=== PATIENT | female | born 1980 | race Caucasian/White ===

== ENCOUNTER 2020-08-09 14:27 | Outpatient (REF) | payer MEDICAID, SELFPAY ==
--- NOTE | 2020-08-09 14:37 | XR_ITS ---
EXAMINATION: XR CHEST CLINICAL INFORMATION: GET+ COMPARISON: Chest x-ray 05/13/2019 TECHNIQUE: 2 views of the chest were obtained. FINDINGS: Cardiac silhouette is normal in size. Lungs are well aerated. There is no lobar consolidation. No pleural effusion or pneumothorax. No acute osseous abnormality. XR/XR chest 2V IMPRESSION: Stable examination demonstrating no acute pulmonary pathology.
== END 2020-08-09 14:28 | disposition home or self-care (01) ==
LOC: HO.LAB 14:27
PROVIDERS: PCP Internal Medicine; Visit Provider Emergency Medicine
DX: R07.9 Chest pain, unspecified (principal); Z86.19 Personal history of other infectious and parasitic diseases
CPT/HCPCS: 71046

== ENCOUNTER → 2020-09-02 14:30 | Outpatient (BNVA) | payer MEDICAID, SELFPAY | PROVIDERS: PCP Internal Medicine; Visit Provider Internal Medicine | DX: R07.2 Precordial pain (principal); R06.02 Shortness of breath; Z86.19 Personal history of other infectious and parasitic diseases | CPT/HCPCS: 93005; 99202 ==

== ENCOUNTER → 2020-09-29 07:46 | Outpatient (REF) | payer MEDICAID, SELFPAY ==
--- NOTE | 2020-09-29 07:44 | CA_ITS ---
Acquisition Time: 2020-09-29 09:38:22 Total Exercise Time: 00:05:23 Test Indications: Chest Discomfort Medications: CITALOPRAM VIT D Protocol: ROLAND Max HR: 164 BPM 90% of Pred: 181 BPM Max BP: 142/080 mmHG Max Work Load: 7.0 METS Exercise stress test with exercise 5 min 23 sec of roland protocol, with mild left chest pressure at baseline which felt like strong fast heart beat with exercise then back to a mild pressure in recovery, without arrythmia during exercise, with sinus arrythmia noted in recovery, with normotensive response to exercise, without EKG changes meeting criteria for ischemia. In recovery she had intermittent coughing present. Lung sounds clear with no wheezes noted. Test reviewed with Dr Menendez. Referred By: Geoff Mccann Overread By: NAVI CHAKRABORTY
--- NOTE | 2020-09-29 07:44 | CA_ITS ---
Transthoracic Echocardiogram Patient (Last, First, Middle): Mykel Ferrer, Gender: Female Date of : 1980 Age: 39 Procedure Date: 09/29/2020 Procedure Type: Transthoracic Echocardiogram Location: OP Height: 160.02 cm Weight: 86.18 kg BSA: 1.89 m2 Heart Rate: bpm BP: 122 / 68 mmHg Industrial Engineering Director: Referring MD: Geoff Mccann MD Salvage Diver: Janes Menendez MD Symptoms: R07.2 - Precordial pain Study Quality: Good ECG Rhythm: Sinus Conclusions: - Essentially normal study Findings Left Ventricle Normal left ventricular size, thickness, and systolic function. The visually estimated ejection fraction is between 60-65%. Diastolic function is normal for age. Right Ventricle Normal right ventricular cavity size and systolic function. Atria Both atria are normal in size. There is no evidence of interatrial shunt. Aortic Valve The aortic valve structure and function is likely normal. There is no aortic valve stenosis. There is no aortic valve regurgitation. Mitral Valve Normal mitral valve structure and function. There is trace mitral valve regurgitation. There is no mitral valve stenosis. Pulmonic Valve The pulmonic valve is likely normal. Tricuspid Valve Likely normal tricuspid valve structure and function. There is trace tricuspid valve regurgitation. The right ventricular systolic pressure is normal. The right ventricular systolic pressure is 23 mmHg. Normal right atrial pressure. There is no evidence of pulmonary hypertension. Great Vessels All visible segments of the aorta are normal in size. The pulmonary artery was not well visualized. Venous The inferior vena cava is normal in size and collapses greater than 50% with inspiration. Pericardium/Pleural There is no evidence of pericardial effusion. Prior Study Comparison No prior study available for comparison. Measurements 2D Linear Measurements IVSd: 1.08 0.6-0.9/0.6-1.0 cm LVIDd: 4.03 3.9-5.3/4.2-5.9 cm LVIDd Index: 2.13 2.4-3.2/2.2-3.1 cm/m2 LVIDs: 2.77 2.0-3.6 cm LVPWd: 1.10 0.7-1.1 cm Ao Root: 3.00 2.1-3.5 cm LA Diam: 3.50 2.7-3.8/3.0-4.0 cm LAIDs Index: 1.85 1.5-2.3 cm/m2 LV Mass: 180.99 67-162/88-224 g LV Mass Index: 95.76 43-95/49-115 g/m2 LVOT Diam: 2.10 3.0+(-)1.3 cm 2D Systolic Function EF 4C: 63.90 >55% EF 2C: 64.30 >55% EF BiP: 63.40 >55% Mitral Valve MV Pk E: 0.88 MV PK A: 0.66 MV Decel Time: 194.00 E/A: 1.30 E'Lateral: 16.40 E'Medial: 11.60 E/E' Med: 7.60 E/E' Lat: 5.40 PHT: 57.00 MVA PHT: 3.86 Decel [place]: 4.53 Aortic Valve AoV Pk Isiah: 1.54 AoV Mn Isiah: 1.06 AoV VTI: 0.36 AoV Pk Grad: 9.00 Aov Mn Grad: 5.00 CALLUM Cont.VTI: 2.52 LVOT LVOT Pk Isiah: 1.09 LVOT Mn Isiah: 0.73 LVOT VTI: 0.27 LVOT Pk Grad: 5.00 LVOT Mn Grad: 2.00 LVOT Diam: 2.10 LVOT Area: 3.46 Diastolic Function MV Pk E: 0.88 MV Pk A: 0.66 E/A: 1.30 E'Medial: 11.60 E/E' Med: 7.60 E' Laterial: 16.40 E/E' Lat: 5.40 Tricuspid Valve TR Pk Isiah: 2.24 TR Pk Grad: 20.00 RA Press: 3.00 RVSP: 23.00 Great Vessels Aorta Ao Root-2D: 3.00 2.0-3.7 cm Ao Asc: 2.80 2.1-3.4 cm Pulmonary Valve PV Pk Isiah: 0.98 Peak PV Grad: 4.00 Updated in Other Vendor System with Status of Final Janes Menendez MD electronically signed on 09/29/2020 3:44:40 PM with status of Final
== END ==
LOC: HO.CARD 07:46
PROVIDERS: PCP Internal Medicine; Visit Provider Internal Medicine
DX: R07.2 Precordial pain (principal)
CPT/HCPCS: 93017; 93306

== ENCOUNTER → 2020-10-06 13:42 | Outpatient (BNVA) | payer MEDICAID, SELFPAY | PROVIDERS: PCP Internal Medicine; Visit Provider Nurse Practitioner Family | DX: R07.2 Precordial pain (principal); R06.02 Shortness of breath; R00.2 Palpitations; Z86.16 Personal history of COVID-19 | CPT/HCPCS: 99212 ==

== ENCOUNTER → 2020-10-28 08:22 | Outpatient (REF) | payer MEDICAID, SELFPAY ==
--- NOTE | 2020-10-28 15:44 | ECG_ITS ---
Hook-up date: 2020-10-28 09:52:00 Duration: 26:09:00 Test Indications: PALPITATIONS, SOB Medications: [id number] QRS complexes * Ventricular ectopics which represent % of total QRS comp. 1 Supraventricular ectopics which represent <1 % of total QRS comp. * Paced QRS complexs which represent % of total QRS comp. VENTRICULAR ECTOPY * Isolated * Bigeminal Cycles * Couplets * Runs * Beats in Runs * Beats LONGEST at * BPM at :: -- * Beats FASTEST at * BPM at :: -- SUPRAVENTRICULAR ECTOPY 1 Isolated 0 Couplets 0 Runs 0 Beats in Runs * Beats LONGEST at * BPM at :: -- * Beats FASTEST at * BPM at :: -- HEART RATES 55 MIN at 05:11:58 2020-10-29 90 AVG 162 MAX at 15:06:58 2020-10-28 LONGEST RR 1.1360 secs at 05:11:55 2020-10-29 S-T LEVELS Channel 1 - 128 mm at 09:52:00 2020-10-28 - 128 mm at 09:52:00 2020-10-28 Channel 2 - 128 mm at 09:52:00 2020-10-28 - 128 mm at 09:52:00 2020-10-28 Channel 3 - 128 mm at 02:91:11 -- - 128 mm at 02:91:11 Basic rhythm Normal sinus rhythm No long pause or profound bradycardia Frequent Sinus tachycardia No dangerous dysrhythm periods No diary submitted Referred By: Kathy Yates Overread By: DEVIKA CIFUENTES MD
== END ==
LOC: HO.CARD 08:22
PROVIDERS: PCP Internal Medicine; Visit Provider Nurse Practitioner Family
DX: R00.2 Palpitations (principal); R06.02 Shortness of breath
CPT/HCPCS: 93226

== ENCOUNTER → 2020-11-17 10:20 | Outpatient (BNVA) | payer MEDICAID, SELFPAY | PROVIDERS: PCP Internal Medicine; Visit Provider Nurse Practitioner Family ==

== ENCOUNTER 2020-11-22 07:40 | Emergency (ER) | payer MEDICAID, SELFPAY ==
--- NOTE | 2020-11-22 | ECG_ITS ---
Test Reason : BACK PAIN Blood Pressure : / mmHG Vent. Rate : 078 BPM Atrial Rate : 078 BPM P-R Int : 158 ms QRS Dur : 082 ms QT Int : 396 ms P-R-T Axes : 060 -05 064 degrees QTc Int : 451 ms Normal sinus rhythm Normal ECG When compared with ECG of 13-AUG-2019 07:57, No significant change was found Referred By: Generic ED Physician Electronically Signed By:CARMENCITA THAKKAR
[2020-11-22 08:07] VITALS: BP 133/89; PULSE 76; RESP 14; TEMP 36.7; O2SAT 99; BMI 37.2
--- NOTE | 2020-11-22 08:16 | ED.BACK ---
HPI - Back Pain/Injury General Chief Complaint: Back Pain/Injury Stated Complaint: shoulder and neck pain into shoulders Time Seen by Provider: 11/22/20 08:12 Source: patient Mode of arrival: ambulatory Limitations: no limitations History of Present Illness HPI Narrative: [age] year female walked into the emergency department with upper back/neck pain started while she was combing her hair and elevating her bilateral arms, patient describes the pain started in the upper back radiate and wraparound the chest, patient describes the pain as intermittent comes with moving upper extremities/panic or elevate her bilateral upper extremities. Pain is not exertional, no other associated symptoms in particular no shortness of breath, pain is better if she is not moving. Was recommended to the patient to have mammogram because of left-sided breast pain patient was encouraged to call back and try to schedule for mammogram. Related Data Home Medications Medication Instructions Recorded Confirmed cholecalciferol (vitamin D3) 50 50 mcg PO DAILY 09/02/20 11/17/20 mcg (2,000 unit) capsule citalopram 20 mg tablet 20 mg PO DAILY 09/02/20 11/17/20 Previous Rx's Medication Instructions Recorded cyclobenzaprine 10 mg PO BEDTIME PRN #10 tab 11/22/20 Allergies Allergy/AdvReac Type Severity Reaction Status Date / Time levofloxacin [From LEVAQUIN] Allergy Intermediate RASH Verified 09/02/20 14:39 codeine [Codeine] Allergy Unknown NAUSEA AND Verified 09/02/20 14:39 VOMITING, sensitivity ibuprofen Allergy Unknown sensitivity Verified 09/02/20 14:39 morphine [Morphine] Allergy Unknown HEADACHE, Verified 09/02/20 14:39 vomiting, sensitivity naproxen [From NAPROSYN] Allergy Unknown HIVES, Verified 09/02/20 14:39 DIFFICULTY BREATHING. Sulfa (Sulfonamide Allergy Unknown unknown Verified 09/02/20 14:39 Antibiotics) Review of Systems Review of Systems: All other systems are reviewed and are negative Constitutional: Reports as per HPI and Reports no additional constitutional complaints Eyes: Reports as per HPI and Reports no additional eye complaints Reports system reviewed and no additional complaints, except as documented Cardiovascular: Reports as per HPI and Reports no additional cardiovascular complaints Respiratory: Reports as per HPI and Reports no additional respiratory complaints Gastrointestinal: Reports as per HPI and Reports no additional gastrointestinal complaints Genitourinary: Reports no additional female genitourinary complaints Musculoskeletal: Reports no additional musculoskeletal complaints Skin/Breast: Reports system reviewed and no additional complaints, except as docu Psychiatric: Reports no additional psychiatric complaints Endocrine: Reports no additional endocrine complaints Hematologic/Lymphatic: Reports no additional hematologic/lymphatic complaints Allergic/Immunologic: Reports no additional allergic/immunologic complaints Reports system reviewed and no additional complaints, except as documented and Reports Abnormal speech present [facility] Past Medical History Medical History History of 2019 novel coronavirus disease (COVID-19) Palpitation Surgical History History of sinus surgery (~2020) Family History Family History Father History of heart artery stent History of heart attack Mother CVA (cerebral vascular accident) Social History Social History Alcohol intake: former Smoking Status: Light tobacco smoker Use of substances other than those prescribed or required for medical reasons: No Advance Directives: No Advance Directives Information Provided: No Physical Exam Vital Signs: Vital Signs: Last Vital Signs Temp 98.1 F 11/22/20 08:07 Pulse 76 11/22/20 08:07 Resp 14 11/22/20 08:07 BP 133/89 11/22/20 08:07 Pulse Ox 99 11/22/20 08:07 Body Mass Index 37.2 Vital signs have been reviewed as appeared to be correct. Blood pressure normal. Heart rate normal. Respiration rate normal. Temperature normal. Oxygen saturation normal. Appearance: Alert. Oriented X3. No acute distress. Head: Normal external exam. Normocephalic. Atraumatic. No Farris signs noted. No raccoon eyes noted Eyes: PERRLA. EOMI. Conjunctiva and sclera normal. Eyelids normal. ENT: TM's Normal. Pharynx normal. Uvula midline. Moist mucous membranes. No trismus noted. No drooling noted. No muffled voice noted. Neck: Normal inspection. Neck supple. FROM. No adenopathy. Thyroid Normal. No meningeal signs. No neck mass noted. CVS: Normal heart rate and rhythm. Heart sound normal. No murmurs noted. Pulses normal throughout. Respiratory: No respiratory distress. Painless inspiration. Breath sounds normal. No wheezes/rales/rhonchi noted. Chest nontender. No accessory muscle usage noted or decreased air movement noted. Abdomen: Soft and nontender. Bowel sounds normal in all 4 quadrants. No distention noted. No organomegaly noted. No visible injury noted. Back: No CVA tenderness. Full range of motion noted. Skin: Skin warm and dry. Normal skin color. Normal skin turgor. No rashes/lesions/lacerations noted. Extremities: No lower extremity edema. Extremities exhibit normal range of motion. Extremities nontender. Neuro: Oriented X 3. No motor deficit. No sensory deficit. Reflexes normal. Course Course Course Narrative: Assessment and plan. 40-year-old female came in with neck/upper back pain that radiates to the chest, started 3 days ago, patient has unremarkable EKG, unremarkable troponin, unremarkable D-dimer, patient has no clinical suspicion for cardiopulmonary etiology for her chest pain. Impression muscular pain of the back radiating to the chest. As discussed with the patient to call back to try to schedule for routine mammogram. Will discharge the patient with muscle relaxant and Tylenol p.r.n.. MDM - Back Pain/Injury Lab Data Attestation: I reviewed the patient's lab results. Labs: Lab Results 11/22/20 11/22/20 Range/Units 08:49 08:49 D-Dimer < 200 NG/ML Troponin I High Sens < 3.5 (<3.5-17.0) ng/L ECG Data Interpretation: Normal sinus rhythm at 78 beats per minutes, left axis deviation, normal intervals, no ST-T changes. Discharge Plan Discharge Clinical Impression: Sprain of thoracic region Patient Disposition: Home, Self-Care Instructions: Sprain (ED) Prescriptions: New cyclobenzaprine 10 mg tablet 10 mg PO BEDTIME PRN (Reason: muscle spasm) Qty: 10 RF: 0 No Action cholecalciferol (vitamin D3) 50 mcg (2,000 unit) capsule 50 mcg PO DAILY RF: 0 citalopram [Celexa] 20 mg tablet 20 mg PO DAILY RF: 0 Referrals: Tadeo Alvarado MD [Primary Care Provider] - 2 days
[2020-11-22] MEDS: diazePAM 2 MG TABLET PO (08:47)
[2020-11-22] MEDS: Acetaminophen 325 MG TABLET 650 MG PO (08:47)
[2020-11-22 09:12] LABS: D Dimer < 200 NG/ML
[2020-11-22 09:28] LABS: Troponin-I High Sensitivity < 3.5 ng/L (<3.5-17.0)
== END 2020-11-22 10:02 | disposition home or self-care (01) ==
PROVIDERS: Emergency Provider Emergency Medicine; PCP Internal Medicine
DX: S23.3XXA Sprain of ligaments of thoracic spine, initial encounter (principal); X50.1XXA Overexertion from prolonged static or awkward postures, initial encounter; F17.210 Nicotine dependence, cigarettes, uncomplicated; Y93.E8 Activity, other personal hygiene; Y92.012 Bathroom of single-family (private) house as the place of occurrence of the external cause; Y99.9 Unspecified external cause status; Z86.16 Personal history of COVID-19
CPT/HCPCS: 36415; 84484; 85379; 93005; 99283; 99284

== ENCOUNTER 2020-12-14 13:33 | Outpatient (REF) | payer MEDICAID, SELFPAY ==
--- NOTE | ~2020-12-14 | MM_ITS ---
Bilateral EXAMINATION: MM DIAGNOSTIC DIGITAL BREAST TOMOSYNTHESIS, BILATERAL US DIAGNOSTIC ULTRASOUND BREAST, BILATERAL CLINICAL INFORMATION: 40-year-old with left breast pain and tenderness 2-3 months. No known family history breast cancer. The lifetime risk of breast cancer based on the Tyrer-Cuzick Model is 8%. COMPARISON: Mammography: 05/14/2014 TECHNIQUE: Digital breast tomosynthesis is performed in both the craniocaudal and mediolateral oblique views along with computer-aided detection (CAD). Synthesized 2D images are generated from the tomosynthesis. Additional left MLO view is provided. Ultrasound left breast is targeted to the area of clinical concern upper outer quadrant. Ultrasound right breast is also performed for retroareolar duct ectasia noted on today's mammography. Bilateral ultrasound performed using grayscale imaging and color Doppler without and with harmonics. FINDINGS: There are scattered areas of fibroglandular density (ACR BI-RADS breast composition Category b). There is no significant mass or architectural abnormality. No abnormal calcifications. The breasts show no skin thickening or coarsening of the Ousmane's ligaments. There is right retroareolar duct ectasia, not appreciated on prior exam 2013. Ultrasound left breast shows no cystic or solid mass, architectural abnormality, or focal duct ectasia. There is no skin thickening or edema tracking in the soft tissue planes. Ultrasound right breast demonstrates some benign retroareolar duct ectasia measuring up to 5 mm in diameter. No intraductal echogenicity, mass, or color flow. Additional unrelated finding on right ultrasound is an oval complicated cyst 8:00 position 6 to 7 cm from nipple measuring 1.2 x 0.5 cm. There are branching internal septations which show color flow on Doppler. Ultrasound guided core sampling is recommended to exclude intracystic papilloma. Results are discussed with the patient at time of visit. Results and recommendation called to medical technologist clinical ([place]) for Dr. Fernando on 12/15/2020. MM/MM tomosynthesis diagnostic BI IMPRESSION: 1. No mammographic evidence of malignancy or inflammatory changes. 2. Right breast complicated cyst with vascularized internal septations. ASSESSMENT: BI-RADS 4: Suspicious (subcategory 4A: Low suspicion for malignancy) RECOMMENDATION: 1. Ultrasound-guided core biopsy complicated cyst right breast. 2. Patient's mastodynia should be managed based on the clinical impression. This patient's information was entered into a reminder system with a target due date for their next mammogram.
== END 2020-12-14 13:34 | disposition home or self-care (01) ==
LOC: HO.MAMMO 13:33
PROVIDERS: PCP Internal Medicine; Visit Provider Family Medicine
DX: N64.4 Mastodynia (principal)
CPT/HCPCS: 76642; 77062; 77066

== ENCOUNTER 2020-12-29 09:13 | Outpatient (REF) | payer MEDICAID, SELFPAY ==
--- NOTE | ~2020-12-29 | US_ITS ---
PROCEDURE: US GUIDED BREAST BIOPSY, RIGHT CLINICAL INFORMATION: Indeterminate complex cyst with internal vascularity COMPARISON: December 14, 2020 and studies dating back to May 14, 2014 PROCEDURAL DETAILS: The details of the procedure, as well as the risks, benefits, and alternatives to the procedure were explained to the patient in detail and all of her questions were answered, after which written informed consent was obtained. Site and side were confirmed. Prior to the procedure, sonography revealed a complex cyst with septations and vascular calcification within the septations.. A time-out was performed, the lesion intended for biopsy was targeted, and the skin of the breast was then prepped and draped in the usual sterile fashion. Using sonographic guidance, sterile technique, and 1% lidocaine without epinephrine for local anesthesia, multiple automated core biopsies were obtained through the targeted area with a 14G spring loaded Achieve core biopsy device. There was real-time confirmation of appropriate needle passage. Sampling was documented. At the completion of tissue sampling, a single butterfly-shaped metallic clip was deposited at the biopsy site. There was no evidence of immediate complication. SPECIMEN: An appropriate sample was obtained. DIGITAL POST-PROCEDURE MAMMOGRAPHY: Breast density: The tissue contains scattered areas of fibroglandular density. BI-RADS version 5, category B. There are no new mammographic findings demonstrated. The postprocedure 2-view direct digital mammogram reveals satisfactory positioning of the biopsy clip. The patient tolerated the procedure well and, after assuring adequate hemostasis, was discharged in good condition after reviewing postbiopsy breast care instructions. Final pathology results are pending. US/US breast ndl core biopsy RT IMPRESSION: 1. No immediate complication from ultrasound-guided percutaneous biopsy right breast. 2. Ultrasound was used to localize and guide marker clip placement. 3. The 2-view direct digital postprocedure mammogram reveals satisfactory positioning of the biopsy clip. 4. Final pathology results are pending. A separate report with final recommendations will be issued once these results are made available.
--- NOTE | ~2020-12-29 | MM_ITS ---
EXAMINATION: MM DIAGNOSTIC DIGITAL MAMMOGRAPHY, DIGITAL POST-PROCEDURE MAMMOGRAPHY: Breast density: The tissue contains scattered areas of fibroglandular density. BI-RADS version 5, category B. There are no new mammographic findings demonstrated. The postprocedure 2-view direct digital mammogram reveals satisfactory positioning of the biopsy clip. The patient tolerated the procedure well and, after assuring adequate hemostasis, was discharged in good condition after reviewing postbiopsy breast care instructions. Final pathology results are pending. MM/MM diagnostic mammo unilat RT IMPRESSION: 1. No immediate complication from ultrasound-guided percutaneous biopsy right breast. 2. Ultrasound was used to localize and guide marker clip placement. 3. The 2-view direct digital postprocedure mammogram reveals satisfactory positioning of the biopsy clip. 4. Final pathology results are pending. A separate report with final recommendations will be issued once these results are made available.
== END 2020-12-29 09:14 | disposition home or self-care (01) ==
LOC: HO.MAMMO 09:13
PROVIDERS: Visit Provider Surgery
DX: N63.13 Unspecified lump in the right breast, lower outer quadrant (principal); N64.4 Mastodynia; E66.01 Morbid (severe) obesity due to excess calories
CPT/HCPCS: 19083; 77065; 88305; 99202

== ENCOUNTER → 2021-01-05 11:15 | Outpatient (BNVA) | payer MEDICAID, SELFPAY | PROVIDERS: PCP Internal Medicine; Referring Provider Internal Medicine; Visit Provider Surgery | DX: N63.0 Unspecified lump in unspecified breast (principal) | CPT/HCPCS: 99212 ==

== ENCOUNTER 2021-02-07 00:01 | Emergency (ER) | payer MEDICAID, SELFPAY ==
[2021-02-07 00:07] VITALS: BP 112/70; BP 115/76; PULSE 104; PULSE 110; RESP 18; TEMP 36.7; O2SAT 96; BMI 39.3
--- NOTE | 2021-02-07 01:00 | PC.NURSE ---
Patient transferred from ED to POD Bed 6. Pt transferred via stretcher due to refusing to ambulate. Pt was occasionally thrashing and screaming while in stretcher. Security at bedside, assisted with transferring patient from stretcher to bed in [facility]. Pt was changed over prior to transfer to POD, and is in hospital attire that was searched and secured in Pod locker #6. Offered beverages, food, and medications to help patient maintain behavioral control. After transfer to new bed, pt was immediately calm without any additional intervention. Pt stopped screaming, thrashing, and is now calm/cooperative. Pt ambulated with steady gait and provided urine specimen, which was sent to lab for analysis (awaiting results). Pt medicated with Zofran 4mg sublingual for nausea without issue. Pt now resting comfortably on side, falling asleep. Will continue to monitor.
--- NOTE | 2021-02-07 01:02 | ED.PSYCH ---
HPI - Psych General Chief Complaint: Psychiatric Symptoms Stated Complaint: ETOH W/VOMITING Time Seen by Provider: 02/07/21 00:43 Source: patient and EMS Mode of arrival: EMS History of Present Illness HPI Narrative: This is a 40-year-old female who is brought in by EMS and reported to have been intoxicated and on questioning the patient she states that she ?feels like she is going crazy? and endorses that she is hearing voices and states that she is having thoughts of suicide and her plan would be to overdose on her current prescription medications such as Seroquel. She denies ever having been hospitalized for psychiatric conditions before and states that she engaged in superficial cutting approximately 2 weeks ago and was not seen and states that it has since healed. Related Data Home Medications Medication Instructions Recorded Confirmed lamotrigine 100 mg tablet 100 mg PO DAILY 12/29/20 02/07/21 cholecalciferol (vitamin D3) 1 cap PO DAILY 02/07/21 02/07/21 [Vitamin D3] citalopram 1 tab PO DAILY 02/07/21 02/07/21 prazosin 1 cap PO BEDTIME 02/07/21 02/07/21 quetiapine [Seroquel] 1 tab PO BEDTIME 02/07/21 02/07/21 Previous Rx's Medication Instructions Recorded cyclobenzaprine 10 mg PO BEDTIME PRN #10 tab 11/22/20 Allergies Allergy/AdvReac Type Severity Reaction Status Date / Time levofloxacin [From LEVAQUIN] Allergy Intermediate RASH Verified 02/07/21 03:27 codeine [Codeine] Allergy Unknown NAUSEA AND Verified 02/07/21 03:27 VOMITING, sensitivity ibuprofen Allergy Unknown sensitivity Verified 02/07/21 03:27 morphine [Morphine] Allergy Unknown HEADACHE, Verified 02/07/21 03:27 vomiting, sensitivity naproxen [From NAPROSYN] Allergy Unknown HIVES, Verified 02/07/21 03:27 DIFFICULTY BREATHING. Sulfa (Sulfonamide Allergy Unknown unknown Verified 02/07/21 03:27 Antibiotics) Review of Systems Review of Systems: Pertinent positives and negatives as stated in HPI 10 point review of systems is otherwise negative. PMFSH Past Medical History Source: nursing notes reviewed Medical History Bipolar disorder Breast mass History of 2019 novel coronavirus disease (COVID-19) Morbid obesity Palpitation Surgical History History of sinus surgery (~2020) Family History Family History Father History of heart artery stent History of heart attack Mother CVA (cerebral vascular accident) Paternal Grandmother Bone cancer Paternal Uncle Cancer of unknown origin Social History Social History Alcohol intake: current Alcohol intake frequency: a few times a week Patient Tobacco Use Status: Never used Tobacco Use of substances other than those prescribed or required for medical reasons: Yes Substance Use Type: Marijuana Advance Directives: No Advance Directives Information Provided: Yes Patient : No Physical Exam Vital Signs: Vital Signs: Last Vital Signs Temp 98.1 F 02/07/21 00:07 Pulse 110 H 02/07/21 00:07 Resp 18 02/07/21 00:07 BP 115/76 02/07/21 00:07 Pulse Ox 96 02/07/21 00:07 Body Mass Index 39.3 VITAL SIGNS: Reviewed. GENERAL: Well developed, well nourished, in no acute distress. HEAD: Normocephalic/atraumatic EYES: PERRLA, EOMI OROPHARYNX: no oral lesions noted, posterior pharynx clear NECK: Supple, no adenopathy LUNGS: Normal breath sounds. No adventitious sounds or accessory muscle use. SpO2<96> CARDIOVASCULAR: Regular rate and rhythm without noted murmurs ABDOMEN: Obese, Soft, non-tender, non-distended with bowel sounds. NEUROLOGIC: Alert and oriented x 4. Course Course Course Narrative: This is a 40-year-old female with history and clinical presentation consistent with substance use, AVH, depression and SI. Review of all investigations without acute findings other than evidence of cocaine and marijuana use. Patient is otherwise medically stable for further evaluation by the behavioral team. Reevaluation(s) Reevaluation #1: Patient placed in physician observation because the patient needed more time for BHN. At the time observation was started the patient's vital signs were stable, patient is alert and oriented but slightly agitated, neuro: Nonfocal, CV RRR, lungs clear Time: 01:45 MDM - Psych Lab Data Result diagrams: 02/07/21 02:30 02/07/21 02:30 Labs: Lab Results 02/07/21 02/07/21 02/07/21 Range/Units 01:04 01:04 01:04 WBC (4.8-10.8) X10*3/uL RBC (4.20-5.50) X10*6/uL Hgb (12.0-16.0) g/dl Hct (37-47) % MCV (80-98) fL MCH (27.0-33.0) pg MCHC (31.0-35.0) g/dl RDW (11.0-16.0) % Plt Count (160-400) X10*3/uL MPV (9.4-12.3) fL Immature Gran % (Auto) (0.0-0.4) % Neut % (Auto) (45-73) % Lymph % (Auto) (20-40) % [place] % (Auto) (2-11) % Eos % (Auto) (0-4) % Baso % (Auto) (0-2) % Lymph # (Auto) (1.2-4.9) X10*3/uL [place] # (Auto) (0.1-1.2) X10*3/uL Eos # (Auto) (0.0-0.4) X10*3/uL Baso # (Auto) (0.0-0.2) X10*3/uL Abs Immat Gran (auto) (0.00-0.03) X10*3/uL Absolute Neuts (auto) (2.0-8.3) X10*3/uL Absolute Nucleated RBC (0.0-0.012) X10*3/uL Nucleated RBC % (auto) (0.0-0.2) /100WBC Sodium (135-145) mmol/L Potassium (3.3-5.1) mmol/L Chloride (96-108) mmol/L Carbon Dioxide (22-29) mmol/L Anion Gap (12-20) BUN (9-16) mg/dL Creatinine (0.5-1.4) mg/dL Estim Creat Clear Calc Estimated GFR Random Glucose (60-115) mg/dL Calcium (8.4-10.2) mg/dL Total Bilirubin (0.0-1.0) mg/dL AST (5-31) U/L ALT (0-31) U/L Alkaline Phosphatase (39-117) U/L Total Protein (6.5-8.0) g/dL Albumin (3.5-5.0) g/dL Urine Color STRAW Urine Appearance CLEAR Urine pH 5.5 (5.0-8.0) Ur Specific [place] 1.020 (1.005-1.025) Urine Protein NEG (NEG-TRACE) MG/DL Urine Glucose (UA) NEG (NEG) MG/DL Urine Ketones NEG (NEG) MG/DL Urine Blood TRACE (NEG) Urine Nitrite NEG (NEG) Ur Leukocyte Esterase NEG (NEG) Urine RBC 0 (0) /HPF Urine WBC 0-2 (0-4) /HPF Ur Squamous Epith Cells 1+ /LPF Urine Bacteria NONE /LPF Urine Test NEGATIVE (NEGATIVE) Urine Opiates Screen Not Detected (Not Detect) Ur Barbiturates Screen Not Detected (Not Detect) Ur Phencyclidine Scrn Not Detected (Not Detect) Ur Amphetamines Screen Not Detected (Not Detect) U Benzodiazepines Scrn Not Detected (Not Detect) Urine Cocaine Screen POSITIVE H (Not Detect) U Marijuana (THC) Screen POSITIVE H (Not Detect) Ethyl Alcohol mg/dL COVID-19 (MARJAN) (Negative) COVID-19 Clin Com 02/07/21 02/07/21 02/07/21 Range/Units 02:30 02:30 02:30 WBC 8.0 (4.8-10.8) X10*3/uL RBC 4.38 (4.20-5.50) X10*6/uL Hgb 12.5 (12.0-16.0) g/dl Hct 38.3 (37-47) % MCV 87.4 (80-98) fL MCH 28.5 (27.0-33.0) pg MCHC 32.6 (31.0-35.0) g/dl RDW 13.1 (11.0-16.0) % Plt Count 308 (160-400) X10*3/uL MPV 8.8 L (9.4-12.3) fL Immature Gran % (Auto) 0.4 (0.0-0.4) % Neut % (Auto) 61.8 (45-73) % Lymph % (Auto) 31.1 (20-40) % [place] % (Auto) 5.3 (2-11) % Eos % (Auto) 1.0 (0-4) % Baso % (Auto) 0.4 (0-2) % Lymph # (Auto) 2.5 (1.2-4.9) X10*3/uL [place] # (Auto) 0.4 (0.1-1.2) X10*3/uL Eos # (Auto) 0.1 (0.0-0.4) X10*3/uL Baso # (Auto) 0.0 (0.0-0.2) X10*3/uL Abs Immat Gran (auto) 0.03 (0.00-0.03) X10*3/uL Absolute Neuts (auto) 5.0 (2.0-8.3) X10*3/uL Absolute Nucleated RBC 0.000 (0.0-0.012) X10*3/uL Nucleated RBC % (auto) 0.0 (0.0-0.2) /100WBC Sodium 144 (135-145) mmol/L Potassium 4.1 (3.3-5.1) mmol/L Chloride 109 H (96-108) mmol/L Carbon Dioxide 23 (22-29) mmol/L Anion Gap 16 (12-20) BUN 10 (9-16) mg/dL Creatinine 0.73 (0.5-1.4) mg/dL Estim Creat Clear Calc 111.7 Estimated GFR > 60 Random Glucose 102 (60-115) mg/dL Calcium 9.6 (8.4-10.2) mg/dL Total Bilirubin 0.4 (0.0-1.0) mg/dL AST 13 (5-31) U/L ALT 16 (0-31) U/L Alkaline Phosphatase 90 (39-117) U/L Total Protein 6.7 (6.5-8.0) g/dL Albumin 4.5 (3.5-5.0) g/dL Urine Color Urine Appearance Urine pH (5.0-8.0) Ur Specific [place] (1.005-1.025) Urine Protein (NEG-TRACE) MG/DL Urine Glucose (UA) (NEG) MG/DL Urine Ketones (NEG) MG/DL Urine Blood (NEG) Urine Nitrite (NEG) Ur Leukocyte Esterase (NEG) Urine RBC (0) /HPF Urine WBC (0-4) /HPF Ur Squamous Epith Cells /LPF Urine Bacteria /LPF Urine Test (NEGATIVE) Urine Opiates Screen (Not Detect) Ur Barbiturates Screen (Not Detect) Ur Phencyclidine Scrn (Not Detect) Ur Amphetamines Screen (Not Detect) U Benzodiazepines Scrn (Not Detect) Urine Cocaine Screen (Not Detect) U Marijuana (THC) Screen (Not Detect) Ethyl Alcohol 87 mg/dL COVID-19 (MARJAN) (Negative) COVID-19 Clin Com 02/07/21 Range/Units 02:30 WBC (4.8-10.8) X10*3/uL RBC (4.20-5.50) X10*6/uL Hgb (12.0-16.0) g/dl Hct (37-47) % MCV (80-98) fL MCH (27.0-33.0) pg MCHC (31.0-35.0) g/dl RDW (11.0-16.0) % Plt Count (160-400) X10*3/uL MPV (9.4-12.3) fL Immature Gran % (Auto) (0.0-0.4) % Neut % (Auto) (45-73) % Lymph % (Auto) (20-40) % [place] % (Auto) (2-11) % Eos % (Auto) (0-4) % Baso % (Auto) (0-2) % Lymph # (Auto) (1.2-4.9) X10*3/uL [place] # (Auto) (0.1-1.2) X10*3/uL Eos # (Auto) (0.0-0.4) X10*3/uL Baso # (Auto) (0.0-0.2) X10*3/uL Abs Immat Gran (auto) (0.00-0.03) X10*3/uL Absolute Neuts (auto) (2.0-8.3) X10*3/uL Absolute Nucleated RBC (0.0-0.012) X10*3/uL Nucleated RBC % (auto) (0.0-0.2) /100WBC Sodium (135-145) mmol/L Potassium (3.3-5.1) mmol/L Chloride (96-108) mmol/L Carbon Dioxide (22-29) mmol/L Anion Gap (12-20) BUN (9-16) mg/dL Creatinine (0.5-1.4) mg/dL Estim Creat Clear Calc Estimated GFR Random Glucose (60-115) mg/dL Calcium (8.4-10.2) mg/dL Total Bilirubin (0.0-1.0) mg/dL AST (5-31) U/L ALT (0-31) U/L Alkaline Phosphatase (39-117) U/L Total Protein (6.5-8.0) g/dL Albumin (3.5-5.0) g/dL Urine Color Urine Appearance Urine pH (5.0-8.0) Ur Specific [place] (1.005-1.025) Urine Protein (NEG-TRACE) MG/DL Urine Glucose (UA) (NEG) MG/DL Urine Ketones (NEG) MG/DL Urine Blood (NEG) Urine Nitrite (NEG) Ur Leukocyte Esterase (NEG) Urine RBC (0) /HPF Urine WBC (0-4) /HPF Ur Squamous Epith Cells /LPF Urine Bacteria /LPF Urine Test (NEGATIVE) Urine Opiates Screen (Not Detect) Ur Barbiturates Screen (Not Detect) Ur Phencyclidine Scrn (Not Detect) Ur Amphetamines Screen (Not Detect) U Benzodiazepines Scrn (Not Detect) Urine Cocaine Screen (Not Detect) U Marijuana (THC) Screen (Not Detect) Ethyl Alcohol mg/dL COVID-19 (MARJAN) Negative (Negative) COVID-19 Clin Com See Note Discharge Plan Discharge Prescriptions: No Action cyclobenzaprine 10 mg tablet 10 mg PO BEDTIME PRN (Reason: muscle spasm) Qty: 10 RF: 0 citalopram 40 mg tablet 1 tab PO DAILY RF: 0 prazosin 1 mg capsule 1 cap PO BEDTIME RF: 0 quetiapine [Seroquel] 100 mg tablet 1 tab PO BEDTIME RF: 0 cholecalciferol (vitamin D3) [Vitamin D3] 25 mcg (1,000 unit) capsule 1 cap PO DAILY RF: 0 lamotrigine 100 mg tablet 100 mg PO DAILY RF: 0
[2021-02-07 01:15] LABS: Appearance Urine CLEAR; Color Urine STRAW; Glucose Urine UA NEG (NEG); Leukocyte Esterase Urine NEG (NEG); Nitrite Urine NEG (NEG); PH 5.5 (5.0-8.0); Urine Blood TRACE (NEG); Urine Ketones NEG (NEG); Urine Protein NEG (NEG-TRACE)
[2021-02-07 01:21] LABS: RBC Urine 0 /HPF (0); Squamous Epithelial Cell Urine 1+ /LPF; WBC Urine 0-2 /HPF (0-4)
[2021-02-07 01:24] LABS: Amphetamine Screen Urine Not Detected (Not Detect); Barbiturates, Urine Not Detected (Not Detect); Benzodiazepines Screen Urine Not Detected (Not Detect); Cannabinoid Screen Urine POSITIVE (Not Detect); Cocaine Screen Urine POSITIVE (Not Detect); Opiate Screen Urine Not Detected (Not Detect); Phencyclidine Screen Urine Not Detected (Not Detect)
[2021-02-07 02:39] LABS: Basophils Percent Auto 0.4 % (0-2); Eosinophils Absolute Auto 0.1 X10*3/uL (0.0-0.4); Hematocrit 38.3 % (37-47); Hemoglobin 12.5 g/dl (12.0-16.0); Imm Gran Abs Auto 0.03 X10*3/uL (0.00-0.03); Imm Gran Pct Auto 0.4 % (0.0-0.4); Lymphocytes Absolute Auto 2.5 X10*3/uL (1.2-4.9); Lymphocytes Percent Auto 31.1 % (20-40); MANUAL DIFF FLAG NO; Mean Corpuscular HGB Conc 32.6 g/dl (31.0-35.0); Mean Corpuscular Hemoglobin 28.5 pg (27.0-33.0); Mean Corpuscular Volume 87.4 fL (80-98); Mean Platelet Volume 8.8 fL (9.4-12.3); Monocytes Absolute Auto 0.4 X10*3/uL (0.1-1.2); Monocytes Percent Auto 5.3 % (2-11); Neutrophils Percent Auto 61.8 % (45-73); Platelet Count 308 X10*3/uL (160-400); Red Blood Count 4.38 X10*6/uL (4.20-5.50); Red Cell Distribution Width 13.1 % (11.0-16.0)
[2021-02-07 02:53] LABS: COVID-19 Test Negative (Negative); IDNOW Serial# 9DD0AD1C
[2021-02-07 02:56] LABS: Ethanol 87 mg/dL
[2021-02-07 03:05] LABS: Alanine Aminotransferase 16 U/L (0-31); Albumin Level 4.5 g/dL (3.5-5.0); Alkaline Phosphatase 90 U/L (39-117); Anion Gap 16 (12-20); Aspartate Amino Transferase 13 U/L (5-31); Bilirubin Total 0.4 mg/dL (0.0-1.0); Blood Urea Nitrogen 10 mg/dL (9-16); Calcium 9.6 mg/dL (8.4-10.2); Carbon Dioxide 23 mmol/L (22-29); Chloride 109 mmol/L (96-108); Creatinine Clr Calc Pharmacy 111.7; Estimated Glomerular Filt Rate > 60; Glucose Random 102 mg/dL (60-115); Potassium 4.1 mmol/L (3.3-5.1); Sodium 144 mmol/L (135-145); Total Protein 6.7 g/dL (6.5-8.0)
[2021-02-07 03:33] LABS: UPreg QC Valid YES
[2021-02-07 03:36] LABS: Urine Pregnancy NEGATIVE (NEGATIVE)
[2021-02-07] MEDS: Acetaminophen 325 MG TABLET 650 MG PO (04:49)
--- NOTE | 2021-02-07 07:30 | PC.NURSE ---
report taken from aayush garcia pt given breakfast tray, ambulating w smooth steady gait to restroom. auroratm.
[2021-02-07] MEDS: lamoTRIgine 100 MG TABLET PO (08:54)
[2021-02-07] MEDS: Escitalopram Oxalate 20 MG TABLET PO (08:54)
[2021-02-07] MEDS: Cholecalciferol (Vitamin D3) 25 MCG TABLET PO (08:54)
--- NOTE | 2021-02-07 09:21 | PC.NURSE ---
pt appears to be medically cleared, pt report faxed to [facility] for crisis referral.
--- NOTE | 2021-02-07 10:43 | PC.NURSE ---
pt asking about appt she may have had w joe in [place], given permission to ask bhn about appt. given number for office where appt is scheduled by n, number given to pt to call and advocate for herself. educated by this rn about bhn and crisis eval process, pt agreeable and cooperative.
[2021-02-07 10:52] VITALS: BP 109/79; PULSE 88; RESP 16; TEMP 36.6; O2SAT 98
--- NOTE | 2021-02-07 11:31 | MHC.CARE ---
1030: Pt reports increasing depression and anxiety related to her present living conditions. Pt stated that she has multiple family members currently residing in her home, which limits her ability for ?alone? time, which she uses to process her thoughts. Pt stated that she will often take her 2 children and go to her boyfriend?s house to some alone time but at times her boyfriend, and now his sister are there and they are intolerant at times with her and her children. This has been anxiety provoking. Pt reports auditory hallucinations, and reports them being circumstantial, occurring when she is angry or overwhelmed and being magnified by substance use. Pt is not presently experiencing any hallucinations. Pt reports consuming alcohol, liquor and beer, yesterday evening in quantities sufficient enough to produce intoxication. At some point in time, someone called an ambulance for her which resulted in her being here. Pt stated that she had suicidal ideations, and attributes these to her consumption of alcohol and cocaine. By pt report, she has a history of SI with no prior attempts, stating that these thoughts come and go. Pt reports no SI at present and was able to contract for safety. Pt stated that she had Covid in July and has not felt the same physically or mentally since. Pt believes Covid may have magnified her mental health symptoms. Pt has a therapist and prescriber that she sees regularly. Pt reports being compliant with medication as prescribed. Pt reports no thoughts of harm to self or others at present. The plan is for the pt to be discharged after meeting with the Recovery team to explore resources to assist her with her substance use. Pt?s nurse RN José Manuel Castillo and PILAR Bond have been consulted and are in agreement with the plan.
--- NOTE | 2021-02-07 11:42 | MHC.RECOVSUP ---
Recovery Support note: Patient is a 40 year old Qatari speaking female who presented to [facility] due to SI while intoxicated. CARE Team evaluated patient and cleared patient for discharge. This ad copy writer met with patient to discuss her substance use and recovery supports. Patient reports she alcohol and cocaine use. Patient reports she typically only drinks 1-2 beers a couple times a week and that she rarely drinks liquor. Patient reports she was at a [employer] yesterday and drank liquor while she was there. Patient reports this was a rare occasion and that her alcohol use and under control and not problematic. Patient reports using cocaine several days a week and she is interested in stopping entirely. Patient report she has been moderately successful in reducing her consumption. Patient reports she is supported by friends and her father, and an outpatient therapist. Discussed recovery centers and recovery coaching with patient. Patient expressed interest and met with Respiratory Scientist, Rashad. Patient has been referred to recovery coaching and a project manager/team coach will contact her later on this week. Discussed case with CARE Team.
--- NOTE | 2021-02-07 12:00 | PC.NURSE ---
pt evaluated by care team and seen by recovery coaches, plan for discharge home att. wctm.
--- NOTE | 2021-02-07 12:14 | MHC.RECOVSUP ---
? Reason for consult:Continuity of care o Current location: [facility] o Identified substance use concern: Cocaine/ETOH - Support ? Intervention: o MAT started or to be started o Community resources provided o Harm reduction discussion ? Plan: o Referral to CC o Patient to follow up with HF after discharge ? Additional information: Patient referred to the CCC, pt.about to be discharged. Had a conversation about harm reduction, pt.going to f/u with [facility].
== END 2021-02-07 12:29 | disposition home or self-care (01) ==
PROVIDERS: Emergency Provider Student in an Organized Health Care Education/Training Program
DX: F33.1 Major depressive disorder, recurrent, moderate (principal); R45.851 Suicidal ideations; F10.10 Alcohol abuse, uncomplicated; Y90.9 Presence of alcohol in blood, level not specified; F14.10 Cocaine abuse, uncomplicated; F12.10 Cannabis abuse, uncomplicated; Z20.822 Contact with and (suspected) exposure to COVID-19; Z79.899 Other long term (current) drug therapy
CPT/HCPCS: 36415; 80053; 80307; 81001; 81025; 82077; 85025; 87635; 99285

== ENCOUNTER 2021-02-12 11:46 | Emergency (ER) | payer MEDICAID, SELFPAY ==
--- NOTE | ~2021-02-12 | XR_ITS ---
EXAMINATION: XR KNEE, LEFT CLINICAL INFORMATION: Left knee pain COMPARISON: None TECHNIQUE: Four views of the left knee. FINDINGS: Bones and soft tissues are normal. No fracture or joint effusion. Alignment is anatomic. Joint spaces are well maintained. No abnormal soft tissue calcification. XR/XR knee LT 4V IMPRESSION: Normal left knee.
[2021-02-12 12:27] VITALS: BP 118/80; PULSE 93; RESP 16; TEMP 37.1; O2SAT 96; BMI 38.0
--- NOTE | 2021-02-12 13:40 | ED.LOWEXIN ---
HPI - Extremity Injury (Lower) General Chief Complaint: Extremity Injury, Lower Stated Complaint: L KNEE PAIN Time Seen by Provider: 02/12/21 13:40 Source: patient Mode of arrival: ambulatory Limitations: no limitations History of Present Illness HPI Narrative: Patient is a 40-year-old female no significant past medical history who presents with 2 days of left knee pain. She cannot recall specific injury but said when she was walking a few days ago she might have heard a click. She is able to ambulate on it and has it wrapped with an Jose De Jesus bandage currently. She denies any fevers or rash in the area. Related Data Home Medications Medication Instructions Recorded Confirmed lamotrigine 100 mg tablet 100 mg PO DAILY 12/29/20 02/07/21 cholecalciferol (vitamin D3) 1 cap PO DAILY 02/07/21 02/07/21 [Vitamin D3] citalopram 1 tab PO DAILY 02/07/21 02/07/21 prazosin 1 cap PO BEDTIME 02/07/21 02/07/21 quetiapine [Seroquel] 1 tab PO BEDTIME 02/07/21 02/07/21 Previous Rx's Medication Instructions Recorded cyclobenzaprine 10 mg PO BEDTIME PRN #10 tab 11/22/20 Allergies Allergy/AdvReac Type Severity Reaction Status Date / Time levofloxacin [From LEVAQUIN] Allergy Intermediate RASH Verified 02/07/21 03:27 codeine [Codeine] Allergy Unknown NAUSEA AND Verified 02/07/21 03:27 VOMITING, sensitivity ibuprofen Allergy Unknown sensitivity Verified 02/07/21 03:27 morphine [Morphine] Allergy Unknown HEADACHE, Verified 02/07/21 03:27 vomiting, sensitivity naproxen [From NAPROSYN] Allergy Unknown HIVES, Verified 02/07/21 03:27 DIFFICULTY BREATHING. Sulfa (Sulfonamide Allergy Unknown unknown Verified 02/07/21 03:27 Antibiotics) Review of Systems Review of Systems: Yes all other systems are reviewed and are negative PMFSH Past Medical History Medical History Bipolar disorder Breast mass History of 2019 novel coronavirus disease (COVID-19) Morbid obesity Palpitation Surgical History History of sinus surgery (~2019) Family History Family History Father History of heart artery stent History of heart attack Mother CVA (cerebral vascular accident) Paternal Grandmother Bone cancer Paternal Uncle Cancer of unknown origin Social History Social History Alcohol intake: current Alcohol intake frequency: a few times a week Patient Tobacco Use Status: Never used Tobacco Substance Use Type: Marijuana Advance Directives: No Advance Directives Information Provided: No Patient : No Physical Exam Vital Signs: Vital Signs: Last Vital Signs Temp 98.7 F 02/12/21 12:27 Pulse 93 02/12/21 12:27 Resp 16 02/12/21 12:27 BP 118/80 02/12/21 12:27 Pulse Ox 96 02/12/21 12:27 Body Mass Index 38.0 Const: General: cooperative, healthy appearing, comfortable, no acute distress and well developed Orientation/consciousness: patient oriented x3 Limitations: no limitations HENMT: Head: Yes normal to inspection Eyes: General: appearance normal, both eyes and all related structures Neck: Neck: Yes normal visual inspection and Yes full ROM Resp: Effort & Inspection: normal respiratory effort and able to speak in complete sentences Skin: General skin exam: no rashes or lesions noted Neuro: General: patient oriented x3 Extrem: General: Yes normal to inspection Left lower extremity: knee Details: tenderness Location: of the lateral joint line and of the infrapatellar area, swelling (slight), normal ROM and knee ligament exam normal; no abrasions, no lacerations, no ecchymosis, no deformity and no unusual warmth MDM - Extremity Injury (Lower) Imaging Data left knee: Attestation: I personally reviewed and interpreted this imaging study as follows: My impression: No acute pathology Radiologist's impression: [address] [id number] ReportSigned Patient: Mykel FerrerMR#: [id number]: [id number]:[id number]/Sex: 40 / FADM Date: 02/12/21Loc: HO.EDAttending Dr: Ordering Physician: Jacinto Monroy MD Date of Service: 02/12/21 Procedure(s): XR knee LT 4V Accession Number(s): [id number] cc: Jacinto Monroy MD~ EXAMINATION: XR KNEE, LEFT CLINICAL INFORMATION: Left knee pain COMPARISON: None TECHNIQUE: Four views of the left knee. FINDINGS: Bones and soft tissues are normal. No fracture or joint effusion. Alignment is anatomic. Joint spaces are well maintained. No abnormal soft tissue calcification. XR/XR knee LT 4V IMPRESSION: Normal left knee. Dictated By:LILIA RANGEL MDSigned By:<Electronically signed by LILIA RANGEL MD in OV>02/12/21 1336 DD/ 1325TD/TT: Reimbursement Spec: [facility] [place] Discharge Plan Discharge Clinical Impression: Left knee sprain Qualifiers: Encounter type: initial encounter Involved ligament of knee: lateral collateral ligament Qualified Code(s): S83.422A - Sprain of lateral collateral ligament of left knee, initial encounter Patient Disposition: Home, Self-Care Instructions: Knee Sprain (ED) Additional Instructions: As discussed, please rest your knee, use ice several times daily, keep the compression bandage on it and elevate your leg as often as possible. You may also use a lever Motrin for pain. You pain to get a little bit better each day, if he gets worse or does not feel a little better each day, please follow-up with your PCP. Prescriptions: No Action cyclobenzaprine 10 mg tablet 10 mg PO BEDTIME PRN (Reason: muscle spasm) Qty: 10 RF: 0 citalopram 40 mg tablet 1 tab PO DAILY RF: 0 prazosin 1 mg capsule 1 cap PO BEDTIME RF: 0 quetiapine [Seroquel] 100 mg tablet 1 tab PO BEDTIME RF: 0 cholecalciferol (vitamin D3) [Vitamin D3] 25 mcg (1,000 unit) capsule 1 cap PO DAILY RF: 0 lamotrigine 100 mg tablet 100 mg PO DAILY RF: 0
--- NOTE | 2021-02-12 13:49 | PC.NURSE ---
ANGELLA WRAP APPLIED TO LEFT KNEE.
== END 2021-02-12 13:54 | disposition home or self-care (01) ==
PROVIDERS: Emergency Provider Emergency Medicine Emergency Medical Services; PCP Internal Medicine
DX: S83.422A Sprain of lateral collateral ligament of left knee, initial encounter (principal); X58.XXXA Exposure to other specified factors, initial encounter; Y93.9 Activity, unspecified; Y92.9 Unspecified place or not applicable; Y99.9 Unspecified external cause status
CPT/HCPCS: 73564; 99283

== ENCOUNTER 2021-05-28 04:17 | Emergency (ER) | payer MEDICAID, SELFPAY ==
[2021-05-28] MEDS: Naloxone HCl Nasal 4 MG SPRAY NOSTRILALT (04:20)
[2021-05-28 04:21] VITALS: BP 121/70; PULSE 130; RESP 16; O2SAT 97; BMI 40.3
--- NOTE | 2021-05-28 04:28 | ECG_ITS ---
Test Reason : OD Blood Pressure : / mmHG Vent. Rate : 132 BPM Atrial Rate : 132 BPM P-R Int : 134 ms QRS Dur : 086 ms QT Int : 310 ms P-R-T Axes : 061 -16 064 degrees QTc Int : 459 ms Sinus tachycardia Possible Inferior infarct , age undetermined Possible Anterolateral infarct , age undetermined Abnormal ECG When compared with ECG of 22-NOV-2020 07:46, Vent. rate has increased BY 54 BPM Borderline criteria for Anterolateral infarct are now Present Borderline criteria for Inferior infarct are now Present Nonspecific T wave abnormality, worse in Lateral leads Referred By: Jacinto Monroy Electronically Signed By:BRYCE DAVILA
--- NOTE | 2021-05-28 04:30 | ED_ITS ---
HPI - Overdose General Chief Complaint: Overdose Stated Complaint: OD Time Seen by Provider: 05/28/21 04:27 Source: patient and EMS Mode of arrival: EMS Limitations: altered mental status History of Present Illness HPI Narrative: 40-year-old female who presents emergency department for evaluation of an intentional overdose. The paramedics are not certain when the patient took these drugs but they suspected it was 1-2 hours prior to arrival to the emergency department. The patient states that she takes Seroquel 25 mg tablets. She took an unknown quantity of Seroquel. She also takes prazosin 1 mg tablets for nightmares. She states that she took an unknown quantity of this medication. She states that she was trying to kill herself. She denied taking any [id number]-awt-[id number] medications such as aspirin or Tylenol. The paramedics did find Tylenol in the patient's medication bag. The patient denied using heroin/opiates. The patient was seen in February of 2021 for psychiatric complaint of hearing voices and having suicidal thoughts. She did overdose on Seroquel at that time as well. During that ED visit should report using marijuana and cocaine. Was observed in the emergency department and then eventually discharged home. Related Data Home Medications Medication Instructions Recorded Confirmed lamotrigine 100 mg tablet 100 mg PO DAILY 12/29/20 05/28/21 cholecalciferol (vitamin D3) 25 1 cap PO DAILY 02/07/21 05/28/21 mcg (1,000 unit) capsule (Vitamin D3) citalopram 40 mg tablet 1 tab PO DAILY 02/07/21 05/28/21 prazosin 1 mg capsule 1 cap PO BEDTIME 02/07/21 05/28/21 quetiapine 100 mg tablet (Seroquel) 1 tab PO BEDTIME 02/07/21 02/07/21 quetiapine 25 mg tablet (Seroquel) 25 mg PO QPM 05/28/21 05/28/21 Previous Rx's Medication Instructions Recorded cyclobenzaprine 10 mg tablet 10 mg PO BEDTIME PRN #10 tab 11/22/20 Allergies Allergy/AdvReac Type Severity Reaction Status Date / Time levofloxacin [From LEVAQUIN] Allergy Intermediate RASH Verified 02/07/21 03:27 codeine [Codeine] Allergy Unknown NAUSEA AND Verified 02/07/21 03:27 VOMITING, sensitivity ibuprofen Allergy Unknown sensitivity Verified 02/07/21 03:27 morphine [Morphine] Allergy Unknown HEADACHE, Verified 02/07/21 03:27 vomiting, sensitivity naproxen [From NAPROSYN] Allergy Unknown HIVES, Verified 02/07/21 03:27 DIFFICULTY BREATHING. Sulfa (Sulfonamide Allergy Unknown unknown Verified 02/07/21 03:27 Antibiotics) Review of Systems Review of Systems: Yes Unobtainable due to mental status (Patient is somnolent secondary to her overdose) [facility] Past Medical History [facility] Narrative: Social history: Obtained from 02/07/2021 visit, patient drinks alcohol a few times a week, she denied tobacco use, she did admit to using marijuana and cocaine. Medical History Bipolar disorder Breast mass History of 2019 novel coronavirus disease (COVID-19) Morbid obesity Palpitation Surgical History History of sinus surgery (~2019) Family History Family History Father History of heart artery stent History of heart attack Mother CVA (cerebral vascular accident) Paternal Grandmother Bone cancer Paternal Uncle Cancer of unknown origin Social History Social History Alcohol intake: current Alcohol intake frequency: a few times a month Patient Tobacco Use Status: Never used Tobacco Substance Use Type: Marijuana Advance Directives: No Advance Directives Information Provided: No Physical Exam Vital Signs: Vital Signs: Last Vital Signs Pulse 90 05/28/21 10:28 Resp 15 05/28/21 10:28 BP 97/62 05/28/21 10:28 Pulse Ox 93 05/28/21 10:28 Body Mass Index 40.3 Const: Other: Somnolent but arousable female patient, she but was able to tell me that she took Seroquel 25 mg tablets and her nightmare medication. She answers questions appropriately but slowly. Orientation/consciousness: oriented to person HENMT: Head: Yes normal to inspection, Yes normocephalic and Yes atraumatic Ears: external ears normal General nose exam: Normal external nose present Face and sinus: Yes normal facial exam Mouth: Normal oral and palatal mucosa present Throat: Yes posterior oropharynx normal Eyes: General: appearance normal, both eyes and all related structures Pupils: Equal, round and reactive pupils present Neck: Neck: Yes normal visual inspection, Yes no lymphadenopathy, Yes trachea midline and Yes supple Chest: Chest palpation & inspection: normal inspection of the chest and normal palpation of entire chest wall Resp: Effort & Inspection: normal respiratory effort and able to speak in complete sentences Auscultation: clear to auscultation bilaterally Cardio: Rate: regular rate Rhythm: regular rhythm Heart sounds: S1 normal heart sound present, S2 normal heart sound present and no murmurs GI: Inspection: Yes normal to inspection Palpation (GI): Soft to palpation, nontender and no guarding Auscultation: normal bowel sounds : General: Yes no CVA tenderness Back/Spine/Pelvis: Back: no CVA tenderness Skin: General skin exam: no rashes or lesions noted Neuro: General: oriented to person Cranial nerves: Yes CN's II-XII intact bilaterally and Yes Equal, round and reactive pupils present Motor exam (neuro): Other motor observations present (Moves all extremities symmetrically) Extrem: General: Yes normal to inspection Psych: Other: Somnolent, oriented to person, answers questions appropriately. Course Course Course Narrative: 40-year-old female who presents emergency department for evaluation of intentional overdose of Seroquel and prazosin, she was not able tells the quant in the of these medications, she denied taking icay-bkj-ahlhwvq medications such as aspirin and Tylenol, she denied using opiates or other drugs. On presentation, the patient is somnolent but arousable and does answer questions appropriately. She was given 4 mg of intranasal Narcan with no eff ect. Patient was placed on a paste thinner and I did order an overdose workup on the patient. The patient's presentation will be discussed with poison control. Twelve EKG revealed sinus tachycardia with a rate of 132 with normal QTC interval 459 milliseconds. 0741: Laboratory evaluation: Patient's lactic acid was elevated 2.3. Urine tox screen is positive for cocaine. Alcohol level was 87. Salicylate and acetaminophen were below detectable limits. COVID-19 was negative. EKG revealed a normal QTC interval of 459.Poison control recommended that the patient get fluids for her elevated lactic acid of 2.3. They recommended seizure precautions in to treat seizures with benzodiazepines. They recommended following the patient's EKG to make sure that her 90 QT C level is not prolonge d. They recommended treating prolonged QTC with magnesium. They also recommended repeating the EKG every 2-4 hours. Poison Control recommended that the patient remain in observation for 6 hours. 0748: Physician observation started at 0748. Patient placed in physician observation because the patient needed observation for overdose of Seroquel and prazosin. Examination: Patient is somnolent, Neuro: nonfocal, CV RRR, Lungs clear. 05/28/2021: 9:40 p.m.: Physician observation ended at 9:40 p.m. The patient was medically cleared and has been seen by [facility]. She has been accepted at the [facility] respite at [facility] in [place]. The patient will be transported by [facility]. Physical exam NAD, lungs clear, CV RRR, Abd nontender, Neuro intact. Disposition: Respite. MDM - Overdose Lab Data Result diagrams: 05/28/21 04:31 05/28/21 04:31 Labs: Lab Results 05/28/21 05/28/21 05/28/21 Range/Units 04:31 04:31 04:31 WBC 8.3 (4.8-10.8) X10*3/uL RBC 4.72 (4.20-5.50) X10*6/uL Hgb 13.5 (12.0-16.0) g/dl Hct 40.5 (37-47) % MCV 85.8 (80-98) fL MCH 28.6 (27.0-33.0) pg MCHC 33.3 (31.0-35.0) g/dl RDW 13.5 (11.0-16.0) % Plt Count 310 (160-400) X10*3/uL MPV 8.9 L (9.4-12.3) fL Immature Gran % (Auto) 0.2 (0.0-0.4) % Neut % (Auto) 71.8 (45-73) % Lymph % (Auto) 21.5 (20-40) % [place] % (Auto) 5.8 (2-11) % Eos % (Auto) 0.5 (0-4) % Baso % (Auto) 0.2 (0-2) % Lymph # (Auto) 1.8 (1.2-4.9) X10*3/uL [place] # (Auto) 0.5 (0.1-1.2) X10*3/uL Eos # (Auto) 0.0 (0.0-0.4) X10*3/uL Baso # (Auto) 0.0 (0.0-0.2) X10*3/uL Abs Immat Gran (auto) 0.02 (0.00-0.03) X10*3/uL Absolute Neuts (auto) 6.0 (2.0-8.3) X10*3/uL Absolute Nucleated RBC 0.000 (0.0-0.012) X10*3/uL Nucleated RBC % (auto) 0.0 (0.0-0.2) /100WBC Sodium 141 (135-145) mmol/L Potassium 3.9 (3.3-5.1) mmol/L Chloride 106 (96-108) mmol/L Carbon Dioxide 23 (22-29) mmol/L Anion Gap 16 (12-20) BUN 7 L (9-16) mg/dL Creatinine 0.80 (0.5-1.4) mg/dL Estim Creat Clear Calc 119.4 Estimated GFR > 60 POC Glucose (60-115) mg/dL Random Glucose 129 H (60-115) mg/dL Lactic Acid (0.5-2.0) mmol/L Lactic Acid Fup @ 2Hr (0.5-2.0) mmol/L Lactic Acid Fup @ 4Hr (0.5-2.0) mmol/L Calcium 9.7 (8.4-10.2) mg/dL Total Bilirubin 0.4 (0.0-1.0) mg/dL AST 21 D (5-31) U/L ALT 28 (0-31) U/L Alkaline Phosphatase 87 (39-117) U/L Total Creatine Kinase 81 (26-140) U/L Total Protein 7.1 (6.5-8.0) g/dL Albumin 4.6 (3.5-5.0) g/dL Lipase 6 L (8-78) U/L Beta HCG, Quant < 2 mIU/mL Urine Color Urine Appearance Urine pH (5.0-8.0) Ur Specific [place] (1.005-1.025) Urine Protein (NEG-TRACE) MG/DL Urine Glucose (UA) (NEG) MG/DL Urine Ketones (NEG) MG/DL Urine Blood (NEG) Urine Nitrite (NEG) Ur Leukocyte Esterase (NEG) Urine RBC (0) /HPF Urine WBC (0-4) /HPF Ur Squamous Epith Cells /LPF Urine Bacteria /LPF Salicylates < 5.0 L (15-30) mg/dL Urine Opiates Screen (Not Detect) Urine Fentanyl Screen (Not Detect) Acetaminophen < 1 (<30) mcg/mL Ur Barbiturates Screen (Not Detect) Ur Phencyclidine Scrn (Not Detect) Ur Amphetamines Screen (Not Detect) U Benzodiazepines Scrn (Not Detect) Urine Cocaine Screen (Not Detect) U Marijuana (THC) Screen (Not Detect) Ethyl Alcohol mg/dL COVID-19 (MARJAN) Negative (Negative) COVID-19 Clin Com See Note 05/28/21 05/28/21 05/28/21 Range/Units 04:31 04:48 04:54 WBC (4.8-10.8) X10*3/uL RBC (4.20-5.50) X10*6/uL Hgb (12.0-16.0) g/dl Hct (37-47) % MCV (80-98) fL MCH (27.0-33.0) pg MCHC (31.0-35.0) g/dl RDW (11.0-16.0) % Plt Count (160-400) X10*3/uL MPV (9.4-12.3) fL Immature Gran % (Auto) (0.0-0.4) % Neut % (Auto) (45-73) % Lymph % (Auto) (20-40) % [place] % (Auto) (2-11) % Eos % (Auto) (0-4) % Baso % (Auto) (0-2) % Lymph # (Auto) (1.2-4.9) X10*3/uL [place] # (Auto) (0.1-1.2) X10*3/uL Eos # (Auto) (0.0-0.4) X10*3/uL Baso # (Auto) (0.0-0.2) X10*3/uL Abs Immat Gran (auto) (0.00-0.03) X10*3/uL Absolute Neuts (auto) (2.0-8.3) X10*3/uL Absolute Nucleated RBC (0.0-0.012) X10*3/uL Nucleated RBC % (auto) (0.0-0.2) /100WBC Sodium (135-145) mmol/L Potassium (3.3-5.1) mmol/L Chloride (96-108) mmol/L Carbon Dioxide (22-29) mmol/L Anion Gap (12-20) BUN (9-16) mg/dL Creatinine (0.5-1.4) mg/dL Estim Creat Clear Calc Estimated GFR POC Glucose (60-115) mg/dL Random Glucose (60-115) mg/dL Lactic Acid 2.3 H* (0.5-2.0) mmol/L Lactic Acid Fup @ 2Hr (0.5-2.0) mmol/L Lactic Acid Fup @ 4Hr (0.5-2.0) mmol/L Calcium (8.4-10.2) mg/dL Total Bilirubin (0.0-1.0) mg/dL AST (5-31) U/L ALT (0-31) U/L Alkaline Phosphatase (39-117) U/L Total Creatine Kinase (26-140) U/L Total Protein (6.5-8.0) g/dL Albumin (3.5-5.0) g/dL Lipase (8-78) U/L Beta HCG, Quant mIU/mL Urine Color STRAW Urine Appearance CLEAR Urine pH 5.5 (5.0-8.0) Ur Specific [place] <= 1.005 (1.005-1.025) Urine Protein NEG (NEG-TRACE) MG/DL Urine Glucose (UA) NEG (NEG) MG/DL Urine Ketones NEG (NEG) MG/DL Urine Blood TRACE (NEG) Urine Nitrite NEG (NEG) Ur Leukocyte Esterase NEG (NEG) Urine RBC 0-2 (0) /HPF Urine WBC 0 (0-4) /HPF Ur Squamous Epith Cells TRACE /LPF Urine Bacteria NONE /LPF Salicylates (15-30) mg/dL Urine Opiates Screen (Not Detect) Urine Fentanyl Screen (Not Detect) Acetaminophen (<30) mcg/mL Ur Barbiturates Screen (Not Detect) Ur Phencyclidine Scrn (Not Detect) Ur Amphetamines Screen (Not Detect) U Benzodiazepines Scrn (Not Detect) Urine Cocaine Screen (Not Detect) U Marijuana (THC) Screen (Not Detect) Ethyl Alcohol 85 mg/dL COVID-19 (MARJAN) (Negative) COVID-19 Clin Com 05/28/21 05/28/21 05/28/21 Range/Units 04:54 05:37 07:44 WBC (4.8-10.8) X10*3/uL RBC (4.20-5.50) X10*6/uL Hgb (12.0-16.0) g/dl Hct (37-47) % MCV (80-98) fL MCH (27.0-33.0) pg MCHC (31.0-35.0) g/dl RDW (11.0-16.0) % Plt Count (160-400) X10*3/uL MPV (9.4-12.3) fL Immature Gran % (Auto) (0.0-0.4) % Neut % (Auto) (45-73) % Lymph % (Auto) (20-40) % [place] % (Auto) (2-11) % Eos % (Auto) (0-4) % Baso % (Auto) (0-2) % Lymph # (Auto) (1.2-4.9) X10*3/uL [place] # (Auto) (0.1-1.2) X10*3/uL Eos # (Auto) (0.0-0.4) X10*3/uL Baso # (Auto) (0.0-0.2) X10*3/uL Abs Immat Gran (auto) (0.00-0.03) X10*3/uL Absolute Neuts (auto) (2.0-8.3) X10*3/uL Absolute Nucleated RBC (0.0-0.012) X10*3/uL Nucleated RBC % (auto) (0.0-0.2) /100WBC Sodium (135-145) mmol/L Potassium (3.3-5.1) mmol/L Chloride (96-108) mmol/L Carbon Dioxide (22-29) mmol/L Anion Gap (12-20) BUN (9-16) mg/dL Creatinine (0.5-1.4) mg/dL Estim Creat Clear Calc Estimated GFR POC Glucose 115 (60-115) mg/dL Random Glucose (60-115) mg/dL Lactic Acid (0.5-2.0) mmol/L Lactic Acid Fup @ 2Hr 2.1 H* (0.5-2.0) mmol/L Lactic Acid Fup @ 4Hr (0.5-2.0) mmol/L Calcium (8.4-10.2) mg/dL Total Bilirubin (0.0-1.0) mg/dL AST (5-31) U/L ALT (0-31) U/L Alkaline Phosphatase (39-117) U/L Total Creatine Kinase (26-140) U/L Total Protein (6.5-8.0) g/dL Albumin (3.5-5.0) g/dL Lipase (8-78) U/L Beta HCG, Quant mIU/mL Urine Color Urine Appearance Urine pH (5.0-8.0) Ur Specific [place] (1.005-1.025) Urine Protein (NEG-TRACE) MG/DL Urine Glucose (UA) (NEG) MG/DL Urine Ketones (NEG) MG/DL Urine Blood (NEG) Urine Nitrite (NEG) Ur Leukocyte Esterase (NEG) Urine RBC (0) /HPF Urine WBC (0-4) /HPF Ur Squamous Epith Cells /LPF Urine Bacteria /LPF Salicylates (15-30) mg/dL Urine Opiates Screen Not Detected (Not Detect) Urine Fentanyl Screen Not Detected (Not Detect) Acetaminophen (<30) mcg/mL Ur Barbiturates Screen Not Detected (Not Detect) Ur Phencyclidine Scrn Not Detected (Not Detect) Ur Amphetamines Screen Not Detected (Not Detect) U Benzodiazepines Scrn Not Detected (Not Detect) Urine Cocaine Screen POSITIVE H (Not Detect) U Marijuana (THC) Screen Not Detected (Not Detect) Ethyl Alcohol mg/dL COVID-19 (MARJAN) (Negative) COVID-19 Clin Com 05/28/21 Range/Units 11:50 WBC (4.8-10.8) X10*3/uL RBC (4.20-5.50) X10*6/uL Hgb (12.0-16.0) g/dl Hct (37-47) % MCV (80-98) fL MCH (27.0-33.0) pg MCHC (31.0-35.0) g/dl RDW (11.0-16.0) % Plt Count (160-400) X10*3/uL MPV (9.4-12.3) fL Immature Gran % (Auto) (0.0-0.4) % Neut % (Auto) (45-73) % Lymph % (Auto) (20-40) % [place] % (Auto) (2-11) % Eos % (Auto) (0-4) % Baso % (Auto) (0-2) % Lymph # (Auto) (1.2-4.9) X10*3/uL [place] # (Auto) (0.1-1.2) X10*3/uL Eos # (Auto) (0.0-0.4) X10*3/uL Baso # (Auto) (0.0-0.2) X10*3/uL Abs Immat Gran (auto) (0.00-0.03) X10*3/uL Absolute Neuts (auto) (2.0-8.3) X10*3/uL Absolute Nucleated RBC (0.0-0.012) X10*3/uL Nucleated RBC % (auto) (0.0-0.2) /100WBC Sodium (135-145) mmol/L Potassium (3.3-5.1) mmol/L Chloride (96-108) mmol/L Carbon Dioxide (22-29) mmol/L Anion Gap (12-20) BUN (9-16) mg/dL Creatinine (0.5-1.4) mg/dL Estim Creat Clear Calc Estimated GFR POC Glucose (60-115) mg/dL Random Glucose (60-115) mg/dL Lactic Acid (0.5-2.0) mmol/L Lactic Acid Fup @ 2Hr (0.5-2.0) mmol/L Lactic Acid Fup @ 4Hr 1.1 (0.5-2.0) mmol/L Calcium (8.4-10.2) mg/dL Total Bilirubin (0.0-1.0) mg/dL AST (5-31) U/L ALT (0-31) U/L Alkaline Phosphatase (39-117) U/L Total Creatine Kinase (26-140) U/L Total Protein (6.5-8.0) g/dL Albumin (3.5-5.0) g/dL Lipase (8-78) U/L Beta HCG, Quant mIU/mL Urine Color Urine Appearance Urine pH (5.0-8.0) Ur Specific [place] (1.005-1.025) Urine Protein (NEG-TRACE) MG/DL Urine Glucose (UA) (NEG) MG/DL Urine Ketones (NEG) MG/DL Urine Blood (NEG) Urine Nitrite (NEG) Ur Leukocyte Esterase (NEG) Urine RBC (0) /HPF Urine WBC (0-4) /HPF Ur Squamous Epith Cells /LPF Urine Bacteria /LPF Salicylates (15-30) mg/dL Urine Opiates Screen (Not Detect) Urine Fentanyl Screen (Not Detect) Acetaminophen (<30) mcg/mL Ur Barbiturates Screen (Not Detect) Ur Phencyclidine Scrn (Not Detect) Ur Amphetamines Screen (Not Detect) U Benzodiazepines Scrn (Not Detect) Urine Cocaine Screen (Not Detect) U Marijuana (THC) Screen (Not Detect) Ethyl Alcohol mg/dL COVID-19 (MARJAN) (Negative) COVID-19 Clin Com ECG Data Attestation: I personally reviewed and interpreted this ECG as follows: Interpretation: 0425: Sinus tachycardia with rate of 132, normal NM interval, QRS duration and QTC interval of 459 milliseconds, Q-wave noted in lead 3, no ST segment elevation, no ST segment depression, normal T-waves, no PACs, no PVCs Discharge Plan Discharge Clinical Impression: Overdose, Depression, Suicide gesture Patient Disposition: Home, Self-Care Additional Instructions: Your being discharged to the [facility] respite program. Prescriptions: No Action cyclobenzaprine 10 mg tablet 10 mg PO BEDTIME PRN (Reason: muscle spasm) Qty: 10 RF: 0 citalopram 40 mg tablet 1 tab PO DAILY RF: 0 prazosin 1 mg capsule 1 cap PO BEDTIME RF: 0 quetiapine [Seroquel] 100 mg tablet 1 tab PO BEDTIME RF: 0 cholecalciferol (vitamin D3) [Vitamin D3] 25 mcg (1,000 unit) capsule 1 cap PO DAILY RF: 0 quetiapine [Seroquel] 25 mg Tablet 25 mg PO QPM RF: 0 lamotrigine 100 mg tablet 100 mg PO DAILY RF: 0 Interventions: ED Discharge Assessment Last Done: 05/28/21 21:47 Discharge Date/Time: 05/28/21 22:16
--- NOTE | 2021-05-28 04:39 | PC.NURSE ---
pt to room, chg into gown, 2nd iv placed to RAC, labs drawn to lab. Pt was given Narcan nasal w/o any response. pt remains sleepy, speaks with eyes closed, respirations easy, n/l. skin w/d. at bedside with pt. Awaiting further orders.
[2021-05-28 04:40] LABS: Basophils Percent Auto 0.2 % (0-2); Eosinophils Percent Auto 0.5 % (0-4); Hematocrit 40.5 % (37-47); Hemoglobin 13.5 g/dl (12.0-16.0); Imm Gran Abs Auto 0.02 X10*3/uL (0.00-0.03); Imm Gran Pct Auto 0.2 % (0.0-0.4); Lymphocytes Absolute Auto 1.8 X10*3/uL (1.2-4.9); Lymphocytes Percent Auto 21.5 % (20-40); MANUAL DIFF FLAG NO; Mean Corpuscular HGB Conc 33.3 g/dl (31.0-35.0); Mean Corpuscular Hemoglobin 28.6 pg (27.0-33.0); Mean Corpuscular Volume 85.8 fL (80-98); Mean Platelet Volume 8.9 fL (9.4-12.3); Monocytes Absolute Auto 0.5 X10*3/uL (0.1-1.2); Monocytes Percent Auto 5.8 % (2-11); Neutrophils Percent Auto 71.8 % (45-73); Platelet Count 310 X10*3/uL (160-400); Red Blood Count 4.72 X10*6/uL (4.20-5.50); Red Cell Distribution Width 13.5 % (11.0-16.0); White Blood Count 8.3 X10*3/uL (4.8-10.8)
--- NOTE | 2021-05-28 04:42 | PC.NURSE ---
pt on monitor with hr of 124. VS obtained.
[2021-05-28 04:51] LABS: Ethanol 85 mg/dL
[2021-05-28 04:57] LABS: Alanine Aminotransferase 28 U/L (0-31); Albumin Level 4.6 g/dL (3.5-5.0); Alkaline Phosphatase 87 U/L (39-117); Anion Gap 16 (12-20); Aspartate Amino Transferase 21 U/L (5-31); Bilirubin Total 0.4 mg/dL (0.0-1.0); Blood Urea Nitrogen 7 mg/dL (9-16); Calcium 9.7 mg/dL (8.4-10.2); Carbon Dioxide 23 mmol/L (22-29); Chloride 106 mmol/L (96-108); Creatinine Clr Calc Pharmacy 119.4; Estimated Glomerular Filt Rate > 60; Glucose Random 129 mg/dL (60-115); Lipase 6 U/L (8-78); Potassium 3.9 mmol/L (3.3-5.1); Sodium 141 mmol/L (135-145); Total Protein 7.1 g/dL (6.5-8.0)
[2021-05-28 05:02] LABS: HCG Quantitative < 2 mIU/mL
[2021-05-28 05:02] LABS: Appearance Urine CLEAR; Color Urine STRAW; Glucose Urine UA NEG (NEG); Leukocyte Esterase Urine NEG (NEG); Nitrite Urine NEG (NEG); PH 5.5 (5.0-8.0); Specific Gravity - Urine <= 1.005 (1.005-1.025); UACC Culture Trigger NO; Urine Blood TRACE (NEG); Urine Ketones NEG (NEG); Urine Protein NEG (NEG-TRACE)
[2021-05-28 05:04] LABS: Lactic Acid 2.3 mmol/L (0.5-2.0)
[2021-05-28 05:04] LABS: COVID-19 Test Negative (Negative)
[2021-05-28 05:08] LABS: Acetaminophen LAB < 1 mcg/mL (<30); Salicylate < 5.0 mg/dL (15-30)
[2021-05-28 05:16] LABS: Amphetamine Screen Urine Not Detected (Not Detect); Barbiturates, Urine Not Detected (Not Detect); Benzodiazepines Screen Urine Not Detected (Not Detect); Cannabinoid Screen Urine Not Detected (Not Detect); Cocaine Screen Urine POSITIVE (Not Detect); Fentanyl, urine Not Detected (Not Detect); Opiate Screen Urine Not Detected (Not Detect); Phencyclidine Screen Urine Not Detected (Not Detect)
--- NOTE | 2021-05-28 05:34 | PC.NURSE ---
URINE OBTAINED BY STRAIGHT CATH. TO LAB FOR EVAL..
[2021-05-28 05:35] LABS: RBC Urine 0-2 /HPF (0); Squamous Epithelial Cell Urine TRACE /LPF; WBC Urine 0 /HPF (0-4)
--- NOTE | 2021-05-28 05:42 | PC.NURSE ---
MOTHER SPEAKING WITH PT ON PHONE. SUMA FROM POISON CONTROL NOTIFIED OF PT AND THEY RECOMMENDED: POC - 115 FLUIDS SUPPORTIVE CARE REPEAT LACTIC 2-4 HRS AFTER 1ST LACTIC ACID IS DRAWN SEIZURE PRECAUTIONS - USE BENZO'S OR VASOTENSIVES. IF QTC IS GREATER THAN 500 - RECHECK BMP & MAG (OPTIUM MAG IS 2, k+ 4. REPEAT EKG EVERY 2-3 HRS. MD AWARE OF RECOMMENDATIONS.
[2021-05-28 05:45] LABS: Glucose, Whole Blood 115 mg/dL (60-115)
--- NOTE | 2021-05-28 06:06 | PC.NURSE ---
NS UP AND RUNNING W/O, SITE INTACT. PT DENIES ANY COMPLAINTS. PT ALERT AND SPEAKING IN FULL CLEAR SENTENCES. RESPIRATIONS EASY, N/L. SKIN W/D. PT AWAITING FOR FURTHER ORDERS. WILL CONTINUE TO MONITOR PT.
--- NOTE | 2021-05-28 06:07 | PC.NURSE ---
SINCE PT ARRIVED IN ROOM #1 PT HAS BEEN ON 1:1 OBS. WILL CONTINUE TO YNES VAILENTE.
--- NOTE | 2021-05-28 06:33 | PC.NURSE ---
PT RESTING IN STRETCHER IN NAD. PT AWAITING FOR FURTHER ORDERS. NO CHG IN PT'S CONDITION. WILL CONTINUE TO MONITOR PT.
[2021-05-28 06:38] VITALS: BP 106/68; PULSE 92; RESP 18; O2SAT 96
[2021-05-28 06:51] LABS: Reflex Lactate? Lactic Acid Added
--- NOTE | 2021-05-28 07:45 | ECG_ITS ---
Test Reason : REPEAT Blood Pressure : / mmHG Vent. Rate : 096 BPM Atrial Rate : 096 BPM P-R Int : 152 ms QRS Dur : 086 ms QT Int : 390 ms P-R-T Axes : 065 -03 064 degrees QTc Int : 492 ms Normal sinus rhythm Nonspecific T wave abnormality Prolonged QT Abnormal ECG When compared with ECG of 28-MAY-2021 04:25, Borderline criteria for Anterior infarct are no longer Present Borderline criteria for Anterolateral infarct are no longer Present Borderline criteria for Inferior infarct are no longer Present Heart rate has decreased Referred By: Jacinto Monroy Electronically Signed By:BRYCE DAVILA
[2021-05-28 08:11] LABS: ~Lactic Acid-LAB USE ONLY 2.1 mmol/L (0.5-2.0)
[2021-05-28 08:39] VITALS: BP 96/58; PULSE 94; RESP 17; O2SAT 92
--- NOTE | 2021-05-28 08:51 | PC.NURSE ---
PT ALERT, VSS, ANSWERS QUESTIONS APPROPRIATELY, FALLS ASLEEP EASILY. PT DENIES SI/HI. SHE STATES SHE FELT DEPRESSED AT THE TIME OF INCIDENT. NO COMPLAINTS. WILL LET PT SLEEP.
[2021-05-28 09:49] LABS: Reflex Lactate? 2 Y
[2021-05-28] MEDS: 0.9 % Sodium Chloride 1,000 ML 999 ML IV (10:24)
[2021-05-28 10:28] VITALS: BP 97/62; PULSE 90; RESP 15; O2SAT 93
--- NOTE | 2021-05-28 10:46 | PC.NURSE ---
Pt sleeping, vss, previous Lactic 2.3, current redraw is 2.1, fluids hung per documented. This aligner typewriter spoke with South from poison control to follow-up on recommendations for observation. South recommends 6 hours of observation. Will follow-up with Dr. Telles.
--- NOTE | 2021-05-28 11:51 | PC.NURSE ---
pt awake and alert. fluid infusion complete, Lactic redrawn, result pending. no c/o pain/sob/dizziness/nausea/vomiting. Pt denies SI/HI.
[2021-05-28 12:19] LABS: ~Lactic Acid-LAB USE ONLY 1.1 mmol/L (0.5-2.0)
--- NOTE | 2021-05-28 12:32 | PC.NURSE ---
pt's repeat lactic 1.1, pt was medically cleared by Dr. Telles to be transferred over to the POD. Report given to JEFFY Lynch. Security at pt's bedside to slip box changer and transfer her over to the POD.
== END 2021-05-28 22:16 | disposition home or self-care (01) ==
PROVIDERS: Emergency Provider Emergency Medicine Emergency Medical Services
DX: F33.1 Major depressive disorder, recurrent, moderate (principal); T43.592A Poisoning by other antipsychotics and neuroleptics, intentional self-harm, initial encounter; R45.851 Suicidal ideations; F12.90 Cannabis use, unspecified, uncomplicated; Y92.9 Unspecified place or not applicable; Z79.899 Other long term (current) drug therapy; Z20.822 Contact with and (suspected) exposure to COVID-19
CPT/HCPCS: 36415; 80053; 80143; 80179; 80307; 81001; 81003; 82077; 82550; 82947; 83605; 83690; 84702; 85025; 87635; 93005; 96360; 96361; 99285

== ENCOUNTER 2021-08-05 08:45 | Outpatient (REF) | payer MEDICAID, SELFPAY ==
--- NOTE | ~2021-08-05 | XR_ITS ---
EXAMINATION: XR KNEE, LEFT CLINICAL INFORMATION: Pain in the left knee COMPARISON: 02/12/2021 TECHNIQUE: Four views of the left knee. This includes AP upright view. FINDINGS: No fracture or subluxation. Compartmental joint spaces are maintained. No joint effusion. The soft tissues are unremarkable. XR/XR knee LT 4V IMPRESSION: Normal left knee.
== END 2021-08-05 08:46 | disposition home or self-care (01) ==
LOC: HO.XRAY 08:45
PROVIDERS: Absent Provider Internal Medicine; PCP Internal Medicine; Visit Provider Student in an Organized Health Care Education/Training Program
DX: M25.562 Pain in left knee (principal)
CPT/HCPCS: 73564

== ENCOUNTER 2021-08-17 09:58 | Outpatient (REF) | payer MEDICAID, SELFPAY ==
--- NOTE | ~2021-08-17 | US_ITS ---
EXAMINATION: US ABDOMEN COMPLETE CLINICAL INFORMATION: Left upper quadrant pain. COMPARISON: X-ray abdomen 02/23/2020 and 11/25/2012. CT abdomen and pelvis 12/14/2019. Ultrasound abdomen complete 11/06/2018 and 08/27/2018. TECHNIQUE: Real-time imaging of the abdominal viscera. FINDINGS: PANCREAS: Overall echogenic. The distal body and tail are not seen. ABDOMINAL AORTA: The proximal, mid, and distal segments are normal in caliber. INFERIOR VENA CAVA: Visualized portions are normal. LIVER: Liver is overall increased echogenicity. The liver contour is normal. Parenchymal echogenicity is normal. No focal hepatic lesion. There is no intrahepatic biliary duct dilatation seen. GALLBLADDER: Normal. The gallbladder is physiologically distended without evidence of stones, sludge, polyps, wall thickening or pericholecystic fluid. COMMON BILE DUCT: Normal in caliber measuring 0.3 cm in diameter. RIGHT KIDNEY: Normal. No hydronephrosis. No renal calculi or focal parenchymal lesions. The kidney measures 11.4 cm in maximum dimension. LEFT KIDNEY: Normal. No hydronephrosis. No renal calculi or focal parenchymal lesions. The kidney measures 11.6 cm in maximum dimension. SPLEEN: Normal. The spleen measures 9.4 cm in maximum dimension. FREE FLUID: None. US/US abdomen complete IMPRESSION: Spleen is within normal limits in the left upper quadrant and there is no hydronephrosis in the left kidney. No stone is seen. No evidence for cholelithiasis or cholecystitis. Probable fatty change in the liver. Echogenic pancreas could represent edematous change. Pancreatitis cannot be excluded. Pancreas is incompletely visualized. No free fluid is seen. Consider CT for further evaluation.
== END 2021-08-17 09:59 | disposition home or self-care (01) ==
LOC: HO.US 09:58
PROVIDERS: PCP Internal Medicine; Visit Provider Nurse Practitioner Family
DX: R10.12 Left upper quadrant pain (principal)
CPT/HCPCS: 76700

== ENCOUNTER → 2021-09-07 09:55 | Outpatient (BNVA) | payer MEDICAID, SELFPAY | PROVIDERS: PCP Internal Medicine; Visit Provider Physician Assistant | DX: G56.02 Carpal tunnel syndrome, left upper limb (principal); M77.12 Lateral epicondylitis, left elbow | CPT/HCPCS: 99202 ==

== ENCOUNTER 2021-09-09 02:53 | Emergency (ER) | payer MEDICAID, SELFPAY ==
[2021-09-09 03:00] VITALS: BP 124/82; PULSE 89; RESP 13; TEMP 36.5; O2SAT 96; BMI 40.7
--- NOTE | 2021-09-09 03:05 | ECG_ITS ---
Test Reason : OD Blood Pressure : / mmHG Vent. Rate : 072 BPM Atrial Rate : 072 BPM P-R Int : 148 ms QRS Dur : 094 ms QT Int : 410 ms P-R-T Axes : 052 -13 044 degrees QTc Int : 448 ms Normal sinus rhythm Normal ECG When compared with ECG of 28-MAY-2021 07:55, Nonspecific T wave abnormality no longer evident in Lateral leads Referred By: Elinor Timmons Electronically Signed By:DEVIKA CIFUENTES MD
--- NOTE | 2021-09-09 03:16 | PC.NURSE ---
Addendum entered by Luanne Swift 09/09/21 03:18: RECOMMENDED DOSE OF NYQUIL NOT TYLENOL, HOWEVER THERE IS TYLENOL IN THE NYQUIL. Original Note: PATIENT TELLING PROVIDER THAT SHE TOOK A MEDICINE CUP OF NYQUIL BECAUSE SHE HAS BEEN FEELING UNWELL FOR SEVERAL DAY. PATIENT IS ALERT AND OREINTED, FOR PROVIDER STATING SHE TOOK THE RECOMMENDED DOSE OF TYLENOL.
--- NOTE | 2021-09-09 03:24 | ED.GENADULT ---
HPI - General Adult General Chief complaint: ETOH/Substance Use Stated complaint: OD ON NYQUIL AND OTHER MEDS,UNK AMT PER EMS Time Seen by Provider: 09/09/21 03:04 Source: patient Mode of arrival: EMS History of Present Illness HPI narrative: 40-year-old female with history of bipolar disorder and depression who is brought in by EMS from home after they report the patient took an unknown amount of NyQuil. As per the patient she states that she has been drinking this evening and also reports that she has not been feeling well with cough, sore throat, body aches and headache and so she took a medicine cup of NyQuil for the cough. Otherwise, she denies any GI or symptoms. Patient denies any suicide attempt and states that she is just not feeling well and wanted to feel better. 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 Related Data Home Medications Medication Instructions Recorded Confirmed lamotrigine 100 mg tablet 100 mg PO DAILY 12/29/20 05/28/21 cholecalciferol (vitamin D3) 25 1 cap PO DAILY 02/07/21 05/28/21 mcg (1,000 unit) capsule (Vitamin D3) citalopram 40 mg tablet 1 tab PO DAILY 02/07/21 05/28/21 prazosin 1 mg capsule 1 cap PO BEDTIME 02/07/21 05/28/21 quetiapine 100 mg tablet (Seroquel) 1 tab PO BEDTIME 02/07/21 02/07/21 quetiapine 25 mg tablet (Seroquel) 25 mg PO QPM 05/28/21 05/28/21 Previous Rx's Medication Instructions Recorded cyclobenzaprine 10 mg tablet 10 mg PO BEDTIME PRN #10 tab 11/22/20 benzonatate 100 mg capsule 100 mg PO TID PRN #14 cap 09/09/21 Allergies Allergy/AdvReac Type Severity Reaction Status Date / Time levofloxacin [From LEVAQUIN] Allergy Intermediate RASH Verified 09/07/21 10:02 codeine [Codeine] Allergy Unknown NAUSEA AND Verified 09/07/21 10:02 VOMITING, sensitivity ibuprofen Allergy Unknown sensitivity Verified 09/07/21 10:02 morphine [Morphine] Allergy Unknown HEADACHE, Verified 09/07/21 10:02 vomiting, sensitivity naproxen [From NAPROSYN] Allergy Unknown HIVES, Verified 09/07/21 10:02 DIFFICULTY BREATHING. Sulfa (Sulfonamide Allergy Unknown unknown Verified 09/07/21 10:02 Antibiotics) Review of Systems Review of Systems: Pertinent positives and negatives as stated in HPI 10 point review of systems is otherwise negative. [facility] Past Medical History Source: nursing notes reviewed Medical History Bipolar disorder Breast mass History of 2019 novel coronavirus disease (COVID-19) Morbid obesity Palpitation Surgical History History of sinus surgery (~2019) Family History Family History Father History of heart artery stent History of heart attack Mother CVA (cerebral vascular accident) Paternal Grandmother Bone cancer Paternal Uncle Cancer of unknown origin Social History Social History Alcohol intake: current Alcohol intake frequency: a few times a month Patient Tobacco Use Status: Never used Tobacco Substance Use Type: Marijuana Advance Directives: No Current occupational status: disabled Current occupation: rt handed Physical Exam Vital Signs: Vital Signs: Last Vital Signs Temp 97.7 F 09/09/21 03:00 Pulse 100 09/09/21 04:40 Resp 16 09/09/21 04:40 BP 124/81 09/09/21 04:40 Pulse Ox 97 09/09/21 04:40 BMI result Body Mass Index 40.7 VITAL SIGNS: Reviewed. GENERAL: Smell of alcohol, Well developed, well nourished, in no acute distress. HEAD: Normocephalic/atraumatic EYES: PERRLA, EOMI OROPHARYNX: no oral lesions noted, posterior pharynx clear and non-erythematous without noted tonsillar enlargement/erythema/exudates NECK: Supple, no adenopathy LUNGS: Normal breath sounds. No adventitious sounds or accessory muscle use. SpO2<96> CARDIOVASCULAR: Regular rate and rhythm without noted murmurs ABDOMEN: Soft, non-tender, non-distended with bowel sounds. SKIN: Inspection of the skin reveals no rashes NEUROLOGIC: Drowsy but easily aroused and oriented x 4. Strength and sensation to light touch were grossly intact x 4. Course Course Course Narrative: 40-year-old female with history and clinical presentation consistent with viral symptoms and suspect current alcohol intoxication, but low clinical suspicion for suicide attempt. Review of all investigations negative for acute findings and although there is a noted value of 10 for the acetaminophen level on discussion with poison Control this is within reason if patient took that medication within 2 hours of presenting to the emergency room. I reviewed all documentation for this patient that is available and I do not find any records of this patient being admitted for her psychiatric conditions, I do not see record of a documented suicide attempt. At this time as long as patient is able to tolerate oral intake and have a safe ride home she may be discharged in stable condition. Patient is tolerating oral intake and has a safe ride home. Medical Decision Making Lab Data Result diagrams: 09/09/21 03:20 09/09/21 03:20 Labs: Lab Results 09/09/21 09/09/21 09/09/21 Range/Units 03:20 03:20 03:20 WBC 10.5 (4.8-10.8) X10*3/uL RBC 5.34 (4.20-5.50) X10*6/uL Hgb 15.3 (12.0-16.0) g/dl Hct 46.6 (37.0-47.0) % MCV 87.3 (80.0-98.0) fL MCH 28.7 (27.0-33.0) pg MCHC 32.8 (31.0-35.0) g/dl RDW 13.2 (11.0-16.0) % Plt Count 365 (160-400) X10*3/uL MPV 8.6 L (9.4-12.3) fL Immature Gran % (Auto) 0.4 (0.0-0.4) % Neut % (Auto) 67.0 (45-73) % Lymph % (Auto) 26.7 (20-40) % York % (Auto) 4.6 (2-11) % Eos % (Auto) 0.9 (0-4) % Baso % (Auto) 0.4 (0-2) % Lymph # (Auto) 2.8 (1.2-4.9) X10*3/uL York # (Auto) 0.5 (0.1-1.2) X10*3/uL Eos # (Auto) 0.1 (0.0-0.4) X10*3/uL Baso # (Auto) 0.0 (0.0-0.2) X10*3/uL Abs Immat Gran (auto) 0.04 H (0.00-0.03) X10*3/uL Absolute Neuts (auto) 7.1 (2.0-8.3) x10*3/uL Absolute Nucleated RBC 0.000 (0.0-0.012) X10*3/uL Nucleated RBC % (auto) 0.0 (0.0-0.2) /100WBC PT 11.1 (9.9-13.0) SEC INR 1.0 (0.9-1.1) Sodium 143 (135-145) mmol/L Potassium 4.5 (3.3-5.1) mmol/L Chloride 108 (96-108) mmol/L Carbon Dioxide 26 (22-29) mmol/L Anion Gap 14 (12-20) BUN 5 L (9-16) mg/dL Creatinine 0.84 (0.5-1.4) mg/dL Estim Creat Clear Calc 102.8 Estimated GFR > 60 Random Glucose 127 H (60-115) mg/dL Calcium 10.1 (8.4-10.2) mg/dL Total Bilirubin 0.2 (0.0-1.0) mg/dL AST 34 H D (5-31) U/L ALT 38 H (0-31) U/L Alkaline Phosphatase 104 (39-117) U/L Total Protein 8.2 H (6.5-8.0) g/dL Albumin 5.1 H (3.5-5.0) g/dL Salicylates < 5.0 L (15-30) mg/dL Acetaminophen 10 (<30) mcg/mL Ethyl Alcohol mg/dL COVID-19 (MARJAN) (Negative) COVID-19 Clin Com 09/09/21 09/09/21 Range/Units 03:20 03:20 WBC (4.8-10.8) X10*3/uL RBC (4.20-5.50) X10*6/uL Hgb (12.0-16.0) g/dl Hct (37.0-47.0) % MCV (80.0-98.0) fL MCH (27.0-33.0) pg MCHC (31.0-35.0) g/dl RDW (11.0-16.0) % Plt Count (160-400) X10*3/uL MPV (9.4-12.3) fL Immature Gran % (Auto) (0.0-0.4) % Neut % (Auto) (45-73) % Lymph % (Auto) (20-40) % York % (Auto) (2-11) % Eos % (Auto) (0-4) % Baso % (Auto) (0-2) % Lymph # (Auto) (1.2-4.9) X10*3/uL York # (Auto) (0.1-1.2) X10*3/uL Eos # (Auto) (0.0-0.4) X10*3/uL Baso # (Auto) (0.0-0.2) X10*3/uL Abs Immat Gran (auto) (0.00-0.03) X10*3/uL Absolute Neuts (auto) (2.0-8.3) x10*3/uL Absolute Nucleated RBC (0.0-0.012) X10*3/uL Nucleated RBC % (auto) (0.0-0.2) /100WBC PT (9.9-13.0) SEC INR (0.9-1.1) Sodium (135-145) mmol/L Potassium (3.3-5.1) mmol/L Chloride (96-108) mmol/L Carbon Dioxide (22-29) mmol/L Anion Gap (12-20) BUN (9-16) mg/dL Creatinine (0.5-1.4) mg/dL Estim Creat Clear Calc Estimated GFR Random Glucose (60-115) mg/dL Calcium (8.4-10.2) mg/dL Total Bilirubin (0.0-1.0) mg/dL AST (5-31) U/L ALT (0-31) U/L Alkaline Phosphatase (39-117) U/L Total Protein (6.5-8.0) g/dL Albumin (3.5-5.0) g/dL Salicylates (15-30) mg/dL Acetaminophen (<30) mcg/mL Ethyl Alcohol 179 mg/dL COVID-19 (MARJAN) Negative (Negative) COVID-19 Clin Com See Note ECG Data Attestation: I personally reviewed and interpreted this ECG as follows: Prior ECG tracings: available for review (05/28/2021) Interpretation: Normal sinus rhythm, HR-72, no STEMI, AR/QRS/QTC are within normal limits. Discharge Plan Discharge Clinical Impression: Alcohol intoxication, Bipolar disorder Patient Disposition: Home, Self-Care Instructions: Bipolar Disorder (ED), Alcohol Intoxication (ED) Additional Instructions: 1. Resume all home medications as prescribed. 2. Recommend [id number] Tylenol/ibuprofen as needed for body aches, headache. In addition, a prescription for cough suppressant has been sent to your pharmacy. 3. Follow-up with your primary care provider in the next 1-2 days for re-evaluation and further outpatient management. Return to the ER for worsening symptoms. Prescriptions: New benzonatate 100 mg capsule 100 mg PO TID PRN (Reason: cough) Qty: 14 RF: 0 No Action cyclobenzaprine 10 mg tablet 10 mg PO BEDTIME PRN (Reason: muscle spasm) Qty: 10 RF: 0 citalopram 40 mg tablet 1 tab PO DAILY RF: 0 prazosin 1 mg capsule 1 cap PO BEDTIME RF: 0 quetiapine [Seroquel] 100 mg tablet 1 tab PO BEDTIME RF: 0 cholecalciferol (vitamin D3) [Vitamin D3] 25 mcg (1,000 unit) capsule 1 cap PO DAILY RF: 0 quetiapine [Seroquel] 25 mg Tablet 25 mg PO QPM RF: 0 lamotrigine 100 mg tablet 100 mg PO DAILY RF: 0 Referrals: Tadeo Alvarado MD [Primary Care Provider] - 2 days
[2021-09-09 03:27] LABS: MANUAL DIFF FLAG NO
[2021-09-09 03:33] LABS: Basophils Percent Auto 0.4 % (0-2); Eosinophils Absolute Auto 0.1 X10*3/uL (0.0-0.4); Eosinophils Percent Auto 0.9 % (0-4); Hematocrit 46.6 % (37.0-47.0); Hemoglobin 15.3 g/dl (12.0-16.0); Imm Gran Abs Auto 0.04 X10*3/uL (0.00-0.03); Imm Gran Pct Auto 0.4 % (0.0-0.4); Lymphocytes Absolute Auto 2.8 X10*3/uL (1.2-4.9); Lymphocytes Percent Auto 26.7 % (20-40); Mean Corpuscular HGB Conc 32.8 g/dl (31.0-35.0); Mean Corpuscular Hemoglobin 28.7 pg (27.0-33.0); Mean Corpuscular Volume 87.3 fL (80.0-98.0); Mean Platelet Volume 8.6 fL (9.4-12.3); Monocytes Absolute Auto 0.5 X10*3/uL (0.1-1.2); Monocytes Percent Auto 4.6 % (2-11); Neutrophils Absolute Auto 7.1 x10*3/uL (2.0-8.3); Platelet Count 365 X10*3/uL (160-400); Red Blood Count 5.34 X10*6/uL (4.20-5.50); Red Cell Distribution Width 13.2 % (11.0-16.0); White Blood Count 10.5 X10*3/uL (4.8-10.8)
[2021-09-09 03:38] LABS: Prothrombin Time 11.1 SEC (9.9-13.0)
[2021-09-09 03:46] LABS: Ethanol 179 mg/dL
[2021-09-09 03:50] LABS: Alanine Aminotransferase 38 U/L (0-31); Albumin Level 5.1 g/dL (3.5-5.0); Alkaline Phosphatase 104 U/L (39-117); Anion Gap 14 (12-20); Aspartate Amino Transferase 34 U/L (5-31); Bilirubin Total 0.2 mg/dL (0.0-1.0); Blood Urea Nitrogen 5 mg/dL (9-16); Calcium 10.1 mg/dL (8.4-10.2); Carbon Dioxide 26 mmol/L (22-29); Chloride 108 mmol/L (96-108); Creatinine Clr Calc Pharmacy 102.8; Estimated Glomerular Filt Rate > 60; Glucose Random 127 mg/dL (60-115); Potassium 4.5 mmol/L (3.3-5.1); Salicylate < 5.0 mg/dL (15-30); Sodium 143 mmol/L (135-145); Total Protein 8.2 g/dL (6.5-8.0)
[2021-09-09 03:58] LABS: Acetaminophen LAB 10 mcg/mL (<30)
[2021-09-09 04:04] LABS: COVID-19 Test Negative (Negative)
[2021-09-09 04:40] VITALS: BP 124/81; PULSE 100; RESP 16; O2SAT 97
[2021-09-09] MEDS: Benzonatate 100 MG CAPSULE PO (04:56)
[2021-09-09] MEDS: Magnesium Hydrox/Alum Hydrox 30 ML ORAL.SUSP PO (04:56)
[2021-09-09] MEDS: Lidocaine HCl Viscous 2 % 15 ML SOLUTION 10 ML MUCOUS MEM (04:56)
== END 2021-09-09 06:31 | disposition home or self-care (01) ==
PROVIDERS: Emergency Provider Student in an Organized Health Care Education/Training Program; PCP Internal Medicine
DX: F10.120 Alcohol abuse with intoxication, uncomplicated (principal); Y90.6 Blood alcohol level of 120-199 mg/100 ml; F31.9 Bipolar disorder, unspecified; Z20.822 Contact with and (suspected) exposure to COVID-19
CPT/HCPCS: 36415; 80053; 80143; 80179; 82077; 85025; 85610; 87635; 93005; 99284

== ENCOUNTER 2021-10-20 08:46 | Outpatient (REF) | payer MEDICAID, SELFPAY ==
--- NOTE | 2021-10-20 08:49 | EMG_ITS ---
Left median and ulnar motor and sensory studies were performed. Left radial sensory study was performed and paraspinal muscles were tested. IMPRESSION: This study did not reveal any significant abnormality to make a diagnosis of median or ulnar neuropathy or radiculopathy. Median study was borderline normal. If carpal tunnel syndrome is strongly suspected, repeat study in 6 months may help to make a definitive diagnosis. MD AZIZA Deleon/ELMO / [phone]
== END 2021-10-20 08:47 | disposition home or self-care (01) ==
LOC: HO.NEURO 08:46
PROVIDERS: Visit Provider Orthopaedic Surgery
DX: R20.0 Anesthesia of skin (principal); R20.2 Paresthesia of skin
CPT/HCPCS: 95886; 95909

== ENCOUNTER → 2021-11-01 11:56 | Outpatient (BNVA) | payer MEDICAID, SELFPAY | PROVIDERS: PCP Internal Medicine; Visit Provider Orthopaedic Surgery | DX: M77.12 Lateral epicondylitis, left elbow (principal); M25.512 Pain in left shoulder | CPT/HCPCS: 99202 ==

== ENCOUNTER 2021-11-21 10:07 | Outpatient (REF) | payer MEDICAID, SELFPAY ==
[2021-11-21 11:45] LABS: Alanine Aminotransferase 33 U/L (0-31); Albumin Level 4.1 g/dL (3.5-5.0); Alkaline Phosphatase 106 U/L (39-117); Anion Gap 12 (12-20); Aspartate Amino Transferase 20 U/L (5-31); Bilirubin Total 0.4 mg/dL (0.0-1.0); Blood Urea Nitrogen 7 mg/dL (9-16); Calcium 9.4 mg/dL (8.4-10.2); Carbon Dioxide 26 mmol/L (22-29); Chloride 103 mmol/L (96-108); Estimated Glomerular Filt Rate > 60; Glucose Random 85 mg/dL (60-115); Potassium 4.3 mmol/L (3.3-5.1); Sodium 137 mmol/L (135-145); Total Protein 6.5 g/dL (6.5-8.0)
[2021-11-21 11:50] LABS: Thyroid Stimulating Hormone 1.25 uIU/mL (0.32-4.0); Vitamin D 25-OH Total 13.5 ng/mL (>30)
[2021-11-21 12:06] LABS: Folate 6.8 ng/mL (> or = 4.0); Vitamin B12 180 pg/mL (200-900)
== END 2021-11-21 10:08 | disposition home or self-care (01) ==
LOC: HO.LAB 10:07
PROVIDERS: Absent Provider Internal Medicine; PCP Internal Medicine; Visit Provider Family Medicine
DX: M79.602 Pain in left arm (principal)
CPT/HCPCS: 36415; 80053; 82306; 82607; 82746; 84443

== ENCOUNTER 2021-11-26 06:55 | Emergency (ER) | payer MEDICAID, SELFPAY ==
--- NOTE | ~2021-11-26 | XR_ITS ---
EXAMINATION: XR CHEST CLINICAL INFORMATION: Chest pain COMPARISON: Previous chest x-ray August 2020 TECHNIQUE: Frontal view of the chest was obtained. FINDINGS: No significant abnormality is noted involving the heart, lungs, mediastinum, bony thorax or soft tissues. XR/XR chest 1V IMPRESSION: Unremarkable examination.
[2021-11-26 07:31] VITALS: BP 125/79; PULSE 91; RESP 16; TEMP 36.9; O2SAT 96; BMI 36.5
--- NOTE | 2021-11-26 07:39 | ED.GENADULT ---
HPI - General Adult General Chief complaint: General Medical Stated complaint: CRISIS Time Seen by Provider: 11/26/21 07:39 Source: patient Mode of arrival: ambulatory History of Present Illness HPI narrative: This is a 41 years old the female with history of alcohol abuse presented to the emergency room requesting detox a she is also complaining of left-sided chest pain. She has some numbness in the left arm which has been ongoing about 2 weeks denies any weakness in the left arm Onset (ago): day(s) (1) Location: chest Radiation: non-radiation Severity: moderate Quality: burning Pain Consistency: constant Relieving factors: none Related Data Home Medications Medication Instructions Recorded Confirmed lamotrigine 100 mg tablet 100 mg PO DAILY 12/29/20 05/28/21 cholecalciferol (vitamin D3) 25 1 cap PO DAILY 02/07/21 05/28/21 mcg (1,000 unit) capsule (Vitamin D3) citalopram 40 mg tablet 1 tab PO DAILY 02/07/21 05/28/21 prazosin 1 mg capsule 1 cap PO BEDTIME 02/07/21 05/28/21 quetiapine 100 mg tablet (Seroquel) 1 tab PO BEDTIME 02/07/21 02/07/21 quetiapine 25 mg tablet (Seroquel) 25 mg PO QPM 05/28/21 05/28/21 Previous Rx's Medication Instructions Recorded cyclobenzaprine 10 mg tablet 10 mg PO BEDTIME PRN #10 tab 11/22/20 benzonatate 100 mg capsule 100 mg PO TID PRN #14 cap 09/09/21 Allergies Allergy/AdvReac Type Severity Reaction Status Date / Time levofloxacin [From LEVAQUIN] Allergy Intermediate RASH Verified 11/01/21 12:14 codeine [Codeine] Allergy Unknown NAUSEA AND Verified 11/01/21 12:14 VOMITING, sensitivity ibuprofen Allergy Unknown sensitivity Verified 11/01/21 12:14 morphine [Morphine] Allergy Unknown HEADACHE, Verified 11/01/21 12:14 vomiting, sensitivity naproxen [From NAPROSYN] Allergy Unknown HIVES, Verified 11/01/21 12:14 DIFFICULTY BREATHING. Sulfa (Sulfonamide Allergy Unknown unknown Verified 11/01/21 12:14 Antibiotics) Review of Systems Constitutional: Constitutional: Reports no additional constitutional complaints Eyes: Eyes: Reports no additional eye complaints Cardiovascular: Cardiovascular: Reports no additional cardiovascular complaints Respiratory: Respiratory: Reports no additional respiratory complaints [facility] Past Medical History Medical History Bipolar disorder Breast mass History of 2019 novel coronavirus disease (COVID-19) Morbid obesity Palpitation Surgical History History of sinus surgery (~2020) Family History Family History Father History of heart artery stent History of heart attack Mother CVA (cerebral vascular accident) Paternal Grandmother Bone cancer Paternal Uncle Cancer of unknown origin Social History Social History Alcohol intake: current Alcohol intake frequency: a few times a month Patient Tobacco Use Status: Never used Tobacco Substance Use Type: Marijuana Advance Directives: No Advance Directives Information Provided: No Current occupational status: disabled Current occupation: rt handed Physical Exam ED Vital Signs: Vital Signs - 24 hr 11/26/21 07:31 Temperature 98.4 F Pulse Rate 91 Respiratory Rate 16 Blood Pressure 125/79 Pulse Oximetry 96 BMI result Body Mass Index 36.5 Const General: cooperative and healthy appearing Nutritional Appearance: average body habitus Orientation/consciousness: patient oriented x3 Limitations: no limitations HENMT Head: Yes normal to inspection and Yes No palpable skull fracture present Face and sinus: Yes normal facial exam Mouth: Normal oral and palatal mucosa present Throat: Yes posterior oropharynx normal Neck Neck: Yes normal visual inspection and Yes full ROM Chest Chest palpation & inspection: normal inspection of the chest and normal palpation of entire chest wall Resp Effort & Inspection: normal respiratory effort and able to speak in complete sentences Auscultation: clear to auscultation bilaterally Cardio Jugular venous distension: no JVD Palpation: normal PMI Rate: regular rate Rhythm: regular rhythm GI Inspection: Yes normal to inspection Palpation (GI): Soft to palpation, not firm, nontender and no guarding Percussion: Yes normal to percussion Skin General skin exam: no rashes or lesions noted and elasticity normal Neuro General: patient oriented x3 Course Reevaluation(s) Reevaluation #1: pt was seeen by care team Mykel Hogue is searching for detox bed for the pt Time: 12:54 Reevaluation #2: Detox Bed found , pt will be d/c to Detox Medical Decision Making Lab Data Result diagrams: 11/26/21 08:48 11/26/21 08:48 Labs: Lab Results 11/26/21 11/26/21 11/26/21 Range/Units 08:48 08:48 08:48 WBC 7.4 (4.8-10.8) X10*3/uL RBC 4.78 (4.20-5.50) X10*6/uL Hgb 13.8 (12.0-16.0) g/dl Hct 41.9 (37.0-47.0) % MCV 87.7 (80.0-98.0) fL MCH 28.9 (27.0-33.0) pg MCHC 32.9 (31.0-35.0) g/dl RDW 13.5 (11.0-16.0) % Plt Count 336 (160-400) X10*3/uL MPV 8.8 L (9.4-12.3) fL Immature Gran % (Auto) 0.5 H (0.0-0.4) % Neut % (Auto) 57.6 (45-73) % Lymph % (Auto) 34.2 (20-40) % Butler % (Auto) 6.5 (2-11) % Eos % (Auto) 0.8 (0-4) % Baso % (Auto) 0.4 (0-2) % Lymph # (Auto) 2.5 (1.2-4.9) X10*3/uL Butler # (Auto) 0.5 (0.1-1.2) X10*3/uL Eos # (Auto) 0.1 (0.0-0.4) X10*3/uL Baso # (Auto) 0.0 (0.0-0.2) X10*3/uL Abs Immat Gran (auto) 0.04 H (0.00-0.03) X10*3/uL Absolute Neuts (auto) 4.3 (2.0-8.3) x10*3/uL Absolute Nucleated RBC 0.000 (0.0-0.012) X10*3/uL Nucleated RBC % (auto) 0.0 (0.0-0.2) /100WBC Sodium 142 (135-145) mmol/L Potassium 4.5 (3.3-5.1) mmol/L Chloride 106 (96-108) mmol/L Carbon Dioxide 22 (22-29) mmol/L Anion Gap 19 (12-20) BUN 5 L (9-16) mg/dL Creatinine 0.77 (0.5-1.4) mg/dL Estim Creat Clear Calc 100.6 Estimated GFR > 60 Random Glucose 106 (60-115) mg/dL Calcium 9.5 (8.4-10.2) mg/dL Total Bilirubin 0.4 (0.0-1.0) mg/dL AST 26 (5-31) U/L ALT 32 H (0-31) U/L Alkaline Phosphatase 99 (39-117) U/L Troponin I High Sens < 3.5 (<3.5-17.0) ng/L Total Protein 7.6 (6.5-8.0) g/dL Albumin 4.6 (3.5-5.0) g/dL Urine Color Urine Appearance Urine pH (5.0-8.0) Ur Specific Tingley (1.005-1.025) Urine Protein (NEG-TRACE) MG/DL Urine Glucose (UA) (NEG) MG/DL Urine Ketones (NEG) MG/DL Urine Blood (NEG) Urine Nitrite (NEG) Ur Leukocyte Esterase (NEG) Urine RBC (0) /HPF Urine WBC (0-4) /HPF Ur Squamous Epith Cells /LPF Urine Bacteria /LPF Urine Opiates Screen (Not Detect) Urine Fentanyl Screen (Not Detect) Ur Barbiturates Screen (Not Detect) Ur Phencyclidine Scrn (Not Detect) Ur Amphetamines Screen (Not Detect) U Benzodiazepines Scrn (Not Detect) Urine Cocaine Screen (Not Detect) U Marijuana (THC) Screen (Not Detect) Ethyl Alcohol mg/dL 11/26/21 11/26/21 11/26/21 Range/Units 09:15 09:24 09:24 WBC (4.8-10.8) X10*3/uL RBC (4.20-5.50) X10*6/uL Hgb (12.0-16.0) g/dl Hct (37.0-47.0) % MCV (80.0-98.0) fL MCH (27.0-33.0) pg MCHC (31.0-35.0) g/dl RDW (11.0-16.0) % Plt Count (160-400) X10*3/uL MPV (9.4-12.3) fL Immature Gran % (Auto) (0.0-0.4) % Neut % (Auto) (45-73) % Lymph % (Auto) (20-40) % Butler % (Auto) (2-11) % Eos % (Auto) (0-4) % Baso % (Auto) (0-2) % Lymph # (Auto) (1.2-4.9) X10*3/uL Butler # (Auto) (0.1-1.2) X10*3/uL Eos # (Auto) (0.0-0.4) X10*3/uL Baso # (Auto) (0.0-0.2) X10*3/uL Abs Immat Gran (auto) (0.00-0.03) X10*3/uL Absolute Neuts (auto) (2.0-8.3) x10*3/uL Absolute Nucleated RBC (0.0-0.012) X10*3/uL Nucleated RBC % (auto) (0.0-0.2) /100WBC Sodium (135-145) mmol/L Potassium (3.3-5.1) mmol/L Chloride (96-108) mmol/L Carbon Dioxide (22-29) mmol/L Anion Gap (12-20) BUN (9-16) mg/dL Creatinine (0.5-1.4) mg/dL Estim Creat Clear Calc Estimated GFR Random Glucose (60-115) mg/dL Calcium (8.4-10.2) mg/dL Total Bilirubin (0.0-1.0) mg/dL AST (5-31) U/L ALT (0-31) U/L Alkaline Phosphatase (39-117) U/L Troponin I High Sens (<3.5-17.0) ng/L Total Protein (6.5-8.0) g/dL Albumin (3.5-5.0) g/dL Urine Color STRAW Urine Appearance CLEAR Urine pH 6.0 (5.0-8.0) Ur Specific Tingley <= 1.005 (1.005-1.025) Urine Protein NEG (NEG-TRACE) MG/DL Urine Glucose (UA) NEG (NEG) MG/DL Urine Ketones NEG (NEG) MG/DL Urine Blood TRACE (NEG) Urine Nitrite NEG (NEG) Ur Leukocyte Esterase NEG (NEG) Urine RBC 0-2 (0) /HPF Urine WBC 0 (0-4) /HPF Ur Squamous Epith Cells 1+ /LPF Urine Bacteria NONE /LPF Urine Opiates Screen Not Detected (Not Detect) Urine Fentanyl Screen POSITIVE H (Not Detect) Ur Barbiturates Screen Not Detected (Not Detect) Ur Phencyclidine Scrn Not Detected (Not Detect) Ur Amphetamines Screen Not Detected (Not Detect) U Benzodiazepines Scrn Not Detected (Not Detect) Urine Cocaine Screen POSITIVE H (Not Detect) U Marijuana (THC) Screen Not Detected (Not Detect) Ethyl Alcohol 148 mg/dL ECG Data Pacemaker model: NSR 80 no ischemic changes Discharge Plan Discharge Clinical Impression: Drug abuse and dependence Patient Disposition: Home, Self-Care Instructions: Polysubstance Abuse (ED) Additional Instructions: You have a bed at the [facility] Prescriptions: No Action cyclobenzaprine 10 mg tablet 10 mg PO BEDTIME PRN (Reason: muscle spasm) Qty: 10 0RF citalopram 40 mg tablet 1 tab PO DAILY 0RF prazosin 1 mg capsule 1 cap PO BEDTIME 0RF quetiapine [Seroquel] 100 mg tablet 1 tab PO BEDTIME 0RF cholecalciferol (vitamin D3) [Vitamin D3] 25 mcg (1,000 unit) capsule 1 cap PO DAILY 0RF quetiapine [Seroquel] 25 mg Tablet 25 mg PO QPM 0RF benzonatate 100 mg capsule 100 mg PO TID PRN (Reason: cough) Qty: 14 0RF lamotrigine 100 mg tablet 100 mg PO DAILY 0RF Referrals: Tadeo Alvarado MD [Primary Care Provider] - 5 days Interventions: ED Discharge Assessment Last Done: 11/26/21 14:56 Discharge Date/Time: 11/26/21 14:57
--- NOTE | 2021-11-26 08:07 | ECG_ITS ---
Test Reason : SHOULDER PAIN Blood Pressure : / mmHG Vent. Rate : 080 BPM Atrial Rate : 080 BPM P-R Int : 156 ms QRS Dur : 098 ms QT Int : 428 ms P-R-T Axes : 062 -13 051 degrees QTc Int : 493 ms Normal sinus rhythm with sinus arrhythmia Possible Left atrial enlargement Incomplete right bundle branch block Prolonged QT Abnormal ECG When compared with ECG of 09-SEP-2021 03:04, No significant change was found Referred By: Tomer Spencer Electronically Signed By:Bipin Ann
[2021-11-26] MEDS: ondansetron HCL 4 MG/2 ML VIAL IVPUSH (08:51)
[2021-11-26 08:55] LABS: MANUAL DIFF FLAG NO
--- NOTE | 2021-11-26 08:56 | MHC.RECOVSUP ---
Addendum entered by Mykel Mccauley [facility] 11/26/21 14:58: Patient accepted to [facility]. Transported home and to facility via [employer]. Original Note: Recovery Support note: Patient is a 41 year old Ukrainian speaking female who presented to [facility] ED due to alcohol use, chest and back pain. This health technical writer met with patient to discuss alcohol use and treatment options. Patient reports drinking this morning and states she drinks every other day or so. Patient reports having 5 drinks on average. Patient reports she starts to feel sick when she goes a day without drinking. Patient also reports using cocaine every couple of days. Patient is interested in going to detox as she identifies her substance use as problematic and detrimental to her health. Patient denies SI and HI at this time. Patient reports she is on medications for her mental health and that she can bring the medications with her to treatment. This health technical writer will assist patient in referring to ATS facilities.
[2021-11-26 08:57] LABS: Basophils Percent Auto 0.4 % (0-2); Eosinophils Absolute Auto 0.1 X10*3/uL (0.0-0.4); Eosinophils Percent Auto 0.8 % (0-4); Hematocrit 41.9 % (37.0-47.0); Hemoglobin 13.8 g/dl (12.0-16.0); Imm Gran Abs Auto 0.04 X10*3/uL (0.00-0.03); Imm Gran Pct Auto 0.5 % (0.0-0.4); Lymphocytes Absolute Auto 2.5 X10*3/uL (1.2-4.9); Lymphocytes Percent Auto 34.2 % (20-40); Mean Corpuscular HGB Conc 32.9 g/dl (31.0-35.0); Mean Corpuscular Hemoglobin 28.9 pg (27.0-33.0); Mean Corpuscular Volume 87.7 fL (80.0-98.0); Mean Platelet Volume 8.8 fL (9.4-12.3); Monocytes Absolute Auto 0.5 X10*3/uL (0.1-1.2); Monocytes Percent Auto 6.5 % (2-11); Neutrophils Absolute Auto 4.3 x10*3/uL (2.0-8.3); Neutrophils Percent Auto 57.6 % (45-73); Platelet Count 336 X10*3/uL (160-400); Red Blood Count 4.78 X10*6/uL (4.20-5.50); Red Cell Distribution Width 13.5 % (11.0-16.0); White Blood Count 7.4 X10*3/uL (4.8-10.8)
[2021-11-26 09:18] LABS: Troponin-I High Sensitivity < 3.5 ng/L (<3.5-17.0)
[2021-11-26 09:26] LABS: Alanine Aminotransferase 32 U/L (0-31); Albumin Level 4.6 g/dL (3.5-5.0); Alkaline Phosphatase 99 U/L (39-117); Anion Gap 19 (12-20); Aspartate Amino Transferase 26 U/L (5-31); Bilirubin Total 0.4 mg/dL (0.0-1.0); Blood Urea Nitrogen 5 mg/dL (9-16); Calcium 9.5 mg/dL (8.4-10.2); Carbon Dioxide 22 mmol/L (22-29); Chloride 106 mmol/L (96-108); Creatinine Clr Calc Pharmacy 100.6; Estimated Glomerular Filt Rate > 60; Glucose Random 106 mg/dL (60-115); Potassium 4.5 mmol/L (3.3-5.1); Sodium 142 mmol/L (135-145); Total Protein 7.6 g/dL (6.5-8.0)
[2021-11-26 09:43] LABS: Appearance Urine CLEAR; Color Urine STRAW; Glucose Urine UA NEG (NEG); Leukocyte Esterase Urine NEG (NEG); Nitrite Urine NEG (NEG); Specific Gravity - Urine <= 1.005 (1.005-1.025); UACC Culture Trigger NO; Urine Blood TRACE (NEG); Urine Ketones NEG (NEG); Urine Protein NEG (NEG-TRACE)
[2021-11-26 09:50] LABS: WBC Urine 0 /HPF (0-4)
[2021-11-26 09:51] LABS: RBC Urine 0-2 /HPF (0); Squamous Epithelial Cell Urine 1+ /LPF
[2021-11-26 09:53] LABS: Ethanol 148 mg/dL
[2021-11-26 09:58] LABS: Amphetamine Screen Urine Not Detected (Not Detect); Barbiturates, Urine Not Detected (Not Detect); Benzodiazepines Screen Urine Not Detected (Not Detect); Cannabinoid Screen Urine Not Detected (Not Detect); Cocaine Screen Urine POSITIVE (Not Detect); Fentanyl, urine POSITIVE (Not Detect); Opiate Screen Urine Not Detected (Not Detect); Phencyclidine Screen Urine Not Detected (Not Detect)
== END 2021-11-26 14:57 | disposition home or self-care (01) ==
PROVIDERS: Emergency Provider Emergency Medicine; PCP Internal Medicine
DX: F19.10 Other psychoactive substance abuse, uncomplicated (principal); F10.10 Alcohol abuse, uncomplicated; Y90.6 Blood alcohol level of 120-199 mg/100 ml; R07.9 Chest pain, unspecified; Z79.899 Other long term (current) drug therapy
CPT/HCPCS: 36415; 71045; 80053; 80307; 81001; 82077; 84484; 85025; 93005; 96374; 99283; 99284; J2405

== ENCOUNTER 2021-12-27 11:50 | Outpatient (REF) | payer MEDICAID, SELFPAY ==
--- NOTE | ~2021-12-27 | MM_ITS ---
EXAMINATION: MM SCREENING DIGITAL BREAST TOMOSYNTHESIS, BILATERAL CLINICAL INFORMATION: Screening. Asymptomatic. Right ultrasound-guided biopsy 12/29/2020 (apocrine cyst. No atypia). The lifetime risk of breast cancer based on the Tyrer-Cuzick Model is 8%. COMPARISON: Mammography: 12/29/2020, 12/14/2020, 05/14/2014 TECHNIQUE: Digital breast tomosynthesis is performed in both the craniocaudal and mediolateral oblique views along with computer-aided detection (CAD). Synthesized 2D images are generated from the tomosynthesis. Additional left CC and bilateral MLO views are provided. FINDINGS: There are scattered areas of fibroglandular density (ACR BI-RADS breast composition Category b). Fibroglandular parenchymal pattern is similar to prior studies. There is no interval significant mass or architectural abnormality or abnormal calcifications. Some mild retroareolar duct ectasia is again noted. The right breast has biopsy clip marker anterior 9:00 position. The bilateral axilla and skin contours are unremarkable. No significant changes. MM/MM tomosynthesis screening BI IMPRESSION: No significant changes from prior studies. ASSESSMENT: BI-RADS 2: Benign RECOMMENDATION: Routine annual mammography screening. This patient's information was entered into a reminder system with a target due date for their next mammogram.
== END 2021-12-27 11:51 | disposition home or self-care (01) ==
LOC: HO.MAMMO 11:50
PROVIDERS: Visit Provider Internal Medicine
DX: Z12.31 Encounter for screening mammogram for malignant neoplasm of breast (principal)
CPT/HCPCS: 77063; 77067

== ENCOUNTER 2022-01-02 07:35 | Outpatient (REF) | payer MEDICAID, SELFPAY ==
--- NOTE | ~2022-01-02 | XR_ITS ---
EXAMINATION: XR SHOULDER, LEFT CLINICAL INFORMATION: Pain COMPARISON: None TECHNIQUE: AP external rotation, Grashey, scapular Y, and axillary views of the left shoulder. FINDINGS: The bones and soft tissues are normal. No fracture. Glenohumeral and acromioclavicular alignment is anatomic with normal joint space. No abnormal soft tissue calcifications. XR/XR shoulder LT min 2V IMPRESSION: Normal left shoulder.
--- NOTE | ~2022-01-02 | XR_ITS ---
EXAMINATION: XR CHEST CLINICAL INFORMATION: Chest pain COMPARISON: Previous chest x-ray November 2021 TECHNIQUE: 2 views of the chest were obtained. FINDINGS: No significant abnormality is noted involving the heart, lungs, mediastinum, bony thorax or soft tissues. XR/XR chest 2V IMPRESSION: Unremarkable examination.
== END 2022-01-02 07:36 | disposition home or self-care (01) ==
LOC: HO.XRAY 07:35
PROVIDERS: Absent Provider Internal Medicine; PCP Internal Medicine; Visit Provider Family Medicine
DX: R07.9 Chest pain, unspecified (principal)
CPT/HCPCS: 71046; 73030

== ENCOUNTER 2022-01-21 23:37 | Emergency (ER) | payer MEDICAID, SELFPAY ==
--- NOTE | 2022-01-22 00:24 | PC.NURSE ---
Addendum entered by Latrice Bartlett 01/22/22 00:57: pt called, no answer pt left without being seeing. charged RN Made aware Original Note: pt called multiple time, no answer. will call again in 20 mins
== END 2022-01-22 01:00 | disposition left against medical advice (07) ==
PROVIDERS: Emergency Provider Emergency Medicine
DX: R11.0 Nausea (principal)

== ENCOUNTER 2022-02-20 09:20 | Emergency (ER) | payer MEDICAID, SELFPAY ==
--- NOTE | ~2022-02-20 | CT_ITS ---
EXAMINATION: CT HEAD WITHOUT CONTRAST CLINICAL INFORMATION: 2 weeks of intractable headaches, rule out intracranial abnormality. COMPARISON: 05/13/[address] scan. TECHNIQUE: Contiguous axial imaging was performed from the skull base to vertex without intravenous administration of contrast. Coronal and sagittal reformatted images were obtained. This CT examination was performed using dose optimization techniques as appropriate, variously including the following: *Automated exposure control *Adjustment of mA and/or kV according to patient size (this includes techniques or standardized protocols for targeted exams where dose is matched to indication/reason for exam; i.e. extremities or head) *Use of iterative reconstruction technique DLP: 602 mGy-cm FINDINGS: There is no evidence of acute intracranial hemorrhage or territorial infarction. No abnormal mass effect or midline shift is seen. Gomez to white matter differentiation is well preserved. No extra-axial fluid collections are identified. The ventricles are normal in size. There is no abnormal attenuation within the brain parenchyma. The osseous structures and soft tissues are normal. The mastoid air cells and visualized portions of the paranasal sinuses are well aerated. Incidental coarsely calcified subcutaneous nodule in the paramedian right high parietal region without surrounding abnormality was not seen previously. CT/CT head/brain wo con IMPRESSION: No acute intracranial pathology.
[2022-02-20 09:20] VITALS: BP 120/76; PULSE 97; RESP 18; TEMP 36.9; O2SAT 100; BMI 39.3
[2022-02-20 09:36] VITALS: BP 141/83; PULSE 100; RESP 18; O2SAT 97
--- NOTE | 2022-02-20 09:39 | ED.HA ---
HPI - Headache General Chief Complaint: Headache Stated Complaint: r side facial pain Time Seen by Provider: 02/20/22 09:35 Source: patient Mode of arrival: ambulatory Limitations: no limitations History of Present Illness MD elicited complaint: migraine Pertinent past history: migraines Onset (ago): week(s) (2) Onset description: gradually and while at rest Location: right and temporal Severity: severe Quality & Timing: throbbing, constant and progressively worsening Exacerbating factors: light and noise Relieving factors: nothing Context: occurred at rest Associated symptoms: nausea, photophobia and other (insomnia x 2 days) Treatments prior to arrival: other (taking her topamax and tried sumatriptan without relief) Related Data Home Medications Medication Instructions Recorded Confirmed lamotrigine 100 mg tablet 100 mg PO DAILY 12/29/20 05/28/21 cholecalciferol (vitamin D3) 25 1 cap PO DAILY 02/07/21 05/28/21 mcg (1,000 unit) capsule (Vitamin D3) citalopram 40 mg tablet 1 tab PO DAILY 02/07/21 05/28/21 prazosin 1 mg capsule 1 cap PO BEDTIME 02/07/21 05/28/21 quetiapine 100 mg tablet (Seroquel) 1 tab PO BEDTIME 02/07/21 02/07/21 quetiapine 25 mg tablet (Seroquel) 25 mg PO QPM 05/28/21 05/28/21 Previous Rx's Medication Instructions Recorded cyclobenzaprine 10 mg tablet 10 mg PO BEDTIME PRN muscle spasm 11/22/20 #10 tabs benzonatate 100 mg capsule 100 mg PO TID PRN cough #14 caps 09/09/21 Allergies Allergy/AdvReac Type Severity Reaction Status Date / Time levofloxacin [From LEVAQUIN] Allergy Intermediate RASH Verified 11/01/21 12:14 codeine [Codeine] Allergy Unknown NAUSEA AND Verified 11/01/21 12:14 VOMITING, sensitivity ibuprofen Allergy Unknown sensitivity Verified 11/01/21 12:14 morphine [Morphine] Allergy Unknown HEADACHE, Verified 11/01/21 12:14 vomiting, sensitivity naproxen [From NAPROSYN] Allergy Unknown HIVES, Verified 11/01/21 12:14 DIFFICULTY BREATHING. Sulfa (Sulfonamide Allergy Unknown unknown Verified 11/01/21 12:14 Antibiotics) Review of Systems Review of Systems: Constitutional : No Fever, No Chills, No Fatigue ENT/Mouth : No sore throat, No Rhinorrhea Eyes: No Eye Pain, No Swelling, No Redness, pos photophobia Cardiovascular : No Chest Pain, No SOB, No Dyspnea on Exertion Respiratory : No Cough, No Sputum Gastrointestinal : pos Nausea, No Vomiting, No Diarrhea, No abdominal Pain Genitourinary : No Dysuria, No Urinary Frequency, No Hematuria, Musculoskeletal : No joint pain, No Myalgias, No Joint Swelling Skin : No Skin Lesions, No rash Neuro : No Weakness, No Numbness, No Dizziness, positive Headache Psych : No Anxiety/Panic, No Depression Heme/Lymph: No Bruising, No Bleeding,No Lymphadenopathy Endocrine : No Polyuria, No Polydipsia All other systems reviewed and are negative [facility] Past Medical History Attestation statement: The following information was validated with the patient. Medical History Bipolar disorder Depression Overdose Surgical History History of sinus surgery (~2019) Family History Family History Father History of heart artery stent History of heart attack Mother CVA (cerebral vascular accident) Paternal Grandmother Bone cancer Paternal Uncle Cancer of unknown origin Social History Social History Alcohol intake: never Patient Tobacco Use Status: Never used Tobacco Use of substances other than those prescribed or required for medical reasons: No Substance Use Type: Marijuana Advance Directives: Yes Advance Directives Information Provided: Yes Advance Directives on File: No Patient : No Current occupational status: disabled Current occupation: rt handed Physical Exam Vital Signs: Vital Signs: Last Vital Signs Temp 97.9 F 02/20/22 10:53 Pulse 79 02/20/22 10:53 Resp 16 02/20/22 10:53 BP 130/77 02/20/22 10:53 Pulse Ox 98 02/20/22 10:53 O2 Del Method 02/20/22 10:53 BMI result Body Mass Index 39.3 Appearance: Alert. Oriented X3. No acute distress. Eyes: Pupils equal, round and reactive to light. ENT: Pharynx normal. normal TMs right side, R nares normal no boggy turbinates Neck: Normal inspection. Neck supple. no meningeal signs CVS: Normal heart rate and rhythm. Pulses normal. Respiratory: No respiratory distress. Breath sounds normal. Abdomen: Soft and nontender. Skin: Skin warm and dry. Normal skin color. Normal skin turgor. Extremities: No lower extremity edema. No calf ttp Neuro: Oriented X 3. No motor deficit. No sensory deficit. steady gait Course Course Course Narrative: patient asleep feels better stable for DC MDM - Headache MDM Narrative Medical decision making narrative: 41 yo female with hx of migraines, recovering from cocaine and ETOH abuse, seizure on lamictal per her reports has had migraines in the past but this migraine is lasting 2 weeks which is unusual for her - she denies fevers, trauma, DOACs. At this time she has tried her topiramate/sumatriptan without relief. Suspect intractable migraine but given duration will obtain CT head for mass - will obtain labs as well. Doubt SAH given onset is gradual and chronicity, no meningeal signs or fevers to suggest CONDENSER TESTER infection. Will treat with IV medications including magnesium and dexamethasone for status migrainosus. Patient denies issues with steroids in past related to bipolar disorder. Lab Data Result diagrams: 02/20/22 09:58 02/20/22 09:58 Labs: Lab Results 02/20/22 02/20/22 Range/Units 09:58 09:58 WBC 6.9 (4.8-10.8) X10*3/uL RBC 4.39 (4.20-5.50) X10*6/uL Hgb 12.6 (12.0-16.0) g/dl Hct 37.8 (37.0-47.0) % MCV 86.1 (80.0-98.0) fL MCH 28.7 (27.0-33.0) pg MCHC 33.3 (31.0-35.0) g/dl RDW 13.1 (11.0-16.0) % Plt Count 293 (160-400) X10*3/uL MPV 8.6 L (9.4-12.3) fL Immature Gran % (Auto) 0.4 (0.0-0.4) % Neut % (Auto) 60.1 (45-73) % Lymph % (Auto) 30.4 (20-40) % [place] % (Auto) 6.3 (2-11) % Eos % (Auto) 2.5 (0-4) % Baso % (Auto) 0.3 (0-2) % Lymph # (Auto) 2.1 (1.2-4.9) X10*3/uL [place] # (Auto) 0.4 (0.1-1.2) X10*3/uL Eos # (Auto) 0.2 (0.0-0.4) X10*3/uL Baso # (Auto) 0.0 (0.0-0.2) X10*3/uL Abs Immat Gran (auto) 0.03 (0.00-0.03) X10*3/uL Absolute Neuts (auto) 4.1 (2.0-8.3) x10*3/uL Absolute Nucleated RBC 0.000 (0.0-0.012) X10*3/uL Nucleated RBC % (auto) 0.0 (0.0-0.2) /100WBC Sodium 138 (135-145) mmol/L Potassium 4.0 (3.3-5.1) mmol/L Chloride 109 H (96-108) mmol/L Carbon Dioxide 23 (22-29) mmol/L Anion Gap 10 L (12-20) BUN 10 D (9-16) mg/dL Creatinine 0.86 (0.5-1.4) mg/dL Estim Creat Clear Calc 93.8 Estimated GFR > 60 Random Glucose 116 H (60-115) mg/dL Calcium 9.1 (8.4-10.2) mg/dL Discharge Plan Discharge Clinical Impression: Migraine Qualifiers: Migraine type: without aura Status migrainosus presence: with status migrainosus Intractability: not intractable Qualified Code(s): G43.001 - Migraine without aura, not intractable, with status migrainosus Patient Disposition: Home, Self-Care Instructions: Migraine Headache (ED) Additional Instructions: return to ED for any worsening symptoms or concerns continue all medications labs and CT scan normal Prescriptions: No Action cyclobenzaprine 10 mg tablet 10 mg PO BEDTIME PRN (Reason: muscle spasm) Qty: 10 0RF citalopram 40 mg tablet 1 tab PO DAILY prazosin 1 mg capsule 1 cap PO BEDTIME quetiapine [Seroquel] 100 mg tablet 1 tab PO BEDTIME cholecalciferol (vitamin D3) [Vitamin D3] 25 mcg (1,000 unit) capsule 1 cap PO DAILY quetiapine [Seroquel] 25 mg Tablet 25 mg PO QPM benzonatate 100 mg capsule 100 mg PO TID PRN (Reason: cough) Qty: 14 0RF lamotrigine 100 mg tablet 100 mg PO DAILY Stand Alone Forms: Work/School Release
[2022-02-20 10:01] LABS: MANUAL DIFF FLAG NO
[2022-02-20 10:03] LABS: Basophils Percent Auto 0.3 % (0-2); Eosinophils Absolute Auto 0.2 X10*3/uL (0.0-0.4); Eosinophils Percent Auto 2.5 % (0-4); Hematocrit 37.8 % (37.0-47.0); Hemoglobin 12.6 g/dl (12.0-16.0); Imm Gran Abs Auto 0.03 X10*3/uL (0.00-0.03); Imm Gran Pct Auto 0.4 % (0.0-0.4); Lymphocytes Absolute Auto 2.1 X10*3/uL (1.2-4.9); Lymphocytes Percent Auto 30.4 % (20-40); Mean Corpuscular HGB Conc 33.3 g/dl (31.0-35.0); Mean Corpuscular Hemoglobin 28.7 pg (27.0-33.0); Mean Corpuscular Volume 86.1 fL (80.0-98.0); Mean Platelet Volume 8.6 fL (9.4-12.3); Monocytes Absolute Auto 0.4 X10*3/uL (0.1-1.2); Monocytes Percent Auto 6.3 % (2-11); Neutrophils Absolute Auto 4.1 x10*3/uL (2.0-8.3); Neutrophils Percent Auto 60.1 % (45-73); Platelet Count 293 X10*3/uL (160-400); Red Blood Count 4.39 X10*6/uL (4.20-5.50); Red Cell Distribution Width 13.1 % (11.0-16.0); White Blood Count 6.9 X10*3/uL (4.8-10.8)
[2022-02-20] MEDS: 0.9 % Sodium Chloride 1,000 ML 999 ML IV (10:17)
[2022-02-20 10:18] LABS: Anion Gap 10 (12-20); Blood Urea Nitrogen 10 mg/dL (9-16); Calcium 9.1 mg/dL (8.4-10.2); Carbon Dioxide 23 mmol/L (22-29); Chloride 109 mmol/L (96-108); Creatinine Clr Calc Pharmacy 93.8; Estimated Glomerular Filt Rate > 60; Glucose Random 116 mg/dL (60-115); Sodium 138 mmol/L (135-145)
[2022-02-20] MEDS: LORazepam 2 MG/ML VIAL 1 MG IVPUSH (10:18)
[2022-02-20] MEDS: dexAMETHasone sod phosphate 4 MG/ML VIAL 6 MG IVPUSH (10:20)
[2022-02-20] MEDS: Metoclopramide HCl 10 MG/2 ML VIAL IVPUSH (10:21)
[2022-02-20] MEDS: Magnesium Sulfate/H2O 2 GM/50 ML PIGGYBACK IV (10:46)
[2022-02-20 10:53] VITALS: BP 130/77; PULSE 79; RESP 16; TEMP 36.6; O2SAT 98
[2022-02-20 12:35] VITALS: BP 124/65; PULSE 77; RESP 23; O2SAT 97
== END 2022-02-20 12:51 | disposition home or self-care (01) ==
PROVIDERS: Emergency Provider Emergency Medicine; PCP Internal Medicine
DX: G43.001 Migraine without aura, not intractable, with status migrainosus (principal); H53.141 Visual discomfort, right eye; G47.00 Insomnia, unspecified; Z79.899 Other long term (current) drug therapy
CPT/HCPCS: 36415; 70450; 80048; 85025; 96365; 96366; 96375; 99284; J1100; J2060; J2765; J3475

== ENCOUNTER 2022-02-21 22:21 | Emergency (ER) | payer MEDICAID, SELFPAY | END 2022-02-22 01:09 | disposition left against medical advice (07) | PROVIDERS: Emergency Provider Emergency Medicine; PCP Internal Medicine | DX: G43.909 Migraine, unspecified, not intractable, without status migrainosus (principal); R68.84 Jaw pain ==

== ENCOUNTER 2022-04-18 16:46 | Emergency (ER) | payer MEDICAID, SELFPAY ==
--- NOTE | ~2022-04-18 | XR_ITS ---
EXAMINATION: XR CHEST CLINICAL INFORMATION: Chest pain COMPARISON: 01/02/2022 TECHNIQUE: Frontal view of the chest was obtained. FINDINGS: No significant abnormality is noted involving the heart, lungs, mediastinum, bony thorax or soft tissues. No rib fracture, bone lesion or pneumothorax is detected. XR/XR chest 1V IMPRESSION: No acute disease.
[2022-04-18 18:34] VITALS: BP 132/83; BP 134/98; PULSE 107; PULSE 98; RESP 20; TEMP 37.7; O2SAT 97; O2SAT 99; BMI 39.3
--- NOTE | 2022-04-18 18:41 | ECG_ITS ---
Test Reason : CHEST PAIN Blood Pressure : / mmHG Vent. Rate : 091 BPM Atrial Rate : 091 BPM P-R Int : 148 ms QRS Dur : 086 ms QT Int : 360 ms P-R-T Axes : 060 -03 065 degrees QTc Int : 442 ms Normal sinus rhythm Normal ECG When compared with ECG of 26-NOV-2021 08:05, Incomplete right bundle branch block is no longer Present QT has shortened Referred By: Generic ED Physician Electronically Signed By:BRYCE DAVILA
[2022-04-18 18:52] LABS: MANUAL DIFF FLAG NO
[2022-04-18 19:01] LABS: Basophils Percent Auto 0.3 % (0-2); Eosinophils Absolute Auto 0.7 X10*3/uL (0.0-0.4); Eosinophils Percent Auto 7.7 % (0-4); Hematocrit 40.3 % (37.0-47.0); Hemoglobin 13.1 g/dl (12.0-16.0); Imm Gran Abs Auto 0.07 X10*3/uL (0.00-0.03); Imm Gran Pct Auto 0.8 % (0.0-0.4); Lymphocytes Absolute Auto 1.6 X10*3/uL (1.2-4.9); Lymphocytes Percent Auto 18.2 % (20-40); Mean Corpuscular HGB Conc 32.5 g/dl (31.0-35.0); Mean Corpuscular Hemoglobin 28.6 pg (27.0-33.0); Mean Platelet Volume 9.1 fL (9.4-12.3); Monocytes Absolute Auto 0.8 X10*3/uL (0.1-1.2); Monocytes Percent Auto 9.2 % (2-11); Neutrophils Absolute Auto 5.7 x10*3/uL (2.0-8.3); Neutrophils Percent Auto 63.8 % (45-73); Platelet Count 280 X10*3/uL (160-400); Red Blood Count 4.58 X10*6/uL (4.20-5.50); Red Cell Distribution Width 13.7 % (11.0-16.0); White Blood Count 8.9 X10*3/uL (4.8-10.8)
[2022-04-18 19:06] LABS: Anion Gap 14 (12-20); Blood Urea Nitrogen 6 mg/dL (9-16); Calcium 8.7 mg/dL (8.4-10.2); Carbon Dioxide 24 mmol/L (22-29); Chloride 107 mmol/L (96-108); Creatinine Clr Calc Pharmacy 112.1; Estimated Glomerular Filt Rate > 60; Glucose Random 98 mg/dL (60-115); Potassium 4.2 mmol/L (3.3-5.1); Sodium 141 mmol/L (135-145)
[2022-04-18 19:08] LABS: COVID-19 Test Negative (Negative)
[2022-04-18 19:12] LABS: Troponin-I High Sensitivity < 3.5 ng/L (<3.5-17.0)
[2022-04-18 21:44] VITALS: BP 176/87; PULSE 86; RESP 20; TEMP 36.9; O2SAT 98
[2022-04-18 21:47] VITALS: O2SAT 98
--- NOTE | 2022-04-18 22:03 | ED_ITS ---
HPI - General Adult General Chief complaint: Upper Respiratory Symptoms Stated complaint: General Malaise Time Seen by Provider: 04/18/22 21:44 Source: patient Mode of arrival: ambulatory Limitations: no limitations History of Present Illness HPI narrative: 41 yo female with history of morbid obesity, polysubstance abuse who presents to the ER with 4 days of feeling unwell. She reports she started having a mild scratchy and sore throat on Sunday, this developed in to nasal congestion which settled into her chest. She reports generalized weakness, nausea, chest discomfort and rib pain whenever she coughs. She feels short of breath and has a nonproductive cough that keeps her up at nighttime. She has decreased p.o. intake and generally feels unwell. She denies any fevers but has intermittent chills. She has had no known sick contacts. She denies any abdominal pain or vomiting. MD complaint: URI symptoms Onset (ago): day(s) (4) Location: head, neck, chest and back Radiation: non-radiation Severity: moderate Quality: aching Pain Consistency: constant Relieving factors: rest Exacerbating factors: movement Associated symptoms: cough, fever/chills, headaches, loss of appetite, malaise, nausea/vomiting, shortness of breath and weakness Treatments prior to arrival: none Related Data Home Medications Medication Instructions Recorded Confirmed lamotrigine 100 mg tablet 100 mg PO DAILY 12/29/20 05/28/21 cholecalciferol (vitamin D3) 25 1 cap PO DAILY 02/07/21 05/28/21 mcg (1,000 unit) capsule (Vitamin D3) citalopram 40 mg tablet 1 tab PO DAILY 02/07/21 05/28/21 prazosin 1 mg capsule 1 cap PO BEDTIME 02/07/21 05/28/21 quetiapine 100 mg tablet (Seroquel) 1 tab PO BEDTIME 02/07/21 02/07/21 quetiapine 25 mg tablet (Seroquel) 25 mg PO QPM 05/28/21 05/28/21 Previous Rx's Medication Instructions Recorded cyclobenzaprine 10 mg tablet 10 mg PO BEDTIME PRN muscle spasm 11/22/20 #10 tabs benzonatate 100 mg capsule 100 mg PO TID PRN cough #14 caps 09/09/21 Allergies Allergy/AdvReac Type Severity Reaction Status Date / Time levofloxacin [From LEVAQUIN] Allergy Intermediate RASH Verified 04/18/22 18:34 codeine [Codeine] Allergy Unknown NAUSEA AND Verified 04/18/22 18:34 VOMITING, sensitivity ibuprofen Allergy Unknown sensitivity Verified 04/18/22 18:34 morphine [Morphine] Allergy Unknown HEADACHE, Verified 04/18/22 18:34 vomiting, sensitivity naproxen [From NAPROSYN] Allergy Unknown HIVES, Verified 04/18/22 18:34 DIFFICULTY BREATHING. Sulfa (Sulfonamide Allergy Unknown unknown Verified 04/18/22 18:34 Antibiotics) Review of Systems Review of Systems: Constitutional: No Fever, No Chills ENT/Mouth: No sore throat, No Rhinorrhea, No Swallowing Difficulty Cardiovascular: No Chest Pain, + SOB, No Orthopnea, No Edema Respiratory: + Cough, No Sputum, No Wheezing, No dyspnea Gastrointestinal: + Nausea, No Vomiting, No Diarrhea, No abdominal Pain Genitourinary: No Dysuria, No Urinary Frequency, No Hematuria Musculoskeletal: + joint pain, + Myalgias Skin: No Skin Lesions, No rash Neuro: + Weakness, No Numbness, No Dizziness, + Headache Psych: No Anxiety/Panic, No Depression Heme/Lymph: No Bruising, No Lymphadenopathy Endocrine: No Polyuria, No Polydipsia PMFSH Past Medical History Medical History Bipolar disorder Depression Overdose Surgical History History of sinus surgery (~2019) Family History Family History Father History of heart artery stent History of heart attack Mother CVA (cerebral vascular accident) Paternal Grandmother Bone cancer Paternal Uncle Cancer of unknown origin Social History Social History Alcohol intake: never Patient Tobacco Use Status: Never used Tobacco Substance Use Type: Marijuana Advance Directives: No Advance Directives Information Provided: No Current occupational status: disabled Current occupation: rt handed Physical Exam ED Vital Signs: Vital Signs - 24 hr 04/18/22 18:34 04/18/22 21:44 04/18/22 21:47 Temperature 99.8 F 98.4 F Pulse Rate 98 86 Respiratory Rate 20 20 Blood Pressure 134/98 H 176/87 H Pulse Oximetry 99 98 98 Oxygen Delivery Method Room Air Room Air Room Air BMI result Body Mass Index 39.3 Appearance: Alert. Oriented X3. No acute distress. Eyes: Pupils equal, round and reactive to light. ENT: Pharynx with mild generalized posterior erythema, no tonsillar exudate or swelling. Uvula midline. Handling secretions normally. Normal TMs bi laterally. Neck: Normal inspection. Neck supple. No lymphadenopathy. CVS: Normal heart rate and rhythm. Pulses normal. Respiratory: No respiratory distress. Breath sounds normal. Anterior chest wall is tender throughout. Abdomen: Morbidly obese, Soft and nontender. +BS x4 Skin: Skin warm and dry. Normal skin color. Normal skin turgor. No rashes. Extremities: No lower extremity edema. Neuro: Oriented X 3. Grossly normal, nonfocal Course Course Course Narrative: 41-year-old female with history of obesity, polysubstance abuse in the past who presents to the ER for evaluation of generally feeling unwell with sore throat, chest congestion, nausea, shortness of breath and chills. On arrival to the ER she is hemodynamically stable and afebrile. Her physical exam is unremarkable. Lab workup initiated in triage. Reevaluation(s) Reevaluation #1: Labs show no leukocytosis. CBC is normal. Patient's chemistry is normal and troponin is undetectable. Her COVID swab is negative. Urinalysis is not consistent with infection. Her chest x-ray is clear. EKG without any ischemic changes. At this time patient symptoms are most likely due to viral etiology. She is tolerating p.o. and hemodynamically stable. She is stable for discharge home with supportive care and outpatient follow-up. Will prescribe antitussive per request. Medical Decision Making Lab Data Result diagrams: 04/18/22 18:47 04/18/22 18:47 Labs: Lab Results 04/18/22 04/18/22 04/18/22 Range/Units 18:47 18:47 18:47 WBC 8.9 (4.8-10.8) X10*3/uL RBC 4.58 (4.20-5.50) X10*6/uL Hgb 13.1 (12.0-16.0) g/dl Hct 40.3 (37.0-47.0) % MCV 88.0 (80.0-98.0) fL MCH 28.6 (27.0-33.0) pg MCHC 32.5 (31.0-35.0) g/dl RDW 13.7 (11.0-16.0) % Plt Count 280 (160-400) X10*3/uL MPV 9.1 L (9.4-12.3) fL Immature Gran % (Auto) 0.8 H (0.0-0.4) % Neut % (Auto) 63.8 (45-73) % Lymph % (Auto) 18.2 L (20-40) % [place] % (Auto) 9.2 (2-11) % Eos % (Auto) 7.7 H (0-4) % Baso % (Auto) 0.3 (0-2) % Lymph # (Auto) 1.6 (1.2-4.9) X10*3/uL [place] # (Auto) 0.8 (0.1-1.2) X10*3/uL Eos # (Auto) 0.7 H (0.0-0.4) X10*3/uL Baso # (Auto) 0.0 (0.0-0.2) X10*3/uL Abs Immat Gran (auto) 0.07 H (0.00-0.03) X10*3/uL Absolute Neuts (auto) 5.7 (2.0-8.3) x10*3/uL Absolute Nucleated RBC 0.000 (0.0-0.012) X10*3/uL Nucleated RBC % (auto) 0.0 (0.0-0.2) /100WBC Sodium 141 (135-145) mmol/L Potassium 4.2 (3.3-5.1) mmol/L Chloride 107 (96-108) mmol/L Carbon Dioxide 24 (22-29) mmol/L Anion Gap 14 (12-20) BUN 6 L (9-16) mg/dL Creatinine 0.72 (0.5-1.4) mg/dL Estim Creat Clear Calc 112.1 Estimated GFR > 60 Random Glucose 98 (60-115) mg/dL Calcium 8.7 (8.4-10.2) mg/dL Troponin I High Sens < 3.5 (<3.5-17.0) ng/L Urine Color Urine Appearance Urine pH (5.0-8.0) Ur Specific [place] (1.005-1.025) Urine Protein (Neg-Trace) mg/dL Urine Glucose (UA) (Negative) mg/dL Urine Ketones (Negative) mg/dL Urine Blood (Negative) Urine Nitrite (Negative) Ur Leukocyte Esterase (Negative) Urine RBC (0-2) /HPF Urine WBC (0-5) /HPF Ur Squamous Epith Cells (0-2) /HPF Urine Bacteria (None Seen) Hyaline Casts (0-2) /LPF COVID-19 (MARJAN) (Negative) COVID-19 Clin Com 04/18/22 04/18/22 Range/Units 18:47 22:00 WBC (4.8-10.8) X10*3/uL RBC (4.20-5.50) X10*6/uL Hgb (12.0-16.0) g/dl Hct (37.0-47.0) % MCV (80.0-98.0) fL MCH (27.0-33.0) pg MCHC (31.0-35.0) g/dl RDW (11.0-16.0) % Plt Count (160-400) X10*3/uL MPV (9.4-12.3) fL Immature Gran % (Auto) (0.0-0.4) % Neut % (Auto) (45-73) % Lymph % (Auto) (20-40) % [place] % (Auto) (2-11) % Eos % (Auto) (0-4) % Baso % (Auto) (0-2) % Lymph # (Auto) (1.2-4.9) X10*3/uL [place] # (Auto) (0.1-1.2) X10*3/uL Eos # (Auto) (0.0-0.4) X10*3/uL Baso # (Auto) (0.0-0.2) X10*3/uL Abs Immat Gran (auto) (0.00-0.03) X10*3/uL Absolute Neuts (auto) (2.0-8.3) x10*3/uL Absolute Nucleated RBC (0.0-0.012) X10*3/uL Nucleated RBC % (auto) (0.0-0.2) /100WBC Sodium (135-145) mmol/L Potassium (3.3-5.1) mmol/L Chloride (96-108) mmol/L Carbon Dioxide (22-29) mmol/L Anion Gap (12-20) BUN (9-16) mg/dL Creatinine (0.5-1.4) mg/dL Estim Creat Clear Calc Estimated GFR Random Glucose (60-115) mg/dL Calcium (8.4-10.2) mg/dL Troponin I High Sens (<3.5-17.0) ng/L Urine Color STRAW Urine Appearance Clear Urine pH 6.5 (5.0-8.0) Ur Specific [place] 1.010 (1.005-1.025) Urine Protein Negative (Neg-Trace) mg/dL Urine Glucose (UA) Negative (Negative) mg/dL Urine Ketones Negative (Negative) mg/dL Urine Blood Trace (Negative) Urine Nitrite Negative (Negative) Ur Leukocyte Esterase Trace H (Negative) Urine RBC 0-2 (0-2) /HPF Urine WBC 0-5 (0-5) /HPF Ur Squamous Epith Cells 6-10 (0-2) /HPF Urine Bacteria Trace (None Seen) Hyaline Casts 0-2 (0-2) /LPF COVID-19 (MARJAN) Negative (Negative) COVID-19 Clin Com See Note ECG Data Attestation: I personally reviewed and interpreted this ECG as follows: Prior ECG tracings: available for review Interpretation: Normal sinus rhythm, heart rate 91 beats per minute, normal [place] interval, normal QTC, no ST segment elevations or depressions. Discharge Plan Discharge Clinical Impression: Viral illness Patient Disposition: Home, Self-Care Instructions: Viral Syndrome (ED) Additional Instructions: Your lab workup today was unremarkable. Your chest x-ray was normal. Your EKG was normal. You were negative for COVID-19. Your urinalysis is negative for infection. Your symptoms are most likely due to a viral illness. Recommend rest, stay hydrated drink plenty of water. Take [id number] cold and flu medications as needed for your symptoms. Take Motrin and Tylenol as needed for headaches and body aches. Follow-up with primary care doctor. If you develop new or worsening symptoms call 911 or come back to the ER for further evaluation. Prescriptions: No Action cyclobenzaprine 10 mg tablet 10 mg PO BEDTIME PRN (Reason: muscle spasm) Qty: 10 0RF citalopram 40 mg tablet 1 tab PO DAILY prazosin 1 mg capsule 1 cap PO BEDTIME quetiapine [Seroquel] 100 mg tablet 1 tab PO BEDTIME cholecalciferol (vitamin D3) [Vitamin D3] 25 mcg (1,000 unit) capsule 1 cap PO DAILY quetiapine [Seroquel] 25 mg Tablet 25 mg PO QPM benzonatate 100 mg capsule 100 mg PO TID PRN (Reason: cough) Qty: 14 0RF lamotrigine 100 mg tablet 100 mg PO DAILY Referrals: Tadeo Alvarado MD [Primary Care Provider] -
[2022-04-18 22:09] LABS: Appearance Urine Clear; Color Urine STRAW; Glucose Urine UA Negative (Negative); Leukocyte Esterase Urine Trace (Negative); Nitrite Urine Negative (Negative); PH 6.5 (5.0-8.0); Urine Blood Trace (Negative); Urine Ketones Negative (Negative); Urine Protein Negative (Neg-Trace)
[2022-04-18 22:17] LABS: Hyaline Casts Urine 0-2 /LPF (0-2)
[2022-04-18 22:19] LABS: Bacteria Urine Trace (None Seen); RBC Urine 0-2 /HPF (0-2); WBC Urine 0-5 /HPF (0-5)
[2022-04-18 22:30] VITALS: BP 122/85; PULSE 78; RESP 18; TEMP 36.9; O2SAT 98
== END 2022-04-18 22:33 | disposition home or self-care (01) ==
PROVIDERS: Physician Assistant; Emergency Provider Internal Medicine; PCP Internal Medicine
DX: R07.89 Other chest pain (principal); R05.9 Cough, unspecified; R50.9 Fever, unspecified; Z79.899 Other long term (current) drug therapy; Z20.822 Contact with and (suspected) exposure to COVID-19
CPT/HCPCS: 36415; 71045; 80048; 81001; 84484; 85025; 87635; 93005; 99283; 99284

== ENCOUNTER 2022-05-19 18:20 | Outpatient (REF) | payer MEDICAID, SELFPAY ==
--- NOTE | ~2022-05-19 | MR_ITS ---
EXAMINATION: MR KNEE WITHOUT CONTRAST, LEFT CLINICAL INFORMATION: Pain COMPARISON: None TECHNIQUE: MRI of the knee without contrast was performed using routine sequences on a high-field scanner. FINDINGS: MENISCI: Medial Meniscus: Intact Lateral Meniscus: Intact LIGAMENTS: Cruciate: Intact Collateral: Intact EXTENSOR MECHANISM: Intact ARTICULAR CARTILAGE/BONE: Patellofemoral Compartment: Mild nonuniform chondral thinning is evident at the medial patellar facet with partial-thickness chondral fissures. There is a small transverse chondral fissure at the inferior aspect of the medial trochlear facet. Normal trochlear morphology. Medial Compartment: Normal Lateral Compartment: Normal JOINT FLUID AND BURSAE: No joint effusion or Mackenzie's cyst. No appreciable loose bodies. MR/MR knee LT wo con IMPRESSION: 1. Mild patellofemoral osteoarthritis. 2. Otherwise unremarkable MRI of the left knee.
== END 2022-05-19 18:21 | disposition home or self-care (01) ==
LOC: HO.MRI 18:20
PROVIDERS: Visit Provider Internal Medicine
DX: M25.562 Pain in left knee (principal)
CPT/HCPCS: 73721

== ENCOUNTER 2022-06-01 04:14 | Emergency (ER) | payer MEDICAID, SELFPAY ==
[2022-06-01 04:28] VITALS: BP 120/66; PULSE 110; O2SAT 97
--- NOTE | 2022-06-01 04:38 | ECG_ITS ---
Test Reason : CHEST PAIN Blood Pressure : / mmHG Vent. Rate : 109 BPM Atrial Rate : 109 BPM P-R Int : 154 ms QRS Dur : 094 ms QT Int : 364 ms P-R-T Axes : 061 -14 066 degrees QTc Int : 490 ms Sinus tachycardia Otherwise normal ECG When compared with ECG of 18-APR-2022 18:32, Heart rate has increased Referred By: Generic ED Physician Electronically Signed By:BRYCE DAVILA
[2022-06-01 04:52] VITALS: BP 123/86; PULSE 123; RESP 18; TEMP 37; O2SAT 99; BMI 35.9
[2022-06-01 05:41] LABS: Troponin-I High Sensitivity < 3.5 ng/L (<3.5-17.0)
[2022-06-01 06:04] LABS: MANUAL DIFF FLAG NO
[2022-06-01 06:08] LABS: Basophils Percent Auto 0.2 % (0-2); Eosinophils Absolute Auto 0.1 X10*3/uL (0.0-0.4); Hematocrit 41.7 % (37.0-47.0); Hemoglobin 13.7 g/dl (12.0-16.0); Imm Gran Abs Auto 0.02 X10*3/uL (0.00-0.03); Imm Gran Pct Auto 0.2 % (0.0-0.4); Lymphocytes Absolute Auto 2.6 X10*3/uL (1.2-4.9); Lymphocytes Percent Auto 28.6 % (20-40); Mean Corpuscular HGB Conc 32.9 g/dl (31.0-35.0); Mean Corpuscular Hemoglobin 28.1 pg (27.0-33.0); Mean Corpuscular Volume 85.5 fL (80.0-98.0); Mean Platelet Volume 8.9 fL (9.4-12.3); Monocytes Absolute Auto 0.5 X10*3/uL (0.1-1.2); Monocytes Percent Auto 5.6 % (2-11); Neutrophils Absolute Auto 5.8 x10*3/uL (2.0-8.3); Neutrophils Percent Auto 64.4 % (45-73); Platelet Count 325 X10*3/uL (160-400); Red Blood Count 4.88 X10*6/uL (4.20-5.50); Red Cell Distribution Width 12.9 % (11.0-16.0); White Blood Count 9.1 X10*3/uL (4.8-10.8)
[2022-06-01 06:09] LABS: Anion Gap 20 (12-20); Blood Urea Nitrogen 6 mg/dL (9-16); Calcium 9.3 mg/dL (8.4-10.2); Carbon Dioxide 20 mmol/L (22-29); Chloride 104 mmol/L (96-108); Estimated Glomerular Filt Rate > 60; Ethanol 116 mg/dL; Glucose Random 108 mg/dL (60-115); Sodium 140 mmol/L (135-145)
[2022-06-01 06:10] LABS: Amphetamine Screen Urine Not Detected (Not Detect); Barbiturates, Urine Not Detected (Not Detect); Benzodiazepines Screen Urine Not Detected (Not Detect); Cannabinoid Screen Urine Not Detected (Not Detect); Fentanyl, urine Not Detected (Not Detect); Opiate Screen Urine Not Detected (Not Detect); Phencyclidine Screen Urine Not Detected (Not Detect)
[2022-06-01 06:18] LABS: Appearance Urine Clear; Color Urine Yellow; Glucose Urine UA Negative (Negative); Leukocyte Esterase Urine Negative (Negative); Nitrite Urine Negative (Negative); PH 6.5 (5.0-9.0); Specific Gravity - Urine <= 1.005 (1.005-1.025); Urine Blood Negative (Negative); Urine Ketones Negative (Negative); Urine Protein Negative (Neg-Trace)
[2022-06-01 06:20] LABS: Cocaine Screen Urine POSITIVE (Not Detect)
[2022-06-01 06:25] VITALS: BP 117/76; PULSE 90
--- NOTE | 2022-06-01 07:26 | ED_ITS ---
HPI - Chest Pain General Chief Complaint: Chest Pain Stated Complaint: drug use Time Seen by Provider: 06/01/22 07:15 Source: patient Mode of arrival: EMS Limitations: no limitations History of Present Illness HPI narrative: 41 yo female with hx of ETOH and intermittent cocaine abuse - used last night found in her car. No SI. Initially reported some chest discomfort on arrival but to me after waking up states she feels fine and wants to go home. MD complaint: chest pain Onset (ago): hour(s) (several ) Timing of current episode: now resolved Prior episodes: Yes Onset: associated with drug use Pain location: substernal Pain radiation: none Severity: mild Quality: tightness Relieving factors: nothing Exacerbating factors: other (drug use) Context: other (drug use) Treatment prior to arrival: none Related Data Home Medications Medication Instructions Recorded Confirmed lamotrigine 100 mg tablet 100 mg PO DAILY 12/29/20 05/28/21 cholecalciferol (vitamin D3) 25 1 cap PO DAILY 02/07/21 05/28/21 mcg (1,000 unit) capsule (Vitamin D3) citalopram 40 mg tablet 1 tab PO DAILY 02/07/21 05/28/21 prazosin 1 mg capsule 1 cap PO BEDTIME 02/07/21 05/28/21 quetiapine 100 mg tablet (Seroquel) 1 tab PO BEDTIME 02/07/21 02/07/21 quetiapine 25 mg tablet (Seroquel) 25 mg PO QPM 05/28/21 05/28/21 Previous Rx's Medication Instructions Recorded cyclobenzaprine 10 mg tablet 10 mg PO BEDTIME PRN muscle spasm 11/22/20 #10 tabs benzonatate 100 mg capsule 100 mg PO TID PRN cough #14 caps 09/09/21 Allergies Allergy/AdvReac Type Severity Reaction Status Date / Time levofloxacin [From LEVAQUIN] Allergy Intermediate RASH Verified 06/01/22 04:55 codeine [Codeine] Allergy Unknown NAUSEA AND Verified 06/01/22 04:55 VOMITING, sensitivity ibuprofen Allergy Unknown sensitivity Verified 06/01/22 04:55 morphine [Morphine] Allergy Unknown HEADACHE, Verified 06/01/22 04:55 vomiting, sensitivity naproxen [From NAPROSYN] Allergy Unknown HIVES, Verified 06/01/22 04:55 DIFFICULTY BREATHING. Sulfa (Sulfonamide Allergy Unknown unknown Verified 06/01/22 04:55 Antibiotics) Review of Systems Review of Systems: THIS IS MY ROS when i interviewed her hours after she presented and slept Constitutional : No Weight loss, No Fever, No Chills ENT/Mouth : No sore throat, No Rhinorrhea Eyes: No Eye Pain, No Swelling Cardiovascular : no Chest Pain, no SOB, no Dyspnea on Exertion, No Orthopnea, No Edema, No Palpitations Respiratory : No Cough, No Sputum Gastrointestinal : no Nausea, No Vomiting, No Diarrhea, No abdominal Pain, No Hematochezia, No Melena Genitourinary : No Dysuria, No Urinary Frequency Musculoskeletal : No joint pain, No Myalgias, No Joint Swelling Skin : No Skin Lesions, No rash Neuro : No Weakness, No Numbness, No Dizziness, No Headache Psych : No Anxiety/Panic, No Depression, no SI Heme/Lymph: No Bruising, No Lymphadenopathy Endocrine : No Polyuria, No Polydipsia All other systems reviewed and are negative PMFSH Past Medical History Attestation statement: The following information was validated with the patient. Medical History Bipolar disorder Breast mass Depression History of 2019 novel coronavirus disease (COVID-19) Morbid obesity Overdose Palpitation Surgical History History of sinus surgery (~2019) Family History Family History Father History of heart artery stent History of heart attack Mother CVA (cerebral vascular accident) Paternal Grandmother Bone cancer Paternal Uncle Cancer of unknown origin Social History Social History Alcohol intake: never Patient Tobacco Use Status: Never used Tobacco Substance Use Type: Marijuana Advance Directives: No Advance Directives Information Provided: No Current occupational status: disabled Current occupation: rt handed Physical Exam Vital Signs: Vital Signs: Last Vital Signs Temp 98.6 F 06/01/22 04:52 Pulse 90 06/01/22 06:25 Resp 18 06/01/22 04:52 BP 117/76 06/01/22 06:25 Pulse Ox 99 06/01/22 04:52 O2 Del Method 06/01/22 04:52 BMI result Body Mass Index 35.9 Appearance: Alert. Oriented X3. No acute distress. Calm and cooperative, clinically sober, had to be woken up, smiling Eyes: Pupils equal, round and reactive to light. ENT: Pharynx normal. Neck: Normal inspection. Neck supple. CVS: Normal heart rate and rhythm. Pulses normal. Respiratory: No respiratory distress. Breath sounds normal. Abdomen: Soft and nontender. Skin: Skin warm and dry. Normal skin color. Normal skin turgor. Extremities: No lower extremity edema. No calf ttp Neuro: Oriented X 3. No motor deficit. No sensory deficit. MDM - Chest Pain MDM Narrative Medical decision making narrative: 41 yo female used ETOH and cocaine last night - I woke her up after she was sleeping for a few hours. She had sinus tach and normal troponin. She now tells me she wants to go home and wants no other services, she has no hypoxia. She is clinically sober, clear lungs, no SI. I offered rehab and SUDE evaluation but she wants to leave. At this time stable for DC Lab Data Result diagrams: 06/01/22 05:06 06/01/22 05:06 Labs: Lab Results 06/01/22 06/01/22 06/01/22 Range/Units 05:06 05:06 05:06 WBC 9.1 (4.8-10.8) X10*3/uL RBC 4.88 (4.20-5.50) X10*6/uL Hgb 13.7 (12.0-16.0) g/dl Hct 41.7 (37.0-47.0) % MCV 85.5 (80.0-98.0) fL MCH 28.1 (27.0-33.0) pg MCHC 32.9 (31.0-35.0) g/dl RDW 12.9 (11.0-16.0) % Plt Count 325 (160-400) X10*3/uL MPV 8.9 L (9.4-12.3) fL Immature Gran % (Auto) 0.2 (0.0-0.4) % Neut % (Auto) 64.4 (45-73) % Lymph % (Auto) 28.6 (20-40) % [place] % (Auto) 5.6 (2-11) % Eos % (Auto) 1.0 (0-4) % Baso % (Auto) 0.2 (0-2) % Lymph # (Auto) 2.6 (1.2-4.9) X10*3/uL [place] # (Auto) 0.5 (0.1-1.2) X10*3/uL Eos # (Auto) 0.1 (0.0-0.4) X10*3/uL Baso # (Auto) 0.0 (0.0-0.2) X10*3/uL Abs Immat Gran (auto) 0.02 (0.00-0.03) X10*3/uL Absolute Neuts (auto) 5.8 (2.0-8.3) x10*3/uL Absolute Nucleated RBC 0.000 (0.0-0.012) X10*3/uL Nucleated RBC % (auto) 0.0 (0.0-0.2) /100WBC Sodium 140 (135-145) mmol/L Potassium 4.0 (3.3-5.1) mmol/L Chloride 104 (96-108) mmol/L Carbon Dioxide 20 L (22-29) mmol/L Anion Gap 20 (12-20) BUN 6 L (9-16) mg/dL Creatinine 0.71 (0.5-1.4) mg/dL Estim Creat Clear Calc 104.0 Estimated GFR > 60 Random Glucose 108 (60-115) mg/dL Calcium 9.3 D (8.4-10.2) mg/dL Troponin I High Sens < 3.5 (<3.5-17.0) ng/L Urine Color Urine Appearance Urine pH (5.0-9.0) Ur Specific [place] (1.005-1.025) Urine Protein (Neg-Trace) mg/dL Urine Glucose (UA) (Negative) mg/dL Urine Ketones (Negative) mg/dL Urine Blood (Negative) Urine Nitrite (Negative) Ur Leukocyte Esterase (Negative) Urine Opiates Screen (Not Detect) Urine Fentanyl Screen (Not Detect) Ur Barbiturates Screen (Not Detect) Ur Phencyclidine Scrn (Not Detect) Ur Amphetamines Screen (Not Detect) U Benzodiazepines Scrn (Not Detect) Urine Cocaine Screen (Not Detect) U Marijuana (THC) Screen (Not Detect) Ethyl Alcohol 116 mg/dL 09/29/22 09/29/22 Range/Units 05:06 05:06 WBC (4.8-10.8) X10*3/uL RBC (4.20-5.50) X10*6/uL Hgb (12.0-16.0) g/dl Hct (37.0-47.0) % MCV (80.0-98.0) fL MCH (27.0-33.0) pg MCHC (31.0-35.0) g/dl RDW (11.0-16.0) % Plt Count (160-400) X10*3/uL MPV (9.4-12.3) fL Immature Gran % (Auto) (0.0-0.4) % Neut % (Auto) (45-73) % Lymph % (Auto) (20-40) % [place] % (Auto) (2-11) % Eos % (Auto) (0-4) % Baso % (Auto) (0-2) % Lymph # (Auto) (1.2-4.9) X10*3/uL [place] # (Auto) (0.1-1.2) X10*3/uL Eos # (Auto) (0.0-0.4) X10*3/uL Baso # (Auto) (0.0-0.2) X10*3/uL Abs Immat Gran (auto) (0.00-0.03) X10*3/uL Absolute Neuts (auto) (2.0-8.3) x10*3/uL Absolute Nucleated RBC (0.0-0.012) X10*3/uL Nucleated RBC % (auto) (0.0-0.2) /100WBC Sodium (135-145) mmol/L Potassium (3.3-5.1) mmol/L Chloride (96-108) mmol/L Carbon Dioxide (22-29) mmol/L Anion Gap (12-20) BUN (9-16) mg/dL Creatinine (0.5-1.4) mg/dL Estim Creat Clear Calc Estimated GFR Random Glucose (60-115) mg/dL Calcium (8.4-10.2) mg/dL Troponin I High Sens (<3.5-17.0) ng/L Urine Color Yellow Urine Appearance Clear Urine pH 6.5 (5.0-9.0) Ur Specific [place] <= 1.005 (1.005-1.025) Urine Protein Negative (Neg-Trace) mg/dL Urine Glucose (UA) Negative (Negative) mg/dL Urine Ketones Negative (Negative) mg/dL Urine Blood Negative (Negative) Urine Nitrite Negative (Negative) Ur Leukocyte Esterase Negative (Negative) Urine Opiates Screen Not Detected (Not Detect) Urine Fentanyl Screen Not Detected (Not Detect) Ur Barbiturates Screen Not Detected (Not Detect) Ur Phencyclidine Scrn Not Detected (Not Detect) Ur Amphetamines Screen Not Detected (Not Detect) U Benzodiazepines Scrn Not Detected (Not Detect) Urine Cocaine Screen POSITIVE H (Not Detect) U Marijuana (THC) Screen Not Detected (Not Detect) Ethyl Alcohol mg/dL ECG Data ECG #1: Attestation: I personally reviewed and interpreted this ECG as follows: ECG interpretation date: 06/01/22 ECG interpretation time: 07:34 Interpretation: Rate: 109 Rhythm: sinus tach [place]: left Normal P waves. Normal SPIKE. Normal QRS complex. ST T wave : normal no YIN qTC: slightly prolonged prior studies: no acute ischemia The study has been interpreted contemporaneously by me. . Discharge Plan Discharge Clinical Impression: Atypical chest pain, Alcohol abuse, Cocaine abuse Patient Disposition: Home, Self-Care Instructions: Abuse of Alcohol (ED), Chest Pain (ED), Cocaine Abuse (ED) Additional Instructions: return to ED for any worsening symptoms or concerns please consider detox Prescriptions: No Action cyclobenzaprine 10 mg tablet 10 mg PO BEDTIME PRN (Reason: muscle spasm) Qty: 10 0RF citalopram 40 mg tablet 1 tab PO DAILY prazosin 1 mg capsule 1 cap PO BEDTIME quetiapine [Seroquel] 100 mg tablet 1 tab PO BEDTIME cholecalciferol (vitamin D3) [Vitamin D3] 25 mcg (1,000 unit) capsule 1 cap PO DAILY quetiapine [Seroquel] 25 mg Tablet 25 mg PO QPM benzonatate 100 mg capsule 100 mg PO TID PRN (Reason: cough) Qty: 14 0RF lamotrigine 100 mg tablet 100 mg PO DAILY
[2022-06-01 07:47] VITALS: BP 128/82; PULSE 88; RESP 15; O2SAT 98
== END 2022-06-01 07:49 | disposition home or self-care (01) ==
PROVIDERS: Emergency Provider Emergency Medicine; PCP Internal Medicine
DX: R07.89 Other chest pain (principal); F14.10 Cocaine abuse, uncomplicated; F10.10 Alcohol abuse, uncomplicated; Y90.5 Blood alcohol level of 100-119 mg/100 ml; E66.01 Morbid (severe) obesity due to excess calories; Z68.35 Body mass index [BMI] 35.0-35.9, adult; Z79.899 Other long term (current) drug therapy
CPT/HCPCS: 36415; 80048; 80307; 81003; 82077; 84484; 85025; 93005; 99283; 99284

== ENCOUNTER 2022-06-05 12:38 | Outpatient (REF) | payer MEDICAID, SELFPAY | END 2022-06-05 12:39 | disposition home or self-care (01) | LOC: HO.HOSX 12:38 | PROVIDERS: Visit Provider Physician Assistant | DX: Z13.89 Encounter for screening for other disorder (principal) ==

== ENCOUNTER 2022-06-08 02:00 | Emergency (ER) | payer MEDICAID, SELFPAY ==
[2022-06-08 02:06] VITALS: BP 148/97; PULSE 130; RESP 18; TEMP 37.1; O2SAT 96; BMI 38.4
[2022-06-08 02:28] LABS: Appearance Urine Clear; Color Urine Yellow; Glucose Urine UA Negative (Negative); Leukocyte Esterase Urine Negative (Negative); Nitrite Urine Negative (Negative); Specific Gravity - Urine <= 1.005 (1.005-1.025); Urine Blood Negative (Negative); Urine Ketones Negative (Negative); Urine Protein Negative (Neg-Trace)
--- NOTE | 2022-06-08 02:28 | ED.PSYCH ---
HPI - Psych General Chief Complaint: Psychiatric Symptoms Stated Complaint: crisis Time Seen by Provider: 06/08/22 02:18 Source: patient and EMS Mode of arrival: EMS Limitations: no limitations History of Present Illness HPI Narrative: Patient alcoholic drinking heavy today set to her son that she wanted to overdose with alcohol also she using cocaine not to take her medication does have history of depression no hallucinations or delusions Related Data Home Medications Medication Instructions Recorded Confirmed acetaminophen 650 mg 1 tab PO Q8H PRN Pain (Scale Score 06/08/22 06/08/22 tablet,extended release (Mapap 1-3) Arthritis Pain) citalopram 40 mg tablet 1 tab PO DAILY 06/08/22 06/08/22 hydroxyzine HCl 25 mg tablet 1 tab PO BID PRN Anxiety 06/08/22 06/08/22 prazosin 1 mg capsule 1 cap PO BEDTIME 06/08/22 06/08/22 quetiapine 100 mg tablet 1 tab PO BEDTIME 06/08/22 06/08/22 quetiapine 50 mg tablet 1 tab PO BID PRN anxiety 06/08/22 06/08/22 topiramate 50 mg tablet 1 tab PO BID 06/08/22 06/08/22 Allergies Allergy/AdvReac Type Severity Reaction Status Date / Time levofloxacin [From LEVAQUIN] Allergy Intermediate RASH Verified 06/01/22 04:55 codeine [Codeine] Allergy Unknown NAUSEA AND Verified 06/01/22 04:55 VOMITING, sensitivity ibuprofen Allergy Unknown sensitivity Verified 06/01/22 04:55 morphine [Morphine] Allergy Unknown HEADACHE, Verified 06/01/22 04:55 vomiting, sensitivity naproxen [From NAPROSYN] Allergy Unknown HIVES, Verified 06/01/22 04:55 DIFFICULTY BREATHING. Sulfa (Sulfonamide Allergy Unknown unknown Verified 06/01/22 04:55 Antibiotics) Review of Systems Review of Systems: Yes all other systems are reviewed and are negative PMFSH Past Medical History Medical History Bipolar disorder Breast mass Depression History of 2019 novel coronavirus disease (COVID-19) Morbid obesity Overdose Palpitation Surgical History History of sinus surgery (~2019) Family History Family History Father History of heart artery stent History of heart attack Mother CVA (cerebral vascular accident) Paternal Grandmother Bone cancer Paternal Uncle Cancer of unknown origin Social History Social History Alcohol intake: never Patient Tobacco Use Status: Never used Tobacco Substance Use Type: Marijuana Advance Directives: No Current occupational status: disabled Current occupation: rt handed Physical Exam Vital Signs: Vital Signs: Last Vital Signs Temp 98.7 F 06/08/22 02:06 Pulse 104 H 06/08/22 03:58 Resp 17 06/08/22 03:58 BP 148/97 H 06/08/22 02:06 Pulse Ox 95 06/08/22 03:58 O2 Del Method 06/08/22 03:58 BMI result Body Mass Index 38.4 Appearance: Alert. Oriented X3. No acute distress. etoh++ Eyes: PERRLA, No Nystagmus ENT: Pharynx normal. Oral Mucosa moist Neck: Normal inspection. Neck supple. CVS: Normal heart rate and rhythm. Pulses normal. Respiratory: No respiratory distress. Equal air entry bilateral, no wheezing/rales/rhonchi Abdomen: Soft and nontender. Bowel sounds are present, no mass palpable, no CVA tenderness Skin: Skin warm and dry. Normal skin color. Normal skin turgor. Extremities: No lower extremity edema. No calf tenderness Neuro: Oriented X 3. No motor deficit. No sensory deficit.No cerebellar signs , cranial nerves II-XII intact MDM - Psych MDM Narrative Medical decision making narrative: 6 am Patient alcoholic intoxicated with suicidal ideation awaiting for crisis to evaluate the patient Lab Data Attestation: I reviewed the patient's lab results. Result diagrams: 06/08/22 02:11 06/08/22 02:11 Labs: Lab Results 06/08/22 06/08/22 06/08/22 Range/Units 02:11 02:11 02:11 WBC 8.9 (4.8-10.8) X10*3/uL RBC 4.81 (4.20-5.50) X10*6/uL Hgb 13.8 (12.0-16.0) g/dl Hct 40.4 (37.0-47.0) % MCV 84.0 (80.0-98.0) fL MCH 28.7 (27.0-33.0) pg MCHC 34.2 (31.0-35.0) g/dl RDW 13.0 (11.0-16.0) % Plt Count 297 (160-400) X10*3/uL MPV 9.0 L (9.4-12.3) fL Immature Gran % (Auto) 0.5 H (0.0-0.4) % Neut % (Auto) 64.7 (45-73) % Lymph % (Auto) 27.5 (20-40) % [place] % (Auto) 5.9 (2-11) % Eos % (Auto) 1.1 (0-4) % Baso % (Auto) 0.3 (0-2) % Lymph # (Auto) 2.4 (1.2-4.9) X10*3/uL [place] # (Auto) 0.5 (0.1-1.2) X10*3/uL Eos # (Auto) 0.1 (0.0-0.4) X10*3/uL Baso # (Auto) 0.0 (0.0-0.2) X10*3/uL Abs Immat Gran (auto) 0.04 H (0.00-0.03) X10*3/uL Absolute Neuts (auto) 5.8 (2.0-8.3) x10*3/uL Absolute Nucleated RBC 0.000 (0.0-0.012) X10*3/uL Nucleated RBC % (auto) 0.0 (0.0-0.2) /100WBC Sodium 143 (135-145) mmol/L Potassium 3.9 (3.3-5.1) mmol/L Chloride 107 (96-108) mmol/L Carbon Dioxide 22 (22-29) mmol/L Anion Gap 18 (12-20) BUN 7 L (9-16) mg/dL Creatinine 0.77 (0.5-1.4) mg/dL Estim Creat Clear Calc 103.4 Estimated GFR > 60 Random Glucose 108 (60-115) mg/dL Calcium 9.9 D (8.4-10.2) mg/dL Magnesium 2.0 (1.6-2.6) mg/dL Total Bilirubin 0.2 (0.0-1.0) mg/dL AST 26 (5-31) U/L ALT 36 H (0-31) U/L Alkaline Phosphatase 89 (39-117) U/L Total Protein 7.4 (6.5-8.0) g/dL Albumin 4.8 (3.5-5.0) g/dL Urine Color Urine Appearance Urine pH (5.0-9.0) Ur Specific [place] (1.005-1.025) Urine Protein (Neg-Trace) mg/dL Urine Glucose (UA) (Negative) mg/dL Urine Ketones (Negative) mg/dL Urine Blood (Negative) Urine Nitrite (Negative) Ur Leukocyte Esterase (Negative) Urine Test (NEGATIVE) Urine Opiates Screen (Not Detect) Urine Fentanyl Screen (Not Detect) Ur Barbiturates Screen (Not Detect) Ur Phencyclidine Scrn (Not Detect) Ur Amphetamines Screen (Not Detect) U Benzodiazepines Scrn (Not Detect) Urine Cocaine Screen (Not Detect) U Marijuana (THC) Screen (Not Detect) Ethyl Alcohol 166 mg/dL COVID-19 (MARJAN) (Negative) COVID-19 Clin Com 06/08/22 06/08/22 06/08/22 Range/Units 02:16 02:16 02:16 WBC (4.8-10.8) X10*3/uL RBC (4.20-5.50) X10*6/uL Hgb (12.0-16.0) g/dl Hct (37.0-47.0) % MCV (80.0-98.0) fL MCH (27.0-33.0) pg MCHC (31.0-35.0) g/dl RDW (11.0-16.0) % Plt Count (160-400) X10*3/uL MPV (9.4-12.3) fL Immature Gran % (Auto) (0.0-0.4) % Neut % (Auto) (45-73) % Lymph % (Auto) (20-40) % [place] % (Auto) (2-11) % Eos % (Auto) (0-4) % Baso % (Auto) (0-2) % Lymph # (Auto) (1.2-4.9) X10*3/uL [place] # (Auto) (0.1-1.2) X10*3/uL Eos # (Auto) (0.0-0.4) X10*3/uL Baso # (Auto) (0.0-0.2) X10*3/uL Abs Immat Gran (auto) (0.00-0.03) X10*3/uL Absolute Neuts (auto) (2.0-8.3) x10*3/uL Absolute Nucleated RBC (0.0-0.012) X10*3/uL Nucleated RBC % (auto) (0.0-0.2) /100WBC Sodium (135-145) mmol/L Potassium (3.3-5.1) mmol/L Chloride (96-108) mmol/L Carbon Dioxide (22-29) mmol/L Anion Gap (12-20) BUN (9-16) mg/dL Creatinine (0.5-1.4) mg/dL Estim Creat Clear Calc Estimated GFR Random Glucose (60-115) mg/dL Calcium (8.4-10.2) mg/dL Magnesium (1.6-2.6) mg/dL Total Bilirubin (0.0-1.0) mg/dL AST (5-31) U/L ALT (0-31) U/L Alkaline Phosphatase (39-117) U/L Total Protein (6.5-8.0) g/dL Albumin (3.5-5.0) g/dL Urine Color Yellow Urine Appearance Clear Urine pH 6.0 (5.0-9.0) Ur Specific [place] <= 1.005 (1.005-1.025) Urine Protein Negative (Neg-Trace) mg/dL Urine Glucose (UA) Negative (Negative) mg/dL Urine Ketones Negative (Negative) mg/dL Urine Blood Negative (Negative) Urine Nitrite Negative (Negative) Ur Leukocyte Esterase Negative (Negative) Urine Test (NEGATIVE) Urine Opiates Screen Not Detected (Not Detect) Urine Fentanyl Screen Not Detected (Not Detect) Ur Barbiturates Screen Not Detected (Not Detect) Ur Phencyclidine Scrn Not Detected (Not Detect) Ur Amphetamines Screen Not Detected (Not Detect) U Benzodiazepines Scrn Not Detected (Not Detect) Urine Cocaine Screen POSITIVE H (Not Detect) U Marijuana (THC) Screen Not Detected (Not Detect) Ethyl Alcohol mg/dL COVID-19 (MARJAN) Negative (Negative) COVID-19 Clin Com See Note 06/08/22 Range/Units 02:16 WBC (4.8-10.8) X10*3/uL RBC (4.20-5.50) X10*6/uL Hgb (12.0-16.0) g/dl Hct (37.0-47.0) % MCV (80.0-98.0) fL MCH (27.0-33.0) pg MCHC (31.0-35.0) g/dl RDW (11.0-16.0) % Plt Count (160-400) X10*3/uL MPV (9.4-12.3) fL Immature Gran % (Auto) (0.0-0.4) % Neut % (Auto) (45-73) % Lymph % (Auto) (20-40) % [place] % (Auto) (2-11) % Eos % (Auto) (0-4) % Baso % (Auto) (0-2) % Lymph # (Auto) (1.2-4.9) X10*3/uL [place] # (Auto) (0.1-1.2) X10*3/uL Eos # (Auto) (0.0-0.4) X10*3/uL Baso # (Auto) (0.0-0.2) X10*3/uL Abs Immat Gran (auto) (0.00-0.03) X10*3/uL Absolute Neuts (auto) (2.0-8.3) x10*3/uL Absolute Nucleated RBC (0.0-0.012) X10*3/uL Nucleated RBC % (auto) (0.0-0.2) /100WBC Sodium (135-145) mmol/L Potassium (3.3-5.1) mmol/L Chloride (96-108) mmol/L Carbon Dioxide (22-29) mmol/L Anion Gap (12-20) BUN (9-16) mg/dL Creatinine (0.5-1.4) mg/dL Estim Creat Clear Calc Estimated GFR Random Glucose (60-115) mg/dL Calcium (8.4-10.2) mg/dL Magnesium (1.6-2.6) mg/dL Total Bilirubin (0.0-1.0) mg/dL AST (5-31) U/L ALT (0-31) U/L Alkaline Phosphatase (39-117) U/L Total Protein (6.5-8.0) g/dL Albumin (3.5-5.0) g/dL Urine Color Urine Appearance Urine pH (5.0-9.0) Ur Specific [place] (1.005-1.025) Urine Protein (Neg-Trace) mg/dL Urine Glucose (UA) (Negative) mg/dL Urine Ketones (Negative) mg/dL Urine Blood (Negative) Urine Nitrite (Negative) Ur Leukocyte Esterase (Negative) Urine Test NEGATIVE (NEGATIVE) Urine Opiates Screen (Not Detect) Urine Fentanyl Screen (Not Detect) Ur Barbiturates Screen (Not Detect) Ur Phencyclidine Scrn (Not Detect) Ur Amphetamines Screen (Not Detect) U Benzodiazepines Scrn (Not Detect) Urine Cocaine Screen (Not Detect) U Marijuana (THC) Screen (Not Detect) Ethyl Alcohol mg/dL COVID-19 (MARJAN) (Negative) COVID-19 Clin Com Discharge Plan Discharge Clinical Impression: Suicidal ideation, Alcohol intoxication Patient Disposition: Still a Patient Prescriptions: No Action citalopram 40 mg tablet 1 tab PO DAILY prazosin 1 mg capsule 1 cap PO BEDTIME quetiapine 100 mg tablet 1 tab PO BEDTIME acetaminophen [Mapap Arthritis Pain] 650 mg tablet extended release 1 tab PO Q8H PRN (Reason: Pain (Scale Score 1-3)) hydroxyzine HCl 25 mg tablet 1 tab PO BID PRN (Reason: Anxiety) quetiapine 50 mg tablet 1 tab PO BID PRN (Reason: anxiety) topiramate 50 mg tablet 1 tab PO BID
[2022-06-08 02:29] LABS: UPreg QC Valid YES; Urine Pregnancy NEGATIVE (NEGATIVE)
[2022-06-08 02:43] LABS: Amphetamine Screen Urine Not Detected (Not Detect); Barbiturates, Urine Not Detected (Not Detect); Benzodiazepines Screen Urine Not Detected (Not Detect); Cannabinoid Screen Urine Not Detected (Not Detect); Cocaine Screen Urine POSITIVE (Not Detect); Fentanyl, urine Not Detected (Not Detect); Opiate Screen Urine Not Detected (Not Detect); Phencyclidine Screen Urine Not Detected (Not Detect)
[2022-06-08 02:47] LABS: Basophils Percent Auto 0.3 % (0-2); Eosinophils Absolute Auto 0.1 X10*3/uL (0.0-0.4); Eosinophils Percent Auto 1.1 % (0-4); Hematocrit 40.4 % (37.0-47.0); Hemoglobin 13.8 g/dl (12.0-16.0); Imm Gran Abs Auto 0.04 X10*3/uL (0.00-0.03); Imm Gran Pct Auto 0.5 % (0.0-0.4); Lymphocytes Absolute Auto 2.4 X10*3/uL (1.2-4.9); Lymphocytes Percent Auto 27.5 % (20-40); MANUAL DIFF FLAG NO; Mean Corpuscular HGB Conc 34.2 g/dl (31.0-35.0); Mean Corpuscular Hemoglobin 28.7 pg (27.0-33.0); Monocytes Absolute Auto 0.5 X10*3/uL (0.1-1.2); Monocytes Percent Auto 5.9 % (2-11); Neutrophils Absolute Auto 5.8 x10*3/uL (2.0-8.3); Neutrophils Percent Auto 64.7 % (45-73); Platelet Count 297 X10*3/uL (160-400); Red Blood Count 4.81 X10*6/uL (4.20-5.50); White Blood Count 8.9 X10*3/uL (4.8-10.8)
[2022-06-08 02:48] LABS: COVID-19 Test Negative (Negative)
--- OUTSIDE RECORDS SUMMARY | 2022-06-08 02:50 | XMS_ITS | Continuity of Care Document ---
:1980 Author Organization [facility] Address [address] [place] [address] [address] [place] [address]- Care Team Providers Name Role Phone Lincoln Zaidi MD, Tadeo Primary Care Physician Encounter [facility] Date(s): 05/25/21 - 06/24/[address] [place], [place] [address] Attending Physician: Julio Segura Admitting Physician: AdmtrJulio Referring Physician: Admtr, Ar8 Allergies, Adverse Reactions, Alerts Substance Reaction Severity Status codeine itch and stomach pain Active morphine throat itchy and rash Active Levaquin amnaphylaxis Active ibuprofen nausea Active Bactrim 'anaphylaxis Active throat itch and rash Immunizations Given and Recorded Vaccine Date Status Refusal Reason tetanus/diphtheria/pertussis, acel(Tdap) 08/09/13 Given Influenza Vaccine (oldterm)1 07/09/12 Given tetanus-diphtheria toxoids (Td)2 07/09/12 Given Fluzone (oldterm)3 10/17/11 Given 1Admin Note: vis given [id number]/04/[id number] Note: MANFTD MASS BIO VIS GIVEN Admin Note: vis given Medications Celexa By Mouth, Daily, 0 Refills, Maintenance, 05/25/21 13:44:00 EDT, Partial fill upon patient request ifthe prescription is for a schedule II opioid drug. Start Date: 05/25/21 Status: OrderedFlonase 50 mcg/inh nasal spray 1 sprays, Nares, Both, Daily in AM, Maintenance, 03/19/20 12:25:00 EDT, Ernest Start Date: 03/19/20 Status: OrderedGas-X = 80 mg, 3 times a day after meals and bedtime, 0 Refills, Maintenance, 05/25/21 13:46:00 EDT, Partial fill upon patient request if the prescription is for a schedule II opioid drug. Start Date: 05/25/21 Status: OrderedLaMICtal 2 mg oral tablet, chewable dispersible 0 Refills, Maintenance, 05/25/21 13:44:00 EDT, Partial fill upon patient request if the prescriptionis for a schedule II opioid drug. Start Date: 05/25/21 Status: Ordered Problem List Condition Effective Dates Status Health Status Informant Central obesity(Confirmed) Active Depression(Confirmed) Active Goal-to lose weight(Confirmed) Active Kidney stone(Confirmed) 07/09/12 Active Threatened (Confirmed) Active Social History Social History Type Response Tobacco Use: 4 or less cigarettes(le ss than 1/4 pack)/day in last 30 days. Other: vape pen. Sex
--- OUTSIDE RECORDS SUMMARY | 2022-06-08 02:50 | XMS_ITS | Continuity of Care Document ---
:1980 Author Organization [facility] Address [address] [place] [address] [address] [place] [address]- Care Team Providers Name Role Phone Lincoln Zaidi MD, Tadeo Primary Care Physician Encounter [facility] Date(s): 05/25/21 - 06/01/[address] [place], [place] [address] Attending Physician: Brandon GONZALEZ MD, John Case Referring Physician: Tadeo Alvarado MD Allergies, Adverse Reactions, Alerts Substance Reaction Severity Status codeine itch and stomach pain Active ibuprofen nausea Active morphine throat itchy and rash Active Levaquin amnaphylaxis Active Bactrim 'anaphylaxis Active throat itch and rash Immunizations Given and Recorded Vaccine Date Status Refusal Reason tetanus/diphtheria/pertussis, acel(Tdap) 08/09/13 Given Influenza Vaccine (oldterm)1 07/09/12 Given tetanus-diphtheria toxoids (Td)2 07/09/12 Given Fluzone (oldterm)3 10/17/11 Given 1Admin Note: vis given 03/04/[id number] Note: MANFTD MASS BIO VIS GIVEN Admin Note: vis given Medications Celexa By Mouth, Daily, 0 Refills, Maintenance, 05/25/21 13:44:00 EDT, Partial fill upon patient request ifthe prescription is for a schedule II opioid drug. Start Date: 05/25/21 Status: OrderedFlonase 50 mcg/inh nasal spray 1 sprays, Nares, Both, Daily in AM, Maintenance, 03/19/20 12:25:00 EDT, [place] Start Date: 03/19/20 Status: OrderedGas-X = 80 [...] Kidney stone(Confirmed) 07/09/12 Active Threatened (Confirmed) Active Vital Signs Most recent to oldest [Reference Range]: 1 Height 160 cm (05/25/21 1:39 PM) Weight 100.22 kg (05/25/21 1:39 PM) Body Mass Index [18.5-24.99] 39.15 *>HHI* (05/25/21 1:39 PM) Temperature [96.8-100.4 DegF] 97.9 DegF (05/25/21 1:39 PM) Temperature Route Temporal (05/25/21 1:39 PM) Weight Obtained Via Standing scale (05/25/21 1:39 PM) Social History Social History Type Response Tobacco Use: 4 or less cigarettes(le ss than 1/4 pack)/day in last 30 days. Other: vape pen. Sex
--- OUTSIDE RECORDS SUMMARY | 2022-06-08 02:50 | XMS_ITS | Continuity of Care Document ---
:1980 Author Organization [facility] Address [address] [place] [address]- Care Team Providers Name Role Phone Vidya Meza MD Primary Care Physician Encounter [facility] Date(s): 08/18/19 - 08/18/[address] [address]- [facility] Attending Physician: Shannon Scott NP Allergies, Adverse Reactions, Alerts Substance Reaction Severity Status codeine Active ibuprofen nausea Active morphine Active Levaquin Active Bactrim Active Immunizations Given and Recorded Vaccine Date Status Refusal Reason tetanus/diphtheria/pertussis, acel(Tdap) 08/09/13 Given Influenza Vaccine (oldterm)1 07/09/12 Given tetanus-diphtheria toxoids (Td)2 07/09/12 Given Fluzone (oldterm)3 10/17/11 Given 1Admin Note: vis given 03/04/[id number] Note: MANFTD MASS BIO VIS GIVEN Admin Note: vis given Medications Ativan 0.5 mg oral tablet 1 tablet = 0.5 mg, By Mouth, 3 times a day, PRN for anxiety, # 12 tablet, 0 Refills, Maintenance, 01/16/14 19:59:12, Tablet Start Date: 01/16/14 Status: OrderedFlagyl 500 mg oral tablet 1 tablet = 500 mg, By Mouth, Every 12 hours, # 14 tablet, 0 Refills, Maintenance, 01/16/14 19:50:14,Tablet Start Date: 01/16/14 Stop Date: 01/23/14 Status: OrderedZoloft 25 mg oral tablet 1 tablet = 25 mg, By Mouth, Daily, # 30 tablet, 0 Refills, Maintenance, Tablet Start Date: 08/09/13 Status: Ordered Problem List Condition Effective Dates Status Health Status Informant Central obesity(Confirmed) Active Depression(Confirmed) Active Goal-to lose weight(Confirmed) Active Kidney stone(Confirmed) 07/09/12 Active Threatened (Confirmed) Active
--- OUTSIDE RECORDS SUMMARY | 2022-06-08 02:50 | XMS_ITS | Continuity of Care Document ---
:1980 Author Organization [facility] Address [address] [place] [address]- Care Team Providers Name Role Phone Tadeo Alvarado MD Primary Care Physician [phone] Encounter [facility] [place] Date(s): 12/04/21 - 12/05/[address] [address]- Encounter Diagnosis Chest pain (Final) - 12/04/21 Left arm numbness (Final) - 12/04/21 Discharge Disposition: A-D/C Home Attending Physician: Anurag James MD Admitting Physician: Anurag James MD Referring Physician: Not on Staff, Referring MD Allergies, Adverse Reactions, Alerts Substance Reaction Severity Status codeine itch and stomach pain Active ibuprofen nausea Active morphine throat itchy and rash Active Levaquin amnaphylaxis Active Bactrim 'anaphylaxis Active throat itch and rash Immunizations Given and Recorded Vaccine Date Status Refusal Reason influenza virus vaccine, inactivated 10/07/21 Recorded SARS-CoV-2 (COVID-19) mRNA-1273 vaccine 10/07/21 Recorded SARS-CoV-2 (COVID-19) mRNA-1273 vaccine 02/01/21 Recorded SARS-CoV-2 (COVID-19) mRNA-1273 vaccine 12/31/20 Recorded tetanus/diphtheria/pertussis, acel(Tdap) 08/09/13 Given Influenza Vaccine (oldterm)1 07/09/12 Given tetanus-diphtheria toxoids (Td)2 07/09/12 Given Fluzone (oldterm)3 10/17/11 Given 1Admin Note: vis given 03/04/[id number] Note: MANFTD MASS BIO VIS GIVEN Admin Note: vis given Medications atorvastatin 40 mg oral tablet 1 tablet = 40 mg, By Mouth, Daily, # 30 tablet, 0 Refills, Maintenance, 12/02/21 15:14:00 EDT, Tablet, [id number], Partial fill upon patient request if the prescription is for a schedule II opioid drug., 158, cm, 12/02/21 8:26:00 EDT,... Start Date: 12/02/21 Status: Orderedcitalopram 40 mg oral tablet 1 tablet = 40 mg, By Mouth, Daily, # 30 tablet, 0 Refills, Maintenance, 11/30/21 18:16:00 EDT, Tablet, Partial fill upon patient request if the prescription is for a schedule II opioid drug. Start Date: 11/30/21 Status: Orderedergocalciferol 15009 iu oral capsule 50,000 International_Units, 1, capsule, By Mouth, Every week, # 30 capsule, Refills 0, Maintenance, 11/30/21 18:16:00 EDT, Partial fill upon patient request if the prescription is for a schedule II opioid drug. Start Date: 11/30/21 Status: OrderedFlonase 50 mcg/inh nasal spray 1 sprays, Nares, Both, Daily in AM, PRN Other, Maintenance, 03/19/20 12:25:00 EDT, [place] Start Date: 03/19/20 Status: OrderedFolic Acid = 1 mg, By Mouth, Daily, 0 Refills, Maintenance, 11/30/21 19:57:00 EDT, Partial fill upon patient request if the prescription is for a schedule II opioid drug. Start Date: 11/30/21 Status: OrderedGabapentin = 600 mg, By Mouth, 2 times a day, 0 Refills, Maintenance, 11/30/21 19:57:00 EDT, Partial fill upon patient request if the prescription is for a schedule II opioid drug. Start Date: 11/30/21 Status: OrderedhydrOXYzine pamoate 25 mg oral capsule 2 capsule = 50 mg, By Mouth, 2 times a day, PRN for anxiety, 1 to 2 capsules as needed, # 40 capsule, 0 Refills, Maintenance, 11/30/21 18:16:00 EDT, Capsule, Partial fill upon patient request if the prescription is for a schedule II opioid drug. Start Date: 11/30/21 Status: Orderedprazosin 1 mg oral capsule 1 mg, 1, capsule, By Mouth, Daily at bedtime, TAKE 1 CAPSULE BY MOUTH EVERY NIGHT Start Date: 11/30/21 Status: OrderedQUEtiapine 25 mg oral tablet 25 mg, 1, tablet, By Mouth, 2 times a day, PRN, TAKE 1 TABLET BY MOUTH TWICE A DAY NEEDED AND 1-2TABLETS AT BEDTIME, Anxiety Start Date: 11/30/21 Status: OrderedQUEtiapine 25 mg oral tablet 50 mg, 2, tablet, By Mouth, Daily at bedtime, PRN, TAKE 1 TABLET BY MOUTH TWICE A DAY NEEDED AND 1-2 TABLETS AT BEDTIME, Refills 0, Maintenance, Sleep, 11/30/21 19:41:00 EDT, Partial fill upon patient request if the prescription is for a schedule I... Start Date: 11/30/21 Status: OrderedVitamin B1 = 100 mg, By Mouth, Daily, 0 Refills, Maintenance, 11/30/21 19:57:00 EDT, Partial fill upon patient request if the prescription is for a schedule II opioid drug. Start Date: 11/30/21 Status: OrderedVitamin B12 = 500 mcg, By Mouth, Daily, 0 Refills, Maintenance, 11/30/21 19:44:00 EDT, Partial fill upon patientrequest if the prescription is for a schedule II opioid drug. Start Date: 11/30/21 Status: Ordered Problem List Condition Effective Dates Status Health Status Informant Central obesity(Confirmed) Active Depression(Confirmed) Active Goal-to lose weight(Confirmed) Active Kidney stone(Confirmed) 07/09/12 Active Obese class II(Confirmed) Active Threatened (Confirmed) Active Results Radiology Reports Exam Date Time Procedure Performing Provider Status 12/04/21 9:41 PM Chest 2 Views Frontal and Lat Short , Lindsey; Au th (Verified) Notes:(Chest 2 Views Frontal and Lat) Reason For Exam: AnginaRESULT: Chest 2 Views Frontal and Lat Chest 2 Views Frontal and Lat Hx of Present Illness: chest pain; Reason: Angina; Clinical Question(s): CHF COMPARISON: 11/30/2021 FINDINGS: LINES AND TUBES: None. LUNGS AND PLEURA: Clear lungs. Normal pulmonary vascularity. No pleural effusion. No pneumothorax. HEART, MEDIASTINUM AND YING: Heart is normal in size. Normal upper mediastinal and hilar contour. BONES AND SOFT TISSUES: No acute abnormality. IMPRESSION: No acute abnormality. No change from recent study. WSN: [id number] Ordering Physician: Kevin Forte Dictated By: Bruce Harrell MD Dictated Date/Time: 12/04/21 9:52 pm Reviewed By: Bruce Harrell MD Signed By: Bruce Harrell MD Signed Date/Time: 12/04/21 9:52 pm Transcribed By: BLAIR Transcribed Date/Time: 12/04/21 9:52 pm Vital Signs Most recent to oldest [Reference Range]: 1 2 Height 158 cm 158 cm (12/05/21 2:09 AM) (12/04/21 8:45 PM) Weight 96.8 kg 96.8 kg (12/05/21 2:09 AM) (12/04/21 8:45 PM) Oxygen Saturation [94-100 %] 97 % 98 % (12/05/21 2:09 AM) (12/04/21 8:45 PM) Pulse Rate [55-90 bpm] 75 bpm 90 bpm (12/05/21 2:09 AM) (12/04/21 8:45 PM) Body Mass Index [18.5-24.99] 38.78 *>HHI* (12/05/21 2:09 AM) Blood Pressure [90-138/55-84 mm Hg] 141/78 mm Hg 130/ 94 mm Hg *H* (12/04/21 8:45 PM) (12/05/21 2:09 AM) Respiratory Rate [16-30 br/min] 16 br/min 18 br/mi n (12/05/21 2:09 AM) (12/04/21 8:45 PM) Temperature [96.8-100.4 DegF] 98.3 DegF 98.8 DegF (12/05/21 2:09 AM) (12/04/21 8:45 PM) Mode of Delivery (Oxygen) Room air Room air (12/05/21 2:09 AM) (12/04/21 8:45 PM) Blood pressure sites Arm, left (12/05/21 2:09 AM) Temperature Route Oral Oral (12/05/21 2:09 AM) (12/04/21 8:45 PM) Dry Weight 96.8 kg 96.8 kg (12/05/21 2:09 AM) (12/04/21 8:45 PM) Weight Obtained Via Patient/family stated (12/04/21 8:45 PM)
--- OUTSIDE RECORDS SUMMARY | 2022-06-08 02:50 | XMS_ITS | Continuity of Care Document ---
:1980 Author Organization [facility] Address [address] [place] [address]- Care Team Providers Name Role Phone Lincoln Zaidi MD, Tadeo Primary Care Physician [place] [facility] [place] Date(s[place] 03/23/20 - 03/23/[address] [address]- [facility] Discharge Disposition: A-D/C Home Attending Physician: Kishore Alonso MD Admitting Physician: Kishore Alonso MD Referring Physician: Kishore Alonso MD Allergies, Adverse Reactions, Alerts Substance Reaction [...] (oldterm)3 10/17/11 Given 1Admin Note: vis given 03/04/[id number] Note: MANFTD MASS BIO VIS GIVEN Admin Note: vis given Medications Flonase 50 mcg/inh nasal spray 1 sprays, Nares, Both, Daily in AM, Maintenance, 03/19/20 12:25:00 EDT, [place] Start Date: 03/19/20 Status: Ordered Problem List Condition Effective Dates Status Health Status Informant Central obesity(Confirmed) Active Depression(Confirmed) Active Goal-to lose weight(Confirmed) Active Kidney stone(Confirmed) 07/09/12 Active Threatened (Confirmed) Active Results Orders for Microbiology Reports Name Date Wound Deep Culture w/ Gram Smear (DEEP WOUND CULTURE) 03/23/20 Microbiology Reports TEST:Deep Wound Culture STATUS:Unauthenticated BODY SITE: SOURCE:SINUS COLLECTED DATE/TIME:03/23/20 12:30 PMDeep Wound Culture SPECIMEN DESCRIPTION : SINUS LEFT MAXILLARY SPECIAL REQUESTS : NONE GRAM STAIN : 1+ WHITE BLOOD CELLS NO ORGANISMS SEEN REPORT STATUS : PRELIMINARY REPORT Vital Signs Most recent to oldest 1 2 3 [Reference Range]: Height 160.02 cm (03/19/20 12:20 PM) Weight 94.09 kg (03/19/20 12:20 PM) Oxygen Saturation [94-100 96 % 94 % 100 % %] (03/23/20 2:55 PM) (03/23/20 2:45 PM) (03/23/20 2:3 0 PM) Body Mass Index 36.74 [18.5-24.99] *>HHI* (03/19/20 12:20 PM) Blood Pressure 116/82 mm Hg 123/86 mm Hg 123/86 mm Hg [90-138/55-84 mm Hg] (03/23/20 2:30 PM) (03/23/20 2:15 PM) ( 0 2:00 PM) Respiratory Rate [16-30 14 br/min 15 br/min 18 br/mi n br/min] *L* *L* (03/23/20 2:15 PM ) (03/23/20 2:45 PM) (03/23/20 2:30 PM) Temperature [96.8-100.4 97.0 DegF 98.0 DegF DegF] (03/23/20 3:15 PM) (03/23/20 1:15 PM) Liters per Minute 6 L/min 6 L/min (03/23/20 2:30 PM) (03/23/20 1:15 PM) Mode of Delivery (Oxygen) Room air Room air Simple face mask (03/23/20 2:55 PM) (03/23/20 2:45 PM) (03/23/20 2:3 0 PM) Blood pressure sites Arm, right Arm, right Arm, right (03/23/20 2:30 PM) (03/23/20 2:15 PM) (03/23/20 2:0 0 PM) Temperature Route Temporal Temporal (7/21/20 3:15 PM) (03/23/20 1:15 PM) Dry Weight 94.09 kg (03/19/20 12:20 PM) Weight Obtained Via Patient/family stated (03/19/20 12:20 PM) Dry Weight Obtained Via Patient/family stated (03/19/20 12:20 PM)
--- OUTSIDE RECORDS SUMMARY | 2022-06-08 02:50 | XMS_ITS | Continuity of Care Document ---
:1980 Author Organization [facility] Address [address] [place] [address]- Care Team Providers Name Role Phone Lincoln Zaidi MD, Tadeo Primary Care Physician Encounter [facility] [place] Date(s): 07/12/20 - 07/12/[address] [address] Discharge Disposition: A-D/C Home Attending Physician: Kely Browne MD Admitting Physician: Kely Browne MD Referring Physician: Not on Staff, Referring [...] (oldterm)3 10/17/11 Given 1Admin Note: vis given 03/04/[id number] Note: MANFTD MASS BIO VIS GIVEN Admin Note: vis given Medications Flonase 50 mcg/inh nasal spray 1 sprays, Nares, Both, Daily in AM, Maintenance, 03/19/20 12:25:00 EDT, [place] Start Date: 03/19/20 Status: Ordered Problem List Condition Effective Dates Status Health Status Informant Central obesity(Confirmed) Active Depression(Confirmed) Active Goal-to lose weight(Confirmed) Active Kidney stone(Confirmed) 07/09/12 Active Threatened (Confirmed) Active Results Radiology Reports Exam Date Time Procedure Performing Provider Status 07/12/20 6:51 PM Chest Portable Toya Grubbs; Chetna (Kristopher ified) Notes:(Chest Portable) Reason For Exam: Shortness of BreathRESULT: Chest Portable Chest Portable upright at 6:22 PM Hx of Present Illness: Pt from [facility] in [place]. Seen forl sided cp, body aches and sore throat started on Sat. Known exposure to COVID at work. Tested positive for COVID. EKG changes reported.;Reason: Shortness of Breath; Clinical Question(s): CHF COMPARISON: 03/21/2020 FINDINGS: LINES AND TUBES: None. LUNGS AND PLEURA: Clear lungs. Normal pulmonary vascularity. No pleural effusion. No pneumothorax. HEART, MEDIASTINUM AND YING: Heart is normal in size. Normal mediastinal and hilar contour. BONES AND SOFT TISSUES: No acute abnormality. IMPRESSION: Normal chest. WSN: [id number] Ordering Physician: Tomasz Warner Dictated By: Souleymane Llanos MD Dictated Date/Time: 07/12/20 6:54 pm Reviewed By: Souleymane Llanos MD Signed By: Souleymane Llanos MD Signed Date/Time: 07/12/20 6:54 pm Transcribed By: BLAIR Transcribed Date/Time: 07/12/20 6:54 pm Vital Signs Most recent to oldest [Reference Range]: 1 2 Oxygen Saturation [94-100 %] 96 % 97 % (07/12/20 8:14 PM) (07/12/20 5:49 PM) Pulse Rate [55-90 bpm] 91 bpm 102 bpm *H* *H* (07/12/20 8:02 PM) (07/12/20 5:49 PM) Blood Pressure [90-138/55-84 mm Hg] 133/105 mm Hg 121/ 95 mm Hg (07/12/20 8:14 PM) (07/12/20 5:49 PM) Respiratory Rate [16-30 br/min] 16 br/min 18 br/mi n (07/12/20 8:14 PM) (07/12/20 5:49 PM) Temperature [96.8-100.4 DegF] 98.4 DegF 99.4 DegF (07/12/20 8:14 PM) (07/12/20 5:49 PM) Mode of Delivery (Oxygen) Room air Room air (07/12/20 8:14 PM) (07/12/20 5:49 PM) Blood pressure sites Arm, left Arm, right (07/12/20 8:14 PM) (07/12/20 5:49 PM) Temperature Route Oral Oral (07/12/20 8:14 PM) (07/12/20 5:49 PM)
--- OUTSIDE RECORDS SUMMARY | 2022-06-08 02:50 | XMS_ITS | Continuity of Care Document ---
:1980 Author Organization [facility] Address [address] [place] [address]- Care Team Providers Name Role Phone Tadeo Alvarado MD Primary Care Physician [phone] Encounter [facility] [place] Date(s): 03/21/20 - 03/21/[address] [address]- [facility] Encounter Diagnosis Alcohol intoxication (Final) - 03/21/20 Cocaine abuse (Final) - 03/21/20 Discharge Disposition: A-D/C Home Attending Physician: Niko Ortiz MD Admitting Physician: Niko Ortiz MD Referring Physician: Not on Staff, Referring [...] (oldterm)3 10/17/11 Given 1Admin Note: vis given 03/04/[id number] Note: MANFTD MASS BIO VIS GIVEN Admin Note: vis given Medications Flonase 50 mcg/inh nasal spray 1 sprays, Nares, Both, Daily in AM, Maintenance, 03/19/20 12:25:00 EDT, [place] Start Date: 03/19/20 Status: Ordered Problem List Condition Effective Dates Status Health Status Informant Central obesity(Confirmed) Active Depression(Confirmed) Active Goal-to lose weight(Confirmed) Active Kidney stone(Confirmed) 07/09/12 Active Threatened (Confirmed) Active Results Radiology Reports Exam Date Time Procedure Performing Provider Status 03/21/20 2:52 AM Chest Portable Cris Tolliver; Auth (Verified ) Notes:(Chest Portable) Reason For Exam: Shortness of BreathRESULT: Chest Portable Chest Portable AP upright Reason: Shortness of Breath; Clinical Question(s): CHF COMPARISON: None. FINDINGS: LINES AND TUBES: None. LUNGS AND PLEURA: Clear lungs. Normal pulmonary vascularity. No pleural effusion. No pneumothorax. HEART, MEDIASTINUM AND YING: Heart is normal in size. Normal mediastinal and hilar contour. BONES AND SOFT TISSUES: No acute abnormality. IMPRESSION: No acute abnormality. WSN: [id number] Ordering Physician: Nkio Ortiz Dictated By: Eileen Bee MD Dictated Date/Time: 03/21/20 7:45 am Reviewed By: Eileen Bee MD Signed By: Eileen Bee MD Signed Date/Time: 03/21/20 7:45 am Transcribed By: BLAIR Transcribed Date/Time: 03/21/20 7:45 am Vital Signs Most recent to oldest 1 2 3 [Reference Range]: Height 160 cm 160 cm (03/21/20 6:59 AM) (03/21/20 3:10 AM) Weight 90 kg (03/21/20 3:10 AM) Oxygen Saturation [94-100 %] 95 % 95 % 97 % (03/21/20 7:48 AM) (03/21/20 6:23 AM) (03/21/20 4:0 4 AM) Pulse Rate [55-90 bpm] 93 bpm 90 bpm 114 bpm *H* (03/21/20 6:59 AM) *H* (03/21/20 7:48 AM) (03/21/20 6:23 AM) Blood Pressure [90-138/55-84 mm 110/72 mm Hg 126/84 mm Hg 121/75 mm Hg Hg] (03/21/20 7:48 AM) (03/21/20 6:23 AM) (03/21/20 4:0 4 AM) Respiratory Rate [16-30 br/min] 16 br/min 19 br/min 18 br/min (03/21/20 7:48 AM) (03/21/20 6:23 AM) (03/21/20 4:0 4 AM) Temperature [96.8-100.4 DegF] 98.3 DegF 98.6 DegF (03/21/20 6:23 AM) (03/21/20 3:10 AM) Liters per Minute 2 L/min 2 L/min 2 L/min (03/21/20 7:48 AM) (03/21/20 6:23 AM) (03/21/20 4:0 4 AM) Mode of Delivery (Oxygen) Nasal cannula Nasal cannula Nasal cannula (03/21/20 7:48 AM) (03/21/20 6:23 AM) (03/21/20 4:0 4 AM) Blood pressure sites Arm, left Arm, left Arm, left (03/21/20 7:48 AM) (03/21/20 6:23 AM) (03/21/20 4:0 4 AM) Temperature Route Oral Oral (03/21/20 6:23 AM) (03/21/20 3:10 AM) Dry Weight 90 kg (03/21/20 3:10 AM)
--- OUTSIDE RECORDS SUMMARY | 2022-06-08 02:50 | XMS_ITS | Continuity of Care Document ---
:1980 Author Organization [facility] Address [address] [place] [address]- Care Team Providers Name Role Phone Vidya Meza MD Primary Care Physician Encounter [facility] Date(s): 09/10/19 - 09/17/[address] [address]- [facility] Attending Physician: Reggie Escudero MD Allergies, Adverse Reactions, Alerts Substance Reaction Severity Status codeine Active ibuprofen nausea Active morphine Active Levaquin Active Bactrim Active Immunizations Given and Recorded Vaccine Date Status Refusal Reason tetanus/diphtheria/pertussis, acel(Tdap) 08/09/13 Given Influenza Vaccine (oldterm)1 07/09/12 Given tetanus-diphtheria toxoids (Td)2 07/09/12 Given Fluzone (oldterm)3 10/17/11 Given 1Admin Note: vis given 03/04/201255097Illtr Note: MANFTD MASS BIO VIS GIVEN Admin [...]
--- OUTSIDE RECORDS SUMMARY | 2022-06-08 02:50 | XMS_ITS | Continuity of Care Document ---
:1980 Author Organization [facility] nter Address [address] [place] [address]- Care Team Providers Name Role Phone Lincoln Zaidi MD, Tadeo Primary Care Physician [phone] Encounter [facility] Date(s): 11/30/21 - 12/02/[address] [address]- Encounter Diagnosis Left arm weakness (Final) - 11/30/21 Left leg weakness (Final) - 11/30/21 Chest pain (Final) - 11/30/21 Discharge Disposition: A-D/C Home Attending Physician: Daniel Salcedo MD Admitting Physician: Jean Kirby MD Referring Physician: Not on Staff, Referring [...] (oldterm)3 10/17/11 Given 1Admin Note: vis given 03/04/[id number] Note: MANFTD MASS BIO VIS GIVEN Admin Note: vis given Medications atorvastatin 40 mg oral tablet 1 tablet = 40 mg, By Mouth, Daily, # 30 tablet, 0 Refills, Maintenance, 12/02/21 15:14:00 EDT, Tablet, [id number], Partial fill upon patient request if the [...] opioid drug. Start Date: 11/30/21 Status: Orderedergocalciferol 85511 iu oral capsule 50,000 International_Units, 1, capsule, By Mouth, Every week, # 30 capsule, Refills 0, Maintenance, 11/30/21 18:16:00 EDT, Partial fill upon patient request if the prescription is for a schedule II opioid drug. Start Date: 11/30/21 Status: OrderedFlonase 50 mcg/inh nasal spray 1 sprays, Nares, Both, Daily in AM, PRN Other, Maintenance, 03/19/20 12:25:00 EDT, [place] Start Date: 03/19/20 Status: OrderedFolic Acid = [...] II opioid drug. Start Date: 11/30/21 Status: Orderedgabapentin 300 mg oral capsule 600 mg, Capsule, By Mouth, 12/02/21 9:00:00 EDT Start Date: 12/02/21 Stop Date: 12/02/21 Status: CompletedhydrOXYzine pamoate 25 mg oral capsule 2 capsule [...] lose weight(Confirmed) Active Kidney stone(Confirmed) 07/09/12 Active Severe obesity(Confirmed) Active Threatened (Confirmed) Active Results Radiology Reports Exam Date Time Procedure Performing Provider Status 11/30/21 3:45 PM Chest Portable Ata Ken (Verified) Notes:(Chest Portable) Reason For Exam: Shortness of BreathRESULT: Chest Portable Examination: Portable chest performed on 11/30/2021. History: Syncope at detox. Findings: A frontal view of the chest is compared to a prior study dated 08/07/2020. The cardiac and mediastinal silhouettes are within normal limits. The lungs are clear. THe osseous and soft tissue structures are unremarkable. IMPRESSION: There is no acute cardiopulmonary disease. WSN: [id number] Ordering Physician: Kevin Forte Dictated By: Marielos Moreau MD Dictated Date/Time: 11/30/21 3:55 pm Reviewed By: Marielos Moreau MD Signed By: Marielos Moreau MD Signed Date/Time: 11/30/21 3:55 pm Transcribed By: BLAIR Transcribed Date/Time: 11/30/21 3:54 pm Vital Signs Most recent to oldest 1 2 3 [Reference Range]: Height 158 cm 158 cm 158 cm (12/02/21 8:26 AM) (12/02/21 6:43 AM) (12/02/21 4:23 A M) Weight 102 kg 102 kg 96 kg (11/30/21 7:50 PM) (11/30/21 7:44 PM) (11/30/21 1:2 7 PM) Oxygen Saturation [94-100 %] 97 % 95 % 93 % (12/02/21 12:00 PM) (12/02/21 8:26 AM) *L* (12/02/21 6:43 AM) Pulse Rate [55-90 bpm] 85 bpm 73 bpm 81 bpm (12/02/21 12:00 PM) (12/02/21 8:26 AM) (12/02/21 6:43 AM) Body Mass Index [18.5-24.99] 40.86 *>HHI* (11/30/21 7:44 PM) Blood Pressure [90-138/55-84 mm 106/73 mm Hg 110/57 mm Hg 125/82 mm Hg Hg] (12/02/21 12:00 PM) (12/02/21 8:26 AM) (12/02/21 6:43 AM) Respiratory Rate [16-30 br/min] 18 br/min 18 br/min 16 br/min (12/02/21 12:00 PM) (12/02/21 8:26 AM) (12/02/21 8:04 AM) Temperature [96.8-100.4 DegF] 98.6 DegF 97.4 DegF 98 .3 DegF (12/02/21 12:00 PM) (12/02/21 8:26 AM) (12/02/21 4:23 AM) Liters per Minute 2 L/min (11/30/21 1:36 PM) Mode of Delivery (Oxygen) Room air Room air Room a ir (12/02/21 12:00 PM) (12/02/21 8:26 AM) (12/02/21 6:43 AM) Blood pressure sites Arm, left Arm, left Arm, left (12/02/21 12:00 PM) (12/02/21 8:26 AM) (12/02/21 6:43 AM) Temperature Route Oral Oral Oral (12/02/21 12:00 PM) (12/02/21 8:26 AM) (12/02/21 4:23 AM) Dry Weight 96 kg 96 kg 96 kg (11/30/21 7:09 PM) (11/30/21 1:27 PM) (11/30/21 1:2 3 PM)
[2022-06-08 03:06] LABS: Alanine Aminotransferase 36 U/L (0-31); Albumin Level 4.8 g/dL (3.5-5.0); Alkaline Phosphatase 89 U/L (39-117); Anion Gap 18 (12-20); Aspartate Amino Transferase 26 U/L (5-31); Bilirubin Total 0.2 mg/dL (0.0-1.0); Blood Urea Nitrogen 7 mg/dL (9-16); Calcium 9.9 mg/dL (8.4-10.2); Carbon Dioxide 22 mmol/L (22-29); Chloride 107 mmol/L (96-108); Creatinine Clr Calc Pharmacy 103.4; Estimated Glomerular Filt Rate > 60; Glucose Random 108 mg/dL (60-115); Potassium 3.9 mmol/L (3.3-5.1); Sodium 143 mmol/L (135-145); Total Protein 7.4 g/dL (6.5-8.0)
[2022-06-08 03:11] LABS: Ethanol 166 mg/dL
[2022-06-08 03:58] VITALS: PULSE 104; RESP 17; O2SAT 95
[2022-06-08 08:01] VITALS: BP 138/88; PULSE 100; RESP 17; TEMP 36.3; O2SAT 95
--- NOTE | 2022-06-08 11:22 | PC.NURSE ---
CALM AND COOPERATIVE WAITING TO BE SEEN BY David
--- NOTE | 2022-06-08 16:59 | PC.NURSE ---
seen by joe
--- NOTE | 2022-06-08 17:14 | MHC.CARE ---
Pt is a 41 year old female who arrived to [facility] wanting to overdose with alcohol also using cocaine. Pt reported her son Eri Lee (17) and dtr Alidajanay Jacques (20) reside with pt. Pt's son called the ambulance due to pt emotional and intoxicated behavior. Pt reported her boyfriend Lenard Parks occasionally sleep over. Pt stated she meets with her therapist Antionette from [facility] 2x a month and a prescriber Kasey who also is from [facility] sometime in November or December. Pt stated she was going to contact [facility] to schedule her intake appointment. Pt stated she made SI statement because she was drinking and requested to go home. Pt denied SI/HI/AVH. Care team contacted pt's dtr Alidajanay Jacques and she reported pt's son Eri (:04/17/2005) called EMS due to pt's drinking and emotional. She reported pt's boyfriend Lenard was present last night. She stated pt was attending [employer] [facility], however, stopped going due to using cocaine. She reports not having concerns with pt. Care Team will file 51A. Disposition was discussed with Tomeka CARY and Jacinto Monroy MD who were in agreement with discharging pt to her home.
== END 2022-06-08 17:26 | disposition home or self-care (01) ==
PROVIDERS: Internal Medicine; Emergency Provider Emergency Medicine Emergency Medical Services; PCP Internal Medicine
DX: F10.220 Alcohol dependence with intoxication, uncomplicated (principal); Y90.6 Blood alcohol level of 120-199 mg/100 ml; R45.851 Suicidal ideations; F14.90 Cocaine use, unspecified, uncomplicated; F31.9 Bipolar disorder, unspecified; F12.90 Cannabis use, unspecified, uncomplicated; E66.9 Obesity, unspecified; Z68.38 Body mass index [BMI] 38.0-38.9, adult; Z20.822 Contact with and (suspected) exposure to COVID-19; Z79.899 Other long term (current) drug therapy
CPT/HCPCS: 36415; 80053; 80307; 81003; 81025; 82077; 83735; 85025; 87635; 99284

== ENCOUNTER 2022-06-27 11:05 | Emergency (ER) | payer MEDICAID, SELFPAY ==
[2022-06-27 11:53] VITALS: BP 122/84; PULSE 101; RESP 20; TEMP 37.2; O2SAT 96; BMI 37.2
[2022-06-27 13:09] LABS: Influenza A PCR NEGATIVE (Negative); Influenza B PCR NEGATIVE (Negative); Resp Syncy Virus RNA Qual PCR NEGATIVE (Negative); SARS COV2 PCR INHOUSE POSITIVE (Negative)
== END 2022-06-27 20:33 | disposition left against medical advice (07) ==
LOC: HO.ED 20:33
PROVIDERS: Emergency Provider Emergency Medicine; PCP Internal Medicine
DX: U07.1 COVID-19 (principal)
CPT/HCPCS: 0241U; 99281; 99283

== ENCOUNTER 2022-06-29 13:52 | Emergency (ER) | payer MEDICAID, SELFPAY ==
[2022-06-29 14:15] VITALS: BP 134/86; PULSE 94; O2SAT 95
[2022-06-29 14:16] VITALS: BP 143/78; PULSE 100; RESP 18; TEMP 36.9; O2SAT 98; BMI 37.6
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
== END 2022-06-29 18:13 | disposition left against medical advice (07) ==
PROVIDERS: Emergency Provider Emergency Medicine
DX: S06.0X0A Concussion without loss of consciousness, initial encounter (principal); R51.9 Headache, unspecified; X58.XXXA Exposure to other specified factors, initial encounter; Y93.9 Activity, unspecified; Y92.9 Unspecified place or not applicable; Y99.9 Unspecified external cause status
CPT/HCPCS: 99282

== ENCOUNTER 2022-07-05 | Outpatient (REF) | payer MEDICAID, SELFPAY ==
--- NOTE | ~2022-07-05 | XR_ITS ---
EXAMINATION: KNEE X-RAY CLINICAL INFORMATION: Pain COMPARISON: Previous x-ray August 2021 TECHNIQUE: Standing AP view of both knees and lateral and sunrise view of the left knee FINDINGS: Left: Bone alignment is normal. No fracture or dislocation. Normal joint spaces. No joint effusion. Standing AP view right knee is unremarkable. XR/XR knee LT 2V IMPRESSION: Unremarkable exam.
--- NOTE | ~2022-07-05 | XR_ITS ---
EXAMINATION: KNEE X-RAY CLINICAL INFORMATION: Pain COMPARISON: Previous x-ray August 2021 TECHNIQUE: Standing AP view of both knees and lateral and sunrise view of the left knee FINDINGS: Left: Bone alignment is normal. No fracture or dislocation. Normal joint spaces. No joint effusion. Standing AP view right knee is unremarkable. XR/XR knee standing BI IMPRESSION: Unremarkable exam.
== END 2022-07-05 00:01 | disposition home or self-care (01) ==
LOC: HO.HOSX
PROVIDERS: Visit Provider Physician Assistant
DX: M17.12 Unilateral primary osteoarthritis, left knee (principal)
CPT/HCPCS: 20610; 73560; 73565; 99202; J1040

== ENCOUNTER 2022-07-20 12:54 | Emergency (ER) | payer MEDICAID, SELFPAY | END 2022-07-20 15:03 | disposition left against medical advice (07) | PROVIDERS: Emergency Provider Emergency Medicine; PCP Internal Medicine | DX: F33.1 Major depressive disorder, recurrent, moderate (principal) ==

== ENCOUNTER 2022-09-06 20:26 | Emergency (ER) | payer MEDICAID, SELFPAY ==
[2022-09-06 20:54] VITALS: BP 151/93; PULSE 90; RESP 20; TEMP 36.1; O2SAT 98; BMI 40.7
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
== END 2022-09-07 00:44 | disposition left against medical advice (07) ==
LOC: HO.ED 21:37
PROVIDERS: Emergency Provider Emergency Medicine; PCP Internal Medicine
DX: F19.10 Other psychoactive substance abuse, uncomplicated (principal); F31.9 Bipolar disorder, unspecified
CPT/HCPCS: 99283

== ENCOUNTER 2022-09-24 01:25 | Emergency (ER) | payer MEDICAID, SELFPAY ==
[2022-09-24 01:27] VITALS: BP 126/78; BP 145/84; PULSE 111; PULSE 120; RESP 12; TEMP 36.6; O2SAT 95; O2SAT 96; BMI 39.4
--- NOTE | 2022-09-24 01:34 | ECG_ITS ---
Test Reason : ALT MENTAL Blood Pressure : / mmHG Vent. Rate : 109 BPM Atrial Rate : 109 BPM P-R Int : 154 ms QRS Dur : 096 ms QT Int : 380 ms P-R-T Axes : 064 -27 063 degrees QTc Int : 511 ms Sinus tachycardia Inferior infarct , age undetermined Cannot rule out Anterior infarct , age undetermined Abnormal ECG When compared with ECG of 01-JUN-2022 04:24, No significant change was found Referred By: Generic ED Physician Electronically Signed By:DEVIKA CIFUENTES MD
[2022-09-24 01:48] LABS: MANUAL DIFF FLAG NO
[2022-09-24 01:49] LABS: Basophils Percent Auto 0.3 % (0-2); Eosinophils Absolute Auto 0.1 X10*3/uL (0.0-0.4); Hematocrit 42.9 % (37.0-47.0); Hemoglobin 14.6 g/dl (12.0-16.0); Imm Gran Abs Auto 0.05 X10*3/uL (0.00-0.03); Imm Gran Pct Auto 0.5 % (0.0-0.4); Lymphocytes Absolute Auto 3.1 X10*3/uL (1.2-4.9); Lymphocytes Percent Auto 30.8 % (20-40); Mean Corpuscular Hemoglobin 29.1 pg (27.0-33.0); Mean Corpuscular Volume 85.5 fL (80.0-98.0); Mean Platelet Volume 8.6 fL (9.4-12.3); Monocytes Absolute Auto 0.6 X10*3/uL (0.1-1.2); Monocytes Percent Auto 6.2 % (2-11); Neutrophils Absolute Auto 6.1 x10*3/uL (2.0-8.3); Neutrophils Percent Auto 61.2 % (45-73); Platelet Count 320 X10*3/uL (160-400); Red Blood Count 5.02 X10*6/uL (4.20-5.50); Red Cell Distribution Width 13.2 % (11.0-16.0)
[2022-09-24 02:08] VITALS: BP 118/68; PULSE 107; RESP 13; O2SAT 96
[2022-09-24 02:12] LABS: Alanine Aminotransferase 60 U/L (0-31); Albumin Level 4.8 g/dL (3.5-5.0); Alkaline Phosphatase 83 U/L (39-117); Anion Gap 20 (12-20); Aspartate Amino Transferase 40 U/L (5-31); Bilirubin Total 0.4 mg/dL (0.0-1.0); Blood Urea Nitrogen 8 mg/dL (9-16); Calcium 9.6 mg/dL (8.4-10.2); Carbon Dioxide 23 mmol/L (22-29); Chloride 105 mmol/L (96-108); Creatinine Clr Calc Pharmacy 99.7; Estimated Glomerular Filt Rate > 60; Glucose Random 116 mg/dL (60-115); Potassium 3.7 mmol/L (3.3-5.1); Sodium 144 mmol/L (135-145); Total Protein 7.1 g/dL (6.5-8.0)
--- NOTE | 2022-09-24 02:12 | PC.NURSE ---
Pt aox3. Breaths are even and unlabored with equal chest rises. RR 13 o2 sat 96% RA. Sinus tach on monitor with HR 107. Abd soft and non tender. Skin warm pink and dry. Vomit cleaned off from pt. No apparent distress noted. IV line established with 20G on R AC. Labs drawn. Will continue to monitor.
[2022-09-24 02:34] LABS: Ethanol 221 mg/dL
[2022-09-24 03:13] LABS: Appearance Urine Clear; Color Urine Yellow; Glucose Urine UA Negative (Negative); Leukocyte Esterase Urine Negative (Negative); Nitrite Urine Negative (Negative); PH 5.5 (5.0-9.0); UMIC TRIGGER UACC YES; Urine Blood Negative (Negative); Urine Ketones Negative (Negative); Urine Protein 30 (1+) mg/dL (Neg-Trace)
[2022-09-24 03:15] LABS: Amphetamine Screen Urine Not Detected (Not Detect); Barbiturates, Urine Not Detected (Not Detect); Benzodiazepines Screen Urine Not Detected (Not Detect); Cannabinoid Screen Urine POSITIVE (Not Detect); Cocaine Screen Urine POSITIVE (Not Detect); Fentanyl, urine Not Detected (Not Detect); Opiate Screen Urine Not Detected (Not Detect); Phencyclidine Screen Urine Not Detected (Not Detect)
[2022-09-24 03:21] LABS: Bacteria Urine 1+ (None Seen); RBC Urine 0-2 /HPF (0-2); WBC Urine 0-5 /HPF (0-5)
--- NOTE | 2022-09-24 03:34 | PC.NURSE ---
Pt found wondering in the hallway stating I want to leave. Pt self removed IV line and is requesting to leave against medical advise. Pt able to be redirected to the bedside. R AC area cleaned and dressed. aware and will speak with pt. Pt aox4. Walking with a steady gait. Speech is clear and appropriate. Will continue to monitor.
--- NOTE | 2022-09-24 03:35 | ED.ALCOHOL ---
HPI - Alcohol General Chief Complaint: Seizure Stated Complaint: ? seizure Time Seen by Provider: 09/24/22 02:17 Source: patient and EMS Mode of arrival: EMS Limitations: no limitations History of Present Illness HPI narrative: 41-year-old female who was sent to the emergency department for evaluation of altered mental status, possible seizure, alcohol use. The patient states that she does not know what happened this evening and while she was sent to the emergency department. She states that she was drinking vodka, Germaine and fireball whiskey. She states that she does have a seizure disorder and is supposed to be taking Topamax 50 mg twice a day but she has been noncompliant with this medication cannot tell me when she took her last dose. Paramedics state that there was a question of her having a seizure and being incontinent at home. Paramedics felt that she may have been postictal when they arrived and she was more awake when she got to the emergency department The patient was able to tell me that she did drink alcohol today. She also told me that she used cocaine 1 week prior. She has no complaints. As stated above she does not know why she is here in the emergency department. Related Data Home Medications Medication Instructions Recorded Confirmed acetaminophen 650 mg 1 tab PO Q8H PRN Pain (Scale Score 06/08/22 06/08/22 tablet,extended release (Mapap 1-3) Arthritis Pain) citalopram 40 mg tablet 1 tab PO DAILY 06/08/22 06/08/22 hydroxyzine HCl 25 mg tablet 1 tab PO BID PRN Anxiety 06/08/22 06/08/22 prazosin 1 mg capsule 1 cap PO BEDTIME 06/08/22 06/08/22 quetiapine 100 mg tablet 1 tab PO BEDTIME 06/08/22 06/08/22 quetiapine 50 mg tablet 1 tab PO BID PRN anxiety 06/08/22 06/08/22 topiramate 50 mg tablet 1 tab PO BID 06/08/22 06/08/22 Previous Rx's Medication Instructions Recorded topiramate 50 mg tablet (Topamax) 50 mg PO BID #60 tabs 09/24/22 Allergies Allergy/AdvReac Type Severity Reaction Status Date / Time levofloxacin [From LEVAQUIN] Allergy Intermediate RASH Verified 09/06/22 21:01 codeine [Codeine] Allergy Unknown NAUSEA AND Verified 09/06/22 21:01 VOMITING, sensitivity ibuprofen Allergy Unknown sensitivity Verified 09/06/22 21:01 morphine [Morphine] Allergy Unknown HEADACHE, Verified 09/06/22 21:01 vomiting, sensitivity naproxen [From NAPROSYN] Allergy Unknown HIVES, Verified 09/06/22 21:01 DIFFICULTY BREATHING. Sulfa (Sulfonamide Allergy Unknown unknown Verified 09/06/22 21:01 Antibiotics) Review of Systems Review of Systems: Yes all other systems are reviewed and are negative [facility] Past Medical History [facility] Narrative: Social history: She states she vapes nicotine products. She does drink alcohol frequently, she does use cocaine Medical History Bipolar disorder Breast mass Depression History of 2019 novel coronavirus disease (COVID-19) Morbid obesity Overdose Palpitation Surgical History History of sinus surgery (~2019) Family History Family History Father History of heart artery stent History of heart attack Mother CVA (cerebral vascular accident) Paternal Grandmother Bone cancer Paternal Uncle Cancer of unknown origin Social History Social History Alcohol intake: current Alcohol intake frequency: a few times a month Patient Tobacco Use Status: Never used Tobacco Smoked in Last 30 Days: No Use of substances other than those prescribed or required for medical reasons: No Substance Use Type: Marijuana Advance Directives: No Patient : No Current occupational status: disabled Current occupation: rt handed Physical Exam ED Vital Signs: Vital Signs - 24 hr 09/24/22 01:27 09/24/22 02:08 Temperature 97.8 F Pulse Rate 111 H 107 H Respiratory Rate 12 13 Blood Pressure 145/84 H 118/68 Pulse Oximetry 96 96 Oxygen Delivery Method Room Air Room Air BMI result Body Mass Index 39.4 Const General: cooperative and no acute distress Orientation/consciousness: oriented to person and oriented to place Limitations: no limitations HENMT Head: Yes normal to inspection, Yes normocephalic and Yes atraumatic Ears: external ears normal General nose exam: Normal external nose present Face and sinus: Yes normal facial exam Mouth: Normal oral and palatal mucosa present Throat: Yes posterior oropharynx normal Eyes General: appearance normal, both eyes and all related structures Pupils: Equal, round and reactive pupils present Neck Neck: Yes normal visual inspection, Yes no lymphadenopathy, Yes trachea midline and Yes supple Chest Chest palpation & inspection: normal inspection of the chest and normal palpation of entire chest wall Resp Effort & Inspection: normal respiratory effort and able to speak in complete sentences Auscultation: clear to auscultation bilaterally Cardio Rate: regular rate Rhythm: regular rhythm Heart sounds: S1 normal heart sound present, S2 normal heart sound present and no murmurs GI Inspection: Yes normal to inspection Palpation (GI): Soft to palpation, nontender and no guarding Auscultation: normal bowel sounds General: Yes no CVA tenderness Back/Spine/Pelvis Back: no CVA tenderness Skin General skin exam: no rashes or lesions noted Neuro General: oriented to person and oriented to place Cranial nerves: Yes CN's II-XII intact bilaterally and Yes Equal, round and reactive pupils present Cognition (Neuro): normal cognition Motor exam (neuro): 5/5 motor strength present throughout Extrem General: Yes normal to inspection Psych Appearance: grossly normal Speech and movement: Normal speech and movement present Affect: normal affect Attitude: cooperative Thought process: Normal thought process present Thought content: Normal thought content present Medical Decision Making Medical Decision Making MDM Narrative: 41-year-old female who was sent to emergency department by ambulance for evaluation of altered mental status and incontinence of urine. The patient does have a seizure disorder but has been noncompliant with her Topamax. She also admits to drinking a significant amount of alcohol this evening. At the time my evaluation she was awake and alert and her exam was unremarkable with a normal neurologic exam. I did order laboratory evaluation includes CBC, CMP, alcohol level, urine tox screen. 0343: In my independent interpretation of the patient's laboratory evaluation is as follows: CBC was normal. Glucose was elevated 116. AST and ALT are elevated 40 and 60. Patient's alcohol level was elevated 221. The patient's urine tox screen was positive for marijuana and cocaine At this time I suspect the patient may have had a seizure at home triggered by drinking alcohol and being noncompliant with her anti seizure medications. Patient is now awake alert even though she is intoxicated, she does want to go home. She states that her boyfriend is here and can drive her home. The patient states that she has run out of Topamax and I did prescribe Topamax 50 mg b.i.d. x1 month. She was advised to follow-up with her PCP or her neurologist to get refills of this medication. She was advised to get help with your alcohol and cocaine use. Lab Data 09/24/22 01:44 09/24/22 01:44 Labs: Lab Results 09/24/22 09/24/22 09/24/22 Range/Units 01:44 01:44 01:44 WBC 10.0 (4.8-10.8) X10*3/uL RBC 5.02 (4.20-5.50) X10*6/uL Hgb 14.6 (12.0-16.0) g/dl Hct 42.9 (37.0-47.0) % MCV 85.5 (80.0-98.0) fL MCH 29.1 (27.0-33.0) pg MCHC 34.0 (31.0-35.0) g/dl RDW 13.2 (11.0-16.0) % Plt Count 320 (160-400) X10*3/uL MPV 8.6 L (9.4-12.3) fL Immature Gran % (Auto) 0.5 H (0.0-0.4) % Neut % (Auto) 61.2 (45-73) % Lymph % (Auto) 30.8 (20-40) % [place] % (Auto) 6.2 (2-11) % Eos % (Auto) 1.0 (0-4) % Baso % (Auto) 0.3 (0-2) % Lymph # (Auto) 3.1 (1.2-4.9) X10*3/uL [place] # (Auto) 0.6 (0.1-1.2) X10*3/uL Eos # (Auto) 0.1 (0.0-0.4) X10*3/uL Baso # (Auto) 0.0 (0.0-0.2) X10*3/uL Abs Immat Gran (auto) 0.05 H (0.00-0.03) X10*3/uL Absolute Neuts (auto) 6.1 (2.0-8.3) x10*3/uL Absolute Nucleated RBC 0.000 (0.0-0.012) X10*3/uL Nucleated RBC % (auto) 0.0 (0.0-0.2) /100WBC Sodium 144 (135-145) mmol/L Potassium 3.7 (3.3-5.1) mmol/L Chloride 105 (96-108) mmol/L Carbon Dioxide 23 (22-29) mmol/L Anion Gap 20 (12-20) BUN 8 L (9-16) mg/dL Creatinine 0.81 (0.5-1.4) mg/dL Estim Creat Clear Calc 99.7 Estimated GFR > 60 Random Glucose 116 H (60-115) mg/dL Calcium 9.6 (8.4-10.2) mg/dL Total Bilirubin 0.4 (0.0-1.0) mg/dL AST 40 H (5-31) U/L ALT 60 H (0-31) U/L Alkaline Phosphatase 83 (39-117) U/L Total Protein 7.1 (6.5-8.0) g/dL Albumin 4.8 (3.5-5.0) g/dL Urine Color Urine Appearance Urine pH (5.0-9.0) Ur Specific [place] (1.005-1.025) Urine Protein (Neg-Trace) mg/dL Urine Glucose (UA) (Negative) mg/dL Urine Ketones (Negative) mg/dL Urine Blood (Negative) Urine Nitrite (Negative) Ur Leukocyte Esterase (Negative) Urine RBC (0-2) /HPF Urine WBC (0-5) /HPF Ur Squamous Epith Cells (0-2) /HPF Urine Bacteria (None Seen) Hyaline Casts (0-2) /LPF Urine Opiates Screen (Not Detect) Urine Fentanyl Screen (Not Detect) Ur Barbiturates Screen (Not Detect) Ur Phencyclidine Scrn (Not Detect) Ur Amphetamines Screen (Not Detect) U Benzodiazepines Scrn (Not Detect) Urine Cocaine Screen (Not Detect) U Marijuana (THC) Screen (Not Detect) Ethyl Alcohol 221 mg/dL 09/24/22 09/24/22 Range/Units 02:59 02:59 WBC (4.8-10.8) X10*3/uL RBC (4.20-5.50) X10*6/uL Hgb (12.0-16.0) g/dl Hct (37.0-47.0) % MCV (80.0-98.0) fL MCH (27.0-33.0) pg MCHC (31.0-35.0) g/dl RDW (11.0-16.0) % Plt Count (160-400) X10*3/uL MPV (9.4-12.3) fL Immature Gran % (Auto) (0.0-0.4) % Neut % (Auto) (45-73) % Lymph % (Auto) (20-40) % [place] % (Auto) (2-11) % Eos % (Auto) (0-4) % Baso % (Auto) (0-2) % Lymph # (Auto) (1.2-4.9) X10*3/uL [place] # (Auto) (0.1-1.2) X10*3/uL Eos # (Auto) (0.0-0.4) X10*3/uL Baso # (Auto) (0.0-0.2) X10*3/uL Abs Immat Gran (auto) (0.00-0.03) X10*3/uL Absolute Neuts (auto) (2.0-8.3) x10*3/uL Absolute Nucleated RBC (0.0-0.012) X10*3/uL Nucleated RBC % (auto) (0.0-0.2) /100WBC Sodium (135-145) mmol/L Potassium (3.3-5.1) mmol/L Chloride (96-108) mmol/L Carbon Dioxide (22-29) mmol/L Anion Gap (12-20) BUN (9-16) mg/dL Creatinine (0.5-1.4) mg/dL Estim Creat Clear Calc Estimated GFR Random Glucose (60-115) mg/dL Calcium (8.4-10.2) mg/dL Total Bilirubin (0.0-1.0) mg/dL AST (5-31) U/L ALT (0-31) U/L Alkaline Phosphatase (39-117) U/L Total Protein (6.5-8.0) g/dL Albumin (3.5-5.0) g/dL Urine Color Yellow Urine Appearance Clear Urine pH 5.5 (5.0-9.0) Ur Specific [place] 1.010 (1.005-1.025) Urine Protein 30 (1+) H (Neg-Trace) mg/dL Urine Glucose (UA) Negative (Negative) mg/dL Urine Ketones Negative (Negative) mg/dL Urine Blood Negative (Negative) Urine Nitrite Negative (Negative) Ur Leukocyte Esterase Negative (Negative) Urine RBC 0-2 (0-2) /HPF Urine WBC 0-5 (0-5) /HPF Ur Squamous Epith Cells 6-10 (0-2) /HPF Urine Bacteria 1+ (None Seen) Hyaline Casts 3-5 (0-2) /LPF Urine Opiates Screen Not Detected (Not Detect) Urine Fentanyl Screen Not Detected (Not Detect) Ur Barbiturates Screen Not Detected (Not Detect) Ur Phencyclidine Scrn Not Detected (Not Detect) Ur Amphetamines Screen Not Detected (Not Detect) U Benzodiazepines Scrn Not Detected (Not Detect) Urine Cocaine Screen POSITIVE H (Not Detect) U Marijuana (THC) Screen POSITIVE H (Not Detect) Ethyl Alcohol mg/dL Discharge Plan Discharge Clinical Impression: Seizure, Cocaine use Alcohol intoxication Qualifiers: Complication of substance-induced condition: uncomplicated Qualified Code(s): F10.920 - Alcohol use, unspecified with intoxication, uncomplicated Patient Disposition: Home, Self-Care Instructions: Cocaine Abuse (ED), Alcohol Use Disorder (ED) Additional Instructions: Your blood work was unremarkable except for an elevated alcohol level of 221 (the legal limit for intoxication is 80). At this time, I suspect that you may have had a seizure, this was probably triggered by drinking alcohol and not taking your anti seizure medications. I am prescribing Topamax 50 mg every 12 hours. I can only prescribe 1 month's worth of this medication. You will need to get a refill from your PCP or your neurologist. You should get help with your alcohol use disorder and with your cocaine use disorder. Using street drugs like cocaine is very dangerous since often it is contaminated with fentanyl and this can cause you to stop breathing and . Follow-up with your doctor in 2 days. Please return to the emergency department if your symptoms get worse or if you develop any symptoms that are concerning to you. Prescriptions: New topiramate [Topamax] 50 mg tablet 50 mg PO BID Qty: 60 0RF No Action citalopram 40 mg tablet 1 tab PO DAILY prazosin 1 mg capsule 1 cap PO BEDTIME quetiapine 100 mg tablet 1 tab PO BEDTIME acetaminophen [Mapap Arthritis Pain] 650 mg tablet extended release 1 tab PO Q8H PRN (Reason: Pain (Scale Score 1-3)) hydroxyzine HCl 25 mg tablet 1 tab PO BID PRN (Reason: Anxiety) quetiapine 50 mg tablet 1 tab PO BID PRN (Reason: anxiety) topiramate 50 mg tablet 1 tab PO BID
--- NOTE | 2022-09-24 03:57 | PC.NURSE ---
Reviewed discharge instruction with patient, patient verbalized understanding. pt a&o,no sob or chest pain, pt able to ambulate with a steady gait.
== END 2022-09-24 03:59 | disposition home or self-care (01) ==
PROVIDERS: Emergency Provider Emergency Medicine Emergency Medical Services; PCP Internal Medicine
DX: R56.9 Unspecified convulsions (principal); R41.82 Altered mental status, unspecified; F14.90 Cocaine use, unspecified, uncomplicated; F10.920 Alcohol use, unspecified with intoxication, uncomplicated; Y90.7 Blood alcohol level of 200-239 mg/100 ml; Z79.899 Other long term (current) drug therapy
CPT/HCPCS: 36415; 80053; 80307; 81001; 82077; 85025; 93005; 99285

== ENCOUNTER → 2022-10-09 13:21 | Outpatient (BNVA) | payer MEDICAID, SELFPAY | PROVIDERS: PCP Internal Medicine; Visit Provider Physician Assistant | DX: M17.12 Unilateral primary osteoarthritis, left knee (principal) | CPT/HCPCS: 99212 ==

== ENCOUNTER 2022-12-11 12:52 | Outpatient (REF) | payer MEDICAID, SELFPAY ==
--- NOTE | ~2022-12-11 | XR_ITS ---
EXAMINATION: XR HIP, RIGHT XR KNEE, RIGHT CLINICAL INFORMATION: Acute right knee and hip pain. COMPARISON: Standing bilateral knees 07/05/2022, 08/05/2021. CT abdomen and pelvis 12/14/2019. TECHNIQUE: 2 views right hip, 3 views right knee FINDINGS: RIGHT HIP: No significant bone, joint or soft tissue abnormality is seen. Incidental note made of an IUD in the uterus. RIGHT KNEE: No bone, joint or soft tissue abnormality is seen. XR/XR knee RT 3V IMPRESSION: Normal right hip and right knee.
--- NOTE | ~2022-12-11 | XR_ITS ---
EXAMINATION: XR HIP, RIGHT XR KNEE, RIGHT CLINICAL INFORMATION: Acute right knee and hip pain. COMPARISON: Standing bilateral knees 07/05/2022, 08/05/2021. CT abdomen and pelvis 12/14/2019. TECHNIQUE: 2 views right hip, 3 views right knee FINDINGS: RIGHT HIP: No significant bone, joint or soft tissue abnormality is seen. Incidental note made of an IUD in the uterus. RIGHT KNEE: No bone, joint or soft tissue abnormality is seen. XR/XR hip RT min 2V IMPRESSION: Normal right hip and right knee.
== END 2022-12-11 12:53 | disposition home or self-care (01) ==
LOC: HO.XRAY 12:52
PROVIDERS: Absent Provider Internal Medicine; PCP Internal Medicine; Visit Provider Emergency Medicine
DX: M25.561 Pain in right knee (principal); M25.551 Pain in right hip
CPT/HCPCS: 73502; 73562

== ENCOUNTER 2023-02-14 20:02 | Emergency (ER) | payer MEDICAID, SELFPAY ==
--- NOTE | ~2023-02-14 | CT_ITS ---
EXAMINATION: CT ABDOMEN AND PELVIS WITHOUT CONTRAST CLINICAL INFORMATION: Right flank pain COMPARISON: 12/14/2019 TECHNIQUE: Multidetector volumetric imaging was performed from the superior aspect of the liver through the pubic symphysis. Sagittal and coronal reformatted images were obtained on the technologist's workstation. This CT examination was performed using dose optimization techniques as appropriate, variously including the following: *Automated exposure control *Adjustment of mA and/or kV according to patient size (this includes techniques or standardized protocols for targeted exams where dose is matched to indication/reason for exam; i.e. extremities or head) *Use of iterative reconstruction technique DLP: 801 mGy-cm FINDINGS: LUNG BASES: The visualized lung bases are unremarkable. LIVER, GALLBLADDER, AND BILIARY TREE: Liver normal in size and contour. Diffuse hepatic steatosis. No focal liver lesions. No biliary dilatation. Gallbladder unremarkable. PANCREAS: Fatty atrophy redemonstrated. No mass or inflammation. SPLEEN: Unremarkable. ADRENAL GLANDS: Unremarkable. KIDNEYS AND URETERS: There is a 3 mm stone in the distal right ureter at the ureterovesical junction associated with mild-moderate upstream hydroureteronephrosis. There is a 2 mm nonobstructing calculus in the upper pole of left kidney and a couple punctate nonobstructive calculi in the lower pole of the left kidney. No perinephric abnormalities. BLADDER: Unremarkable. GASTROINTESTINAL TRACT: Small sliding-type hiatal hernia. The small and large bowel are unremarkable. The appendix is unremarkable. ABDOMINAL WALL: No significant hernia is appreciated. LYMPH NODES: Normal. VASCULAR: Unremarkable. PELVIC VISCERA: IUD within the uterus. Uterus and adnexa otherwise unremarkable. OSSEOUS STRUCTURES: No acute or suspicious osseous abnormalities. CT/CT abdomen pelvis wo IV con IMPRESSION: * There is a 3 mm stone in the distal RIGHT ureter at the ureterovesical junction associated with mild-moderate upstream hydroureteronephrosis. * Nonobstructive intrarenal calculi on the left. * Hepatic steatosis.
--- NOTE | ~2023-02-14 | XR_ITS ---
EXAMINATION: XR CHEST CLINICAL INFORMATION: Chest pain COMPARISON: 04/18/2022 TECHNIQUE: 2 views of the chest were obtained. FINDINGS: Lung volumes are symmetric. No focal consolidation is seen. No evidence of pneumothorax, pleural effusion, or pulmonary edema. The cardiomediastinal contour is unremarkable. No acute osseous findings are seen. XR/XR chest 2V IMPRESSION: No acute cardiopulmonary findings.
--- NOTE | 2023-02-14 20:04 | ECG_ITS ---
Test Reason : CHEST PAIN Blood Pressure : / mmHG Vent. Rate : 088 BPM Atrial Rate : 088 BPM P-R Int : 146 ms QRS Dur : 080 ms QT Int : 374 ms P-R-T Axes : 045 001 053 degrees QTc Int : 452 ms Normal sinus rhythm Normal ECG No previous ECGs available Referred By: Shi Rosenbaum Electronically Signed By:DEVIKA CIFUENTES MD
[2023-02-14 20:22] VITALS: BP 169/102; PULSE 88; RESP 20; TEMP 37; O2SAT 96; BMI 40.2
--- NOTE | 2023-02-14 20:24 | ED_ITS ---
HPI - General Adult General Chief complaint: Chest Pain Stated complaint: chest pain, vomit Related Data Home Medications Medication Instructions Recorded Confirmed acetaminophen 650 mg 1 tab PO Q8H PRN Pain (Scale Score 06/08/22 06/08/22 tablet,extended release (Mapap 1-3) Arthritis Pain) citalopram 40 mg tablet 1 tab PO DAILY 06/08/22 06/08/22 hydroxyzine HCl 25 mg tablet 1 tab PO BID PRN Anxiety 06/08/22 06/08/22 prazosin 1 mg capsule 1 cap PO BEDTIME 06/08/22 06/08/22 quetiapine 100 mg tablet 1 tab PO BEDTIME 06/08/22 06/08/22 quetiapine 50 mg tablet 1 tab PO BID PRN anxiety 06/08/22 06/08/22 topiramate 50 mg tablet 1 tab PO BID 06/08/22 06/08/22 Previous Rx's Medication Instructions Recorded topiramate 50 mg tablet (Topamax) 50 mg PO BID #60 tabs 09/24/22 naproxen 500 mg tablet 500 mg PO BID 30 days #60 tabs 10/09/22 Allergies Allergy/AdvReac Type Severity Reaction Status Date / Time levofloxacin [From LEVAQUIN] Allergy Intermediate RASH Verified 10/09/22 13:33 codeine [Codeine] Allergy Unknown NAUSEA AND Verified 10/09/22 13:33 VOMITING, sensitivity ibuprofen Allergy Unknown sensitivity Verified 10/09/22 13:33 morphine [Morphine] Allergy Unknown HEADACHE, Verified 10/09/22 13:33 vomiting, sensitivity naproxen [From NAPROSYN] Allergy Unknown HIVES, Verified 10/09/22 13:33 DIFFICULTY BREATHING. Sulfa (Sulfonamide Allergy Unknown unknown Verified 10/09/22 13:33 Antibiotics) COUNT INCLUDES [facility] Past Medical History Medical History Bipolar disorder Breast mass Depression History of 2019 novel coronavirus disease (COVID-19) Morbid obesity Overdose Palpitation Surgical History History of sinus surgery (~2019) Family History Family History Father History of heart artery stent History of heart attack Mother CVA (cerebral vascular accident) Paternal Grandmother Bone cancer Paternal Uncle Cancer of unknown origin Social History Social History Alcohol intake: current Alcohol intake frequency: a few times a month Patient Tobacco Use Status: Never used Tobacco Substance Use Type: Marijuana Current occupational status: disabled Current occupation: rt handed Physical Exam ED Vital Signs: Vital Signs - 24 hr 02/14/23 20:22 Temperature 98.6 F Pulse Rate 88 Respiratory Rate 20 Blood Pressure 169/102 H Pulse Oximetry 96 Oxygen Delivery Method Room Air BMI result Body Mass Index 40.2 Course Course Course Narrative: RME - 42 yo female with history of obesity, palpitations, arthritis, hx kidney stones who presents to the ER for evaluation of left sided chest pain that started 1 hour ago, radiated to upper back. Now has severe pain in the right flank along with nausea and vomiting. Plan: labs, UA, r/o Discharge Plan Discharge Prescriptions: No Action topiramate [Topamax] 50 mg tablet 50 mg PO BID Qty: 60 0RF citalopram 40 mg tablet 1 tab PO DAILY prazosin 1 mg capsule 1 cap PO BEDTIME quetiapine 100 mg tablet 1 tab PO BEDTIME acetaminophen [Mapap Arthritis Pain] 650 mg tablet extended release 1 tab PO Q8H PRN (Reason: Pain (Scale Score 1-3)) hydroxyzine HCl 25 mg tablet 1 tab PO BID PRN (Reason: Anxiety) quetiapine 50 mg tablet 1 tab PO BID PRN (Reason: anxiety) topiramate 50 mg tablet 1 tab PO BID naproxen 500 mg tablet 500 mg PO BID 30 Days Qty: 60 3RF
[2023-02-14 22:02] LABS: MANUAL DIFF FLAG NO
[2023-02-14 22:03] LABS: Basophils Absolute Auto 0.1 X10*3/uL (0.0-0.2); Basophils Percent Auto 0.4 % (0-2); Eosinophils Absolute Auto 0.2 X10*3/uL (0.0-0.4); Eosinophils Percent Auto 1.5 % (0-4); Hematocrit 40.8 % (37.0-47.0); Hemoglobin 13.7 g/dl (12.0-16.0); Imm Gran Abs Auto 0.07 X10*3/uL (0.00-0.03); Imm Gran Pct Auto 0.5 % (0.0-0.4); Lymphocytes Absolute Auto 2.8 X10*3/uL (1.2-4.9); Lymphocytes Percent Auto 20.3 % (20-40); Mean Corpuscular HGB Conc 33.6 g/dl (31.0-35.0); Mean Corpuscular Hemoglobin 29.1 pg (27.0-33.0); Mean Corpuscular Volume 86.6 fL (80.0-98.0); Mean Platelet Volume 9.3 fL (9.4-12.3); Monocytes Absolute Auto 0.8 X10*3/uL (0.1-1.2); Monocytes Percent Auto 5.6 % (2-11); Neutrophils Percent Auto 71.7 % (45-73); Platelet Count 336 X10*3/uL (160-400); Red Blood Count 4.71 X10*6/uL (4.20-5.50); Red Cell Distribution Width 12.7 % (11.0-16.0); White Blood Count 13.9 X10*3/uL (4.8-10.8)
[2023-02-14 22:18] LABS: Alanine Aminotransferase 45 U/L (0-31); Albumin Level 4.4 g/dL (3.5-5.0); Alkaline Phosphatase 84 U/L (39-117); Anion Gap 14 (12-20); Aspartate Amino Transferase 25 U/L (5-31); Bilirubin Direct 0.1 mg/dL (0.0-0.5); Bilirubin Total 0.3 mg/dL (0.0-1.0); Blood Urea Nitrogen 12 mg/dL (9-16); Calcium 9.8 mg/dL (8.4-10.2); Carbon Dioxide 24 mmol/L (22-29); Chloride 104 mmol/L (96-108); Creatinine Clr Calc Pharmacy 102.4; Estimated Glomerular Filt Rate > 60; Glucose Random 138 mg/dL (60-115); Magnesium 1.9 mg/dL (1.6-2.6); Potassium 4.1 mmol/L (3.3-5.1); Sodium 138 mmol/L (135-145); Total Protein 7.1 g/dL (6.5-8.0)
[2023-02-14 22:25] LABS: HCG Quantitative < 2 mIU/mL; Troponin-I High Sensitivity < 2.7 ng/L (<3.5-17.0)
--- NOTE | 2023-02-14 23:32 | ED.CHESTPAIN ---
HPI - Chest Pain General Chief Complaint: Chest Pain Stated Complaint: chest pain, vomit Time Seen by Provider: 02/14/23 23:18 Source: patient Mode of arrival: ambulatory Limitations: no limitations History of Present Illness HPI narrative: 42-year-old female came in for evaluation of chest pain. Started 3 hours before presenting to the as mid chest pain that is localized to the mid chest with no radiation, pain is constant for about 30 minutes, described as a dull aching pain, no clear aggravating factor no relieving factor. One patient in the waiting room in the emergency department started to developed right flank pain, patient had a history of kidney stones, right flank pain patient also been having difficulty urinating and moving her bowels. Related Data Home Medications Medication Instructions Recorded Confirmed acetaminophen 650 mg 1 tab PO Q8H PRN Pain (Scale Score 06/08/22 06/08/22 tablet,extended release (Mapap 1-3) Arthritis Pain) citalopram 40 mg tablet 1 tab PO DAILY 06/08/22 06/08/22 hydroxyzine HCl 25 mg tablet 1 tab PO BID PRN Anxiety 06/08/22 06/08/22 prazosin 1 mg capsule 1 cap PO BEDTIME 06/08/22 06/08/22 quetiapine 100 mg tablet 1 tab PO BEDTIME 06/08/22 06/08/22 quetiapine 50 mg tablet 1 tab PO BID PRN anxiety 06/08/22 06/08/22 topiramate 50 mg tablet 1 tab PO BID 06/08/22 06/08/22 Previous Rx's Medication Instructions Recorded topiramate 50 mg tablet (Topamax) 50 mg PO BID #60 tabs 09/24/22 naproxen 500 mg tablet 500 mg PO BID 30 days #60 tabs 10/09/22 ondansetron 4 mg disintegrating 4 mg PO Q8-12H PRN nausea and 02/15/23 tablet vomiting #7 tabs oxycodone 5 mg tablet 5 mg PO Q8H PRN pain #10 tabs 02/15/23 Allergies Allergy/AdvReac Type Severity Reaction Status Date / Time levofloxacin [From LEVAQUIN] Allergy Intermediate RASH Verified 10/09/22 13:33 codeine [Codeine] Allergy Unknown NAUSEA AND Verified 10/09/22 13:33 VOMITING, sensitivity ibuprofen Allergy Unknown sensitivity Verified 10/09/22 13:33 morphine [Morphine] Allergy Unknown HEADACHE, Verified 10/09/22 13:33 vomiting, sensitivity naproxen [From NAPROSYN] Allergy Unknown HIVES, Verified 10/09/22 13:33 DIFFICULTY BREATHING. Sulfa (Sulfonamide Allergy Unknown unknown Verified 10/09/22 13:33 Antibiotics) Review of Systems Review of Systems: All other systems are reviewed and are negative Constitutional: Reports as per HPI and Reports no additional constitutional complaints Eyes: Reports as per HPI and Reports no additional eye complaints Reports system reviewed and no additional complaints, except as documented Cardiovascular: Reports as per HPI and Reports no additional cardiovascular complaints Respiratory: Reports as per HPI and Reports no additional respiratory complaints Gastrointestinal: Reports as per HPI and Reports no additional gastrointestinal complaints Genitourinary: Reports no additional female genitourinary complaints Musculoskeletal: Reports no additional musculoskeletal complaints Skin/Breast: Reports system reviewed and no additional complaints, except as docu Psychiatric: Reports no additional psychiatric complaints Endocrine: Reports no additional endocrine complaints Hematologic/Lymphatic: Reports no additional hematologic/lymphatic complaints Allergic/Immunologic: Reports no additional allergic/immunologic complaints Reports system reviewed and no additional complaints, except as documented and Reports Abnormal speech present [facility] Past Medical History Medical History Bipolar disorder Breast mass Depression History of 2019 novel coronavirus disease (COVID-19) Morbid obesity Overdose Palpitation Surgical History History of sinus surgery (~2020) Family History Family History Father History of heart artery stent History of heart attack Mother CVA (cerebral vascular accident) Paternal Grandmother Bone cancer Paternal Uncle Cancer of unknown origin Social History Social History Alcohol intake: never Patient Tobacco Use Status: Never used Tobacco Smoked in Last 30 Days: No Use of substances other than those prescribed or required for medical reasons: No Substance Use Type: Marijuana Advance Directives: No Advance Directives Information Provided: Yes Patient : No Current occupational status: disabled Current occupation: rt handed Physical Exam Vital Signs: Vital Signs: Last Vital Signs Temp 98.6 F 02/14/23 20:22 Pulse 66 02/14/23 23:46 Resp 11 L 02/14/23 23:46 BP 137/90 H 02/14/23 23:46 Pulse Ox 95 02/14/23 23:46 O2 Del Method Room Air 02/14/23 23:46 BMI result Body Mass Index 40.2 Vital signs have been reviewed as appeared to be correct. Blood pressure normal. Heart rate normal. Respiration rate normal. Temperature normal. Oxygen saturation normal. Appearance: Alert. Oriented X3. in acute distress due to pain. Head: Normal external exam. Normocephalic. Atraumatic. No Farris signs noted. No raccoon eyes noted Eyes: PERRLA. EOMI. Conjunctiva and sclera normal. Eyelids normal. ENT: TM's Normal. Pharynx normal. Uvula midline. Moist mucous membranes. No trismus noted. No drooling noted. No muffled voice noted. Neck: Normal inspection. Neck supple. FROM. No adenopathy. Thyroid Normal. No meningeal signs. No neck mass noted. CVS: Normal heart rate and rhythm. Heart sound normal. No murmurs noted. Pulses normal throughout. Respiratory: No respiratory distress. Painless inspiration. Breath sounds normal. No wheezes/rales/rhonchi noted. Chest nontender. No accessory muscle usage noted or decreased air movement noted. Abdomen: Soft and nontender. Bowel sounds normal in all 4 quadrants. No distention noted. No organomegaly noted. No visible injury noted. Back: No CVA tenderness. Full range of motion noted. Skin: Skin warm and dry. Normal skin color. Normal skin turgor. No rashes/lesions/lacerations noted. Extremities: No lower extremity edema. Extremities exhibit normal range of motion. Extremities nontender. Neuro: Oriented X 3. Cranial nerve exam: II-XII are grossly intact No motor deficit. No sensory deficit. Reflexes normal. Course Course Course Narrative: 42-year-old female came in with left armpit pain/chest pain while patient waiting started to have right flank pain with nausea and vomiting exam and CT of the abdomen and pelvis revealing 3 mm right ureteric stone with hydronephrosis, pain is under better control with Dilaudid and Zofran. Medications Administered Discontinued Medications Generic Name Dose Route Start Last Admin Trade Name Freq PRN Reason Stop Dose Admin Hydromorphone HCl 1 mg 02/15/23 00:22 02/15/23 00:33 Hydromorphone Hcl 1 Mg/Ml Syringe IVPUSH 02/15/23 00:23 1 mg ONCE ONE Administration Protocol Sodium Chloride 1,000 mls @ 999 mls/hr 02/14/23 23:29 02/15/23 00:53 Ns IV 02/15/23 00:29 Infused .Q1H1M ONE Infusion Morphine Sulfate 2 mg 02/14/23 23:29 02/14/23 23:40 Morphine Sulfate 2 Mg/Ml Cartridge IVPUSH 02/14/23 23:30 2 mg ONCE ONE Administration Protocol Ondansetron HCl 4 mg 02/14/23 23:29 02/14/23 23:40 Ondansetron Hcl 4 Mg/2 Ml Vial IVPUSH 02/14/23 23:30 4 mg ONCE ONE Administration Medical Decision Making Differential Diagnosis Differential Diagnoses: The differential diagnosis associated with the presentation includes (ACS, pneumonia, pneumothorax, kidney stone, colitis, diverticulitis.) Admission/Observation Consideration of admission/observation: Escalation of care including admission/observation considered Lab Data MDM Lab Attestation statement: I reviewed the patient's lab results. 02/14/23 21:52 02/14/23 21:52 Labs: Lab Results 02/14/23 02/14/23 02/14/23 Range/Units 21:52 21:52 21:52 WBC 13.9 H (4.8-10.8) X10*3/uL RBC 4.71 (4.20-5.50) X10*6/uL Hgb 13.7 (12.0-16.0) g/dl Hct 40.8 (37.0-47.0) % MCV 86.6 (80.0-98.0) fL MCH 29.1 (27.0-33.0) pg MCHC 33.6 (31.0-35.0) g/dl RDW 12.7 (11.0-16.0) % Plt Count 336 (160-400) X10*3/uL MPV 9.3 L (9.4-12.3) fL Immature Gran % (Auto) 0.5 H (0.0-0.4) % Neut % (Auto) 71.7 (45-73) % Lymph % (Auto) 20.3 (20-40) % [place] % (Auto) 5.6 (2-11) % Eos % (Auto) 1.5 (0-4) % Baso % (Auto) 0.4 (0-2) % Lymph # (Auto) 2.8 (1.2-4.9) X10*3/uL [place] # (Auto) 0.8 (0.1-1.2) X10*3/uL Eos # (Auto) 0.2 (0.0-0.4) X10*3/uL Baso # (Auto) 0.1 (0.0-0.2) X10*3/uL Abs Immat Gran (auto) 0.07 H (0.00-0.03) X10*3/uL Absolute Neuts (auto) 10.0 H (2.0-8.3) x10*3/uL Absolute Nucleated RBC 0.000 (0.0-0.012) X10*3/uL Nucleated RBC % (auto) 0.0 (0.0-0.2) /100WBC Sodium 138 (135-145) mmol/L Potassium 4.1 (3.3-5.1) mmol/L Chloride 104 (96-108) mmol/L Carbon Dioxide 24 (22-29) mmol/L Anion Gap 14 (12-20) BUN 12 (9-16) mg/dL Creatinine 0.79 (0.5-1.4) mg/dL Estim Creat Clear Calc 102.4 Estimated GFR > 60 Random Glucose 138 H (60-115) mg/dL Calcium 9.8 (8.4-10.2) mg/dL Magnesium 1.9 (1.6-2.6) mg/dL Total Bilirubin 0.3 (0.0-1.0) mg/dL Direct Bilirubin 0.1 (0.0-0.5) mg/dL AST 25 (5-31) U/L ALT 45 H (0-31) U/L Alkaline Phosphatase 84 (39-117) U/L Troponin I High Sens < 2.7 (<3.5-17.0) ng/L Total Protein 7.1 (6.5-8.0) g/dL Albumin 4.4 (3.5-5.0) g/dL Beta HCG, Quant mIU/mL 02/14/23 Range/Units 21:52 WBC (4.8-10.8) X10*3/uL RBC (4.20-5.50) X10*6/uL Hgb (12.0-16.0) g/dl Hct (37.0-47.0) % MCV (80.0-98.0) fL MCH (27.0-33.0) pg MCHC (31.0-35.0) g/dl RDW (11.0-16.0) % Plt Count (160-400) X10*3/uL MPV (9.4-12.3) fL Immature Gran % (Auto) (0.0-0.4) % Neut % (Auto) (45-73) % Lymph % (Auto) (20-40) % [place] % (Auto) (2-11) % Eos % (Auto) (0-4) % Baso % (Auto) (0-2) % Lymph # (Auto) (1.2-4.9) X10*3/uL [place] # (Auto) (0.1-1.2) X10*3/uL Eos # (Auto) (0.0-0.4) X10*3/uL Baso # (Auto) (0.0-0.2) X10*3/uL Abs Immat Gran (auto) (0.00-0.03) X10*3/uL Absolute Neuts (auto) (2.0-8.3) x10*3/uL Absolute Nucleated RBC (0.0-0.012) X10*3/uL Nucleated RBC % (auto) (0.0-0.2) /100WBC Sodium (135-145) mmol/L Potassium (3.3-5.1) mmol/L Chloride (96-108) mmol/L Carbon Dioxide (22-29) mmol/L Anion Gap (12-20) BUN (9-16) mg/dL Creatinine (0.5-1.4) mg/dL Estim Creat Clear Calc Estimated GFR Random Glucose (60-115) mg/dL Calcium (8.4-10.2) mg/dL Magnesium (1.6-2.6) mg/dL Total Bilirubin (0.0-1.0) mg/dL Direct Bilirubin (0.0-0.5) mg/dL AST (5-31) U/L ALT (0-31) U/L Alkaline Phosphatase (39-117) U/L Troponin I High Sens (<3.5-17.0) ng/L Total Protein (6.5-8.0) g/dL Albumin (3.5-5.0) g/dL Beta HCG, Quant < 2 mIU/mL Independent Interpretation I performed an independent interpretation of an: Plain X-Ray (Chest: No acute intrathoracic pathology.) and CT Scan (Abdomen and pelvis: 3 mm distal right ureter stone.) Radiology Impression Discussion of test interpretation with radiology: I have reviewed the radiologist's reading. Discharge Plan Discharge Clinical Impression: Calculus of right ureter, Chest pain Patient Disposition: Home, Self-Care Instructions: Ureteral Stones (ED) Prescriptions: New oxycodone 5 mg tablet 5 mg PO Q8H PRN (Reason: pain) Qty: 10 0RF Rx Instructions: Partial Fill upon patient request. ondansetron 4 mg tablet,disintegrating 4 mg PO Q8-12H PRN (Reason: nausea and vomiting) Qty: 7 0RF No Action topiramate [Topamax] 50 mg tablet 50 mg PO BID Qty: 60 0RF citalopram 40 mg tablet 1 tab PO DAILY prazosin 1 mg capsule 1 cap PO BEDTIME quetiapine 100 mg tablet 1 tab PO BEDTIME acetaminophen [Mapap Arthritis Pain] 650 mg tablet extended release 1 tab PO Q8H PRN (Reason: Pain (Scale Score 1-3)) hydroxyzine HCl 25 mg tablet 1 tab PO BID PRN (Reason: Anxiety) quetiapine 50 mg tablet 1 tab PO BID PRN (Reason: anxiety) topiramate 50 mg tablet 1 tab PO BID naproxen 500 mg tablet 500 mg PO BID 30 Days Qty: 60 3RF Referrals: Daniel Villavicencio MD [Physician] - Tadeo Alvarado MD [Primary Care Provider] - Stand Alone Forms: Work/School Release
[2023-02-14] MEDS: ondansetron HCL 4 MG/2 ML VIAL IVPUSH (23:40)
[2023-02-14] MEDS: Morphine Sulfate 2 MG/ML CARTRIDGE IVPUSH (23:40)
[2023-02-14] MEDS: 0.9 % Sodium Chloride 1,000 ML 999 ML IV (23:41)
[2023-02-14 23:46] VITALS: BP 137/90; PULSE 66; RESP 11; O2SAT 95
[2023-02-15 00:01] VITALS: PULSE 89
[2023-02-15] MEDS: HYDROmorphone HCl 1 MG/ML SYRINGE IVPUSH (00:33)
--- NOTE | 2023-02-15 01:28 | PC.NURSE ---
pt reassessed at d/c , reported nausea subsided and flank pain tolerated 5/10
== END 2023-02-15 01:29 | disposition home or self-care (01) ==
PROVIDERS: Physician Assistant; Emergency Provider Emergency Medicine; PCP Internal Medicine
DX: N20.1 Calculus of ureter (principal); Z87.442 Personal history of urinary calculi; R07.9 Chest pain, unspecified; R10.9 Unspecified abdominal pain; R39.198 Other difficulties with micturition; R19.4 Change in bowel habit
CPT/HCPCS: 36415; 71046; 74176; 80048; 80076; 83735; 84484; 84702; 85025; 93005; 96361; 96374; 96375; 99284; 99285; J1170; J2270; J2405

== ENCOUNTER 2023-03-28 12:08 | Outpatient (REF) | payer MEDICAID, SELFPAY ==
--- NOTE | ~2023-03-28 | XR_ITS ---
EXAMINATION: XR SHOULDER, LEFT CLINICAL INFORMATION: Left shoulder pain. COMPARISON: Left shoulder radiographs dated 01/02/2022. TECHNIQUE: AP external rotation, Grashey, scapular Y, and axillary views of the left shoulder. FINDINGS: The bones and soft tissues are normal. No fracture. Glenohumeral and acromioclavicular alignment is anatomic with normal joint space. No abnormal soft tissue calcifications. XR/XR shoulder LT min 2V IMPRESSION: Unremarkable left shoulder.
== END 2023-03-28 12:09 | disposition home or self-care (01) ==
LOC: HO.HHCX 12:08
PROVIDERS: Visit Provider Registered Nurse
DX: M25.512 Pain in left shoulder (principal)
CPT/HCPCS: 73030

== ENCOUNTER 2023-08-17 06:56 | Outpatient (REF) | payer MEDICAID, SELFPAY ==
[2023-08-17 07:17] LABS: MANUAL DIFF FLAG NO
[2023-08-17 07:54] LABS: Basophils Percent Auto 0.5 % (0-2); Eosinophils Absolute Auto 0.1 X10*3/uL (0.0-0.4); Hemoglobin 13.3 g/dl (12.0-16.0); Imm Gran Abs Auto 0.05 X10*3/uL (0.00-0.03); Imm Gran Pct Auto 0.8 % (0.0-0.4); Lymphocytes Absolute Auto 1.8 X10*3/uL (1.2-4.9); Lymphocytes Percent Auto 28.2 % (20-40); Mean Corpuscular HGB Conc 32.4 g/dl (31.0-35.0); Mean Corpuscular Hemoglobin 28.9 pg (27.0-33.0); Mean Corpuscular Volume 88.9 fL (80.0-98.0); Mean Platelet Volume 9.2 fL (9.4-12.3); Monocytes Absolute Auto 0.5 X10*3/uL (0.1-1.2); Monocytes Percent Auto 7.2 % (2-11); Neutrophils Absolute Auto 3.9 x10*3/uL (2.0-8.3); Neutrophils Percent Auto 61.3 % (45-73); Platelet Count 303 X10*3/uL (160-400); Red Blood Count 4.61 X10*6/uL (4.20-5.50); Red Cell Distribution Width 12.8 % (11.0-16.0); White Blood Count 6.4 X10*3/uL (4.8-10.8)
[2023-08-17 08:24] LABS: Anion Gap 15 (12-20); Blood Urea Nitrogen 11 mg/dL (9-16); Calcium 9.3 mg/dL (8.4-10.2); Carbon Dioxide 25 mmol/L (22-29); Chloride 105 mmol/L (96-108); Cholesterol 252 mg/dL (<200); Estimated Glomerular Filt Rate > 60; Glucose Random 117 mg/dL (60-115); HDL Cholesterol 43 mg/dL (>40); LDL Cholesterol Calculated 168 mg/dL (<100); Potassium 4.1 mmol/L (3.3-5.1); Sodium 141 mmol/L (135-145); Triglycerides 207 mg/dL (<150)
[2023-08-17 08:36] LABS: ~HepC Num1 0.07 S/CO (0.00-0.79); ~Hepatitis C Antibody Nonreactive (Nonreactive)
[2023-08-17 08:40] LABS: TSH reflex Free T4 1.49 uIU/mL (0.32-4.0); Vitamin D 25-OH Total 17.3 ng/mL (>30)
[2023-08-17 08:41] LABS: Vitamin B12 346 pg/mL (200-900)
[2023-08-21 17:58] LABS: HIV RNA PCR Qn Copies Not Detected Copies/mL; HIV RNA PCR Qn Log Copies Not Detected Log cps/mL
== END 2023-08-17 06:57 | disposition home or self-care (01) ==
LOC: HO.LAB 06:56
PROVIDERS: PCP Internal Medicine; Visit Provider Pediatrics
DX: E55.9 Vitamin D deficiency, unspecified (principal); E78.2 Mixed hyperlipidemia; R10.13 Epigastric pain
CPT/HCPCS: 0353U; 80048; 80061; 82306; 82607; 84443; 85025; 86803; 87536; 87900

== ENCOUNTER 2023-08-29 07:49 | Emergency (ER) | payer MEDICAID, SELFPAY ==
--- NOTE | ~2023-08-29 | CT_ITS ---
STUDY: Unenhanced CT of the brain and cervical spine INDICATION: Pain after head strike COMPARISON: 02/20/2022 brain TECHNIQUE: Continuous helical imaging obtained through the brain and cervical spine. Reconstructed images performed in the coronal and sagittal planes. This CT examination was performed using dose optimization techniques as appropriate, variously including the following: *Automated exposure control *Adjustment of mA and/or kV according to patient size (this includes techniques or standardized protocols for targeted exams where dose is matched to indication/reason for exam; i.e. extremities or head) *Use of iterative reconstruction technique TOTAL EXAM DLP: 1049 mGy-cm FINDINGS: Brain: Gomez white matter differentiation is removed. No intracranial hemorrhage or extra-axial fluid collections. Bony structures are intact. No soft tissue hematomas. Enlarging posterior high parietal soft tissue lesion right of midline, now 1 cm. No evolving infarct, mass lesion, mass effect or midline shift. Intraorbital structures are unremarkable. Nasal septal deviation and spur, nasal cavity mucosal thickening, right greater than left. Mild bilateral maxillary mucosal sinus thickening. Cervical spine: Cervical lordotic straightening. Vertebral bodies and intervertebral discs are maintained in height. Minimal spurring. Odontoid is intact, posterior elements are aligned and no prevertebral soft tissue swelling seen. Nonspecific cervical lymph nodes. Soft tissues are unremarkable. CT/CT head/brain wo IV con IMPRESSION: No acute intracranial or cervical spine pathology status post fall. Cervical lordotic straightening. Enlarging high parietal skin lesion, question sebaceous cyst, correlate clinically.
--- NOTE | ~2023-08-29 | XR_ITS ---
EXAMINATION: XR CHEST CLINICAL INFORMATION: Cough COMPARISON: 02/14/2023 TECHNIQUE: Frontal view of the chest was obtained. FINDINGS: Heart, mediastinum, pulmonary vessels and lung conley within normal limits. Bony structures are intact. XR/XR chest 1V IMPRESSION: No acute cardiopulmonary disease.
--- NOTE | ~2023-08-29 | CT_ITS ---
STUDY: Unenhanced CT of the brain and cervical spine INDICATION: Pain after head strike COMPARISON: 02/20/2022 brain TECHNIQUE: Continuous helical imaging obtained through the brain and cervical spine. Reconstructed images performed in the coronal and sagittal planes. This CT examination was performed using dose optimization techniques as appropriate, variously including the following: *Automated exposure control *Adjustment of mA and/or kV according to patient size (this includes techniques or standardized protocols for targeted exams where dose is matched to indication/reason for exam; i.e. extremities or head) *Use of iterative reconstruction technique TOTAL EXAM DLP: 1049 mGy-cm FINDINGS: Brain: Gomez white matter differentiation is removed. No intracranial hemorrhage or extra-axial fluid collections. Bony structures are intact. No soft tissue hematomas. Enlarging posterior high parietal soft tissue lesion right of midline, now 1 cm. No evolving infarct, mass lesion, mass effect or midline shift. Intraorbital structures are unremarkable. Nasal septal deviation and spur, nasal cavity mucosal thickening, right greater than left. Mild bilateral maxillary mucosal sinus thickening. Cervical spine: Cervical lordotic straightening. Vertebral bodies and intervertebral discs are maintained in height. Minimal spurring. Odontoid is intact, posterior elements are aligned and no prevertebral soft tissue swelling seen. Nonspecific cervical lymph nodes. Soft tissues are unremarkable. CT/CT cervical spine wo IV con IMPRESSION: No acute intracranial or cervical spine pathology status post fall. Cervical lordotic straightening. Enlarging high parietal skin lesion, question sebaceous cyst, correlate clinically.
--- NOTE | 2023-08-29 07:54 | ED_ITS ---
HPI - General Adult General Chief complaint: Seizure Stated complaint: SZ,NAUSEA,VOMITING PER EMS Time Seen by Provider: 08/29/23 07:53 Source: patient and EMS Mode of arrival: EMS Limitations: no limitations History of Present Illness HPI narrative: Patient is a 42 year old assigned female at with a history of depression and alcohol abuse presenting to the emergency department today with after relapsing on alcohol. Patient states that she drank alcohol for the first time in a long time and blacked out . Patient states that she now has a headache and is concerned that she fell. Patient denies any dizziness, lightheadedness, abdominal pain, nausea, vomiting, fever, chills, blurry vision, double vision, loss of vision, chest pain, difficulty breathing, shortness of breath, back pain, night sweats, pain with urination, increased urinary frequency, increased urinary urgency, blood in her urine or stool, syncope or a near syncopal episode, bowel incontinence, bladder incontinence, bowel retention, bladder retention, or any other complaints at this time. Severity: mild Relieving factors: none Exacerbating factors: none Associated symptoms: denies other symptoms Treatments prior to arrival: none Related Data Home Medications Medication Instructions Recorded Confirmed acetaminophen 650 mg 1 tab PO Q8H PRN Pain (Scale Score 06/08/22 06/08/22 tablet,extended release (Mapap 1-3) Arthritis Pain) citalopram 40 mg tablet 1 tab PO DAILY 06/08/22 06/08/22 hydroxyzine HCl 25 mg tablet 1 tab PO BID PRN Anxiety 06/08/22 06/08/22 prazosin 1 mg capsule 1 cap PO BEDTIME 06/08/22 06/08/22 quetiapine 100 mg tablet 1 tab PO BEDTIME 06/08/22 06/08/22 quetiapine 50 mg tablet 1 tab PO BID PRN anxiety 06/08/22 06/08/22 topiramate 50 mg tablet 1 tab PO BID 06/08/22 06/08/22 Previous Rx's Medication Instructions Recorded topiramate 50 mg tablet (Topamax) 50 mg PO BID #60 tabs 09/24/22 naproxen 500 mg tablet 500 mg PO BID 30 days #60 tabs 10/09/22 ondansetron 4 mg disintegrating 4 mg PO Q8-12H PRN nausea and 02/15/23 tablet vomiting #7 tabs oxycodone 5 mg tablet 5 mg PO Q8H PRN pain #10 tabs 02/15/23 Allergies Allergy/AdvReac Type Severity Reaction Status Date / Time levofloxacin [From LEVAQUIN] Allergy Intermediate RASH Verified 10/09/22 13:33 codeine [Codeine] Allergy Unknown NAUSEA AND Verified 10/09/22 13:33 VOMITING, sensitivity ibuprofen Allergy Unknown sensitivity Verified 10/09/22 13:33 morphine [Morphine] Allergy Unknown HEADACHE, Verified 10/09/22 13:33 vomiting, sensitivity naproxen [From NAPROSYN] Allergy Unknown HIVES, Verified 10/09/22 13:33 DIFFICULTY BREATHING. Sulfa (Sulfonamide Allergy Unknown unknown Verified 10/09/22 13:33 Antibiotics) Review of Systems 2 Constitutional: Constitutional: Reports no additional constitutional complaints, Denies chills, Denies fever(s), Reports headache(s) and Denies night sweats Eyes: Eyes: Reports no additional eye complaints, Denies blurry vision, Denies change in vision, Denies diplopia, Denies eye discharge, Denies loss of vision and Denies eye pain ENT: Denies dizziness and Reports headache(s) Cardiovascular: Cardiovascular: Reports no additional cardiovascular complaints, Denies chest pain, Denies lightheadedness, Denies Loss of Consciousness and Denies dyspnea Respiratory: Respiratory: Reports no additional respiratory complaints and Denies dyspnea Gastrointestinal: Gastrointestinal: Reports no additional gastrointestinal complaints, Denies abdominal pain, Denies melena, Denies hematochezia, Denies change in bowel habits and Denies change in stool character Genitourinary: Genitourinary: Denies hematuria, Denies urinary frequency, Denies dysuria, Denies urinary incontinence, Denies urinary hesitancy and Denies urinary urgency Musculoskeletal: Musculoskeletal: Reports no additional musculoskeletal complaints, Denies numbness and Denies tingling Neurologic: Denies dizziness, Reports headache(s), Denies loss of vision, Denies numbness and Denies tingling Psychiatric: Psychiatric: Reports no additional psychiatric complaints Endocrine: Endocrine: Reports no additional endocrine complaints Hematologic/Lymphatic: Hematologic/Lymphatic: Reports no additional hematologic/lymphatic complaints Allergic/Immunologic: Allergic/Immunologic: Reports no additional allergic/immunologic complaints PMFSH Past Medical History Attestation statement: The following information was validated with the patient. Source: old records reviewed and nursing notes reviewed Medical History Depression Kidney stone (07/09/12) Left shoulder pain Suicide gesture Morbid obesity Breast mass Palpitation History of 2019 novel coronavirus disease (COVID-19) SOB (shortness of breath) Precordial chest pain Depression Overdose Bipolar disorder Surgical History History of sinus surgery (~2020) Family History Family History Father History of heart artery stent History of heart attack Mother CVA (cerebral vascular accident) Paternal Grandmother Bone cancer Paternal Uncle Cancer of unknown origin Social History Social History Alcohol intake: current Alcohol intake frequency: 3 or more drinks per day Patient Tobacco Use Status: Never used Tobacco Smoked in Last 30 Days: No Use of substances other than those prescribed or required for medical reasons: Yes Substance Use Type: Marijuana Substance Use Type Other:: previous cocaine use Advance Directives: No Advance Directives Information Provided: Yes Patient : No Current occupational status: disabled Current occupation: rt handed Physical Exam ED Vital Signs: Vital Signs - 24 hr 08/29/23 08:20 08/29/23 09:42 Temperature 98.1 F Pulse Rate 101 H 90 Respiratory Rate 18 14 Blood Pressure 111/82 134/89 Pulse Oximetry 96 98 Oxygen Delivery Method Room Air Room Air BMI result Body Mass Index 47.5 Const General: cooperative, no acute distress, alert and awake Nutritional Appearance: well nourished Orientation/consciousness: patient oriented x3 Limitations: no limitations HENMT Head: Yes normal to inspection and Yes atraumatic Ears: hearing grossly normal bilaterally and external ears normal General nose exam: Normal external nose present, no nasal discharge noted and no epistaxis Face and sinus: Yes normal facial exam, No abrasion and No laceration Mouth: Normal oral and palatal mucosa present, no drooling and no muffled voice Eyes General: appearance normal, both eyes and all related structures Periorbital: periorbital findings normal Eyelids: Yes eyelids normal Conjunctivae: conjunctivae normal Pupils: Equal, round and reactive pupils present EOM: EOMs intact bilaterally Neck Neck: Yes normal visual inspection, Yes full ROM and Yes no lymphadenopathy Chest Chest palpation & inspection: normal inspection of the chest Resp Effort & Inspection: normal respiratory effort and able to speak in complete sentences GI Inspection: Yes normal to inspection Neuro General: patient oriented x3 and moves all extremities Cranial nerves: Yes Equal, round and reactive pupils present Cognition (Neuro): normal cognition Motor exam (neuro): 5/5 motor strength present throughout Sensory Exam: Normal double simultaneous stimulation for sensation Coordination: [id number] test normal Extrem General: Yes normal to inspection, Yes full ROM and Yes capillary refill normal Psych Appearance: grossly normal Mental Status: mental status grossly normal Affect: normal affect Attitude: cooperative Thought process: Normal thought process present Thought content: Normal thought content present Insight: Good insight present (Psych) Medications Administered Discontinued Medications Generic Name Dose Route Start Last Admin Trade Name Dio PRN Reason Stop Dose Admin Sodium Chloride 1,000 mls @ 999 mls/hr 08/29/23 08:00 08/29/23 09:41 Ns IV 08/29/23 09:00 Infused .Q1H1M RAVI Infusion Magnesium Sulfate/Dextrose 1 gm in 100 mls @ 100 mls/hr 08/29/23 08:40 08/29/23 10:56 Magnesium Sulfate/D5w IV 08/29/23 09:39 Infused ONCE ONE Infusion Ondansetron HCl 4 mg 08/29/23 07:57 08/29/23 08:29 Ondansetron Hcl 4 Mg/2 Ml Vial IVPUSH 08/29/23 07:58 4 mg ONCE ONE Administration Medical Decision Making Medical Decision Making [facility] Narrative: Patient is a 42 year old assigned female at with a history of alcohol abuse presenting to the emergency department today after relapsing on alcohol and blacking out . Patient's physical exam was unremarkable. Patient's blood work was unremarkable. Patient's urine showed no acute process. Patient's EKG showed a slightly prolonged QTC. Patient given magnesium prophylactically. Patient's head and c-spine CTs showed no acute process. Patient spoke with our addiction team who is putting a referral in to a high school academic coach. I explained my physical exam findings as well as all test results to the patient. I answered all questions asked by the patient. I stressed the importance of the patient taking her medication as prescribed. I stressed the importance of the patient following up with her primary care provider. I stressed the importance of the patient returning to the emergency department immediately if her symptoms were to worsen or if she were to develop any dizziness, shortness of breath, difficulty breathing, chest pain, blurry vision, loss of vision, nausea, vomiting, abdominal pain, fever, chills, back pain, or any other complaints. Patient verbalized agreement and understanding with this treatment plan and discharge. Differential Diagnosis Differential Diagnoses: The differential diagnosis associated with the presentation includes Alcohol abuse Alcohol use Prolonged QTc Admission/Observation Consideration of admission/observation: Escalation of care including admission/observation considered Patient would have been admitted to the hospital had her work up had any findings where hospital admission was appropriate and her clinical presentation warranted hospital admission. Consult Healthcare Provider Management of the patient was discussed with: Wireless Development Manager (spoke with the addiction team as noted in the MDM Rationale portion of this note.) Lab Data [facility] Lab Attestation statement: I reviewed the patient's lab results. My interpretation of these results are in the MDM Rationale portion of this note. 08/29/23 08:30 08/29/23 08:30 Labs: Lab Results 08/29/23 08/29/23 08/29/23 Range/Units 08:24 08:30 10:44 WBC 10.6 (4.8-10.8) X10*3/uL RBC 4.78 (4.20-5.50) X10*6/uL Hgb 13.9 (12.0-16.0) g/dl Hct 41.7 (37.0-47.0) % MCV 87.2 (80.0-98.0) fL MCH 29.1 (27.0-33.0) pg MCHC 33.3 (31.0-35.0) g/dl RDW 12.9 (11.0-16.0) % Plt Count 338 (160-400) X10*3/uL MPV 8.6 L (9.4-12.3) fL Immature Gran % (Auto) 0.6 H (0.0-0.4) % Neut % (Auto) 65.6 (45-73) % Lymph % (Auto) 24.9 (20-40) % Crisp % (Auto) 7.2 (2-11) % Eos % (Auto) 1.3 (0-4) % Baso % (Auto) 0.4 (0-2) % Lymph # (Auto) 2.6 (1.2-4.9) X10*3/uL Crisp # (Auto) 0.8 (0.1-1.2) X10*3/uL Eos # (Auto) 0.1 (0.0-0.4) X10*3/uL Baso # (Auto) 0.0 (0.0-0.2) X10*3/uL Abs Immat Gran (auto) 0.06 H (0.00-0.03) X10*3/uL Absolute Neuts (auto) 7.0 (2.0-8.3) x10*3/uL Absolute Nucleated RBC 0.000 (0.0-0.012) X10*3/uL Nucleated RBC % (auto) 0.0 (0.0-0.2) /100WBC PT 12.0 (11.1-13.3) SEC INR 1.0 (0.9-1.1) APTT 30.5 (26.0-36.4) SEC Sodium 140 (135-145) mmol/L Potassium 3.8 (3.3-5.1) mmol/L Chloride 107 (96-108) mmol/L Carbon Dioxide 25 (22-29) mmol/L Anion Gap 12 (12-20) BUN 6 L (9-16) mg/dL Creatinine 0.70 (0.5-1.4) mg/dL Estim Creat Clear Calc 127.6 Estimated GFR > 60 Random Glucose 119 H (60-115) mg/dL Lactic Acid 2.4 H* (0.5-2.0) mmol/L Lactic Acid F/U @ 2Hr 1.4 (0.5-2.0) mmol/L Calcium 9.5 (8.4-10.2) mg/dL Magnesium 2.1 (1.6-2.6) mg/dL Total Bilirubin 0.3 (0.0-1.0) mg/dL AST 21 (5-31) U/L ALT 40 H (0-31) U/L Alkaline Phosphatase 84 (39-117) U/L Troponin I High Sens < 2.7 (<3.5-17.0) ng/L Total Protein 7.1 (6.5-8.0) g/dL Albumin 4.3 (3.5-5.0) g/dL Beta HCG, Quant < 2 mIU/mL Urine Color Urine Appearance Urine pH (5.0-9.0) Ur Specific [place] (1.005-1.025) Urine Protein (Neg-Trace) mg/dL Urine Glucose (UA) (Negative) mg/dL Urine Ketones (Negative) mg/dL Urine Blood (Negative) Urine Nitrite (Negative) Ur Leukocyte Esterase (Negative) Salicylates < 5.0 L (15-30) mg/dL Urine Opiates Screen (Not Detect) Urine Fentanyl Screen (Not Detect) Acetaminophen < 3 (<30) mcg/mL Ur Barbiturates Screen (Not Detect) Ur Phencyclidine Scrn (Not Detect) Ur Amphetamines Screen (Not Detect) U Benzodiazepines Scrn (Not Detect) Urine Cocaine Screen (Not Detect) U Marijuana (THC) Screen (Not Detect) Ethyl Alcohol 167 mg/dL Influenza Type A (PCR) NEGATIVE (Negative) Influenza Type B (PCR) NEGATIVE (Negative) RSV RNA Qual (PCR) NEGATIVE (Negative) SARS-CoV-2 RNA (RT-PCR) NEGATIVE (Negative) 08/29/23 Range/Units 11:12 WBC (4.8-10.8) X10*3/uL RBC (4.20-5.50) X10*6/uL Hgb (12.0-16.0) g/dl Hct (37.0-47.0) % MCV (80.0-98.0) fL MCH (27.0-33.0) pg MCHC (31.0-35.0) g/dl RDW (11.0-16.0) % Plt Count (160-400) X10*3/uL MPV (9.4-12.3) fL Immature Gran % (Auto) (0.0-0.4) % Neut % (Auto) (45-73) % Lymph % (Auto) (20-40) % Crisp % (Auto) (2-11) % Eos % (Auto) (0-4) % Baso % (Auto) (0-2) % Lymph # (Auto) (1.2-4.9) X10*3/uL Crisp # (Auto) (0.1-1.2) X10*3/uL Eos # (Auto) (0.0-0.4) X10*3/uL Baso # (Auto) (0.0-0.2) X10*3/uL Abs Immat Gran (auto) (0.00-0.03) X10*3/uL Absolute Neuts (auto) (2.0-8.3) x10*3/uL Absolute Nucleated RBC (0.0-0.012) X10*3/uL Nucleated RBC % (auto) (0.0-0.2) /100WBC PT (11.1-13.3) SEC INR (0.9-1.1) APTT (26.0-36.4) SEC Sodium (135-145) mmol/L Potassium (3.3-5.1) mmol/L Chloride (96-108) mmol/L Carbon Dioxide (22-29) mmol/L Anion Gap (12-20) BUN (9-16) mg/dL Creatinine (0.5-1.4) mg/dL Estim Creat Clear Calc Estimated GFR Random Glucose (60-115) mg/dL Lactic Acid (0.5-2.0) mmol/L Lactic Acid F/U @ 2Hr (0.5-2.0) mmol/L Calcium (8.4-10.2) mg/dL Magnesium (1.6-2.6) mg/dL Total Bilirubin (0.0-1.0) mg/dL AST (5-31) U/L ALT (0-31) U/L Alkaline Phosphatase (39-117) U/L Troponin I High Sens (<3.5-17.0) ng/L Total Protein (6.5-8.0) g/dL Albumin (3.5-5.0) g/dL Beta HCG, Quant mIU/mL Urine Color Yellow Urine Appearance Clear Urine pH 6.0 (5.0-9.0) Ur Specific [place] 1.010 (1.005-1.025) Urine Protein Negative (Neg-Trace) mg/dL Urine Glucose (UA) Negative (Negative) mg/dL Urine Ketones Negative (Negative) mg/dL Urine Blood Negative (Negative) Urine Nitrite Negative (Negative) Ur Leukocyte Esterase Negative (Negative) Salicylates (15-30) mg/dL Urine Opiates Screen Not Detected (Not Detect) Urine Fentanyl Screen Not Detected (Not Detect) Acetaminophen (<30) mcg/mL Ur Barbiturates Screen Not Detected (Not Detect) Ur Phencyclidine Scrn Not Detected (Not Detect) Ur Amphetamines Screen Not Detected (Not Detect) U Benzodiazepines Scrn Not Detected (Not Detect) Urine Cocaine Screen POSITIVE H (Not Detect) U Marijuana (THC) Screen Not Detected (Not Detect) Ethyl Alcohol mg/dL Influenza Type A (PCR) (Negative) Influenza Type B (PCR) (Negative) RSV RNA Qual (PCR) (Negative) SARS-CoV-2 RNA (RT-PCR) (Negative) Independent Interpretation I performed an independent interpretation of an: EKG, Plain X-Ray and CT Scan Interpretation: My interpretation is in agreement with the radiologist's impression of these imaging studies. - STUDY: Unenhanced CT of the brain and cervical spine INDICATION: Pain after head strike COMPARISON: 02/20/2022 brain TECHNIQUE: Continuous helical imaging obtained through the brain and cervical spine. Reconstructed images performed in the coronal and sagittal planes. This CT examination was performed using dose optimization techniques as appropriate, variously including the following: *Automated exposure control *Adjustment of mA and/or kV according to patient size (this includes techniques or standardized protocols for targeted exams where dose is matched to indication/reason for exam; i.e. extremities or head) *Use of iterative reconstruction technique TOTAL EXAM DLP: 1049 mGy-cm FINDINGS: Brain: Gomez white matter differentiation is removed. No intracranial hemorrhage or extra-axial fluid collections. Bony structures are intact. No soft tissue hematomas. Enlarging posterior high parietal soft tissue lesion right of midline, now 1 cm. No evolving infarct, mass lesion, mass effect or midline shift. Intraorbital structures are unremarkable. Nasal septal deviation and spur, nasal cavity mucosal thickening, right greater than left. Mild bilateral maxillary mucosal sinus thickening. Cervical spine: Cervical lordotic straightening. Vertebral bodies and intervertebral discs are maintained in height. Minimal spurring. Odontoid is intact, posterior elements are aligned and no prevertebral soft tissue swelling seen. Nonspecific cervical lymph nodes. Soft tissues are unremarkable. CT/CT cervical spine wo IV con IMPRESSION: No acute intracranial or cervical spine pathology status post fall. Cervical lordotic straightening. Enlarging high parietal skin lesion, question sebaceous cyst, correlate clinically. Dictated By: Shona Lilly MD Signed By: Electronically signed by Shona Lilly MD 08/29/23 0923 - EXAMINATION: XR CHEST CLINICAL INFORMATION: Cough COMPARISON: 02/14/2023 TECHNIQUE: Frontal view of the chest was obtained. FINDINGS: Heart, mediastinum, pulmonary vessels and lung conley within normal limits. Bony structures are intact. XR/XR chest 1V IMPRESSION: No acute cardiopulmonary disease. Dictated By: Shona Lilly MD Signed By: Electronically signed by Shona Lilly MD 08/29/23 0855 - Vent. Rate: 092 BPM Atrial Rate: 092 BPM P-R Int: 158 ms QRS Dur: 092 ms QT Int: 392 ms P-R-T Axes: 054 -06 051 degrees QTc Int: 484 ms Normal sinus rhythm Prolonged QT Abnormal ECG When compared with ECG of 14-FEB-2023 20:12, No significant change was found DD/ [id number] Radiology Impression Discussion of test interpretation with radiology: I have reviewed the radiologist's reading. Independent Historian Clinical information obtained from an independent historian. History obtained from or confirmed by: EMS (EMS provided additional history and confirmed the history provided by the patient.) Critical Care Time Critical Care Time Critical Care Time: Yes Total Critical Care Time: 35 Attestation: I spent 35 minutes of Critical Care Time with this patient. This does not include time spent on separately reported billable procedures. Discharge Plan Discharge Clinical Impression: Alcohol abuse, Scalp cyst Patient Disposition: Home, Self-Care Instructions: Abuse of Alcohol (ED), Cyst (ED) Additional Instructions: Please take your anti-seizure medications as prescribed. You did not seize while in the department. Follow up with your primary care provider and a general surgeon (for your scalp cyst). Return to the emergency department immediately if your symptoms worsen or if you develop any dizziness, shortness of breath, difficulty breathing, chest pain, blurry vision, loss of vision, nausea, vomiting, abdominal pain, fever, chills, back pain, or any other complaints. Prescriptions: No Action topiramate [Topamax] 50 mg tablet 50 mg PO BID Qty: 60 0RF citalopram 40 mg tablet 1 tab PO DAILY prazosin 1 mg capsule 1 cap PO BEDTIME quetiapine 100 mg tablet 1 tab PO BEDTIME acetaminophen [Mapap Arthritis Pain] 650 mg tablet extended release 1 tab PO Q8H PRN (Reason: Pain (Scale Score 1-3)) hydroxyzine HCl 25 mg tablet 1 tab PO BID PRN (Reason: Anxiety) quetiapine 50 mg tablet 1 tab PO BID PRN (Reason: anxiety) topiramate 50 mg tablet 1 tab PO BID oxycodone 5 mg tablet 5 mg PO Q8H PRN (Reason: pain) Qty: 10 0RF Rx Instructions: Partial Fill upon patient request. ondansetron 4 mg tablet,disintegrating 4 mg PO Q8-12H PRN (Reason: nausea and vomiting) Qty: 7 0RF naproxen 500 mg tablet 500 mg PO BID 30 Days Qty: 60 3RF Referrals: [facility] [Provider Group] (Call to establish and follow up with a general surgeon to discuss your scalp cyst.) Tadeo Alvarado MD [Primary Care Provider] - Interventions: ED Discharge Assessment Last Done: 08/29/23 11:32 Discharge Date/Time: 08/29/23 11:33 Print Language: [place] Leonean
--- NOTE | 2023-08-29 07:57 | ECG_ITS ---
Test Reason : SEIZURE/CP Blood Pressure : / mmHG Vent. Rate : 092 BPM Atrial Rate : 092 BPM P-R Int : 158 ms QRS Dur : 092 ms QT Int : 392 ms P-R-T Axes : 054 -06 051 degrees QTc Int : 484 ms Normal sinus rhythm Prolonged QT Abnormal ECG When compared with ECG of 14-FEB-2023 20:12, QT prolonged. Referred By: Yazmin Valencia Electronically Signed By:CARMENCITA THAKKAR
[2023-08-29 07:58] VITALS: BP 134/92; PULSE 116; O2SAT 99
[2023-08-29 08:20] VITALS: BP 111/82; PULSE 101; RESP 18; TEMP 36.7; O2SAT 96; BMI 47.5
[2023-08-29] MEDS: 0.9 % Sodium Chloride 1,000 ML 999 ML IV (08:29)
[2023-08-29] MEDS: ondansetron HCL 4 MG/2 ML VIAL IVPUSH (08:29)
[2023-08-29 08:35] LABS: MANUAL DIFF FLAG NO
[2023-08-29 08:36] LABS: Basophils Percent Auto 0.4 % (0-2); Eosinophils Absolute Auto 0.1 X10*3/uL (0.0-0.4); Eosinophils Percent Auto 1.3 % (0-4); Hematocrit 41.7 % (37.0-47.0); Hemoglobin 13.9 g/dl (12.0-16.0); Imm Gran Abs Auto 0.06 X10*3/uL (0.00-0.03); Imm Gran Pct Auto 0.6 % (0.0-0.4); Lymphocytes Absolute Auto 2.6 X10*3/uL (1.2-4.9); Lymphocytes Percent Auto 24.9 % (20-40); Mean Corpuscular HGB Conc 33.3 g/dl (31.0-35.0); Mean Corpuscular Hemoglobin 29.1 pg (27.0-33.0); Mean Corpuscular Volume 87.2 fL (80.0-98.0); Mean Platelet Volume 8.6 fL (9.4-12.3); Monocytes Absolute Auto 0.8 X10*3/uL (0.1-1.2); Monocytes Percent Auto 7.2 % (2-11); Neutrophils Percent Auto 65.6 % (45-73); Platelet Count 338 X10*3/uL (160-400); Red Blood Count 4.78 X10*6/uL (4.20-5.50); Red Cell Distribution Width 12.9 % (11.0-16.0); White Blood Count 10.6 X10*3/uL (4.8-10.8)
[2023-08-29 08:49] LABS: Partial Thromboplastin Time 30.5 SEC (26.0-36.4)
[2023-08-29 08:50] LABS: Lactic Acid 2.4 mmol/L (0.5-2.0)
[2023-08-29 08:53] LABS: Alanine Aminotransferase 40 U/L (0-31); Albumin Level 4.3 g/dL (3.5-5.0); Alkaline Phosphatase 84 U/L (39-117); Anion Gap 12 (12-20); Aspartate Amino Transferase 21 U/L (5-31); Bilirubin Total 0.3 mg/dL (0.0-1.0); Blood Urea Nitrogen 6 mg/dL (9-16); Calcium 9.5 mg/dL (8.4-10.2); Carbon Dioxide 25 mmol/L (22-29); Chloride 107 mmol/L (96-108); Creatinine Clr Calc Pharmacy 127.6; Estimated Glomerular Filt Rate > 60; Glucose Random 119 mg/dL (60-115); Magnesium 2.1 mg/dL (1.6-2.6); Potassium 3.8 mmol/L (3.3-5.1); Sodium 140 mmol/L (135-145); Total Protein 7.1 g/dL (6.5-8.0)
[2023-08-29 08:55] LABS: Acetaminophen LAB < 3 mcg/mL (<30); Salicylate < 5.0 mg/dL (15-30)
[2023-08-29 08:56] LABS: Ethanol 167 mg/dL
[2023-08-29 09:01] LABS: HCG Quantitative < 2 mIU/mL; Troponin-I High Sensitivity < 2.7 ng/L (<3.5-17.0)
[2023-08-29 09:17] LABS: Influenza A PCR NEGATIVE (Negative); Influenza B PCR NEGATIVE (Negative); Resp Syncy Virus RNA Qual PCR NEGATIVE (Negative); SARS COV2 PCR INHOUSE NEGATIVE (Negative)
[2023-08-29] MEDS: Magnesium Sulfate/D5W 1 GM/100 ML PIGGYBACK IV (09:41)
[2023-08-29 09:42] VITALS: BP 134/89; PULSE 90; RESP 14; O2SAT 98
--- NOTE | 2023-08-29 09:45 | PC.NURSE ---
Pt resting on stretcher, A&Ox3 skin pwd respirations even unlabored, VSS. Reports continued headache. No further seizure activity. Seizure precautions maintained. Awaiting results and MD reeval.
--- NOTE | 2023-08-29 10:26 | MHC.RECOVSUP ---
Met with pt in ED18 who is here for seizure and ETOH. Pt informs she has been drinking more than she should but its not always every day and drinks less than 1 pint a day but not sure how much on average. Pt has been to [facility] in [place] a few years ago but is not interested in [facility] at this time but would like a personal development coach. 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 Provider aware.
[2023-08-29 10:34] LABS: Reflex Lactate? Lactic Acid Added
[2023-08-29 11:00] LABS: ~Lactic Acid-LAB USE ONLY 1.4 mmol/L (0.5-2.0)
--- NOTE | 2023-08-29 11:15 | PC.NURSE ---
Pt A&Ox3 skin pwd respirations even unlabored, no seizure activity. Ambulatory to bathroom with steady gait, urine sample obtained. Awaiting results and dc home.
[2023-08-29 11:20] LABS: Appearance Urine Clear; Color Urine Yellow; Glucose Urine UA Negative (Negative); Leukocyte Esterase Urine Negative (Negative); Nitrite Urine Negative (Negative); Urine Blood Negative (Negative); Urine Ketones Negative (Negative); Urine Protein Negative (Neg-Trace)
[2023-08-29 11:26] LABS: Amphetamine Screen Urine Not Detected (Not Detect); Barbiturates, Urine Not Detected (Not Detect); Benzodiazepines Screen Urine Not Detected (Not Detect); Cannabinoid Screen Urine Not Detected (Not Detect); Cocaine Screen Urine POSITIVE (Not Detect); Fentanyl, urine Not Detected (Not Detect); Opiate Screen Urine Not Detected (Not Detect); Phencyclidine Screen Urine Not Detected (Not Detect)
== END 2023-08-29 11:33 | disposition home or self-care (01) ==
PROVIDERS: Physician Assistant Medical; Emergency Provider Emergency Medicine Emergency Medical Services; PCP Internal Medicine
DX: F10.10 Alcohol abuse, uncomplicated (principal); L72.9 Follicular cyst of the skin and subcutaneous tissue, unspecified; R51.9 Headache, unspecified; R05.9 Cough, unspecified; R94.31 Abnormal electrocardiogram [ECG] [EKG]; Z20.822 Contact with and (suspected) exposure to COVID-19; Z20.828 Contact with and (suspected) exposure to other viral communicable diseases
CPT/HCPCS: 0241U; 36415; 70450; 71045; 72125; 80053; 80143; 80179; 80307; 81003; 83605; 83735; 84484; 84702; 85025; 85610; 85730; 93005; 96361; 96365; 96375; 99285; J2405; J3475

== ENCOUNTER → 2023-08-29 07:57 | Outpatient (BNV) | payer MEDICAID, SELFPAY | PROVIDERS: Emergency Provider Emergency Medicine Emergency Medical Services; PCP Internal Medicine; Visit Provider Internal Medicine | DX: R07.9 Chest pain, unspecified (principal) | CPT/HCPCS: 93010 ==

== ENCOUNTER 2023-09-13 11:23 | Outpatient (AMB) | payer MEDICAID, SELFPAY ==
--- NOTE | 2023-09-13 11:34 | MHC.OFFVIS ---
Intake Vital Signs 09/13/23 11:39 Height 5 ft 2 in Weight 218 lb BMI 39.9 BP 124/70 Blood Pressure Location Rt brachial Pulse 75 Intake Visit Reasons: scalp cyst Intake Note: [place] [facility] [place]. Patient c/o; reports no complaints at this time. Retail Security Professional Required: No Accompanied by: Self / Same As Patient Allergies levofloxacin [From LEVAQUIN] Allergy (Intermediate, Verified 09/13/23 11:40) RASH codeine [Codeine] Allergy (Unknown, Verified 09/13/23 11:40) NAUSEA AND VOMITING, sensitivity ibuprofen Allergy (Unknown, Verified 09/13/23 11:40) sensitivity morphine [Morphine] Allergy (Unknown, Verified 09/13/23 11:40) HEADACHE, vomiting, sensitivity naproxen [From NAPROSYN] Allergy (Unknown, Verified 09/13/23 11:40) HIVES, DIFFICULTY BREATHING. Sulfa (Sulfonamide Antibiotics) Allergy (Unknown, Verified 09/13/23 11:40) unknown Medication List - Last Reconciled 09/13/23 by Adarsh Chavez MD acetaminophen ER (Mapap Arthritis Pain) 1 tab PO Q8H PRN citalopram 1 tab PO DAILY hydroxyzine HCl 1 tab PO BID PRN naproxen 500 mg PO BID 30 days ondansetron 4 mg PO Q8-12H PRN oxycodone 5 mg PO Q8H PRN prazosin 1 cap PO BEDTIME quetiapine 1 tab PO BID PRN quetiapine 1 tab PO BEDTIME topiramate 1 tab PO BID topiramate (Topamax) 50 mg PO BID HPI scalp cyst HPI Details 42-year-old female referred for a scalp cyst. She says she has noticed this for about 4 years. However, this has been increasing in size. She says that been causing some discomfort. She has had noticed any drainage or any inflammation. She however wants this removed because of discomfort. [facility] Medical History (Updated 09/13/23 @ 11:42 by Adarsh Chavez MD) Scalp cyst Depression Kidney stone (07/09/12) Left shoulder pain Suicide gesture Morbid obesity Breast mass Palpitation History of 2019 novel coronavirus disease (COVID-19) SOB (shortness of breath) Precordial chest pain Depression Overdose Bipolar disorder Surgical History History of sinus surgery (~2019) Family History Father History of heart artery stent History of heart attack Mother CVA (cerebral vascular accident) Paternal Grandmother Bone cancer Paternal Uncle Cancer of unknown origin Social History Alcohol intake: current Alcohol intake frequency: 3 or more drinks per day Patient Tobacco Use Status: Never used Tobacco Substance Use Type: Marijuana Current occupational status: disabled Current occupation: rt handed Female Reproductive History Menstrual Age of Menarche: 11 Review of Systems Const Denies chills and Denies fever(s) Card Denies chest pain, Denies dyspnea and Denies dyspnea on exertion Resp Denies cough, Denies dyspnea and Denies dyspnea on exertion GI Denies hematochezia and Denies change in bowel habits Denies hematuria Musc Denies back pain and Denies limited range of motion Neuro Denies focal weakness and Denies convulsions Psych Denies depression and Denies mood swings Physical Exam Vital Signs: Last Vital Signs Pulse 75 09/13/23 11:39 BP 124/70 09/13/23 11:39 BMI result Body Mass Index 39.9 Const General: comfortable and no acute distress Orientation/consciousness: patient oriented x3 HEENT Other: Scalp cyst, the parietal area about 1 cm in diameter, well-defined mobile, not inflamed Neck Neck: Yes no lymphadenopathy Resp Auscultation: clear to auscultation bilaterally Cardio Rhythm: regular rhythm GI Palpation (GI): Soft to palpation, nontender and no guarding Neuro General: patient oriented x3 Assessment & Plan Assessment & Plan (1) Scalp cyst: Code(s): L72.9 - Follicular cyst of the skin and subcutaneous tissue, unspecified Plan: She has this 1 cm scalp cyst on the parietal area as described above. I explained to her the technique of excision under local anesthesia. I reviewed the risks including but not limited to bleeding and infections, as well as the benefits and alternatives. I explained to her what to expect postoperatively She wants to proceed. This will be done at the minor procedure room at [facility]. Coding Level of Care Code New Pt Level 3 (21072) Diagnoses Scalp cyst L72.9
[2023-09-13 11:39] VITALS: BP 124/70; PULSE 75; BMI 39.9
== END 2023-09-13 11:42 | disposition home or self-care (01) ==
PROVIDERS: PCP Internal Medicine; Visit Provider Surgery
DX: L72.9 Follicular cyst of the skin and subcutaneous tissue, unspecified (principal)
CPT/HCPCS: 99214

== ENCOUNTER → 2023-09-13 11:23 | Outpatient (BNVA) | payer MEDICAID, SELFPAY | PROVIDERS: PCP Internal Medicine; Visit Provider Surgery | DX: L72.9 Follicular cyst of the skin and subcutaneous tissue, unspecified (principal) | CPT/HCPCS: 99212 ==

== ENCOUNTER 2023-09-24 07:59 | Outpatient (REF) | payer MEDICAID, SELFPAY ==
[2023-09-24 08:08] VITALS: BMI 39.1
[2023-09-24 08:10] VITALS: BP 128/78; PULSE 80; RESP 16; TEMP 36.4; O2SAT 97
--- NOTE | 2023-09-24 08:24 | W.PM.OPN ---
Operative Note Operative Note Date of Service: 09/24/23 Narrative: Preop diagnosis: Scalp cyst Postop diagnosis scalp lipoma, about 1.3 cm in diameter Procedure: Excision of scalp lipoma, under local anesthesia Surgeon: Adarsh Chavez MD The patient is a 42 year old female with note of a mass on the scalp on the parietal area measuring over 1 cm in size. Understood the technique of excision under local anesthesia. She was aware of the risks, benefits, and alternatives. She was brought to the minor procedure room and placed in reclining position. The area of the mass on the scalp was prepped and draped. Lidocaine 1% was used for local anesthesia. A surgical time-out had been done I made an incision on the scalp using blade 15.. This carried down sharply through the full-thickness of the skin and subcutaneous fat. I then was able to visualize the well-defined lipomatous mass. I sharply dissected this off of the rest of the subcutaneous layer until this was delivered. This was measured to be about 1.3 cm. I closed the incision with full-thickness nylon 3-0 interrupted sutures. The procedure was then completed. She tolerated procedure well. There were no immediate complications. She was given wound care instructions. I will see her in the office to remove the sutures.
[2023-09-24 08:29] VITALS: BP 124/75; PULSE 76; RESP 16; O2SAT 97
== END 2023-09-24 08:00 | disposition home or self-care (01) ==
LOC: HO.MS 07:59
PROVIDERS: PCP Internal Medicine; Visit Provider Surgery
PROC: (CPT 11422; principal; 2023-09-24 08:00)
DX: L72.9 Follicular cyst of the skin and subcutaneous tissue, unspecified (principal)
CPT/HCPCS: 11422; 88304

== ENCOUNTER → 2023-09-24 07:59 | Outpatient (BNV) | payer MEDICAID, SELFPAY | PROVIDERS: PCP Internal Medicine; Visit Provider Surgery | DX: L72.11 Pilar cyst (principal) | CPT/HCPCS: 11422 ==

== ENCOUNTER 2023-09-24 13:17 | Outpatient (REF) | payer MEDICAID, SELFPAY ==
--- NOTE | ~2023-09-24 | MM_ITS ---
EXAMINATION: MM SCREENING DIGITAL BREAST TOMOSYNTHESIS, BILATERAL CLINICAL INFORMATION: Screening. Asymptomatic. COMPARISON: Mammography: This study is compared with prior exams dating back to 2020. TECHNIQUE: Digital breast tomosynthesis is performed in both the craniocaudal and mediolateral oblique views along with computer-aided detection (CAD). Synthesized 2D images are generated from the tomosynthesis. FINDINGS: The breasts are heterogeneously dense, which may obscure small masses (ACR BI-RADS breast composition Category c). There are no significant masses, abnormal calcifications, or other abnormalities. There is a tissue marker in the right breast from prior benign percutaneous biopsy. MM/MM tomosynthesis screening BI IMPRESSION: No mammographic evidence of malignancy. ASSESSMENT: BI-RADS BI-RADS 2 - Benign Findings RECOMMENDATION: Routine annual mammography screening. 1 year F/U This examination should not preclude the clinical evaluation of a suspicious palpable abnormality. This patient's information was entered into a reminder system with a target due date for their next mammogram.
== END 2023-09-24 13:18 | disposition home or self-care (01) ==
LOC: HO.MAMMO 13:17
PROVIDERS: PCP Internal Medicine; Visit Provider Internal Medicine
DX: Z12.31 Encounter for screening mammogram for malignant neoplasm of breast (principal)
CPT/HCPCS: 77063; 77067

== ENCOUNTER → 2023-09-24 13:30 | Outpatient (BNV) | payer MEDICAID, SELFPAY | PROVIDERS: PCP Internal Medicine; Visit Provider Radiology Diagnostic Radiology | DX: Z12.31 Encounter for screening mammogram for malignant neoplasm of breast (principal) | CPT/HCPCS: 77063; 77067 ==

== ENCOUNTER 2023-10-08 10:40 | Outpatient (AMB) | payer MEDICAID, SELFPAY ==
--- NOTE | 2023-10-08 10:44 | A.OFFVIS_ITS ---
Intake Vital Signs 10/08/23 10:49 Height 5 ft 2 in Weight 213 lb 13.574 oz BMI 39.1 BP 115/76 Blood Pressure Location Rt brachial Position Sitting Pulse 115 H Intake Visit Reasons: S/P excision scalp cyst Intake Note: This patient presents for a post-op assessment status post excision scalp lipoma. Patient c/o; reports no complaints at this time. Surgery: 09/24/23 Web Project Manager Required: No Accompanied by: Self / Same As Patient Allergies levofloxacin [From LEVAQUIN] Allergy (Intermediate, Verified 10/08/23 10:48) RASH codeine [Codeine] Allergy (Unknown, Verified 10/08/23 10:48) NAUSEA AND VOMITING, sensitivity ibuprofen Allergy (Unknown, Verified 10/08/23 10:48) sensitivity morphine [Morphine] Allergy (Unknown, Verified 10/08/23 10:48) HEADACHE, vomiting, sensitivity naproxen [From NAPROSYN] Allergy (Unknown, Verified 10/08/23 10:48) HIVES, DIFFICULTY BREATHING. Sulfa (Sulfonamide Antibiotics) Allergy (Unknown, Verified 10/08/23 10:48) unknown HPI S/P excision scalp cyst HPI Details She underwent excision of a scalp cyst last September 24 under local anesthesia. She tolerated procedure well. She currently denies significant complaints. [facility] Medical History (Updated 10/08/23 @ 10:51 by Adarsh Chavez MD) Scalp cyst Depression Kidney stone (07/09/12) Left shoulder pain Suicide gesture Morbid obesity Breast mass Palpitation History of 2019 novel coronavirus disease (COVID-19) SOB (shortness of breath) Precordial chest pain Depression Overdose Bipolar disorder Surgical History S/P excision of lipoma (~09/24/23) History of sinus surgery (~2019) Family History Father History of heart artery stent History of heart attack Mother CVA (cerebral vascular accident) Paternal Grandmother Bone cancer Paternal Uncle Cancer of unknown origin Social History Alcohol intake: current Alcohol intake frequency: 3 or more drinks per day Patient Tobacco Use Status: Never used Tobacco Substance Use Type: Marijuana Current occupational status: disabled Current occupation: rt handed Female Reproductive History Menstrual Age of Menarche: 11 Review of Systems Const Denies chills and Denies fever(s) Card Denies chest pain, Denies dyspnea and Denies dyspnea on exertion Resp Denies cough, Denies dyspnea and Denies dyspnea on exertion GI Denies hematochezia and Denies change in bowel habits Denies hematuria Musc Denies back pain and Denies limited range of motion Neuro Denies focal weakness and Denies convulsions Psych Denies depression and Denies mood swings Physical Exam Vital Signs: Last Vital Signs Pulse 115 H 10/08/23 10:49 BP 115/76 10/08/23 10:49 BMI result Body Mass Index 39.1 Const General: comfortable and no acute distress HEENT Other: Excision site on the scalp is well healed, not infected, sutures intact Assessment & Plan Assessment & Plan (1) Scalp cyst: Code(s): L72.9 - Follicular cyst of the skin and subcutaneous tissue, unspecified Plan: Status post excision of a scalp cyst. The path report shows a Pilar cyst. The incision is well healed. I removed her sutures. She can follow up on a p.r.n. basis. Coding Level of Care Code Global (80777) Diagnoses Scalp cyst L72.9
[2023-10-08 10:49] VITALS: BP 115/76; PULSE 115; BMI 39.1
== END 2023-10-08 10:55 | disposition home or self-care (01) ==
PROVIDERS: PCP Internal Medicine; Visit Provider Surgery
DX: L72.9 Follicular cyst of the skin and subcutaneous tissue, unspecified (principal)
CPT/HCPCS: 99024

== ENCOUNTER → 2023-10-08 10:40 | Outpatient (BNVA) | payer MEDICAID, SELFPAY | PROVIDERS: PCP Internal Medicine; Visit Provider Surgery | DX: Z09 Encounter for follow-up examination after completed treatment for conditions other than malignant neoplasm (principal); Z87.2 Personal history of diseases of the skin and subcutaneous tissue | CPT/HCPCS: 99212 ==

== ENCOUNTER 2023-10-19 12:12 | Outpatient (AMB) | payer MEDICAID, SELFPAY ==
[2023-10-19 12:22] VITALS: BMI 39.0
--- NOTE | 2023-10-19 12:22 | A.OFFVIS_ITS ---
Intake Vital Signs 10/19/23 12:22 Height 5 ft 2 in Weight 213 lb BMI 39.0 Intake Visit Reasons: OV-left knee pain-Possibly an injection? Intake Note: Mykel a 42 year old female presents today for a follow up of left knee pain. Patient was given an injection on 07/05/22 that did not provide her with relief as well as PT. States recently her knee has been giving out constantly causing her to fall. Continues to wear knee brace that provides her with some stability. She would like to discuss possible repeat of injection. Allergies levofloxacin [From LEVAQUIN] Allergy (Intermediate, Verified 10/19/23 12:34) RASH codeine [Codeine] Allergy (Unknown, Verified 10/19/23 12:34) NAUSEA AND VOMITING, sensitivity ibuprofen Allergy (Unknown, Verified 10/19/23 12:34) sensitivity morphine [Morphine] Allergy (Unknown, Verified 10/19/23 12:34) HEADACHE, vomiting, sensitivity naproxen [From NAPROSYN] Allergy (Unknown, Verified 10/19/23 12:34) HIVES, DIFFICULTY BREATHING. Sulfa (Sulfonamide Antibiotics) Allergy (Unknown, Verified 10/19/23 12:34) unknown HPI OV-left knee pain-Possibly an injection? HPI Details 43-year-old female [facility] follow-up of left knee pain. She had a left knee injection on 07/05/22. She currently states she has pain as well as constant knee giving out causing her to fall. Her pain is aggravated with going upstairs and occasionally getting up from sitting position. She continues to use her knee brace with benefits. She would like to discuss possible repeat of injection. [facility] Medical History (Updated 10/08/23 @ 10:51 by Adarsh Chavez MD) Scalp cyst Depression Kidney stone (07/09/12) Left shoulder pain Suicide gesture Morbid obesity Breast mass Palpitation History of 2019 novel coronavirus disease (COVID-19) SOB (shortness of breath) Precordial chest pain Depression Overdose Bipolar disorder Surgical History S/P excision of lipoma (~09/24/23) History of sinus surgery (~2019) Family History Father History of heart artery stent History of heart attack Mother CVA (cerebral vascular accident) Paternal Grandmother Bone cancer Paternal Uncle Cancer of unknown origin Social History Alcohol intake: current Alcohol intake frequency: 3 or more drinks per day Patient Tobacco Use Status: Never used Tobacco Substance Use Type: Marijuana Current occupational status: disabled Current occupation: rt handed Female Reproductive History Menstrual Age of Menarche: 11 Review of Systems Const All systems reviewed & are unremarkable except as noted in HPI and below Physical Exam Vital Signs: BMI result Body Mass Index 39.0 Extrem Other: Left knee normal to inspection. There is diffuse tenderenss along the medial and lateral joint line. She has full ROM without crepitus. Calf supple non tender, NVi. Assessment & Plan Assessment & Plan (1) Patellofemoral arthritis of left knee: Code(s): M17.12 - Unilateral primary osteoarthritis, left knee Plan We discussed options which include steroid injection, gel injection, and physical therapy. She will hold off on steroid injection at this time as this has not helped her in the past and proceed with gel injection whose order has been placed today. She was also fit for a left knee brace in the office today. She will see us back once the gel injections has been obtained. Patient Instructions: Scribed for Gaurang Vang PA-C, by Matheus Lares medical assistant secretary, on 10/19/2023 at 12:30 PM EST. Gaurang Nguyen PA-C, have personally reviewed and agree with the information entered by the scribe. Coding Level of Care Code Est Pt Level 3 (13143) Diagnoses Patellofemoral arthritis of left knee M17.12
== END 2023-10-19 13:49 | disposition home or self-care (01) ==
PROVIDERS: PCP Internal Medicine; Visit Provider Physician Assistant
DX: M17.12 Unilateral primary osteoarthritis, left knee (principal)
CPT/HCPCS: 99213

== ENCOUNTER → 2023-10-19 12:12 | Outpatient (BNVA) | payer MEDICAID, SELFPAY | PROVIDERS: PCP Internal Medicine; Visit Provider Physician Assistant | DX: M17.12 Unilateral primary osteoarthritis, left knee (principal) | CPT/HCPCS: 99212 ==

== ENCOUNTER 2023-11-04 05:19 | Inpatient (IN) | payer MEDICAID, OTHER, SELFPAY ==
--- NOTE | 2023-11-04 | ECG_ITS ---
Test Reason : CHEST PAIN Blood Pressure : / mmHG Vent. Rate : 119 BPM Atrial Rate : 119 BPM P-R Int : 142 ms QRS Dur : 084 ms QT Int : 332 ms P-R-T Axes : 055 -20 087 degrees QTc Int : 467 ms Sinus tachycardia Cannot rule out Inferior infarct , age undetermined Cannot rule out Anterior infarct , age undetermined Abnormal ECG When compared with ECG of 29-AUG-2023 08:36, Minimal criteria for Anterior infarct are now Present No significant change was found Referred By: Generic ED Physician Electronically Signed By:CARMENCITA THAKKAR
--- NOTE | ~2023-11-04 | XR_ITS ---
EXAMINATION: XR CHEST CLINICAL INFORMATION: Shortness of breath. COMPARISON: Most recent chest radiograph dated 08/29/2023. TECHNIQUE: Frontal view of the chest was obtained. FINDINGS: The lungs are clear. The cardiomediastinal silhouette is normal in size. There is no pleural effusion or pneumothorax. No acute osseous abnormality. XR/XR chest 1V IMPRESSION: No acute cardiopulmonary findings.
--- NOTE | ~2023-11-04 | US_ITS ---
EXAMINATION: US VENOUS ULTRASOUND WITH DOPPLER LOWER EXTREMITY, RIGHT CLINICAL INFORMATION: Right COMPARISON: None available. TECHNIQUE: Ultrasound of the deep veins is performed from the hip to the calf with compression sonography and color and pulse Doppler assessment. Spectral analysis with color-flow imaging is performed. FINDINGS: There is normal venous compression and respiratory variation and augmented flow. The visualized common femoral vein, superficial femoral vein, profunda femoral vein, popliteal vein, and the trifurcation region shows no evidence of deep venous thrombosis. There is no significant popliteal fossa cyst. Calf 7 onset swelling and tenderness. If the patient's symptoms persist, followup ultrasound in 5 days 7 days might be of value to exclude proximal propagation from a non-visualized calf vein. US/US venous duplex LE RT IMPRESSION: No DVT demonstrated in the right lower extremity.
[2023-11-04 05:24] VITALS: BP 146/89; PULSE 120; O2SAT 95
[2023-11-04 05:34] VITALS: BP 138/77; PULSE 128; RESP 14; TEMP 36.6; O2SAT 94; BMI 42.1
[2023-11-04 05:53] LABS: Basophils Percent Auto 0.3 % (0-2); Eosinophils Percent Auto 0.3 % (0-4); Hematocrit 41.6 % (37.0-47.0); Hemoglobin 13.9 g/dl (12.0-16.0); Imm Gran Abs Auto 0.06 X10*3/uL (0.00-0.03); Imm Gran Pct Auto 0.4 % (0.0-0.4); Lymphocytes Absolute Auto 2.1 X10*3/uL (1.2-4.9); Lymphocytes Percent Auto 15.4 % (20-40); MANUAL DIFF FLAG NO; Mean Corpuscular HGB Conc 33.4 g/dl (31.0-35.0); Mean Corpuscular Hemoglobin 28.8 pg (27.0-33.0); Mean Corpuscular Volume 86.3 fL (80.0-98.0); Mean Platelet Volume 9.1 fL (9.4-12.3); Monocytes Absolute Auto 0.9 X10*3/uL (0.1-1.2); Monocytes Percent Auto 6.3 % (2-11); Neutrophils Absolute Auto 10.4 x10*3/uL (2.0-8.3); Neutrophils Percent Auto 77.3 % (45-73); Platelet Count 325 X10*3/uL (160-400); Red Blood Count 4.82 X10*6/uL (4.20-5.50); Red Cell Distribution Width 12.7 % (11.0-16.0); White Blood Count 13.5 X10*3/uL (4.8-10.8)
[2023-11-04 06:02] LABS: Appearance Urine Clear; Color Urine Yellow; Glucose Urine UA Negative (Negative); Leukocyte Esterase Urine Negative (Negative); Nitrite Urine Negative (Negative); PH 5.5 (5.0-9.0); Specific Gravity - Urine <= 1.005 (1.005-1.025); Urine Blood Negative (Negative); Urine Ketones Trace mg/dL (Negative); Urine Protein Negative (Neg-Trace)
[2023-11-04 06:04] LABS: UPreg QC Valid YES; Urine Pregnancy NEGATIVE (NEGATIVE)
[2023-11-04 06:07] LABS: Anion Gap 19 (12-20); Blood Urea Nitrogen 7 mg/dL (9-16); Calcium 9.7 mg/dL (8.4-10.2); Carbon Dioxide 18 mmol/L (22-29); Chloride 105 mmol/L (96-108); Estimated Glomerular Filt Rate > 60; Glucose Random 129 mg/dL (60-115); Potassium 3.8 mmol/L (3.3-5.1); Sodium 138 mmol/L (135-145)
[2023-11-04 06:15] LABS: Troponin-I High Sensitivity < 2.7 ng/L (<3.5-17.0)
[2023-11-04 06:27] LABS: Amphetamine Screen Urine Not Detected (Not Detect); Barbiturates, Urine Not Detected (Not Detect); Benzodiazepines Screen Urine Not Detected (Not Detect); Cannabinoid Screen Urine Not Detected (Not Detect); Cocaine Screen Urine POSITIVE (Not Detect); Fentanyl, urine Not Detected (Not Detect); Opiate Screen Urine Not Detected (Not Detect); Phencyclidine Screen Urine Not Detected (Not Detect)
[2023-11-04 06:28] LABS: Ethanol 63 mg/dL
[2023-11-04 06:45] VITALS: PULSE 105
--- NOTE | 2023-11-04 07:22 | ED.CHESTPAIN ---
HPI - Chest Pain General Chief Complaint: Chest Pain Stated Complaint: CP S/P DOING AN 8 BALL OF COCAINE PER EMS Time Seen by Provider: 11/04/23 06:47 Source: patient Mode of arrival: ambulatory Limitations: no limitations History of Present Illness HPI narrative: This is a 43-year-old female history of cocaine use disorder, depression, anxiety, kidney stones presenting to the emergency department for evaluation of anxiety, depression, increased cocaine use, yesterday used 200 dollars worth with alcohol and is now having subsequent chest discomfort. Patient reports she is gone into SVT in the past for something similar. She is requesting detox in to speak to the crisis team because she is also feeling homicidal towards others. Reports increasing life stressors has not been med compliant. Patient denies fevers, chills, shortness of breath, nausea, vomiting, abdominal pain, headache, vision changes, dizziness and weakness. Related Data Home Medications Medication Instructions Recorded Confirmed acetaminophen 650 mg 1 tab PO Q8H PRN Pain (Scale Score 06/08/22 09/13/23 tablet,extended release (Mapap 1-3) Arthritis Pain) citalopram 40 mg tablet 1 tab PO DAILY 06/08/22 09/13/23 hydroxyzine HCl 25 mg tablet 1 tab PO BID PRN Anxiety 06/08/22 09/13/23 prazosin 1 mg capsule 1 cap PO BEDTIME 06/08/22 09/13/23 quetiapine 100 mg tablet 1 tab PO BEDTIME 06/08/22 09/13/23 quetiapine 50 mg tablet 1 tab PO BID PRN anxiety 06/08/22 09/13/23 topiramate 50 mg tablet 1 tab PO BID 06/08/22 09/13/23 propranolol 20 mg tablet 20 mg PO QAM 10/19/23 Previous Rx's Medication Instructions Recorded topiramate 50 mg tablet (Topamax) 50 mg PO BID #60 tabs 09/24/22 naproxen 500 mg tablet 500 mg PO BID 30 days #60 tabs 10/09/22 ondansetron 4 mg disintegrating 4 mg PO Q8-12H PRN nausea and 02/15/23 tablet vomiting #7 tabs oxycodone 5 mg tablet 5 mg PO Q8H PRN pain #10 tabs 02/15/23 Allergies Allergy/AdvReac Type Severity Reaction Status Date / Time levofloxacin [From LEVAQUIN] Allergy Intermediate RASH Verified 11/04/23 05:34 codeine [Codeine] Allergy Unknown NAUSEA AND Verified 11/04/23 05:34 VOMITING, sensitivity ibuprofen Allergy Unknown sensitivity Verified 11/04/23 05:34 morphine [Morphine] Allergy Unknown HEADACHE, Verified 11/04/23 05:34 vomiting, sensitivity naproxen [From NAPROSYN] Allergy Unknown HIVES, Verified 11/04/23 05:34 DIFFICULTY BREATHING. Sulfa (Sulfonamide Allergy Unknown unknown Verified 11/04/23 05:34 Antibiotics) Review of Systems Review of Systems: Yes all other systems are reviewed and are negative [facility] Past Medical History Attestation statement: The following information was validated with the patient. Source: old records reviewed and nursing notes reviewed Medical History Scalp cyst Depression Kidney stone (07/09/12) Left shoulder pain Suicide gesture Morbid obesity Breast mass Palpitation History of 2019 novel coronavirus disease (COVID-19) SOB (shortness of breath) Precordial chest pain Depression Overdose Bipolar disorder Surgical History S/P excision of lipoma (~09/24/23) History of sinus surgery (~2019) Family History Family History Father History of heart artery stent History of heart attack Mother CVA (cerebral vascular accident) Paternal Grandmother Bone cancer Paternal Uncle Cancer of unknown origin Social History Social History Alcohol intake: current Alcohol intake frequency: a few times a week Patient Tobacco Use Status: Never used Tobacco Smoked in Last 30 Days: Yes Use of substances other than those prescribed or required for medical reasons: No Substance Use Type: Marijuana Advance Directives: No Advance Directives Information Provided: No Patient : No Current occupational status: disabled Current occupation: rt handed Physical Exam Vital Signs: Vital Signs: Last Vital Signs Temp 97.8 F 11/04/23 05:34 Pulse 109 H 11/04/23 08:55 Resp 16 11/04/23 08:55 BP 108/54 L 11/04/23 08:55 Pulse Ox 96 11/04/23 08:55 O2 Del Method Room Air 11/04/23 08:55 BMI result Body Mass Index 42.1 vss Appearance: Alert.? Oriented X3.? No acute distress.? Head: Normocephalic, atraumatic, no step-offs or deformities Eyes: Pupils equal, round and reactive to light.? CVS: Normal heart rate and rhythm.? Pulses normal.? Respiratory: No respiratory distress.? Breath sounds normal.? Abdomen: Soft and nontender.? Skin: Skin warm and dry.? Normal skin color.? Normal skin turgor.? Extremities: No lower extremity edema.? No calf ttp. 5/5 strength to bilateral upper and lower extremities Back: No midline tenderness, no C-spine tenderness, full range of motion, no CVA tenderness bilaterally Neuro: Oriented X 3.? No motor deficit.? No sensory deficit. CN 2-12 intact Course Reevaluation(s) Reevaluation #1: CBC with leukocytosis, nonspecific no fever, tachycardic, tachypnea or hypotension unlikely infection. Chemistry no acute findings requiring intervention. Troponin negative x3. UA without infection. Urine negative. Urine toxicology positive for cocaine. Ethanol 63. At this time patient to be placed into observation to allow more time to be evaluated by care team. At time observation started common cooperative no acute Time: 11:14 Medications Administered Discontinued Medications Generic Name Dose Route Start Last Admin Trade Name Freq PRN Reason Stop Dose Admin Lorazepam 1 mg 11/04/23 07:43 11/04/23 09:26 Lorazepam 2 Mg/Ml Vial IVPUSH 11/04/23 07:44 1 mg ONCE ONE Administration Medical Decision Making Medical Decision Making [facility] Narrative: [id number] 43 year old female presents w/ depression, anxiety, homicidal ( w/o particular plan) and cocaine use w/ concomitant CP PE- benign Concerns for cocaine induced CP. Unlikely ACS, PE, dissection. City and depression likely secondary to increasing life stressors. Unlikely acute psychosis, bipolar, schizophrenia. No suicidal ideation however patient is homicidal Plan- labs Differential Diagnosis Differential Diagnoses: The differential diagnosis associated with the presentation includes Concerns for cocaine induced CP. Unlikely ACS, PE, dissection. City and depression likely secondary to increasing life stressors. Unlikely acute psychosis, bipolar, schizophrenia. No suicidal ideation however patient is homicidal Admission/Observation Consideration of admission/observation: Escalation of care including admission/observation considered Lab Data MDM Lab Attestation statement: I reviewed the patient's lab results. 11/04/23 05:49 11/04/23 05:49 Labs: Lab Results 11/04/23 11/04/23 11/04/23 Range/Units 05:49 05:53 06:04 WBC 13.5 H (4.8-10.8) X10*3/uL RBC 4.82 (4.20-5.50) X10*6/uL Hgb 13.9 (12.0-16.0) g/dl Hct 41.6 (37.0-47.0) % MCV 86.3 (80.0-98.0) fL MCH 28.8 (27.0-33.0) pg MCHC 33.4 (31.0-35.0) g/dl RDW 12.7 (11.0-16.0) % Plt Count 325 (160-400) X10*3/uL MPV 9.1 L (9.4-12.3) fL Immature Gran % (Auto) 0.4 (0.0-0.4) % Neut % (Auto) 77.3 H (45-73) % Lymph % (Auto) 15.4 L (20-40) % [place] % (Auto) 6.3 (2-11) % Eos % (Auto) 0.3 (0-4) % Baso % (Auto) 0.3 (0-2) % Lymph # (Auto) 2.1 (1.2-4.9) X10*3/uL [place] # (Auto) 0.9 (0.1-1.2) X10*3/uL Eos # (Auto) 0.0 (0.0-0.4) X10*3/uL Baso # (Auto) 0.0 (0.0-0.2) X10*3/uL Abs Immat Gran (auto) 0.06 H (0.00-0.03) X10*3/uL Absolute Neuts (auto) 10.4 H (2.0-8.3) x10*3/uL Absolute Nucleated RBC 0.000 (0.0-0.012) X10*3/uL Nucleated RBC % (auto) 0.0 (0.0-0.2) /100WBC Sodium 138 (135-145) mmol/L Potassium 3.8 (3.3-5.1) mmol/L Chloride 105 (96-108) mmol/L Carbon Dioxide 18 L (22-29) mmol/L Anion Gap 19 (12-20) BUN 7 L (9-16) mg/dL Creatinine 0.74 (0.5-1.4) mg/dL Estim Creat Clear Calc 111.0 Estimated GFR > 60 Random Glucose 129 H (60-115) mg/dL Calcium 9.7 (8.4-10.2) mg/dL Troponin I High Sens < 2.7 (<3.5-17.0) ng/L Urine Color Yellow Urine Appearance Clear Urine pH 5.5 (5.0-9.0) Ur Specific [place] <= 1.005 (1.005-1.025) Urine Protein Negative (Neg-Trace) mg/dL Urine Glucose (UA) Negative (Negative) mg/dL Urine Ketones Trace (Negative) mg/dL Urine Blood Negative (Negative) Urine Nitrite Negative (Negative) Ur Leukocyte Esterase Negative (Negative) Urine Test NEGATIVE (NEGATIVE) Urine Opiates Screen Not Detected (Not Detect) Urine Fentanyl Screen Not Detected (Not Detect) Ur Barbiturates Screen Not Detected (Not Detect) Ur Phencyclidine Scrn Not Detected (Not Detect) Ur Amphetamines Screen Not Detected (Not Detect) U Benzodiazepines Scrn Not Detected (Not Detect) Urine Cocaine Screen POSITIVE H (Not Detect) U Marijuana (THC) Screen Not Detected (Not Detect) Ethyl Alcohol 63 mg/dL 11/04/23 11/04/23 Range/Units 07:45 10:00 WBC (4.8-10.8) X10*3/uL RBC (4.20-5.50) X10*6/uL Hgb (12.0-16.0) g/dl Hct (37.0-47.0) % MCV (80.0-98.0) fL MCH (27.0-33.0) pg MCHC (31.0-35.0) g/dl RDW (11.0-16.0) % Plt Count (160-400) X10*3/uL MPV (9.4-12.3) fL Immature Gran % (Auto) (0.0-0.4) % Neut % (Auto) (45-73) % Lymph % (Auto) (20-40) % [place] % (Auto) (2-11) % Eos % (Auto) (0-4) % Baso % (Auto) (0-2) % Lymph # (Auto) (1.2-4.9) X10*3/uL [place] # (Auto) (0.1-1.2) X10*3/uL Eos # (Auto) (0.0-0.4) X10*3/uL Baso # (Auto) (0.0-0.2) X10*3/uL Abs Immat Gran (auto) (0.00-0.03) X10*3/uL Absolute Neuts (auto) (2.0-8.3) x10*3/uL Absolute Nucleated RBC (0.0-0.012) X10*3/uL Nucleated RBC % (auto) (0.0-0.2) /100WBC Sodium (135-145) mmol/L Potassium (3.3-5.1) mmol/L Chloride (96-108) mmol/L Carbon Dioxide (22-29) mmol/L Anion Gap (12-20) BUN (9-16) mg/dL Creatinine (0.5-1.4) mg/dL Estim Creat Clear Calc Estimated GFR Random Glucose (60-115) mg/dL Calcium (8.4-10.2) mg/dL Troponin I High Sens < 2.7 < 2.7 (<3.5-17.0) ng/L Urine Color Urine Appearance Urine pH (5.0-9.0) Ur Specific [place] (1.005-1.025) Urine Protein (Neg-Trace) mg/dL Urine Glucose (UA) (Negative) mg/dL Urine Ketones (Negative) mg/dL Urine Blood (Negative) Urine Nitrite (Negative) Ur Leukocyte Esterase (Negative) Urine Test (NEGATIVE) Urine Opiates Screen (Not Detect) Urine Fentanyl Screen (Not Detect) Ur Barbiturates Screen (Not Detect) Ur Phencyclidine Scrn (Not Detect) Ur Amphetamines Screen (Not Detect) U Benzodiazepines Scrn (Not Detect) Urine Cocaine Screen (Not Detect) U Marijuana (THC) Screen (Not Detect) Ethyl Alcohol mg/dL Independent Interpretation I performed an independent interpretation of an: EKG (Vent. Rate : 119 BPM Atrial Rate : 119 BPM P-R Int : 142 ms QRS Dur : 084 ms QT Int : 332 ms P-R-T Axes : 055 -20 087 degrees QTc Int : 467 ms Sinus tachycardia Cannot rule out Inferior infarct , age undetermined Cannot rule out Anterior infarct , age undetermined [place]) and Plain X-Ray ( XR/XR chest 1V IMPRESSION: No acute cardiopulmonary findings. ) Radiology Impression Discussion of test interpretation with radiology: I have reviewed the radiologist's reading. External Record Review External record reviewed: Inpatient record, Office record, Outpatient record, Prior outpatient labs, Prior outpatient radiology, Primary care record and Outside ED record Critical Care Time Critical Care Time Critical Care Time: No Discharge Plan Discharge Clinical Impression: Chest pain, Depression, Polysubstance abuse, Anxiety Patient Disposition: Still a Patient Prescriptions: No Action topiramate [Topamax] 50 mg tablet 50 mg PO BID Qty: 60 0RF citalopram 40 mg tablet 1 tab PO DAILY prazosin 1 mg capsule 1 cap PO BEDTIME quetiapine 100 mg tablet 1 tab PO BEDTIME acetaminophen [Mapap Arthritis Pain] 650 mg tablet extended release 1 tab PO Q8H PRN (Reason: Pain (Scale Score 1-3)) hydroxyzine HCl 25 mg tablet 1 tab PO BID PRN (Reason: Anxiety) quetiapine 50 mg tablet 1 tab PO BID PRN (Reason: anxiety) topiramate 50 mg tablet 1 tab PO BID oxycodone 5 mg tablet 5 mg PO Q8H PRN (Reason: pain) Qty: 10 0RF Rx Instructions: Partial Fill upon patient request. ondansetron 4 mg tablet,disintegrating 4 mg PO Q8-12H PRN (Reason: nausea and vomiting) Qty: 7 0RF naproxen 500 mg tablet 500 mg PO BID 30 Days Qty: 60 3RF propranolol 20 mg tablet 20 mg PO QAM
[2023-11-04 08:14] LABS: Troponin-I High Sensitivity < 2.7 ng/L (<3.5-17.0)
[2023-11-04 08:55] VITALS: BP 108/54; PULSE 109; RESP 16; O2SAT 96
[2023-11-04] MEDS: LORazepam 2 MG/ML VIAL 1 MG IVPUSH (09:26)
[2023-11-04 10:29] LABS: Troponin-I High Sensitivity < 2.7 ng/L (<3.5-17.0)
[2023-11-04] MEDS: Acetaminophen 325 MG TABLET 650 MG PO ×2 (13:52→20:30)
[2023-11-04 15:28] VITALS: BP 97/70; PULSE 118; RESP 20; TEMP 37; O2SAT 95
[2023-11-04] MEDS: LORazepam 1 MG TABLET PO (20:30)
--- NOTE | 2023-11-04 20:31 | PC.NURSE ---
Section 12 placed in pt's chart
[2023-11-04 20:36] VITALS: BP 105/69; PULSE 97; RESP 16; TEMP 37.2; O2SAT 97
--- NOTE | 2023-11-04 20:39 | MHC.EDTECH ---
this tech assumed care at 1900. PT is taking a shower at this time. PT vitals taken at this time. PT is calm, cooperative and resting in bed now. PT given a blanket, pillow and cup of water.
--- NOTE | 2023-11-05 04:28 | PC.NURSE ---
Pt showered independently, given clean clothes, sheets, and blankets. Pt requested ativan to help her sleep and has been quiet in bed since. No complaints at this time. Pt is pending CARE team donnie
[2023-11-05] MEDS: LORazepam 1 MG TABLET PO ×2 (08:38→23:13)
[2023-11-05] MEDS: Acetaminophen 325 MG TABLET 650 MG PO ×2 (08:38→17:31)
[2023-11-05] MEDS: Propranolol HCL 20 MG TABLET PO (08:38)
--- NOTE | 2023-11-05 08:40 | PC.NURSE ---
pt c/o 5/10 chronic left knee pain as well as feeling anxious. med rec completed at this time. pt medicated per provider order. pt given coffee per pt request. pt calm/cooperative. pt continues to wait to speak w/ CARE team at this time. plan of care ongoing.
[2023-11-05 08:43] VITALS: BP 123/85; PULSE 99; RESP 20; TEMP 36.7; O2SAT 97
[2023-11-05 10:20] VITALS: BP 131/88; PULSE 82; RESP 16; TEMP 35.6; O2SAT 98
[2023-11-05 12:49] LABS: COVID-19 Test Negative (Negative); IDNOW Serial# 08D9AD1C
--- NOTE | 2023-11-05 15:35 | PC.NURSE ---
this RN assumed care of pt. pt remains in room calm and cooperative, respirations even and unlabored. plan of care on going.
[2023-11-05] MEDS: Thiamine HCL 100 MG TABLET PO (17:32)
--- NOTE | 2023-11-05 17:34 | PC.NURSE ---
pt medicated per nov for 06/12 headache.
--- NOTE | 2023-11-05 19:30 | PC.NURSE ---
Assumed care of patient at 1900, patient appears to be sleeping, respirations even and unlabored, no apparent distress. Continue plan of care for inpt admission
[2023-11-05] MEDS: hydrOXYzine HCL 25 MG TABLET PO (23:13)
--- NOTE | 2023-11-06 02:47 | PC.ADMIT ---
43 yo female arrived on unit, A&O x 4, VSS, skin assessed, no wounds, rashes or abrasions, has scar on posterior right shoulder. Pt states Sunday she drank 6-7 drinks, beer and hard liquor and binged cocaine. Pt states she did not feel safe, states passive SI no plan and HI with no plan. Pt states she hears voices but not really voices more like sounds and they trigger her. Pt c/o headache and stomach ache and states I think it is just my anxiety . CIWA score 10, Ativan and Hydoxyzine given. Pt oriented to unit and room, CV signed and belongings checked. Pt resting in bed with cool compress on head.
[2023-11-06] MEDS: hydrOXYzine HCL 25 MG TABLET PO (06:42)
[2023-11-06 08:00] VITALS: BP 107/56; PULSE 69; RESP 16; TEMP 36.8; O2SAT 95
[2023-11-06] MEDS: Folic Acid 1 MG TABLET PO (08:51)
[2023-11-06] MEDS: Multivitamin TABLET 1 TAB PO (08:51)
[2023-11-06] MEDS: Propranolol HCL 20 MG TABLET PO (08:51)
[2023-11-06] MEDS: Thiamine HCL 100 MG TABLET PO (08:51)
[2023-11-06] MEDS: LORazepam 1 MG TABLET 2 MG PO (09:00)
--- NOTE | 2023-11-06 09:24 | HO.PSYADMNOT ---
HPI Date of Service: 11/06/23 Chief Complaint: Depressed Sources of Information: patient interviewed, chart reviewed and crisis/core team assessment reviewed HPI Narrative: pt is a 43 yo female with hx of depression, AH, ptsd and alcohol/cocaine abuse who presents for worsening depression and AH in face of being off medications and substance abuse. Pt reports AH of noises and voices that say self-deprecating things and are present independent of mood/depressive episodes and even during sobriety; no paranoid delusions. Hx of trauma w/ ptsd. Pt drinks about 5+nips per day and sniffs cocaine daily for past several weeks; hx of alcohol w/drawal seizures. No clear hx of manic episodes. Some passive SI; says she came to ED before depression worsened and she did something stupid. Past Psychiatric History: no past admissions past SA by overdose hx of med trials: Celexa, Lamictal, seroquel, prazosin Medical Evaluation Reviewed: Yes [facility] Medical History (Updated 11/06/23 @ 22:57 by Chuck Flaherty MD) Cocaine use disorder Alcohol use disorder PTSD (post-traumatic stress disorder) Schizoaffective disorder, depressive type Scalp cyst Depression Kidney stone (07/09/12) Left shoulder pain Suicide gesture Morbid obesity Breast mass Palpitation History of 2019 novel coronavirus disease (COVID-19) SOB (shortness of breath) Precordial chest pain Depression Overdose Bipolar disorder Surgical History S/P excision of lipoma (~09/24/23) History of sinus surgery (~2019) Family History: Mother: bipolar Social History: adult son and daughter lives alone has partner but relational strife with his son Substance History: alcohol 5+drinks per day; cocaine daily Trauma History: +hx of trauma Diagnostics Vital Signs (24Hr): Vital Signs - 24 hr 11/05/23 10:20 11/06/23 08:00 Temperature 96.1 F L 98.2 F Pulse Rate 82 69 Respiratory Rate 16 16 Blood Pressure 131/88 107/56 L Pulse Oximetry 98 95 Oxygen Delivery Method Room Air Room Air BMI result Body Mass Index 42.1 Labs 11/04/23 05:49 11/06/23 09:08 Labs: Laboratory Results - last 48 hr 11/04/23 11/05/23 10:00 12:23 Troponin I High Sens < 2.7 COVID-19 ([facility]AN) Negative COVID-19 Clin Com See Note Imaging Radiology Impressions: ITS Impressions Chest X-Ray 11/04/23 06:24 IMPRESSION: No acute cardiopulmonary findings. Meds/Allergies Meds Home Medications Medication Instructions Recorded Confirmed Type acetaminophen 650 mg 1 tab PO Q8H PRN Pain (Scale Score 06/08/22 11/05/23 History tablet,extended release (Mapap 1-3) Arthritis Pain) citalopram 40 mg tablet 1 tab PO DAILY 06/08/22 09/13/23 History hydroxyzine HCl 25 mg tablet 1 tab PO BID PRN Anxiety 06/08/22 11/05/23 History prazosin 1 mg capsule 1 cap PO BEDTIME 06/08/22 09/13/23 History quetiapine 100 mg tablet 1 tab PO BEDTIME 06/08/22 09/13/23 History quetiapine 50 mg tablet 1 tab PO BID PRN anxiety 06/08/22 09/13/23 History topiramate 50 mg tablet 1 tab PO BID 06/08/22 09/13/23 History propranolol 20 mg tablet 20 mg PO QAM 10/19/23 11/05/23 History Allergies Allergies Allergy/AdvReac Type Severity Reaction Status Date / Time levofloxacin [From LEVAQUIN] Allergy Intermediate RASH Verified 11/04/23 05:34 codeine [Codeine] Allergy Unknown NAUSEA AND Verified 11/04/23 05:34 VOMITING, sensitivity ibuprofen Allergy Unknown sensitivity Verified 11/04/23 05:34 morphine [Morphine] Allergy Unknown HEADACHE, Verified 11/04/23 05:34 vomiting, sensitivity naproxen [From NAPROSYN] Allergy Unknown HIVES, Verified 11/04/23 05:34 DIFFICULTY BREATHING. Sulfa (Sulfonamide Allergy Unknown unknown Verified 11/04/23 05:34 Antibiotics) Mental Status Exam Mental Status Exam Narrative: Pt is alert and oriented; behavior is cooperative and calm but also tearful; patient is not in distress; dressed in casual attire, unkempt; mood is described as depressed and affect congruent, downcast, tearful; eye contact avoidant; Speech is normal rate, volume and prosody and not pressured; psychomotor retardation present; thought process is organized and goal directed; Thought content is on struggling with AH, depression; otherwise pertinent to relevant topics and without any delusional content, paranoid ideations or grandiosity; passive SI; no HI; Postive for AH; Patients insight and judgment impaired. Assessment & Plan Assessment & Plan (1) Schizoaffective disorder, depressive type: Status: Acute Code(s): F25.1 - Schizoaffective disorder, depressive type (2) PTSD (post-traumatic stress disorder): Status: Acute Code(s): F43.10 - Post-traumatic stress disorder, unspecified (3) Alcohol use disorder: Status: Acute Code(s): F10.90 - Alcohol use, unspecified, uncomplicated (4) Cocaine use disorder: Status: Acute Code(s): F14.10 - Cocaine abuse, uncomplicated Plan pt is a 43 yo female with hx of depression, AH, ptsd and alcohol/cocaine abuse who presents for worsening depression and AH in face of being off medications and substance abuse. Pt reports AH of noises and voices that say self-deprecating things and are present independent of mood/depressive episodes and even during sobriety; no paranoid delusions. Hx of trauma w/ ptsd. Pt drinks about 5+nips per day and sniffs cocaine daily for past several weeks; hx of alcohol w/drawal seizures. No clear hx of manic episodes. Some passive SI Impression: AH independepent of mood; describes a sort of-manic 3 day period but sounds more likely from dysregulation due to PTSD and substance abuse and she does not meet criteria for bipolar. hx of trauma with nightmares; currently w/drawing from etoh. Agrees to start on Abilify to help with both mood and AH (reviewed risks/side-effects) and she agrees to trial; wants to get back on Lamictal (also reviewed risks) Plan: cv q15 CIWA with prn ativan Gabapentin for w/drawal; will taper and dc start Abilify 5mg for both depression and AH reSTart Lamictal for ptsd, depression/anxiety (has been on before and thinks it helped) reSTart Prazosin 1mg qhs for nightmares pt needs outpt providers/therapist Patient educated on: diagnosis, medication risk/benefits, substance abuse and therapeutic strategies Informed Consent: understands Reason for continued inpatient stay Substantial Risk for: rapid decompensation Statement Statement: I have reviewed the history and physical and performed a pertinent examination on my patient. No changes have occurred unless specified. If the History and Physical was not performed prior to admission, the Hospitalist's service will be consulted for completing the admission physical. Time Spent With Patient Time: Total time managing care of this patient today ____ minutes.
[2023-11-06 09:34] LABS: Estimated Average Glucose 120 mg/dL; Hemoglobin A1c % 5.8 % (<6.0)
[2023-11-06 09:44] LABS: Alanine Aminotransferase 47 U/L (0-31); Albumin Level 4.3 g/dL (3.5-5.0); Anion Gap 9 (12-20); Aspartate Amino Transferase 35 U/L (5-31); Calcium 9.4 mg/dL (8.4-10.2); Carbon Dioxide 29 mmol/L (22-29); Chloride 102 mmol/L (96-108); Cholesterol 225 mg/dL (<200); Glucose Fasting 145 mg/dL (60-99); Sodium 136 mmol/L (135-145); Total Protein 6.9 g/dL (6.5-8.0); Triglycerides 242 mg/dL (<150)
[2023-11-06 09:49] LABS: Alkaline Phosphatase 79 U/L (39-117); Bilirubin Total 0.4 mg/dL (0.0-1.0); Blood Urea Nitrogen 10 mg/dL (9-16); Creatinine Clr Calc Pharmacy 105.3; Estimated Glomerular Filt Rate > 60; HDL Cholesterol 39 mg/dL (>40); LDL Cholesterol Calculated 138 mg/dL (<100)
[2023-11-06] MEDS: LORazepam 1 MG TABLET PO ×3 (12:43→20:45)
[2023-11-06] MEDS: Gabapentin 300 MG CAPSULE PO ×3 (14:57→20:36)
[2023-11-06] MEDS: ARIPiprazole 5 MG TABLET PO (14:57)
[2023-11-06] MEDS: Lidocaine 4 % Patch ADH..PATCH 1 PATCH TRANSDERMA (15:01)
[2023-11-06] MEDS: Nicotine Polacrilex 2 MG GUM 4 MG BUCCAL (16:12)
[2023-11-06 17:04] VITALS: BP 151/87; PULSE 93; RESP 18; TEMP 36.6; O2SAT 97
[2023-11-06] MEDS: Prazosin HCL 1 MG CAPSULE PO (20:36)
[2023-11-06] MEDS: traZODone HCL 50 MG TABLET PO (20:45)
[2023-11-07 08:00] VITALS: BP 132/86; PULSE 113; RESP 18; TEMP 36.2; O2SAT 97
[2023-11-07] MEDS: Gabapentin 300 MG CAPSULE PO ×3 (08:13→20:13)
[2023-11-07] MEDS: Thiamine HCL 100 MG TABLET PO (08:13)
[2023-11-07] MEDS: Multivitamin TABLET 1 TAB PO (08:13)
[2023-11-07] MEDS: Propranolol HCL 20 MG TABLET PO (08:14)
[2023-11-07] MEDS: Folic Acid 1 MG TABLET PO (08:14)
[2023-11-07] MEDS: ARIPiprazole 5 MG TABLET PO (08:14)
[2023-11-07] MEDS: LORazepam 1 MG TABLET PO (08:18)
[2023-11-07] MEDS: Nicotine Polacrilex 2 MG GUM 4 MG BUCCAL ×4 (08:27→17:28)
[2023-11-07] MEDS: hydrOXYzine HCL 25 MG TABLET PO (11:39)
[2023-11-07] MEDS: LORazepam 1 MG TABLET 2 MG PO (11:56)
[2023-11-07] MEDS: Magnesium Hydrox/Alum Hydrox 30 ML ORAL.SUSP PO (11:56)
[2023-11-07] MEDS: cloNIDine HCL 0.1 MG TABLET PO (16:23)
--- NOTE | 2023-11-07 16:52 | HO.PSYCHPN ---
Subjective Subjective Date of Service: 11/07/23 Reason For Visit: Depressed Healthcare Proxy: No Guardianship: No Medical Problems Affecting Mental Status: Yes Interim History: pt is a 43 yo female with hx of depression, AH, ptsd and alcohol/cocaine abuse who presents for worsening depression and AH in face of being off medications and substance abuse. Pt reports AH of noises and voices that say self-deprecating things and are present independent of mood/depressive episodes and even during sobriety; no paranoid delusions. Hx of trauma w/ ptsd. Pt drinks about 5+nips per day and sniffs cocaine daily for past several weeks; hx of alcohol w/drawal seizures. No clear hx of manic episodes. Some passive SI; pt pleasant upon approach - reports she had a panic attack earlier but utilized PRN medication and sought out staff fro support. she reports feeling calmer now; reports she is not used to asking for help; we discussed that this hospitalization would be a good opportunity t practice asking for support and to ask for help from staff if feeling anxious. she agree. discussed alcohol withdrawal can make her anxious as well and encouraged her to let staff know when feeling withdrawal symptoms; she denies SI or Hi; reports slept well with the prazosin and no nightmares. Medication Compliance: Yes Side effects from medications: No Attending Groups: Intermittent Review of Systems ETOH withdrawal Medical Review of Systems: unchanged Review of Systems Review of Systems Yes all other systems are reviewed and are negative Mental Status Exam Mental Status Exam Narrative: Pt is alert and oriented; behavior is cooperative and anxious; dressed in casual attire, unkempt; mood is described as depressed and affect congruent, downcast, tearful; eye contact avoidant; Speech is normal rate, volume and prosody and not pressured; psychomotor retardation present; thought process is organized and goal directed; Thought content is on struggling with AH, depression; otherwise pertinent to relevant topics and without any delusional content, paranoid ideations or grandiosity; passive SI; no HI; Postive for AH; Patients insight and judgment impaired. Diagnostics Vital Signs (24Hr): Vital Signs - 24 hr 11/06/23 17:04 11/07/23 08:00 Temperature 97.9 F 97.2 F Pulse Rate 93 113 H Respiratory Rate 18 18 Blood Pressure 151/87 H 132/86 Pulse Oximetry 97 97 Oxygen Delivery Method Room Air Room Air BMI result Body Mass Index 42.1 Labs 11/04/23 05:49 11/06/23 09:08 Labs: Laboratory Results - last 48 hr 11/06/23 09:08 Sodium 136 Potassium 4.0 Chloride 102 Carbon Dioxide 29 Anion Gap 9 L BUN 10 Creatinine 0.78 Estim Creat Clear Calc 105.3 Estimated GFR > 60 Fasting Glucose 145 H Estimat Average Glucose 120 Hemoglobin A1c % 5.8 Calcium 9.4 Total Bilirubin 0.4 AST 35 H ALT 47 H Alkaline Phosphatase 79 Total Protein 6.9 Albumin 4.3 Triglycerides 242 H Cholesterol 225 H LDL Cholesterol, Calc 138 H HDL Cholesterol 39 L Imaging Radiology Impressions: ITS Impressions Chest X-Ray 11/04/23 06:24 IMPRESSION: No acute cardiopulmonary findings. Medications Medications Current Medications Acetaminophen (Acetaminophen 325 Mg Tablet) 650 mg PO Q6H PRN PRN Reason: Headache/Pain Mild Scale (1-3) Last Admin: 11/05/23 17:31 Dose: 650 mg Al Hydroxide/Mg Hydroxide (Magnesium Hydrox/Alum Hydrox 30 Ml Oral.Susp) 30 ml PO Q6H PRN PRN Reason: Heartburn/Nausea Last Admin: 11/07/23 11:56 Dose: 30 ml Aripiprazole (Aripiprazole 5 Mg Tablet) 5 mg PO DAILY RAVI Last Admin: 11/07/23 08:14 Dose: 5 mg Clonidine HCl (Clonidine Hcl 0.1 Mg Tablet) 0.1 mg PO Q4H PRN; Protocol PRN Reason: anxiety Last Admin: 11/07/23 16:23 Dose: 0.1 mg Folic Acid (Folic Acid 1 Mg Tablet) 1 mg PO DAILY RAVI Last Admin: 11/07/23 08:14 Dose: 1 mg Gabapentin (Gabapentin 300 Mg Capsule) 300 mg PO TID RAVI Last Admin: 11/07/23 15:10 Dose: 300 mg Hydroxyzine HCl (Hydroxyzine Hcl 25 Mg Tablet) 25 mg PO Q6H PRN PRN Reason: Anxiety Last Admin: 11/07/23 11:39 Dose: 25 mg Lamotrigine (Lamotrigine 25 Mg Tablet) 25 mg PO BEDTIME [facility] Lidocaine (Lidocaine 4 % Patch Adh..Patch) 1 patch TRANSDERMA DAILY [facility]; Protocol Last Admin: 11/07/23 08:32 Dose: Not Given Lorazepam (Lorazepam 1 Mg Tablet) 1 mg PO Q2H PRN PRN Reason: CIWA 6-10 Last Admin: 11/07/23 08:18 Dose: 1 mg Lorazepam (Lorazepam 1 Mg Tablet) 2 mg PO Q2H PRN PRN Reason: CIWA 11 and above Last Admin: 11/07/23 11:56 Dose: 2 mg Magnesium Hydroxide (Milk Of Magnesia 30 Ml Oral.Susp) 30 ml PO DAILY PRN PRN Reason: Constipation Multivitamins/Vitamin C (Multivitamin Tablet) 1 tab PO DAILY RAVI Last Admin: 11/07/23 08:13 Dose: 1 tab Nicotine (Nicotine 21 Mg Patch.Td24) 21 mg TRANSDERMA DAILY PRN PRN Reason: smoking cessation Nicotine Polacrilex (Nicotine Polacrilex 2 Mg Gum) 4 mg BUCCAL Q2H PRN PRN Reason: Nicotine Cravings Last Admin: 11/07/23 15:20 Dose: 4 mg Olanzapine (Olanzapine 5 Mg Tablet) 5 mg PO TID PRN PRN Reason: agitation Ondansetron HCl (Ondansetron Odt 4 Mg Tab.Rapdis) 4 mg TRANSLINGU Q6H PRN PRN Reason: Nausea and Vomiting Prazosin HCl (Prazosin Hcl 1 Mg Capsule) 1 mg PO BEDTIME RAVI; Protocol Last Admin: 11/06/23 20:36 Dose: 1 mg Propranolol HCl (Propranolol Hcl 20 Mg Tablet) 20 mg PO DAILY RAVI; Protocol Last Admin: 11/07/23 08:14 Dose: 20 mg Thiamine HCl (Thiamine Hcl 100 Mg Tablet) 100 mg PO DAILY RAVI Last Admin: 11/07/23 08:13 Dose: 100 mg Trazodone HCl (Trazodone Hcl 50 Mg Tablet) 50 mg PO BEDTIME MRX1 PRN PRN Reason: Insomnia Last Admin: 11/06/23 20:45 Dose: 50 mg Allergies Allergies Allergy/AdvReac Type Severity Reaction Status Date / Time levofloxacin [From LEVAQUIN] Allergy Intermediate RASH Verified 11/04/23 05:34 codeine [Codeine] Allergy Unknown NAUSEA AND Verified 11/04/23 05:34 VOMITING, sensitivity ibuprofen Allergy Unknown sensitivity Verified 11/04/23 05:34 morphine [Morphine] Allergy Unknown HEADACHE, Verified 11/04/23 05:34 vomiting, sensitivity naproxen [From NAPROSYN] Allergy Unknown HIVES, Verified 11/04/23 05:34 DIFFICULTY BREATHING. Sulfa (Sulfonamide Allergy Unknown unknown Verified 11/04/23 05:34 Antibiotics) Assessment & Plan Assessment & Plan (1) Schizoaffective disorder, depressive type: Status: Acute Code(s): F25.1 - Schizoaffective disorder, depressive type (2) PTSD (post-traumatic stress disorder): Status: Acute Code(s): F43.10 - Post-traumatic stress disorder, unspecified (3) Alcohol use disorder: Status: Acute Code(s): F10.90 - Alcohol use, unspecified, uncomplicated (4) Cocaine use disorder: Status: Acute Code(s): F14.10 - Cocaine abuse, uncomplicated Plan pt is a 43 yo female with hx of depression, AH, ptsd and alcohol/cocaine abuse who presents for worsening depression and AH in face of being off medications and substance abuse. Pt reports AH of noises and voices that say self-deprecating things and are present independent of mood/depressive episodes and even during sobriety; no paranoid delusions. Hx of trauma w/ ptsd. Pt drinks about 5+nips per day and sniffs cocaine daily for past several weeks; hx of alcohol w/drawal seizures. No clear hx of manic episodes. Some passive SI Impression: AH independepent of mood; describes a sort of-manic 3 day period but sounds more likely from dysregulation due to PTSD and substance abuse and she does not meet criteria for bipolar. hx of trauma with nightmares; currently w/drawing from etoh. Agrees to start on Abilify to help with both mood and AH (reviewed risks/side-effects) and she agrees to trial; wants to get back on Lamictal (also reviewed risks) Plan: cv q15 CIWA with prn ativan Gabapentin for w/drawal; will taper and dc start Abilify 5mg for both depression and AH reSTart Lamictal for ptsd, depression/anxiety (has been on before and thinks it helped) reSTart Prazosin 1mg qhs for nightmares pt needs outpt providers/therapist 11/07/23 continue tx plan Patient educated on: diagnosis, medication risk/benefits, substance abuse, therapeutic strategies and medical condition Informed Consent: understands and further education needed Reason for continued inpatient stay Substantial Risk for: harm to self, inability to function and rapid decompensation Time Spent With Patient Time: Total time managing care of this patient today ____ minutes.
[2023-11-07 18:00] VITALS: BP 110/70; PULSE 100; RESP 16; O2SAT 97
[2023-11-07] MEDS: Prazosin HCL 1 MG CAPSULE PO (20:12)
[2023-11-07] MEDS: lamoTRIgine 25 MG TABLET PO (20:13)
[2023-11-07] MEDS: traZODone HCL 50 MG TABLET PO (20:17)
[2023-11-08 06:00] VITALS: BP 113/55; PULSE 101; RESP 18; TEMP 36.5; O2SAT 96
[2023-11-08] MEDS: LORazepam 1 MG TABLET PO ×4 (06:48→20:35)
[2023-11-08 07:00] VITALS: BMI 41.1
[2023-11-08] MEDS: ARIPiprazole 5 MG TABLET PO ×2 (08:41→12:33)
[2023-11-08] MEDS: Lidocaine 4 % Patch ADH..PATCH 1 PATCH TRANSDERMA (08:41)
[2023-11-08] MEDS: Folic Acid 1 MG TABLET PO (08:41)
[2023-11-08] MEDS: Thiamine HCL 100 MG TABLET PO (08:41)
[2023-11-08] MEDS: Multivitamin TABLET 1 TAB PO (08:41)
[2023-11-08] MEDS: Propranolol HCL 20 MG TABLET PO (08:41)
[2023-11-08] MEDS: Gabapentin 300 MG CAPSULE PO (08:42)
[2023-11-08] MEDS: hydrOXYzine HCL 25 MG TABLET PO (09:59)
[2023-11-08] MEDS: Nicotine Polacrilex 2 MG GUM 4 MG BUCCAL ×3 (09:59→18:13)
--- NOTE | 2023-11-08 10:06 | P.PNPSI_ITS ---
Subjective Subjective Date of Service: 11/08/23 Reason For Visit: Depressed Interim History: met with patient; discussed with team; reviewed chart reports frustration, anger, sadness throughout the day; thought someone said white trash and was referring to her which made her very angry; later on, she wondered if she misinterpreted event which she says happens often. Continues to have AH which say words like Slam which prompts her to want to slam the door. also c/o buzzing sound and sensation that her head is going back/forth like ping-pong ball. Shares AH stared in her 30's. -Still has nightmares -feels withdrawal is causing headache, toro discussed meds; agrees to increase Abilify since AH remain, Prazosin (for nightmares) Mental Status Exam Mental Status Exam Narrative: Pt is alert and oriented; behavior is cooperative and anxious; dressed in casual attire, unkempt; mood is described as depressed, angry..frustrated, and affect congruent, downcast; eye contact adequate; Speech is normal rate, volume and prosody and not pressured; psychomotor retardation and agitation both intermittently present; thought process is organized and goal directed; Thought content is on struggling with AH, depression; otherwise pertinent to relevant topics and without any delusional content, paranoid ideations or grandiosity; passive SI; no HI; Postive for AH; Patients insight and judgment impaired. Diagnostics Vital Signs (24Hr): Vital Signs - 24 hr 11/07/23 18:00 Pulse Rate 100 Respiratory Rate 16 Blood Pressure 110/70 Pulse Oximetry 97 Oxygen Delivery Method Room Air BMI result Body Mass Index 42.1 Labs 11/04/23 05:49 11/06/23 09:08 Imaging Radiology Impressions: ITS Impressions Chest X-Ray 11/04/23 06:24 IMPRESSION: No acute cardiopulmonary findings. Medications Medications Current Medications Acetaminophen (Acetaminophen 325 Mg Tablet) 650 mg PO Q6H PRN PRN Reason: Headache/Pain Mild Scale (1-3) Last Admin: 11/05/23 17:31 Dose: 650 mg Al Hydroxide/Mg Hydroxide (Magnesium Hydrox/Alum Hydrox 30 Ml Oral.Susp) 30 ml PO Q6H PRN PRN Reason: Heartburn/Nausea Last Admin: 11/07/23 11:56 Dose: 30 ml Aripiprazole (Aripiprazole 5 Mg Tablet) 5 mg PO DAILY [facility] Last Admin: 11/08/23 08:41 Dose: 5 mg Clonidine HCl (Clonidine Hcl 0.1 Mg Tablet) 0.1 mg PO Q4H PRN; Protocol PRN Reason: anxiety Last Admin: 11/07/23 16:23 Dose: 0.1 mg Folic Acid (Folic Acid 1 Mg Tablet) 1 mg PO DAILY [facility] Last Admin: 11/08/23 08:41 Dose: 1 mg Gabapentin (Gabapentin 300 Mg Capsule) 300 mg PO TID RAVI Last Admin: 11/08/23 08:42 Dose: 300 mg Hydroxyzine HCl (Hydroxyzine Hcl 25 Mg Tablet) 25 mg PO Q6H PRN PRN Reason: Anxiety Last Admin: 11/08/23 09:59 Dose: 25 mg Lamotrigine (Lamotrigine 25 Mg Tablet) 25 mg PO BEDTIME [facility] Last Admin: 11/07/23 20:13 Dose: 25 mg Lidocaine (Lidocaine 4 % Patch Adh..Patch) 1 patch TRANSDERMA DAILY [facility]; Protocol Last Admin: 11/08/23 08:41 Dose: 1 patch Lorazepam (Lorazepam 1 Mg Tablet) 1 mg PO Q2H PRN PRN Reason: CIWA 6-10 Last Admin: 11/08/23 06:48 Dose: 1 mg Lorazepam (Lorazepam 1 Mg Tablet) 2 mg PO Q2H PRN PRN Reason: CIWA 11 and above Last Admin: 11/07/23 11:56 Dose: 2 mg Magnesium Hydroxide (Milk Of Magnesia 30 Ml Oral.Susp) 30 ml PO DAILY PRN PRN Reason: Constipation Multivitamins/Vitamin C (Multivitamin Tablet) 1 tab PO DAILY [facility] Last Admin: 11/08/23 08:41 Dose: 1 tab Nicotine (Nicotine 21 Mg Patch.Td24) 21 mg TRANSDERMA DAILY PRN PRN Reason: smoking cessation Nicotine Polacrilex (Nicotine Polacrilex 2 Mg Gum) 4 mg BUCCAL Q2H PRN PRN Reason: Nicotine Cravings Last Admin: 11/08/23 09:59 Dose: 4 mg Olanzapine (Olanzapine 5 Mg Tablet) 5 mg PO TID PRN PRN Reason: agitation Ondansetron HCl (Ondansetron Odt 4 Mg Tab.Rapdis) 4 mg TRANSLINGU Q6H PRN PRN Reason: Nausea and Vomiting Prazosin HCl (Prazosin Hcl 1 Mg Capsule) 1 mg PO BEDTIME RAVI; Protocol Last Admin: 11/07/23 20:12 Dose: 1 mg Propranolol HCl (Propranolol Hcl 20 Mg Tablet) 20 mg PO DAILY RAVI; Protocol Last Admin: 11/08/23 08:41 Dose: 20 mg Thiamine HCl (Thiamine Hcl 100 Mg Tablet) 100 mg PO DAILY RAVI Last Admin: 11/08/23 08:41 Dose: 100 mg Trazodone HCl (Trazodone Hcl 50 Mg Tablet) 50 mg PO BEDTIME MRX1 PRN PRN Reason: Insomnia Last Admin: 11/07/23 20:17 Dose: 50 mg Allergies Allergies Allergy/AdvReac Type Severity Reaction Status Date / Time levofloxacin [From LEVAQUIN] Allergy Intermediate RASH Verified 11/04/23 05:34 codeine [Codeine] Allergy Unknown NAUSEA AND Verified 11/04/23 05:34 VOMITING, sensitivity ibuprofen Allergy Unknown sensitivity Verified 11/04/23 05:34 morphine [Morphine] Allergy Unknown HEADACHE, Verified 11/04/23 05:34 vomiting, sensitivity naproxen [From NAPROSYN] Allergy Unknown HIVES, Verified 11/04/23 05:34 DIFFICULTY BREATHING. Sulfa (Sulfonamide Allergy Unknown unknown Verified 11/04/23 05:34 Antibiotics) Assessment & Plan Assessment & Plan (1) Schizoaffective disorder, depressive type: Status: Acute Code(s): F25.1 - Schizoaffective disorder, depressive type (2) PTSD (post-traumatic stress disorder): Status: Acute Code(s): F43.10 - Post-traumatic stress disorder, unspecified (3) Alcohol use disorder: Status: Acute Code(s): F10.90 - Alcohol use, unspecified, uncomplicated (4) Cocaine use disorder: Status: Acute Code(s): F14.10 - Cocaine abuse, uncomplicated Plan pt is a 43 yo female with hx of depression, AH, ptsd and alcohol/cocaine abuse who presents for worsening depression and AH in face of being off medications and substance abuse. Pt reports AH of noises and voices that say self- deprecating things and are present independent of mood/depressive episodes and even during sobriety; no paranoid delusions. Hx of trauma w/ ptsd. Pt drinks about 5+nips per day and sniffs cocaine daily for past several weeks; hx of alcohol w/drawal seizures. No clear hx of manic episodes. Some passive SI Impression: AH independepent of mood; describes a sort of-manic 3 day period but sounds more likely from dysregulation due to PTSD and substance abuse and she does not meet criteria for bipolar. hx of trauma with nightmares; currently w/drawing from etoh. Agrees to start on Abilify to help with both mood and AH (reviewed risks/side- effects) and she agrees to trial; wants to get back on Lamictal (also reviewed risks) HOSPITAL COURSE: 11/07 continues with AH; some paranoid thinking; agrees to increase Abilify since AH remain, Prazosin (for nightmares). Will schedule ativan taper since w/drawal complicating understanding of symptoms. Discussed substance abuse and says Vivitrol helped; would like to get on Naltrexone again Plan: cv q15 Ativan 1mg TID; will taper and dc; continue CIWA with prn ativan Inrease to Gabapentin 400mg TID for w/drawal; will taper and dc INCREASE to Abilify 10mg for both depression and AH Continue Lamictal for ptsd, depression/anxiety (has been on before and thinks it helped) Increase to Prazosin 2mg qhs for nightmares start Naltrexone 25 mg for etoh cravings pt needs outpt providers/therapist Patient educated on: diagnosis, medication risk/benefits, substance abuse and therapeutic strategies Informed Consent: understands Reason for continued inpatient stay Substantial Risk for: inability to function Time Spent With Patient Time: Total time managing care of this patient today ____ minutes.
[2023-11-08] MEDS: Gabapentin 400 MG CAPSULE PO ×2 (14:06→20:35)
[2023-11-08 18:00] VITALS: BP 94/51; PULSE 86; RESP 16; TEMP 36.6; O2SAT 92
[2023-11-08] MEDS: traZODone HCL 50 MG TABLET PO (20:34)
[2023-11-08] MEDS: lamoTRIgine 25 MG TABLET PO (20:35)
[2023-11-08] MEDS: Prazosin HCL 1 MG CAPSULE 2 MG PO (20:35)
[2023-11-09] MEDS: hydrOXYzine HCL 50 MG TABLET PO ×2 (07:23→18:22)
[2023-11-09 08:05] VITALS: BP 116/77; PULSE 110; RESP 18; TEMP 36.4; O2SAT 96
[2023-11-09] MEDS: Propranolol HCL 20 MG TABLET PO (08:36)
[2023-11-09] MEDS: Thiamine HCL 100 MG TABLET PO (08:37)
[2023-11-09] MEDS: Lidocaine 4 % Patch ADH..PATCH 1 PATCH TRANSDERMA (08:37)
[2023-11-09] MEDS: Multivitamin TABLET 1 TAB PO (08:37)
[2023-11-09] MEDS: Gabapentin 400 MG CAPSULE PO ×3 (08:37→20:03)
[2023-11-09] MEDS: LORazepam 1 MG TABLET PO ×3 (08:37→20:04)
[2023-11-09] MEDS: ARIPiprazole 10 MG TABLET PO (08:37)
[2023-11-09] MEDS: Folic Acid 1 MG TABLET PO (08:37)
[2023-11-09] MEDS: Nicotine Polacrilex 2 MG GUM 4 MG BUCCAL ×4 (09:12→18:22)
--- NOTE | 2023-11-09 09:32 | P.PNPSI_ITS ---
Subjective Subjective Date of Service: 11/09/23 Reason For Visit: Depressed Interim History: met with patient; discussed with team Patient reports that some of her symptoms are indeed a little better. She is feeling depressed today however auditory hallucinations of voices are currently gone; she still has a buzzing sound but it is of lower volume. No nightmares last night either. She is reflecting and realizing that every afternoon she starts to feel more depressed but is not sure why; she will try to be more aware. Patient feels that alcohol withdrawal is also much less bothersome. Patient complains of constant heart burn agrees to restart famotidine which she was on in the past. Mental Status Exam Mental Status Exam Narrative: Pt is alert and oriented; behavior is cooperative, calm; dressed in casual attire, unkempt; mood is described as depressed and affect congruent, downcast; eye contact adequate; Speech is normal rate, volume and prosody and not pressured; no psychomotor retardation/agitation; thought process is organized and goal directed; Thought content is on feeling down, guilty; otherwise pertinent to relevant topics and without any delusional content, paranoid ideations or grandiosity; no SI/no HI; currently no AH. Patients insight and judgment impaired but improving. Diagnostics Vital Signs (24Hr): Vital Signs - 24 hr 11/08/23 18:00 11/09/23 08:05 Temperature 97.8 F 97.5 F Pulse Rate 86 110 H Respiratory Rate 16 18 Blood Pressure 94/51 L 116/77 Pulse Oximetry 92 96 Oxygen Delivery Method Room Air Room Air BMI result Body Mass Index 41.1 Labs 11/04/23 05:49 11/06/23 09:08 Imaging Radiology Impressions: ITS Impressions Chest X-Ray 11/04/23 06:24 IMPRESSION: No acute cardiopulmonary findings. Medications Medications Current Medications Acetaminophen (Acetaminophen 325 Mg Tablet) 650 mg PO Q6H PRN PRN Reason: Headache/Pain Mild Scale (1-3) Last Admin: 11/05/23 17:31 Dose: 650 mg Al Hydroxide/Mg Hydroxide (Magnesium Hydrox/Alum Hydrox 30 Ml Oral.Susp) 30 ml PO Q6H PRN PRN Reason: Heartburn/Nausea Last Admin: 11/07/23 11:56 Dose: 30 ml Aripiprazole (Aripiprazole 10 Mg Tablet) 10 mg PO DAILY RAVI Last Admin: 11/09/23 08:37 Dose: 10 mg Clonidine HCl (Clonidine Hcl 0.1 Mg Tablet) 0.1 mg PO Q4H PRN; Protocol PRN Reason: anxiety Last Admin: 11/07/23 16:23 Dose: 0.1 mg Folic Acid (Folic Acid 1 Mg Tablet) 1 mg PO DAILY [facility] Last Admin: 11/09/23 08:37 Dose: 1 mg Gabapentin (Gabapentin 400 Mg Capsule) 400 mg PO TID RAVI Last Admin: 11/09/23 08:37 Dose: 400 mg Hydroxyzine HCl (Hydroxyzine Hcl 50 Mg Tablet) 50 mg PO Q6H PRN PRN Reason: Anxiety Last Admin: 11/09/23 07:23 Dose: 50 mg Lamotrigine (Lamotrigine 25 Mg Tablet) 25 mg PO BEDTIME [facility] Last Admin: 11/08/23 20:35 Dose: 25 mg Lidocaine (Lidocaine 4 % Patch Adh..Patch) 1 patch TRANSDERMA DAILY [facility]; Protocol Last Admin: 11/09/23 08:37 Dose: 1 patch Lorazepam (Lorazepam 1 Mg Tablet) 1 mg PO Q2H PRN PRN Reason: CIWA 6-10 Last Admin: 11/08/23 06:48 Dose: 1 mg Lorazepam (Lorazepam 1 Mg Tablet) 2 mg PO Q2H PRN PRN Reason: CIWA 11 and above Last Admin: 11/07/23 11:56 Dose: 2 mg Lorazepam (Lorazepam 1 Mg Tablet) 1 mg PO TID [facility] Last Admin: 11/09/23 08:37 Dose: 1 mg Magnesium Hydroxide (Milk Of Magnesia 30 Ml Oral.Susp) 30 ml PO DAILY PRN PRN Reason: Constipation Multivitamins/Vitamin C (Multivitamin Tablet) 1 tab PO DAILY [facility] Last Admin: 11/09/23 08:37 Dose: 1 tab Naltrexone HCl (Naltrexone Hcl 50 Mg Tablet) 25 mg PO DAILY [facility] Nicotine (Nicotine 21 Mg Patch.Td24) 21 mg TRANSDERMA DAILY PRN PRN Reason: smoking cessation Nicotine Polacrilex (Nicotine Polacrilex 2 Mg Gum) 4 mg BUCCAL Q2H PRN PRN Reason: Nicotine Cravings Last Admin: 11/08/23 18:13 Dose: 4 mg Olanzapine (Olanzapine 5 Mg Tablet) 5 mg PO TID PRN PRN Reason: agitation Ondansetron HCl (Ondansetron Odt 4 Mg Tab.Rapdis) 4 mg TRANSLINGU Q6H PRN PRN Reason: Nausea and Vomiting Prazosin HCl (Prazosin Hcl 1 Mg Capsule) 2 mg PO BEDTIME RAVI; Protocol Last Admin: 11/08/23 20:35 Dose: 2 mg Propranolol HCl (Propranolol Hcl 20 Mg Tablet) 20 mg PO DAILY RAVI; Protocol Last Admin: 11/09/23 08:36 Dose: 20 mg Thiamine HCl (Thiamine Hcl 100 Mg Tablet) 100 mg PO DAILY RAVI Last Admin: 11/09/23 08:37 Dose: 100 mg Trazodone HCl (Trazodone Hcl 50 Mg Tablet) 50 mg PO BEDTIME MRX1 PRN PRN Reason: Insomnia Last Admin: 11/08/23 20:34 Dose: 50 mg Allergies Allergies Allergy/AdvReac Type Severity Reaction Status Date / Time levofloxacin [From LEVAQUIN] Allergy Intermediate RASH Verified 11/04/23 05:34 codeine [Codeine] Allergy Unknown NAUSEA AND Verified 11/04/23 05:34 VOMITING, sensitivity ibuprofen Allergy Unknown sensitivity Verified 11/04/23 05:34 morphine [Morphine] Allergy Unknown HEADACHE, Verified 11/04/23 05:34 vomiting, sensitivity naproxen [From NAPROSYN] Allergy Unknown HIVES, Verified 11/04/23 05:34 DIFFICULTY BREATHING. Sulfa (Sulfonamide Allergy Unknown unknown Verified 11/04/23 05:34 Antibiotics) Assessment & Plan Assessment & Plan (1) Schizoaffective disorder, depressive type: Status: Acute Code(s): F25.1 - Schizoaffective disorder, depressive type (2) PTSD (post-traumatic stress disorder): Status: Acute Code(s): F43.10 - Post-traumatic stress disorder, unspecified (3) Alcohol use disorder: Status: Acute Code(s): F10.90 - Alcohol use, unspecified, uncomplicated (4) Cocaine use disorder: Status: Acute Code(s): F14.10 - Cocaine abuse, uncomplicated Plan pt is a 43 yo female with hx of depression, AH, ptsd and alcohol/cocaine abuse who presents for worsening depression and AH in face of being off medications and substance abuse. Pt reports AH of noises and voices that say self- deprecating things and are present independent of mood/depressive episodes and even during sobriety; no paranoid delusions. Hx of trauma w/ ptsd. Pt drinks about 5+nips per day and sniffs cocaine daily for past several weeks; hx of alcohol w/drawal seizures. No clear hx of manic episodes. Some passive SI Impression: AH independepent of mood; describes a sort of-manic 3 day period but sounds more likely from dysregulation due to PTSD and substance abuse and she does not meet criteria for bipolar. hx of trauma with nightmares; currently w/drawing from etoh. Agrees to start on Abilify to help with both mood and AH (reviewed risks/side- effects) and she agrees to trial; wants to get back on Lamictal (also reviewed risks) HOSPITAL COURSE: 11/07 continues with AH; some paranoid thinking; agrees to increase Abilify since AH remain, Prazosin (for nightmares). Will schedule ativan taper since w/drawal complicating understanding of symptoms. Discussed substance abuse and says Vivitrol helped; would like to get on Naltrexone again 11/08 hopefully increase in Abilify will consistently keep auditory hallucinations down; currently voices are gone, buzzing remains but at a lower volume. Continue current Abilify dose to see if symptoms improve further. Plan: cv q15 Ativan 1mg TID; will taper and dc; continue CIWA with prn ativan Continue Gabapentin 400mg TID; will begin taper and then DC Continue Abilify 10mg for both depression and AH Continue Lamictal for ptsd, depression/anxiety (has been on before and thinks it helped) Continue Prazosin 2mg qhs; so far nightmares resolved a 2 mg start Naltrexone 25 mg for etoh cravings pt needs outpt providers/therapist Patient educated on: diagnosis, medication risk/benefits, substance abuse and therapeutic strategies Informed Consent: understands Reason for continued inpatient stay Substantial Risk for: rapid decompensation Time Spent With Patient Time: Total time managing care of this patient today ____ minutes.
[2023-11-09] MEDS: Acetaminophen 325 MG TABLET 650 MG PO ×2 (10:58→20:03)
[2023-11-09 10:59] VITALS: BP 121/82; PULSE 88
[2023-11-09] MEDS: cloNIDine HCL 0.1 MG TABLET PO ×2 (10:59→15:29)
[2023-11-09] MEDS: Magnesium Hydrox/Alum Hydrox 30 ML ORAL.SUSP PO (11:04)
[2023-11-09] MEDS: Famotidine 20 MG TABLET PO (15:24)
[2023-11-09 15:25] VITALS: BP 119/78; PULSE 97
[2023-11-09 20:00] VITALS: BP 100/78; PULSE 93; RESP 18; TEMP 36.7; O2SAT 97
[2023-11-09] MEDS: lamoTRIgine 25 MG TABLET PO (20:03)
[2023-11-09] MEDS: Prazosin HCL 1 MG CAPSULE 2 MG PO (20:03)
[2023-11-09] MEDS: traZODone HCL 50 MG TABLET PO (20:03)
[2023-11-10] MEDS: cloNIDine HCL 0.1 MG TABLET PO ×2 (06:51→13:00)
[2023-11-10 08:00] VITALS: BP 126/80; PULSE 98; RESP 18; TEMP 36.4; O2SAT 96
[2023-11-10 09:01] LABS: TSH reflex Free T4 1.39 uIU/mL (0.32-4.0)
[2023-11-10] MEDS: Thiamine HCL 100 MG TABLET PO (09:11)
[2023-11-10] MEDS: Naltrexone HCl 50 MG TABLET 25 MG PO (09:11)
[2023-11-10] MEDS: Multivitamin TABLET 1 TAB PO (09:11)
[2023-11-10] MEDS: Famotidine 20 MG TABLET PO (09:11)
[2023-11-10] MEDS: ARIPiprazole 10 MG TABLET PO (09:11)
[2023-11-10] MEDS: LORazepam 1 MG TABLET PO ×2 (09:11→21:47)
[2023-11-10] MEDS: Folic Acid 1 MG TABLET PO (09:11)
[2023-11-10] MEDS: Propranolol HCL 20 MG TABLET PO (09:12)
[2023-11-10] MEDS: Gabapentin 300 MG CAPSULE PO ×3 (09:16→21:47)
[2023-11-10] MEDS: Lidocaine 4 % Patch ADH..PATCH 1 PATCH TRANSDERMA (09:17)
[2023-11-10] MEDS: Nicotine Polacrilex 2 MG GUM 4 MG BUCCAL ×4 (09:20→22:09)
--- NOTE | 2023-11-10 10:15 | P.PNPSI_ITS ---
Subjective Subjective Date of Service: 11/10/23 Reason For Visit: Depressed Interim History: Met with patient; discussed with team Still feeling some depression but anxiety is better with p.r.n. clonidine. Also auditory hallucinations remain absent. Still some buzzing noise but again less. No withdrawal symptoms. Discussed medication management and whether not to increase Abilify to address continued buzzing sound. Patient is ambivalent and will consider. Mental Status Exam Mental Status Exam Narrative: Pt is alert and oriented; behavior is cooperative, calm; dressed in casual attire, unkempt; mood is described as a little depressed and affect congruent, downcast; eye contact adequate; Speech is normal rate, volume and prosody and not pressured; no psychomotor retardation/agitation; thought process is organized and goal directed; Thought content is on feeling down, guilty; otherwise pertinent to relevant topics and without any delusional content, paranoid ideations or grandiosity; no SI/no HI; currently no AH. Patients insight and judgment impaired but improving. Diagnostics Vital Signs (24Hr): Vital Signs - 24 hr 11/09/23 10:59 11/09/23 15:25 11/09/23 20:00 Temperature 98.0 F Pulse Rate 88 97 93 Respiratory Rate 18 Blood Pressure 121/82 119/78 100/78 Pulse Oximetry 97 Oxygen Delivery Method Room Air 11/10/23 08:00 Temperature 97.6 F Pulse Rate 98 Respiratory Rate 18 Blood Pressure 126/80 Pulse Oximetry 96 Oxygen Delivery Method Room Air BMI result Body Mass Index 41.1 Labs 11/04/23 05:49 11/06/23 09:08 Labs: Laboratory Results - last 48 hr 11/10/23 07:50 TSH 1.39 Imaging Radiology Impressions: ITS Impressions Chest X-Ray 11/04/23 06:24 IMPRESSION: No acute cardiopulmonary findings. Medications Medications Current Medications Acetaminophen (Acetaminophen 325 Mg Tablet) 650 mg PO Q6H PRN PRN Reason: Headache/Pain Mild Scale (1-3) Last Admin: 11/09/23 20:03 Dose: 650 mg Al Hydroxide/Mg Hydroxide (Magnesium Hydrox/Alum Hydrox 30 Ml Oral.Susp) 30 ml PO Q6H PRN PRN Reason: Heartburn/Nausea Last Admin: 11/09/23 11:04 Dose: 30 ml Aripiprazole (Aripiprazole 10 Mg Tablet) 10 mg PO DAILY [facility] Last Admin: 11/10/23 09:11 Dose: 10 mg Clonidine HCl (Clonidine Hcl 0.1 Mg Tablet) 0.1 mg PO Q4H PRN; Protocol PRN Reason: anxiety Last Admin: 11/10/23 06:51 Dose: 0.1 mg Famotidine (Famotidine 20 Mg Tablet) 20 mg PO DAILY [facility] Last Admin: 11/10/23 09:11 Dose: 20 mg Folic Acid (Folic Acid 1 Mg Tablet) 1 mg PO DAILY [facility] Last Admin: 11/10/23 09:11 Dose: 1 mg Gabapentin (Gabapentin 300 Mg Capsule) 300 mg PO TID [facility] Last Admin: 11/10/23 09:16 Dose: 300 mg Hydroxyzine HCl (Hydroxyzine Hcl 50 Mg Tablet) 50 mg PO Q6H PRN PRN Reason: Anxiety Last Admin: 11/09/23 18:22 Dose: 50 mg Lamotrigine (Lamotrigine 25 Mg Tablet) 25 mg PO BEDTIME [facility] Last Admin: 11/09/23 20:03 Dose: 25 mg Lidocaine (Lidocaine 4 % Patch Adh..Patch) 1 patch TRANSDERMA DAILY [facility]; Protocol Last Admin: 11/10/23 09:17 Dose: 1 patch Lorazepam (Lorazepam 1 Mg Tablet) 1 mg PO Q2H PRN PRN Reason: CIWA 6-10 Last Admin: 11/08/23 06:48 Dose: 1 mg Lorazepam (Lorazepam 1 Mg Tablet) 2 mg PO Q2H PRN PRN Reason: CIWA 11 and above Last Admin: 11/07/23 11:56 Dose: 2 mg Lorazepam (Lorazepam 1 Mg Tablet) 1 mg PO BID [facility] Last Admin: 11/10/23 09:11 Dose: 1 mg Magnesium Hydroxide (Milk Of Magnesia 30 Ml Oral.Susp) 30 ml PO DAILY PRN PRN Reason: Constipation Multivitamins/Vitamin C (Multivitamin Tablet) 1 tab PO DAILY [facility] Last Admin: 11/10/23 09:11 Dose: 1 tab Naltrexone HCl (Naltrexone Hcl 50 Mg Tablet) 25 mg PO DAILY [facility] Last Admin: 11/10/23 09:11 Dose: 25 mg Nicotine (Nicotine 21 Mg Patch.Td24) 21 mg TRANSDERMA DAILY PRN PRN Reason: smoking cessation Nicotine Polacrilex (Nicotine Polacrilex 2 Mg Gum) 4 mg BUCCAL Q2H PRN PRN Reason: Nicotine Cravings Last Admin: 11/10/23 09:20 Dose: 4 mg Olanzapine (Olanzapine 5 Mg Tablet) 5 mg PO TID PRN PRN Reason: agitation Ondansetron HCl (Ondansetron Odt 4 Mg Tab.Rapdis) 4 mg TRANSLINGU Q6H PRN PRN Reason: Nausea and Vomiting Prazosin HCl (Prazosin Hcl 1 Mg Capsule) 2 mg PO BEDTIME [facility]; Protocol Last Admin: 11/09/23 20:03 Dose: 2 mg Propranolol HCl (Propranolol Hcl 20 Mg Tablet) 20 mg PO DAILY [facility]; Protocol Last Admin: 11/10/23 09:12 Dose: 20 mg Thiamine HCl (Thiamine Hcl 100 Mg Tablet) 100 mg PO DAILY [facility]I Last Admin: 11/10/23 09:11 Dose: 100 mg Trazodone HCl (Trazodone Hcl 50 Mg Tablet) 50 mg PO BEDTIME MRX1 PRN PRN Reason: Insomnia Last Admin: 11/09/23 20:03 Dose: 50 mg Allergies Allergies Allergy/AdvReac Type Severity Reaction Status Date / Time levofloxacin [From LEVAQUIN] Allergy Intermediate RASH Verified 11/04/23 05:34 codeine [Codeine] Allergy Unknown NAUSEA AND Verified 11/04/23 05:34 VOMITING, sensitivity ibuprofen Allergy Unknown sensitivity Verified 11/04/23 05:34 morphine [Morphine] Allergy Unknown HEADACHE, Verified 11/04/23 05:34 vomiting, sensitivity naproxen [From NAPROSYN] Allergy Unknown HIVES, Verified 11/04/23 05:34 DIFFICULTY BREATHING. Sulfa (Sulfonamide Allergy Unknown unknown Verified 11/04/23 05:34 Antibiotics) Assessment & Plan Assessment & Plan (1) Schizoaffective disorder, depressive type: Status: Acute Code(s): F25.1 - Schizoaffective disorder, depressive type (2) PTSD (post-traumatic stress disorder): Status: Acute Code(s): F43.10 - Post-traumatic stress disorder, unspecified (3) Alcohol use disorder: Status: Acute Code(s): F10.90 - Alcohol use, unspecified, uncomplicated (4) Cocaine use disorder: Status: Acute Code(s): F14.10 - Cocaine abuse, uncomplicated Plan pt is a 43 yo female with hx of depression, AH, ptsd and alcohol/cocaine abuse who presents for worsening depression and AH in face of being off medications and substance abuse. Pt reports AH of noises and voices that say self- deprecating things and are present independent of mood/depressive episodes and even during sobriety; no paranoid delusions. Hx of trauma w/ ptsd. Pt drinks about 5+nips per day and sniffs cocaine daily for past several weeks; hx of alcohol w/drawal seizures. No clear hx of manic episodes. Some passive SI Impression: AH independepent of mood; describes a sort of-manic 3 day period but sounds more likely from dysregulation due to PTSD and substance abuse and she does not meet criteria for bipolar. hx of trauma with nightmares; currently w/drawing from etoh. Agrees to start on Abilify to help with both mood and AH (reviewed risks/side- effects) and she agrees to trial; wants to get back on Lamictal (also reviewed risks) HOSPITAL COURSE: 11/07 continues with AH; some paranoid thinking; agrees to increase Abilify since AH remain, Prazosin (for nightmares). Will schedule ativan taper since w/drawal complicating understanding of symptoms. Discussed substance abuse and says Vivitrol helped; would like to get on Naltrexone again 11/08 hopefully increase in Abilify will consistently keep auditory hallucinations down; currently voices are gone, buzzing remains but at a lower volume. Continue current Abilify dose to see if symptoms improve further. 11/09 patient remains engaged in treatment, attending groups. AH of voices remain resolved; still buzzing sound but less intensely. Will keep Abilify 10 mg for now but will consider increasing. Patient would like to get into a program for substance abuse treatment Plan: cv q15 Lowered to Ativan 1mg b.i.d.; will continue to taper and dc; discontinue CIWA Lowered to Gabapentin 300 mg TID; will continue to taper and then DC Continue Abilify 10mg for both depression and AH Continue Lamictal 25 mg q.h.s. for ptsd, depression/anxiety (has been on before and thinks it helped) Continue Prazosin 2mg qhs; so far nightmares resolved a 2 mg start Naltrexone 25 mg for etoh cravings pt needs outpt providers/therapist Patient educated on: diagnosis and medication risk/benefits Informed Consent: understands Reason for continued inpatient stay Substantial Risk for: rapid decompensation Time Spent With Patient Time: Total time managing care of this patient today ____ minutes.
[2023-11-10 17:45] VITALS: BP 124/84; PULSE 79; RESP 18; TEMP 36.2; O2SAT 99
[2023-11-10] MEDS: Ondansetron ODT 4 MG TAB.RAPDIS TRANSLINGU (18:30)
[2023-11-10] MEDS: OLANZapine 5 MG TABLET PO (18:30)
[2023-11-10] MEDS: Acetaminophen 325 MG TABLET 650 MG PO (18:30)
[2023-11-10] MEDS: lamoTRIgine 25 MG TABLET PO (21:47)
[2023-11-10] MEDS: Prazosin HCL 1 MG CAPSULE 2 MG PO (21:48)
[2023-11-10] MEDS: traZODone HCL 50 MG TABLET PO (21:48)
[2023-11-11] MEDS: hydrOXYzine HCL 50 MG TABLET PO (05:12)
[2023-11-11] MEDS: cloNIDine HCL 0.1 MG TABLET PO ×2 (05:12→13:36)
[2023-11-11] MEDS: Acetaminophen 325 MG TABLET 650 MG PO ×2 (05:13→12:10)
[2023-11-11] MEDS: Nicotine Polacrilex 2 MG GUM 4 MG BUCCAL ×4 (05:14→20:55)
[2023-11-11 08:09] VITALS: BP 102/59; PULSE 84; RESP 18; TEMP 36.3; O2SAT 94
[2023-11-11] MEDS: Naltrexone HCl 50 MG TABLET 25 MG PO (08:49)
[2023-11-11] MEDS: Gabapentin 300 MG CAPSULE PO ×2 (08:57→14:37)
[2023-11-11] MEDS: Folic Acid 1 MG TABLET PO (08:57)
[2023-11-11] MEDS: LORazepam 1 MG TABLET PO ×2 (08:57→20:25)
[2023-11-11] MEDS: ARIPiprazole 10 MG TABLET PO (08:58)
[2023-11-11] MEDS: Multivitamin TABLET 1 TAB PO (08:58)
[2023-11-11] MEDS: Propranolol HCL 20 MG TABLET PO (08:58)
[2023-11-11] MEDS: Thiamine HCL 100 MG TABLET PO (08:58)
[2023-11-11] MEDS: Famotidine 20 MG TABLET PO (08:58)
[2023-11-11] MEDS: Lidocaine 4 % Patch ADH..PATCH 1 PATCH TRANSDERMA (08:59)
--- NOTE | 2023-11-11 10:59 | HO.PSYCHPN ---
Subjective Subjective Date of Service: 11/11/23 Reason For Visit: Depressed Interim History: met with patient; discussed with team still quite emotional, prone to self-deprecating self talk no AH; intermittent buzzing sounds much less and seems to coincide with moments of high emotionality. discussed meds and agrees to leave Abilify at current dose. Using Zyprexa Prn for afternoon; discussed increased risk of 2 antipsychotics; will continue for now since helping and since lamictal will take a while to become therapeutic. reports right calf sudden onset swelling, painful exam shows swelling, tender to palpation no hx dvt/clotting/PE -will get doppler will dc gabapentin in case that's the cause of swelling Mental Status Exam Mental Status Exam Narrative: Pt is alert and oriented; behavior is cooperative, calm; dressed in casual attire, unkempt; mood is described as ok and affect congruent; eye contact adequate; Speech is normal rate, volume and prosody and not pressured; no psychomotor retardation/agitation; thought process is organized and goal directed; Thought content is on treatment; intermittent self-deprecating thoughts; otherwise pertinent to relevant topics and without any delusional content, paranoid ideations or grandiosity; no SI/no HI; currently no AH. Patients insight and judgment fair. Diagnostics Vital Signs (24Hr): Vital Signs - 24 hr 11/10/23 17:45 11/11/23 08:09 Temperature 97.2 F 97.3 F Pulse Rate 79 84 Respiratory Rate 18 18 Blood Pressure 124/84 102/59 L Pulse Oximetry 99 94 Oxygen Delivery Method Room Air Room Air BMI result Body Mass Index 41.1 Labs 11/04/23 05:49 11/06/23 09:08 Labs: Laboratory Results - last 48 hr 11/10/23 07:50 TSH 1.39 Imaging Radiology Impressions: ITS Impressions Chest X-Ray 11/04/23 06:24 IMPRESSION: No acute cardiopulmonary findings. Medications Medications Current Medications Acetaminophen (Acetaminophen 325 Mg Tablet) 650 mg PO Q6H PRN PRN Reason: Headache/Pain Mild Scale (1-3) Last Admin: 11/11/23 05:13 Dose: 650 mg Al Hydroxide/Mg Hydroxide (Magnesium Hydrox/Alum Hydrox 30 Ml Oral.Susp) 30 ml PO Q6H PRN PRN Reason: Heartburn/Nausea Last Admin: 11/09/23 11:04 Dose: 30 ml Aripiprazole (Aripiprazole 10 Mg Tablet) 10 mg PO DAILY [facility] Last Admin: 11/11/23 08:58 Dose: 10 mg Clonidine HCl (Clonidine Hcl 0.1 Mg Tablet) 0.1 mg PO Q4H PRN; Protocol PRN Reason: anxiety Last Admin: 11/11/23 05:12 Dose: 0.1 mg Famotidine (Famotidine 20 Mg Tablet) 20 mg PO DAILY [facility] Last Admin: 11/11/23 08:58 Dose: 20 mg Folic Acid (Folic Acid 1 Mg Tablet) 1 mg PO DAILY [facility] Last Admin: 11/11/23 08:57 Dose: 1 mg Gabapentin (Gabapentin 300 Mg Capsule) 300 mg PO TID [facility] Stop: 11/11/23 15:00 Last Admin: 11/11/23 08:57 Dose: 300 mg Gabapentin (Gabapentin 300 Mg Capsule) 300 mg PO BID [facility] Hydroxyzine HCl (Hydroxyzine Hcl 50 Mg Tablet) 50 mg PO Q6H PRN PRN Reason: Anxiety Last Admin: 11/11/23 05:12 Dose: 50 mg Lamotrigine (Lamotrigine 25 Mg Tablet) 25 mg PO BEDTIME [facility] Last Admin: 11/10/23 21:47 Dose: 25 mg Lidocaine (Lidocaine 4 % Patch Adh..Patch) 1 patch TRANSDERMA DAILY [facility]; Protocol Last Admin: 11/11/23 08:59 Dose: 1 patch Lorazepam (Lorazepam 1 Mg Tablet) 1 mg PO BID [facility] Stop: 11/11/23 21:00 Last Admin: 11/11/23 08:57 Dose: 1 mg Lorazepam (Lorazepam 1 Mg Tablet) 1 mg PO DAILY [facility] Magnesium Hydroxide (Milk Of Magnesia 30 Ml Oral.Susp) 30 ml PO DAILY PRN PRN Reason: Constipation Multivitamins/Vitamin C (Multivitamin Tablet) 1 tab PO DAILY [facility] Last Admin: 11/11/23 08:58 Dose: 1 tab Naltrexone HCl (Naltrexone Hcl 50 Mg Tablet) 25 mg PO DAILY [facility] Last Admin: 11/11/23 08:49 Dose: 25 mg Nicotine (Nicotine 21 Mg Patch.Td24) 21 mg TRANSDERMA DAILY PRN PRN Reason: smoking cessation Nicotine Polacrilex (Nicotine Polacrilex 2 Mg Gum) 4 mg BUCCAL Q2H PRN PRN Reason: Nicotine Cravings Last Admin: 11/11/23 08:53 Dose: 4 mg Olanzapine (Olanzapine 5 Mg Tablet) 5 mg PO TID PRN PRN Reason: agitation Last Admin: 11/10/23 18:30 Dose: 5 mg Ondansetron HCl (Ondansetron Odt 4 Mg Tab.Rapdis) 4 mg TRANSLINGU Q6H PRN PRN Reason: Nausea and Vomiting Last Admin: 11/10/23 18:30 Dose: 4 mg Prazosin HCl (Prazosin Hcl 1 Mg Capsule) 2 mg PO BEDTIME [facility]; Protocol Last Admin: 11/10/23 21:48 Dose: 2 mg Propranolol HCl (Propranolol Hcl 20 Mg Tablet) 20 mg PO DAILY [facility]; Protocol Last Admin: 11/11/23 08:58 Dose: 20 mg Thiamine HCl (Thiamine Hcl 100 Mg Tablet) 100 mg PO DAILY [facility] Last Admin: 11/11/23 08:58 Dose: 100 mg Trazodone HCl (Trazodone Hcl 50 Mg Tablet) 50 mg PO BEDTIME MRX1 PRN PRN Reason: Insomnia Last Admin: 11/10/23 21:48 Dose: 50 mg Allergies Allergies Allergy/AdvReac Type Severity Reaction Status Date / Time levofloxacin [From LEVAQUIN] Allergy Intermediate RASH Verified 11/04/23 05:34 codeine [Codeine] Allergy Unknown NAUSEA AND Verified 11/04/23 05:34 VOMITING, sensitivity ibuprofen Allergy Unknown sensitivity Verified 11/04/23 05:34 morphine [Morphine] Allergy Unknown HEADACHE, Verified 11/04/23 05:34 vomiting, sensitivity naproxen [From NAPROSYN] Allergy Unknown HIVES, Verified 11/04/23 05:34 DIFFICULTY BREATHING. Sulfa (Sulfonamide Allergy Unknown unknown Verified 11/04/23 05:34 Antibiotics) Assessment & Plan Assessment & Plan (1) Schizoaffective disorder, depressive type: Status: Acute Code(s): F25.1 - Schizoaffective disorder, depressive type (2) PTSD (post-traumatic stress disorder): Status: Acute Code(s): F43.10 - Post-traumatic stress disorder, unspecified (3) Alcohol use disorder: Status: Acute Code(s): F10.90 - Alcohol use, unspecified, uncomplicated (4) Cocaine use disorder: Status: Acute Code(s): F14.10 - Cocaine abuse, uncomplicated Plan pt is a 43 yo female with hx of depression, AH, ptsd and alcohol/cocaine abuse who presents for worsening depression and AH in face of being off medications and substance abuse. Pt reports AH of noises and voices that say self-deprecating things and are present independent of mood/depressive episodes and even during sobriety; no paranoid delusions. Hx of trauma w/ ptsd. Pt drinks about 5+nips per day and sniffs cocaine daily for past several weeks; hx of alcohol w/drawal seizures. No clear hx of manic episodes. Some passive SI Impression: AH independepent of mood; describes a sort of-manic 3 day period but sounds more likely from dysregulation due to PTSD and substance abuse and she does not meet criteria for bipolar. hx of trauma with nightmares; currently w/drawing from etoh. Agrees to start on Abilify to help with both mood and AH (reviewed risks/side-effects) and she agrees to trial; wants to get back on Lamictal (also reviewed risks) HOSPITAL COURSE: 11/07 continues with AH; some paranoid thinking; agrees to increase Abilify since AH remain, Prazosin (for nightmares). Will schedule ativan taper since w/drawal complicating understanding of symptoms. Discussed substance abuse and says Vivitrol helped; would like to get on Naltrexone again 11/08 hopefully increase in Abilify will consistently keep auditory hallucinations down; currently voices are gone, buzzing remains but at a lower volume. Continue current Abilify dose to see if symptoms improve further. 11/09 patient remains engaged in treatment, attending groups. AH of voices remain resolved; still buzzing sound but less intensely. Will keep Abilify 10 mg for now but will consider increasing. Patient would like to get into a program for substance abuse treatment 11/10 still quite emotional, prone to self-deprecating self talk no AH; intermittent buzzing sounds much less and seems to coincide with moments of high emotionality. discussed meds and agrees to leave Abilify at current dose. Using Zyprexa Prn for afternoon; discussed increased risk of 2 antipsychotics; will continue for now since helping and since lamictal will take a while to become therapeutic. reports right calf sudden onset swelling, painful exam shows swelling, tender to palpation no hx dvt/clotting/PE -will get doppler as pt has risk factors will dc gabapentin in case that's the cause of swelling Doppler right calf: IMPRESSION: No DVT demonstrated in the right lower extremity. Plan: cv q15 taper off Ativan 1mg b.i.d. DC Gabapentin; possible cause of rt calf swelling Continue Abilify 10mg for both depression and AH Continue Lamictal 25 mg q.h.s. for ptsd, depression/anxiety (has been on before and thinks it helped) Continue Prazosin 2mg qhs; so far nightmares resolved a 2 mg start Naltrexone 25 mg for etoh cravings pt needs outpt providers/therapist Patient educated on: diagnosis, medication risk/benefits, substance abuse and medical condition Informed Consent: understands Reason for continued inpatient stay Substantial Risk for: rapid decompensation Time Spent With Patient Time: Total time managing care of this patient today ____ minutes.
[2023-11-11] MEDS: OLANZapine 5 MG TABLET PO ×2 (11:03→16:47)
[2023-11-11 13:36] VITALS: BP 124/78; PULSE 86
[2023-11-11] MEDS: Magnesium Hydrox/Alum Hydrox 30 ML ORAL.SUSP PO (13:36)
[2023-11-11 17:23] VITALS: BP 134/58; PULSE 64; RESP 16; TEMP 36.1; O2SAT 97
[2023-11-11] MEDS: lamoTRIgine 25 MG TABLET PO (20:25)
[2023-11-11] MEDS: traZODone HCL 100 MG TABLET PO (20:25)
[2023-11-11] MEDS: Prazosin HCL 1 MG CAPSULE 2 MG PO (20:25)
[2023-11-12] MEDS: hydrOXYzine HCL 50 MG TABLET PO ×2 (02:46→12:46)
[2023-11-12] MEDS: traZODone HCL 100 MG TABLET PO ×3 (02:46→23:16)
[2023-11-12] MEDS: Acetaminophen 325 MG TABLET 650 MG PO (06:40)
[2023-11-12] MEDS: OLANZapine 5 MG TABLET PO ×3 (06:41→17:28)
[2023-11-12 07:50] VITALS: BP 135/76; PULSE 90; RESP 18; TEMP 36.4; O2SAT 96
[2023-11-12] MEDS: Folic Acid 1 MG TABLET PO (08:10)
[2023-11-12] MEDS: Propranolol HCL 20 MG TABLET PO (08:10)
[2023-11-12] MEDS: Naltrexone HCl 50 MG TABLET 25 MG PO (08:10)
[2023-11-12] MEDS: LORazepam 1 MG TABLET PO (08:10)
[2023-11-12] MEDS: ARIPiprazole 10 MG TABLET PO (08:10)
[2023-11-12] MEDS: Thiamine HCL 100 MG TABLET PO (08:10)
[2023-11-12] MEDS: Multivitamin TABLET 1 TAB PO (08:10)
[2023-11-12] MEDS: Famotidine 20 MG TABLET PO (08:11)
[2023-11-12] MEDS: Lidocaine 4 % Patch ADH..PATCH 1 PATCH TRANSDERMA (08:14)
[2023-11-12] MEDS: Nicotine Polacrilex 2 MG GUM 4 MG BUCCAL ×5 (08:15→21:22)
[2023-11-12 09:19] LABS: Alanine Aminotransferase 43 U/L (0-31); Albumin Level 4.1 g/dL (3.5-5.0); Alkaline Phosphatase 75 U/L (39-117); Aspartate Amino Transferase 26 U/L (5-31); Bilirubin Direct 0.1 mg/dL (0.0-0.5); Bilirubin Total 0.3 mg/dL (0.0-1.0); Total Protein 6.6 g/dL (6.5-8.0)
--- NOTE | 2023-11-12 09:26 | P.PNPSI_ITS ---
Subjective Subjective Date of Service: 11/12/23 Reason For Visit: Depressed Interim History: met with patient; discussed with team no AH buzzing less and still mostly just with emotion prn Zyprexa helping and with it, feels calmer; discussed antipsychotic and patient ambivalent about whether to just use Zyprexa or to stay on Abilify also, which she thinks is helping with depression and resolved AH; will keep med regimen as it is for now. However still trouble sleeping and she thinks it is due to nightmares; blood pressure WNL so will increase prazosin Discussed acuity which patient finds triggering but continues to use coping skills, talking w/ peers and staff; going to groups talked about childhood trauma and how this may be origin of self-deprecating thoughts now in adulthood. Mental Status Exam Mental Status Exam Narrative: Pt is alert and oriented; behavior is cooperative, calm; dressed in casual attire, unkempt; mood is described as ok and affect congruent; eye contact adequate; Speech is normal rate, volume and prosody and not pressured; no psychomotor retardation/agitation; thought process is organized and goal directed; Thought content is on treatment; intermittent self-deprecating thoughts; otherwise pertinent to relevant topics and without any delusional content, paranoid ideations or grandiosity; no SI/no HI; currently no AH. Patients insight and judgment fair. Diagnostics Vital Signs (24Hr): Vital Signs - 24 hr 11/11/23 13:36 11/11/23 17:23 11/12/23 07:50 Temperature 97.0 F 97.5 F Pulse Rate 86 64 90 Respiratory Rate 16 18 Blood Pressure 124/78 134/58 L 135/76 Pulse Oximetry 97 96 Oxygen Delivery Method Room Air Room Air BMI result Body Mass Index 41.1 Labs 11/04/23 05:49 11/06/23 09:08 Labs: Laboratory Results - last 48 hr 11/10/23 11/12/23 07:50 08:51 Total Bilirubin 0.3 Direct Bilirubin 0.1 AST 26 ALT 43 H Alkaline Phosphatase 75 Total Protein 6.6 Albumin 4.1 TSH 1.39 Imaging Radiology Impressions: ITS Impressions Chest X-Ray 11/04/23 06:24 IMPRESSION: No acute cardiopulmonary findings. Venous Duplex 11/11/23 14:14 IMPRESSION: No DVT demonstrated in the right lower extremity. Medications Medications Current Medications Acetaminophen (Acetaminophen 325 Mg Tablet) 650 mg PO Q6H PRN PRN Reason: Headache/Pain Mild Scale (1-3) Last Admin: 11/12/23 06:40 Dose: 650 mg Al Hydroxide/Mg Hydroxide (Magnesium Hydrox/Alum Hydrox 30 Ml Oral.Susp) 30 ml PO Q6H PRN PRN Reason: Heartburn/Nausea Last Admin: 11/11/23 13:36 Dose: 30 ml Aripiprazole (Aripiprazole 10 Mg Tablet) 10 mg PO DAILY [facility] Last Admin: 11/12/23 08:10 Dose: 10 mg Clonidine HCl (Clonidine Hcl 0.1 Mg Tablet) 0.1 mg PO Q4H PRN; Protocol PRN Reason: anxiety Last Admin: 11/11/23 13:36 Dose: 0.1 mg Famotidine (Famotidine 20 Mg Tablet) 20 mg PO DAILY [facility] Last Admin: 11/12/23 08:11 Dose: 20 mg Folic Acid (Folic Acid 1 Mg Tablet) 1 mg PO DAILY [facility] Last Admin: 11/12/23 08:10 Dose: 1 mg Hydroxyzine HCl (Hydroxyzine Hcl 50 Mg Tablet) 50 mg PO Q6H PRN PRN Reason: Anxiety Last Admin: 11/12/23 02:46 Dose: 50 mg Lamotrigine (Lamotrigine 25 Mg Tablet) 25 mg PO BEDTIME [facility] Last Admin: 11/11/23 20:25 Dose: 25 mg Lidocaine (Lidocaine 4 % Patch Adh..Patch) 1 patch TRANSDERMA DAILY [facility]; Protocol Last Admin: 11/12/23 08:14 Dose: 1 patch Lorazepam (Lorazepam 1 Mg Tablet) 1 mg PO DAILY [facility] Last Admin: 11/12/23 08:10 Dose: 1 mg Magnesium Hydroxide (Milk Of Magnesia 30 Ml Oral.Susp) 30 ml PO DAILY PRN PRN Reason: Constipation Multivitamins/Vitamin C (Multivitamin Tablet) 1 tab PO DAILY [facility] Last Admin: 11/12/23 08:10 Dose: 1 tab Naltrexone HCl (Naltrexone Hcl 50 Mg Tablet) 25 mg PO DAILY [facility] Last Admin: 11/12/23 08:10 Dose: 25 mg Nicotine (Nicotine 21 Mg Patch.Td24) 21 mg TRANSDERMA DAILY PRN PRN Reason: smoking cessation Nicotine Polacrilex (Nicotine Polacrilex 2 Mg Gum) 4 mg BUCCAL Q2H PRN PRN Reason: Nicotine Cravings Last Admin: 11/12/23 08:15 Dose: 4 mg Olanzapine (Olanzapine 5 Mg Tablet) 5 mg PO TID PRN PRN Reason: agitation Last Admin: 11/12/23 06:41 Dose: 5 mg Ondansetron HCl (Ondansetron Odt 4 Mg Tab.Rapdis) 4 mg TRANSLINGU Q6H PRN PRN Reason: Nausea and Vomiting Last Admin: 11/10/23 18:30 Dose: 4 mg Prazosin HCl (Prazosin Hcl 1 Mg Capsule) 2 mg PO BEDTIME [facility]; Protocol Last Admin: 11/11/23 20:25 Dose: 2 mg Propranolol HCl (Propranolol Hcl 20 Mg Tablet) 20 mg PO DAILY [facility]; Protocol Last Admin: 11/12/23 08:10 Dose: 20 mg Thiamine HCl (Thiamine Hcl 100 Mg Tablet) 100 mg PO DAILY [facility] Last Admin: 11/12/23 08:10 Dose: 100 mg Trazodone HCl (Trazodone Hcl 100 Mg Tablet) 100 mg PO BEDTIME MRX1 PRN PRN Reason: Insomnia Last Admin: 11/12/23 02:46 Dose: 100 mg Allergies Allergies Allergy/AdvReac Type Severity Reaction Status Date / Time levofloxacin [From LEVAQUIN] Allergy Intermediate RASH Verified 11/04/23 05:34 codeine [Codeine] Allergy Unknown NAUSEA AND Verified 11/04/23 05:34 VOMITING, sensitivity ibuprofen Allergy Unknown sensitivity Verified 11/04/23 05:34 morphine [Morphine] Allergy Unknown HEADACHE, Verified 11/04/23 05:34 vomiting, sensitivity naproxen [From NAPROSYN] Allergy Unknown HIVES, Verified 11/04/23 05:34 DIFFICULTY BREATHING. Sulfa (Sulfonamide Allergy Unknown unknown Verified 11/04/23 05:34 Antibiotics) Assessment & Plan Assessment & Plan (1) Schizoaffective disorder, depressive type: Status: Acute Code(s): F25.1 - Schizoaffective disorder, depressive type (2) PTSD (post-traumatic stress disorder): Status: Acute Code(s): F43.10 - Post-traumatic stress disorder, unspecified (3) Alcohol use disorder: Status: Acute Code(s): F10.90 - Alcohol use, unspecified, uncomplicated (4) Cocaine use disorder: Status: Acute Code(s): F14.10 - Cocaine abuse, uncomplicated Plan pt is a 43 yo female with hx of depression, AH, ptsd and alcohol/cocaine abuse who presents for worsening depression and AH in face of being off medications and substance abuse. Pt reports AH of noises and voices that say self- deprecating things and are present independent of mood/depressive episodes and even during sobriety; no paranoid delusions. Hx of trauma w/ ptsd. Pt drinks about 5+nips per day and sniffs cocaine daily for past several weeks; hx of alcohol w/drawal seizures. No clear hx of manic episodes. Some passive SI Impression: AH independepent of mood; describes a sort of-manic 3 day period but sounds more likely from dysregulation due to PTSD and substance abuse and she does not meet criteria for bipolar. hx of trauma with nightmares; currently w/drawing from etoh. Agrees to start on Abilify to help with both mood and AH (reviewed risks/side- effects) and she agrees to trial; wants to get back on Lamictal (also reviewed risks) HOSPITAL COURSE: 11/07 continues with AH; some paranoid thinking; agrees to increase Abilify since AH remain, Prazosin (for nightmares). Will schedule ativan taper since w/drawal complicating understanding of symptoms. Discussed substance abuse and says Vivitrol helped; would like to get on Naltrexone again 11/08 hopefully increase in Abilify will consistently keep auditory hallucinations down; currently voices are gone, buzzing remains but at a lower volume. Continue current Abilify dose to see if symptoms improve further. 11/09 patient remains engaged in treatment, attending groups. AH of voices remain resolved; still buzzing sound but less intensely. Will keep Abilify 10 mg for now but will consider increasing. Patient would like to get into a program for substance abuse treatment 11/10 still quite emotional, prone to self-deprecating self talk no AH; intermittent buzzing sounds much less and seems to coincide with moments of high emotionality. discussed meds and agrees to leave Abilify at current dose. Using Zyprexa Prn for afternoon; discussed increased risk of 2 antipsychotics; will continue for now since helping and since lamictal will take a while to become therapeutic. reports right calf sudden onset swelling, painful exam shows swelling, tender to palpation no hx dvt/clotting/PE -will get doppler as pt has risk factors will dc gabapentin in case that's the cause of swelling Doppler right calf: IMPRESSION: No DVT demonstrated in the right lower extremity. 11/11 patient remains in good behavioral and impulse control; engaged in treatment, going to groups and forthcoming in 1 on 1 sessions; understanding better how childhood trauma is playing out in her adult life and how it is triggering automatic self-deprecating thoughts. Patient hoping for substance abuse program Plan: cv q15 taper off Ativan 1mg b.i.d. DC Gabapentin; possible cause of rt calf swelling Continue Abilify 10mg for both depression and AH Continue Lamictal 25 mg q.h.s. for ptsd, depression/anxiety (has been on before and thinks it helped) Increase to Prazosin 3mg qhs; so far nightmares resolved a 2 mg start Naltrexone 25 mg for etoh cravings pt needs outpt providers/therapist Patient educated on: diagnosis, medication risk/benefits, substance abuse and therapeutic strategies Informed Consent: understands Reason for continued inpatient stay Substantial Risk for: stable for discharge Time Spent With Patient Time: Total time managing care of this patient today ____ minutes.
[2023-11-12] MEDS: Milk of Magnesia 30 ML ORAL.SUSP PO (10:56)
[2023-11-12] MEDS: cloNIDine HCL 0.1 MG TABLET PO (10:56)
[2023-11-12 10:59] VITALS: BP 130/62; PULSE 77
[2023-11-12] MEDS: Ondansetron ODT 4 MG TAB.RAPDIS TRANSLINGU (18:04)
[2023-11-12 20:00] VITALS: BP 119/75; PULSE 77; RESP 18; TEMP 36.3; O2SAT 94
[2023-11-12] MEDS: lamoTRIgine 25 MG TABLET PO (20:29)
[2023-11-12] MEDS: Prazosin HCL 1 MG CAPSULE 3 MG PO (20:29)
[2023-11-13 06:00] VITALS: BP 139/65; PULSE 94; RESP 18; TEMP 36.5; O2SAT 96
[2023-11-13] MEDS: OLANZapine 5 MG TABLET PO ×3 (06:03→21:02)
[2023-11-13] MEDS: hydrOXYzine HCL 50 MG TABLET PO ×3 (06:03→18:40)
[2023-11-13] MEDS: Famotidine 20 MG TABLET PO (08:15)
[2023-11-13] MEDS: LORazepam 1 MG TABLET PO (08:15)
[2023-11-13] MEDS: ARIPiprazole 10 MG TABLET PO (08:15)
[2023-11-13] MEDS: Naltrexone HCl 50 MG TABLET 25 MG PO (08:15)
[2023-11-13] MEDS: Folic Acid 1 MG TABLET PO (08:15)
[2023-11-13] MEDS: Nicotine Polacrilex 2 MG GUM 4 MG BUCCAL ×4 (08:15→16:52)
[2023-11-13] MEDS: Thiamine HCL 100 MG TABLET PO (08:15)
[2023-11-13] MEDS: Propranolol HCL 20 MG TABLET PO (08:15)
[2023-11-13] MEDS: Multivitamin TABLET 1 TAB PO (08:15)
[2023-11-13] MEDS: Lidocaine 4 % Patch ADH..PATCH 1 PATCH TRANSDERMA (08:16)
--- NOTE | 2023-11-13 09:27 | P.PNPSI_ITS ---
Subjective Subjective Date of Service: 11/13/23 Reason For Visit: Depressed Interim History: met with patient; discussed with team working hard at coping skills, groups; doing worksheets, appropriately avoiding milue acuity. Pt however continues to feel much emotional turmoil; discussed med management and she would like to increase Abilify Mental Status Exam Mental Status Exam Narrative: Pt is alert and oriented; behavior is cooperative, calm; dressed in casual attire, unkempt; mood is described as ok and affect congruent; eye contact adequate; Speech is normal rate, volume and prosody and not pressured; no psychomotor retardation/agitation; thought process is organized and goal directed; Thought content is on treatment; intermittent self-deprecating thoughts; otherwise pertinent to relevant topics and without any delusional content, paranoid ideations or grandiosity; no SI/no HI; currently no AH. Patients insight and judgment fair. Diagnostics Vital Signs (24Hr): Vital Signs - 24 hr 11/12/23 10:59 11/12/23 20:00 11/13/23 06:00 Temperature 97.4 F 97.7 F Pulse Rate 77 77 94 Respiratory Rate 18 18 Blood Pressure 130/62 119/75 139/65 Pulse Oximetry 94 96 Oxygen Delivery Method Room Air Room Air BMI result Body Mass Index 41.1 Labs 11/04/23 05:49 11/06/23 09:08 Labs: Laboratory Results - last 48 hr 11/12/23 08:51 Total Bilirubin 0.3 Direct Bilirubin 0.1 AST 26 ALT 43 H Alkaline Phosphatase 75 Total Protein 6.6 Albumin 4.1 Imaging Radiology Impressions: ITS Impressions Chest X-Ray 11/04/23 06:24 IMPRESSION: No acute cardiopulmonary findings. Venous Duplex 11/11/23 14:14 IMPRESSION: No DVT demonstrated in the right lower extremity. Medications Medications Current Medications Acetaminophen (Acetaminophen 325 Mg Tablet) 650 mg PO Q6H PRN PRN Reason: Headache/Pain Mild Scale (1-3) Last Admin: 11/12/23 06:40 Dose: 650 mg Al Hydroxide/Mg Hydroxide (Magnesium Hydrox/Alum Hydrox 30 Ml Oral.Susp) 30 ml PO Q6H PRN PRN Reason: Heartburn/Nausea Last Admin: 11/11/23 13:36 Dose: 30 ml Aripiprazole (Aripiprazole 10 Mg Tablet) 10 mg PO DAILY [facility] Last Admin: 11/13/23 08:15 Dose: 10 mg Clonidine HCl (Clonidine Hcl 0.1 Mg Tablet) 0.1 mg PO Q4H PRN; Protocol PRN Reason: anxiety Last Admin: 11/12/23 10:56 Dose: 0.1 mg Famotidine (Famotidine 20 Mg Tablet) 20 mg PO DAILY [facility] Last Admin: 11/13/23 08:15 Dose: 20 mg Folic Acid (Folic Acid 1 Mg Tablet) 1 mg PO DAILY [facility] Last Admin: 11/13/23 08:15 Dose: 1 mg Hydroxyzine HCl (Hydroxyzine Hcl 50 Mg Tablet) 50 mg PO Q6H PRN PRN Reason: Anxiety Last Admin: 11/13/23 06:03 Dose: 50 mg Lamotrigine (Lamotrigine 25 Mg Tablet) 25 mg PO BEDTIME [facility] Last Admin: 11/12/23 20:29 Dose: 25 mg Lidocaine (Lidocaine 4 % Patch Adh..Patch) 1 patch TRANSDERMA DAILY [facility]; Protocol Last Admin: 11/13/23 08:16 Dose: 1 patch Lorazepam (Lorazepam 1 Mg Tablet) 1 mg PO DAILY [facility] Last Admin: 11/13/23 08:15 Dose: 1 mg Magnesium Hydroxide (Milk Of Magnesia 30 Ml Oral.Susp) 30 ml PO DAILY PRN PRN Reason: Constipation Last Admin: 11/12/23 10:56 Dose: 30 ml Multivitamins/Vitamin C (Multivitamin Tablet) 1 tab PO DAILY [facility] Last Admin: 11/13/23 08:15 Dose: 1 tab Naltrexone HCl (Naltrexone Hcl 50 Mg Tablet) 25 mg PO DAILY [facility] Last Admin: 11/13/23 08:15 Dose: 25 mg Nicotine (Nicotine 21 Mg Patch.Td24) 21 mg TRANSDERMA DAILY PRN PRN Reason: smoking cessation Nicotine Polacrilex (Nicotine Polacrilex 2 Mg Gum) 4 mg BUCCAL Q2H PRN PRN Reason: Nicotine Cravings Last Admin: 11/13/23 08:15 Dose: 4 mg Olanzapine (Olanzapine 5 Mg Tablet) 5 mg PO TID PRN PRN Reason: agitation Last Admin: 11/13/23 06:03 Dose: 5 mg Ondansetron HCl (Ondansetron Odt 4 Mg Tab.Rapdis) 4 mg TRANSLINGU Q6H PRN PRN Reason: Nausea and Vomiting Last Admin: 11/12/23 18:04 Dose: 4 mg Prazosin HCl (Prazosin Hcl 1 Mg Capsule) 3 mg PO BEDTIME [facility]; Protocol Last Admin: 11/12/23 20:38 Dose: Not Given Propranolol HCl (Propranolol Hcl 20 Mg Tablet) 20 mg PO DAILY [facility]; Protocol Last Admin: 11/13/23 08:15 Dose: 20 mg Thiamine HCl (Thiamine Hcl 100 Mg Tablet) 100 mg PO DAILY [facility] Last Admin: 11/13/23 08:15 Dose: 100 mg Trazodone HCl (Trazodone Hcl 100 Mg Tablet) 100 mg PO BEDTIME MRX1 PRN PRN Reason: Insomnia Last Admin: 11/12/23 23:16 Dose: 100 mg Allergies Allergies Allergy/AdvReac Type Severity Reaction Status Date / Time levofloxacin [From LEVAQUIN] Allergy Intermediate RASH Verified 11/04/23 05:34 codeine [Codeine] Allergy Unknown NAUSEA AND Verified 11/04/23 05:34 VOMITING, sensitivity ibuprofen Allergy Unknown sensitivity Verified 11/04/23 05:34 morphine [Morphine] Allergy Unknown HEADACHE, Verified 11/04/23 05:34 vomiting, sensitivity naproxen [From NAPROSYN] Allergy Unknown HIVES, Verified 11/04/23 05:34 DIFFICULTY BREATHING. Sulfa (Sulfonamide Allergy Unknown unknown Verified 11/04/23 05:34 Antibiotics) Assessment & Plan Assessment & Plan (1) Schizoaffective disorder, depressive type: Status: Acute Code(s): F25.1 - Schizoaffective disorder, depressive type (2) PTSD (post-traumatic stress disorder): Status: Acute Code(s): F43.10 - Post-traumatic stress disorder, unspecified (3) Alcohol use disorder: Status: Acute Code(s): F10.90 - Alcohol use, unspecified, uncomplicated (4) Cocaine use disorder: Status: Acute Code(s): F14.10 - Cocaine abuse, uncomplicated Plan pt is a 43 yo female with hx of depression, AH, ptsd and alcohol/cocaine abuse who presents for worsening depression and AH in face of being off medications and substance abuse. Pt reports AH of noises and voices that say self- deprecating things and are present independent of mood/depressive episodes and even during sobriety; no paranoid delusions. Hx of trauma w/ ptsd. Pt drinks about 5+nips per day and sniffs cocaine daily for past several weeks; hx of alcohol w/drawal seizures. No clear hx of manic episodes. Some passive SI Impression: AH independepent of mood; describes a sort of-manic 3 day period but sounds more likely from dysregulation due to PTSD and substance abuse and she does not meet criteria for bipolar. hx of trauma with nightmares; currently w/drawing from etoh. Agrees to start on Abilify to help with both mood and AH (reviewed risks/side- effects) and she agrees to trial; wants to get back on Lamictal (also reviewed risks) HOSPITAL COURSE: 11/07 continues with AH; some paranoid thinking; agrees to increase Abilify since AH remain, Prazosin (for nightmares). Will schedule ativan taper since w/drawal complicating understanding of symptoms. Discussed substance abuse and says Vivitrol helped; would like to get on Naltrexone again 11/08 hopefully increase in Abilify will consistently keep auditory hallucinations down; currently voices are gone, buzzing remains but at a lower volume. Continue current Abilify dose to see if symptoms improve further. 11/09 patient remains engaged in treatment, attending groups. AH of voices remain resolved; still buzzing sound but less intensely. Will keep Abilify 10 mg for now but will consider increasing. Patient would like to get into a program for substance abuse treatment 11/10 still quite emotional, prone to self-deprecating self talk no AH; intermittent buzzing sounds much less and seems to coincide with moments of high emotionality. discussed meds and agrees to leave Abilify at current dose. Using Zyprexa Prn for afternoon; discussed increased risk of 2 antipsychotics; will continue for now since helping and since lamictal will take a while to become therapeutic. reports right calf sudden onset swelling, painful exam shows swelling, tender to palpation no hx dvt/clotting/PE -will get doppler as pt has risk factors will dc gabapentin in case that's the cause of swelling Doppler right calf: IMPRESSION: No DVT demonstrated in the right lower extremity. 11/11 patient remains in good behavioral and impulse control; engaged in treatment, going to groups and forthcoming in 1 on 1 sessions; understanding better how childhood trauma is playing out in her adult life and how it is triggering automatic self-deprecating thoughts. Patient hoping for substance abuse program 11/12 still emotions get overwhelming; wants increase in abilify Plan: cv q15 INCREase to Abilify 15mg for emotionality, depression Continue Lamictal 25 mg q.h.s. for ptsd, depression/anxiety (has been on before and thinks it helped) Increase to Prazosin 3mg qhs; so far nightmares resolved a 2 mg start Naltrexone 25 mg for etoh cravings pt needs outpt providers/therapist Patient educated on: diagnosis and medication risk/benefits Informed Consent: understands Reason for continued inpatient stay Substantial Risk for: stable for discharge Time Spent With Patient Time: Total time managing care of this patient today ____ minutes.
[2023-11-13] MEDS: Acetaminophen 325 MG TABLET 650 MG PO (14:08)
[2023-11-13] MEDS: ARIPiprazole 5 MG TABLET PO (17:03)
[2023-11-13 17:10] VITALS: BP 126/84; PULSE 86; RESP 18; TEMP 37.1; O2SAT 99
[2023-11-13] MEDS: Prazosin HCL 1 MG CAPSULE 3 MG PO (21:01)
[2023-11-13] MEDS: lamoTRIgine 25 MG TABLET PO (21:02)
[2023-11-13] MEDS: traZODone HCL 100 MG TABLET PO (21:02)
[2023-11-14] MEDS: cloNIDine HCL 0.1 MG TABLET PO ×2 (04:44→15:22)
[2023-11-14] MEDS: Nicotine Polacrilex 2 MG GUM 4 MG BUCCAL ×5 (06:33→20:03)
[2023-11-14 07:45] VITALS: BP 136/93; PULSE 103; RESP 18; TEMP 36.3; O2SAT 97
[2023-11-14] MEDS: Folic Acid 1 MG TABLET PO (08:25)
[2023-11-14] MEDS: ARIPiprazole 15 MG TABLET PO (08:26)
[2023-11-14] MEDS: Thiamine HCL 100 MG TABLET PO (08:26)
[2023-11-14] MEDS: LORazepam 1 MG TABLET PO (08:26)
[2023-11-14] MEDS: Naltrexone HCl 50 MG TABLET 25 MG PO (08:26)
[2023-11-14] MEDS: Multivitamin TABLET 1 TAB PO (08:27)
[2023-11-14] MEDS: Propranolol HCL 20 MG TABLET PO (08:27)
[2023-11-14] MEDS: Famotidine 20 MG TABLET PO (08:27)
[2023-11-14] MEDS: Lidocaine 4 % Patch ADH..PATCH 1 PATCH TRANSDERMA (08:27)
[2023-11-14] MEDS: hydrOXYzine HCL 50 MG TABLET PO (08:31)
--- NOTE | 2023-11-14 09:41 | P.PNPSI_ITS ---
Subjective Subjective Date of Service: 11/14/23 Reason For Visit: Depressed Interim History: met with patient; discussed with team Patient reports that overall mood is better however she continues to have much anxiety that she feels always seems to threatened becoming overwhelming. Discussed medication regimen and discussed how patient is taking most/all of her PRNs including Zyprexa leaving her effectively on 2 antipsychotic medications. As Lamictal is taking a while to titrate, patient agreed to start Trileptal, side effects/risks reviewed which patient understood and accepts. Getting a visit later today with family; talked about how to manage anxiety if it comes up Mental Status Exam Mental Status Exam Narrative: Pt is alert and oriented; behavior is cooperative, calm; dressed in casual attire, adequate hygiene; mood is described as ok and affect congruent; eye contact adequate; Speech is normal rate, volume and prosody and not pressured; no psychomotor retardation/agitation; thought process is organized and goal directed; Thought content is on treatment; intermittent self-deprecating thoughts; otherwise pertinent to relevant topics and without any delusional content, paranoid ideations or grandiosity; no SI/no HI; currently no AH. Patients insight and judgment fair. Diagnostics Vital Signs (24Hr): Vital Signs - 24 hr 11/13/23 17:10 11/14/23 07:45 Temperature 98.8 F 97.3 F Pulse Rate 86 103 H Respiratory Rate 18 18 Blood Pressure 126/84 136/93 H Pulse Oximetry 99 97 Oxygen Delivery Method Room Air Room Air BMI result Body Mass Index 41.1 Labs 11/04/23 05:49 11/06/23 09:08 Imaging Radiology Impressions: ITS Impressions Chest X-Ray 11/04/23 06:24 IMPRESSION: No acute cardiopulmonary findings. Venous Duplex 11/11/23 14:14 IMPRESSION: No DVT demonstrated in the right lower extremity. Medications Medications Current Medications Acetaminophen (Acetaminophen 325 Mg Tablet) 650 mg PO Q6H PRN PRN Reason: Headache/Pain Mild Scale (1-3) Last Admin: 11/13/23 14:08 Dose: 650 mg Al Hydroxide/Mg Hydroxide (Magnesium Hydrox/Alum Hydrox 30 Ml Oral.Susp) 30 ml PO Q6H PRN PRN Reason: Heartburn/Nausea Last Admin: 11/11/23 13:36 Dose: 30 ml Aripiprazole (Aripiprazole 15 Mg Tablet) 15 mg PO DAILY [facility] Last Admin: 11/14/23 08:26 Dose: 15 mg Clonidine HCl (Clonidine Hcl 0.1 Mg Tablet) 0.1 mg PO Q4H PRN; Protocol PRN Reason: anxiety Last Admin: 11/14/23 04:44 Dose: 0.1 mg Famotidine (Famotidine 20 Mg Tablet) 20 mg PO DAILY [facility] Last Admin: 11/14/23 08:27 Dose: 20 mg Folic Acid (Folic Acid 1 Mg Tablet) 1 mg PO DAILY [facility] Last Admin: 11/14/23 08:25 Dose: 1 mg Hydroxyzine HCl (Hydroxyzine Hcl 50 Mg Tablet) 50 mg PO Q6H PRN PRN Reason: Anxiety Last Admin: 11/14/23 08:31 Dose: 50 mg Lamotrigine (Lamotrigine 25 Mg Tablet) 25 mg PO BEDTIME [facility] Last Admin: 11/13/23 21:02 Dose: 25 mg Lidocaine (Lidocaine 4 % Patch Adh..Patch) 1 patch TRANSDERMA DAILY [facility]; Protocol Last Admin: 11/14/23 08:27 Dose: 1 patch Lorazepam (Lorazepam 1 Mg Tablet) 1 mg PO DAILY [facility] Stop: 11/14/23 10:00 Last Admin: 11/14/23 08:26 Dose: 1 mg Magnesium Hydroxide (Milk Of Magnesia 30 Ml Oral.Susp) 30 ml PO DAILY PRN PRN Reason: Constipation Last Admin: 11/12/23 10:56 Dose: 30 ml Multivitamins/Vitamin C (Multivitamin Tablet) 1 tab PO DAILY [facility] Last Admin: 11/14/23 08:27 Dose: 1 tab Naltrexone HCl (Naltrexone Hcl 50 Mg Tablet) 25 mg PO DAILY [facility] Last Admin: 11/14/23 08:26 Dose: 25 mg Nicotine (Nicotine 21 Mg Patch.Td24) 21 mg TRANSDERMA DAILY PRN PRN Reason: smoking cessation Nicotine Polacrilex (Nicotine Polacrilex 2 Mg Gum) 4 mg BUCCAL Q2H PRN PRN Reason: Nicotine Cravings Last Admin: 11/14/23 09:25 Dose: 4 mg Olanzapine (Olanzapine 5 Mg Tablet) 5 mg PO TID PRN PRN Reason: agitation Last Admin: 11/13/23 21:02 Dose: 5 mg Ondansetron HCl (Ondansetron Odt 4 Mg Tab.Rapdis) 4 mg TRANSLINGU Q6H PRN PRN Reason: Nausea and Vomiting Last Admin: 11/12/23 18:04 Dose: 4 mg Prazosin HCl (Prazosin Hcl 1 Mg Capsule) 3 mg PO BEDTIME [facility]; Protocol Last Admin: 11/13/23 21:01 Dose: 3 mg Propranolol HCl (Propranolol Hcl 20 Mg Tablet) 20 mg PO DAILY [facility]; Protocol Last Admin: 11/14/23 08:27 Dose: 20 mg Thiamine HCl (Thiamine Hcl 100 Mg Tablet) 100 mg PO DAILY [facility] Last Admin: 11/14/23 08:26 Dose: 100 mg Trazodone HCl (Trazodone Hcl 100 Mg Tablet) 100 mg PO BEDTIME MRX1 PRN PRN Reason: Insomnia Last Admin: 11/13/23 21:02 Dose: 100 mg Allergies Allergies Allergy/AdvReac Type Severity Reaction Status Date / Time levofloxacin [From LEVAQUIN] Allergy Intermediate RASH Verified 11/04/23 05:34 codeine [Codeine] Allergy Unknown NAUSEA AND Verified 11/04/23 05:34 VOMITING, sensitivity ibuprofen Allergy Unknown sensitivity Verified 11/04/23 05:34 morphine [Morphine] Allergy Unknown HEADACHE, Verified 11/04/23 05:34 vomiting, sensitivity naproxen [From NAPROSYN] Allergy Unknown HIVES, Verified 11/04/23 05:34 DIFFICULTY BREATHING. Sulfa (Sulfonamide Allergy Unknown unknown Verified 11/04/23 05:34 Antibiotics) Assessment & Plan Assessment & Plan (1) Schizoaffective disorder, depressive type: Status: Acute Code(s): F25.1 - Schizoaffective disorder, depressive type (2) PTSD (post-traumatic stress disorder): Status: Acute Code(s): F43.10 - Post-traumatic stress disorder, unspecified (3) Alcohol use disorder: Status: Acute Code(s): F10.90 - Alcohol use, unspecified, uncomplicated (4) Cocaine use disorder: Status: Acute Code(s): F14.10 - Cocaine abuse, uncomplicated Plan pt is a 43 yo female with hx of depression, AH, ptsd and alcohol/cocaine abuse who presents for worsening depression and AH in face of being off medications and substance abuse. Pt reports AH of noises and voices that say self- deprecating things and are present independent of mood/depressive episodes and even during sobriety; no paranoid delusions. Hx of trauma w/ ptsd. Pt drinks about 5+nips per day and sniffs cocaine daily for past several weeks; hx of alcohol w/drawal seizures. No clear hx of manic episodes. Some passive SI Impression: AH independepent of mood; describes a sort of-manic 3 day period but sounds more likely from dysregulation due to PTSD and substance abuse and she does not meet criteria for bipolar. hx of trauma with nightmares; currently w/drawing from etoh. Agrees to start on Abilify to help with both mood and AH (reviewed risks/side- effects) and she agrees to trial; wants to get back on Lamictal (also reviewed risks) HOSPITAL COURSE: 11/07 continues with AH; some paranoid thinking; agrees to increase Abilify since AH remain, Prazosin (for nightmares). Will schedule ativan taper since w/drawal complicating understanding of symptoms. Discussed substance abuse and says Vivitrol helped; would like to get on Naltrexone again 11/08 hopefully increase in Abilify will consistently keep auditory hallucinations down; currently voices are gone, buzzing remains but at a lower volume. Continue current Abilify dose to see if symptoms improve further. 11/09 patient remains engaged in treatment, attending groups. AH of voices remain resolved; still buzzing sound but less intensely. Will keep Abilify 10 mg for now but will consider increasing. Patient would like to get into a program for substance abuse treatment 11/10 still quite emotional, prone to self-deprecating self talk no AH; intermittent buzzing sounds much less and seems to coincide with moments of high emotionality. discussed meds and agrees to leave Abilify at current dose. Using Zyprexa Prn for afternoon; discussed increased risk of 2 antipsychotics; will continue for now since helping and since lamictal will take a while to become therapeutic. reports right calf sudden onset swelling, painful exam shows swelling, tender to palpation no hx dvt/clotting/PE -will get doppler as pt has risk factors will dc gabapentin in case that's the cause of swelling Doppler right calf: IMPRESSION: No DVT demonstrated in the right lower extremity. 11/11 patient remains in good behavioral and impulse control; engaged in treatment, going to groups and forthcoming in 1 on 1 sessions; understanding better how childhood trauma is playing out in her adult life and how it is triggering automatic self-deprecating thoughts. Patient hoping for substance abuse program 11/12 still emotions get overwhelming; wants increase in abilify 11/13 Patient reports that overall mood is better however she continues to have much anxiety that she feels always seems to threatened becoming overwhelming. Discussed medication regimen agreed to start Trileptal, side effects/risks reviewed which patient understood and accepts. Hope is that she will not need as many PRNs, including Zyprexa which she is taking frequently and thus affectively on 2 antipsychotics. If effective, could discontinue Lamictal to avoid polypharmacy; patient sleeping better. Otherwise patient remains engaged in treatment, attending groups, forthcoming in 1 on 1 sessions, getting along well with others, appropriate with peers and staff. Plan: cv q15 Start Trileptal 150 mg b.i.d. for ongoing anxiety Continue Abilify 15mg for emotionality, depression Continue Lamictal 25 mg q.h.s. for ptsd, depression/anxiety (has been on before and thinks it helped) Continue Prazosin 3mg qhs; so far nightmares resolved a 2 mg Continue Naltrexone 25 mg for etoh cravings pt needs outpt providers/therapist Patient educated on: diagnosis, medication risk/benefits and therapeutic strategies Informed Consent: understands Reason for continued inpatient stay Substantial Risk for: stable for discharge Time Spent With Patient Time: Total time managing care of this patient today ____ minutes.
[2023-11-14] MEDS: OLANZapine 5 MG TABLET PO ×2 (11:47→18:35)
[2023-11-14] MEDS: Acetaminophen 325 MG TABLET 650 MG PO ×2 (14:34→20:04)
[2023-11-14 15:23] VITALS: BP 130/76; PULSE 88
[2023-11-14 18:00] VITALS: BP 127/90; PULSE 90; RESP 18; TEMP 36.6; O2SAT 98
[2023-11-14] MEDS: traZODone HCL 100 MG TABLET PO (20:03)
[2023-11-14] MEDS: lamoTRIgine 25 MG TABLET PO (20:04)
[2023-11-14] MEDS: Prazosin HCL 1 MG CAPSULE 3 MG PO (20:04)
[2023-11-14] MEDS: OXcarbazepine 150 MG TABLET PO (20:04)
[2023-11-15] MEDS: Ondansetron ODT 4 MG TAB.RAPDIS TRANSLINGU (00:20)
[2023-11-15 07:00] VITALS: BMI 42.6
[2023-11-15 08:23] VITALS: BP 136/82; PULSE 83; RESP 18; TEMP 37; O2SAT 98
[2023-11-15] MEDS: ARIPiprazole 15 MG TABLET PO (08:44)
[2023-11-15] MEDS: Famotidine 20 MG TABLET PO (08:44)
[2023-11-15] MEDS: Thiamine HCL 100 MG TABLET PO (08:44)
[2023-11-15] MEDS: Folic Acid 1 MG TABLET PO (08:44)
[2023-11-15] MEDS: Propranolol HCL 20 MG TABLET PO (08:44)
[2023-11-15] MEDS: Multivitamin TABLET 1 TAB PO (08:44)
[2023-11-15] MEDS: hydrOXYzine HCL 50 MG TABLET PO ×3 (08:44→21:24)
[2023-11-15] MEDS: Naltrexone HCl 50 MG TABLET 25 MG PO (08:44)
[2023-11-15] MEDS: OXcarbazepine 150 MG TABLET PO ×2 (08:44→19:53)
[2023-11-15] MEDS: Nicotine Polacrilex 2 MG GUM 4 MG BUCCAL ×5 (08:47→21:24)
--- NOTE | 2023-11-15 09:45 | P.PNPSI_ITS ---
Subjective Subjective Date of Service: 11/15/23 Reason For Visit: Depressed Interim History: met with patient; discussed with team Patient reports that anxiety is a little better and that she slept better last night. Discussed medication regimen and she agrees to remain on current dose of Trileptal but will discuss increasing with covering provider should anxiety continue to be a problem. Mental Status Exam Mental Status Exam Narrative: Pt is alert and oriented; behavior is cooperative, calm; dressed in casual attire, adequate hygiene; mood is described as ok and affect congruent; eye contact adequate; Speech is normal rate, volume and prosody and not pressured; no psychomotor retardation/agitation; thought process is organized and goal directed; Thought content is on treatment; intermittent self-deprecating thoughts; otherwise pertinent to relevant topics and without any delusional content, paranoid ideations or grandiosity; no SI/no HI; currently no AH. Patients insight and judgment fair. Diagnostics Vital Signs (24Hr): Vital Signs - 24 hr 11/14/23 15:23 11/14/23 18:00 11/15/23 08:23 Temperature 97.9 F 98.6 F Pulse Rate 88 90 83 Respiratory Rate 18 18 Blood Pressure 130/76 127/90 H 136/82 Pulse Oximetry 98 98 Oxygen Delivery Method Room Air Room Air BMI result Body Mass Index 41.1 Labs 11/04/23 05:49 11/06/23 09:08 Imaging Radiology Impressions: ITS Impressions Chest X-Ray 11/04/23 06:24 IMPRESSION: No acute cardiopulmonary findings. Venous Duplex 11/11/23 14:14 IMPRESSION: No DVT demonstrated in the right lower extremity. Medications Medications Current Medications Acetaminophen (Acetaminophen 325 Mg Tablet) 650 mg PO Q6H PRN PRN Reason: Headache/Pain Mild Scale (1-3) Last Admin: 11/14/23 20:04 Dose: 650 mg Al Hydroxide/Mg Hydroxide (Magnesium Hydrox/Alum Hydrox 30 Ml Oral.Susp) 30 ml PO Q6H PRN PRN Reason: Heartburn/Nausea Last Admin: 11/11/23 13:36 Dose: 30 ml Aripiprazole (Aripiprazole 15 Mg Tablet) 15 mg PO DAILY [facility] Last Admin: 11/15/23 08:44 Dose: 15 mg Clonidine HCl (Clonidine Hcl 0.1 Mg Tablet) 0.1 mg PO Q4H PRN; Protocol PRN Reason: anxiety Last Admin: 11/14/23 15:22 Dose: 0.1 mg Famotidine (Famotidine 20 Mg Tablet) 20 mg PO DAILY [facility] Last Admin: 11/15/23 08:44 Dose: 20 mg Folic Acid (Folic Acid 1 Mg Tablet) 1 mg PO DAILY [facility] Last Admin: 11/15/23 08:44 Dose: 1 mg Hydroxyzine HCl (Hydroxyzine Hcl 50 Mg Tablet) 50 mg PO Q6H PRN PRN Reason: Anxiety Last Admin: 11/15/23 08:44 Dose: 50 mg Lamotrigine (Lamotrigine 25 Mg Tablet) 25 mg PO BEDTIME [facility] Last Admin: 11/14/23 20:04 Dose: 25 mg Lidocaine (Lidocaine 4 % Patch Adh..Patch) 1 patch TRANSDERMA DAILY [facility]; Protocol Last Admin: 11/15/23 08:48 Dose: Not Given Magnesium Hydroxide (Milk Of Magnesia 30 Ml Oral.Susp) 30 ml PO DAILY PRN PRN Reason: Constipation Last Admin: 11/12/23 10:56 Dose: 30 ml Multivitamins/Vitamin C (Multivitamin Tablet) 1 tab PO DAILY [facility] Last Admin: 11/15/23 08:44 Dose: 1 tab Naltrexone HCl (Naltrexone Hcl 50 Mg Tablet) 25 mg PO DAILY [facility] Last Admin: 11/15/23 08:44 Dose: 25 mg Nicotine (Nicotine 21 Mg Patch.Td24) 21 mg TRANSDERMA DAILY PRN PRN Reason: smoking cessation Nicotine Polacrilex (Nicotine Polacrilex 2 Mg Gum) 4 mg BUCCAL Q2H PRN PRN Reason: Nicotine Cravings Last Admin: 11/15/23 08:47 Dose: 4 mg Olanzapine (Olanzapine 5 Mg Tablet) 5 mg PO TID PRN PRN Reason: agitation Last Admin: 11/14/23 18:35 Dose: 5 mg Ondansetron HCl (Ondansetron Odt 4 Mg Tab.Rapdis) 4 mg TRANSLINGU Q6H PRN PRN Reason: Nausea and Vomiting Last Admin: 11/15/23 00:20 Dose: 4 mg Oxcarbazepine (Oxcarbazepine 150 Mg Tablet) 150 mg PO BID [facility] Last Admin: 11/15/23 08:44 Dose: 150 mg Prazosin HCl (Prazosin Hcl 1 Mg Capsule) 3 mg PO BEDTIME [facility]; Protocol Last Admin: 11/14/23 20:04 Dose: 3 mg Propranolol HCl (Propranolol Hcl 20 Mg Tablet) 20 mg PO DAILY [facility]; Protocol Last Admin: 11/15/23 08:44 Dose: 20 mg Thiamine HCl (Thiamine Hcl 100 Mg Tablet) 100 mg PO DAILY [facility] Last Admin: 11/15/23 08:44 Dose: 100 mg Trazodone HCl (Trazodone Hcl 100 Mg Tablet) 100 mg PO BEDTIME MRX1 PRN PRN Reason: Insomnia Last Admin: 11/14/23 20:03 Dose: 100 mg Allergies Allergies Allergy/AdvReac Type Severity Reaction Status Date / Time levofloxacin [From LEVAQUIN] Allergy Intermediate RASH Verified 11/04/23 05:34 codeine [Codeine] Allergy Unknown NAUSEA AND Verified 11/04/23 05:34 VOMITING, sensitivity ibuprofen Allergy Unknown sensitivity Verified 11/04/23 05:34 morphine [Morphine] Allergy Unknown HEADACHE, Verified 11/04/23 05:34 vomiting, sensitivity naproxen [From NAPROSYN] Allergy Unknown HIVES, Verified 11/04/23 05:34 DIFFICULTY BREATHING. Sulfa (Sulfonamide Allergy Unknown unknown Verified 11/04/23 05:34 Antibiotics) Assessment & Plan Assessment & Plan (1) Schizoaffective disorder, depressive type: Status: Acute Code(s): F25.1 - Schizoaffective disorder, depressive type (2) PTSD (post-traumatic stress disorder): Status: Acute Code(s): F43.10 - Post-traumatic stress disorder, unspecified (3) Alcohol use disorder: Status: Acute Code(s): F10.90 - Alcohol use, unspecified, uncomplicated (4) Cocaine use disorder: Status: Acute Code(s): F14.10 - Cocaine abuse, uncomplicated Plan pt is a 43 yo female with hx of depression, AH, ptsd and alcohol/cocaine abuse who presents for worsening depression and AH in face of being off medications and substance abuse. Pt reports AH of noises and voices that say self- deprecating things and are present independent of mood/depressive episodes and even during sobriety; no paranoid delusions. Hx of trauma w/ ptsd. Pt drinks about 5+nips per day and sniffs cocaine daily for past several weeks; hx of alcohol w/drawal seizures. No clear hx of manic episodes. Some passive SI Impression: AH independepent of mood; describes a sort of-manic 3 day period but sounds more likely from dysregulation due to PTSD and substance abuse and she does not meet criteria for bipolar. hx of trauma with nightmares; currently w/drawing from etoh. Agrees to start on Abilify to help with both mood and AH (reviewed risks/side- effects) and she agrees to trial; wants to get back on Lamictal (also reviewed risks) HOSPITAL COURSE: 11/07 continues with AH; some paranoid thinking; agrees to increase Abilify since AH remain, Prazosin (for nightmares). Will schedule ativan taper since w/drawal complicating understanding of symptoms. Discussed substance abuse and says Vivitrol helped; would like to get on Naltrexone again 11/08 hopefully increase in Abilify will consistently keep auditory hallucinations down; currently voices are gone, buzzing remains but at a lower volume. Continue current Abilify dose to see if symptoms improve further. 11/09 patient remains engaged in treatment, attending groups. AH of voices remain resolved; still buzzing sound but less intensely. Will keep Abilify 10 mg for now but will consider increasing. Patient would like to get into a program for substance abuse treatment 11/10 still quite emotional, prone to self-deprecating self talk no AH; intermittent buzzing sounds much less and seems to coincide with moments of high emotionality. discussed meds and agrees to leave Abilify at current dose. Using Zyprexa Prn for afternoon; discussed increased risk of 2 antipsychotics; will continue for now since helping and since lamictal will take a while to become therapeutic. reports right calf sudden onset swelling, painful Doppler right calf: IMPRESSION: No DVT demonstrated in the right lower extremity. 11/11 patient remains in good behavioral and impulse control; engaged in treatment, going to groups and forthcoming in 1 on 1 sessions; understanding better how childhood trauma is playing out in her adult life and how it is triggering automatic self-deprecating thoughts. Patient hoping for substance abuse program 11/12 still emotions get overwhelming; wants increase in abilify 11/13 Patient reports that overall mood is better however she continues to have much anxiety that she feels always seems to threatened becoming overwhelming. Discussed medication regimen agreed to start Trileptal, side effects/risks reviewed which patient understood and accepts. Hope is that she will not need as many PRNs, including Zyprexa which she is taking frequently and thus affectively on 2 antipsychotics. If effective, could discontinue Lamictal to avoid polypharmacy; patient sleeping better. Otherwise patient remains engaged in treatment, attending groups, forthcoming in 1 on 1 sessions, getting along well with others, appropriate with peers and staff. 11/14 patient working hard at increasing coping skills; slept better last night and anxiety down a little bit. Plan: cv q15 Continue Trileptal 150 mg b.i.d. for ongoing anxiety Continue Abilify 15mg for emotionality, depression Continue Lamictal 25 mg q.h.s. for ptsd, depression/anxiety (has been on before and thinks it helped) Continue Prazosin 3mg qhs; so far nightmares resolved a 2 mg Continue Naltrexone 25 mg for etoh cravings pt needs outpt providers/therapist Patient educated on: diagnosis, medication risk/benefits and therapeutic strategies Informed Consent: understands Reason for continued inpatient stay Substantial Risk for: stable for discharge Time Spent With Patient Time: Total time managing care of this patient today ____ minutes.
[2023-11-15] MEDS: Milk of Magnesia 30 ML ORAL.SUSP PO (10:24)
[2023-11-15] MEDS: cloNIDine HCL 0.1 MG TABLET PO ×2 (12:12→16:04)
[2023-11-15 12:13] VITALS: BP 136/94; PULSE 72
[2023-11-15] MEDS: polyethylene glycoL 3350 17 GM POWD.PACK PO (16:57)
[2023-11-15 18:00] VITALS: BP 156/90; PULSE 70; RESP 18; TEMP 36.7; O2SAT 94
[2023-11-15] MEDS: Prazosin HCL 1 MG CAPSULE 3 MG PO (19:53)
[2023-11-15] MEDS: lamoTRIgine 25 MG TABLET PO (19:53)
[2023-11-15] MEDS: traZODone HCL 100 MG TABLET PO (19:53)
[2023-11-16] MEDS: OLANZapine 5 MG TABLET PO ×3 (00:28→16:26)
[2023-11-16] MEDS: hydrOXYzine HCL 50 MG TABLET PO ×3 (02:45→19:14)
[2023-11-16] MEDS: Acetaminophen 325 MG TABLET 650 MG PO ×3 (05:56→21:00)
[2023-11-16 06:00] VITALS: BP 109/73; PULSE 97; RESP 18; TEMP 36.5; O2SAT 95
[2023-11-16] MEDS: cloNIDine HCL 0.1 MG TABLET PO ×2 (08:38→19:52)
[2023-11-16] MEDS: ARIPiprazole 15 MG TABLET PO (08:39)
[2023-11-16] MEDS: Multivitamin TABLET 1 TAB PO (08:39)
[2023-11-16] MEDS: Famotidine 20 MG TABLET PO (08:39)
[2023-11-16] MEDS: Folic Acid 1 MG TABLET PO (08:39)
[2023-11-16] MEDS: Thiamine HCL 100 MG TABLET PO (08:39)
[2023-11-16] MEDS: Naltrexone HCl 50 MG TABLET 25 MG PO (08:39)
[2023-11-16] MEDS: OXcarbazepine 150 MG TABLET PO (08:39)
[2023-11-16] MEDS: Propranolol HCL 20 MG TABLET PO (08:39)
--- NOTE | 2023-11-16 08:53 | ECG_ITS ---
Test Reason : CHEST, JAW PAIN Blood Pressure : / mmHG Vent. Rate : 073 BPM Atrial Rate : 073 BPM P-R Int : 156 ms QRS Dur : 094 ms QT Int : 424 ms P-R-T Axes : 060 003 062 degrees QTc Int : 467 ms Normal sinus rhythm Normal ECG When compared with ECG of 04-NOV-2023 05:30, Vent. rate has decreased BY 46 BPM Minimal criteria for Anterior infarct are no longer Present Referred By: Maral Rodriguez Electronically Signed By:DEVIKA CIFUENTES MD
--- NOTE | 2023-11-16 09:05 | PC.NURSE ---
Pt complained of L sided jaw, neck and chest pain. STAT EKG ordered, vitals stable, MD aware.
[2023-11-16] MEDS: Lidocaine 4 % Patch ADH..PATCH 1 PATCH TRANSDERMA (09:52)
[2023-11-16 10:43] LABS: Influenza A PCR NEGATIVE (Negative); Influenza B PCR NEGATIVE (Negative); Resp Syncy Virus RNA Qual PCR NEGATIVE (Negative); SARS COV2 PCR INHOUSE NEGATIVE (Negative)
--- NOTE | 2023-11-16 11:58 | HO.PSYCHPN ---
Subjective Subjective Date of Service: 11/16/23 Reason For Visit: Depressed Interim History: Reviewed with Dr. Pink. active on unit, showered. Pt reports feeling anxious today; pt stated, I feel like when I get anxious my jaw clenches. I don't realize I'm doing it . pt denies any side effects from medications. per Dr. Flaherty will increase trileptal dose to 300mg PO BID d/t continued anxiety; pt aware and agreeable of dose increase. Medication Compliance: Yes Side effects from medications: No Review of Systems Constitutional: Reports as per HPI Eyes: Reports as per HPI Reports as per HPI Cardiovascular: Reports as per HPI Respiratory: Reports as per HPI Gastrointestinal: Reports as per HPI Genitourinary: Reports as per HPI Musculoskeletal: Reports as per HPI Skin/Breast: Reports as per HPI Reports as per HPI Psychiatric: Reports as per HPI Endocrine: Reports as per HPI Hematologic/Lymphatic: Reports as per HPI Allergic/Immunologic: Reports as per HPI Mental Status Exam Mental Status Exam Narrative: Pt is alert and oriented; behavior is cooperative and calm; dressed in casual attire; mood is described as anxious ; eye contact appropriate; Speech is normal rate, volume and prosody and not pressured; thought process is organized; Thought content is on tx; denies SI/HI/VH/AH. Diagnostics Vital Signs (24Hr): Vital Signs - 24 hr 11/15/23 12:13 11/15/23 18:00 11/16/23 06:00 Temperature 98.1 F 97.7 F Pulse Rate 72 70 97 Respiratory Rate 18 18 Blood Pressure 136/94 H 156/90 H 109/73 Pulse Oximetry 94 95 Oxygen Delivery Method Room Air Room Air BMI result Body Mass Index 42.6 Labs 11/04/23 05:49 11/06/23 09:08 Labs: Laboratory Results - last 48 hr 11/16/23 09:55 Influenza Type A (PCR) NEGATIVE Influenza Type B (PCR) NEGATIVE RSV RNA Qual (PCR) NEGATIVE SARS-CoV-2 RNA (RT-PCR) NEGATIVE Imaging Radiology Impressions: ITS Impressions Chest X-Ray 11/04/23 06:24 IMPRESSION: No acute cardiopulmonary findings. Venous Duplex 11/11/23 14:14 IMPRESSION: No DVT demonstrated in the right lower extremity. Medications Medications Current Medications Acetaminophen (Acetaminophen 325 Mg Tablet) 650 mg PO Q6H PRN PRN Reason: Headache/Pain Mild Scale (1-3) Last Admin: 11/16/23 05:56 Dose: 650 mg Al Hydroxide/Mg Hydroxide (Magnesium Hydrox/Alum Hydrox 30 Ml Oral.Susp) 30 ml PO Q6H PRN PRN Reason: Heartburn/Nausea Last Admin: 11/11/23 13:36 Dose: 30 ml Aripiprazole (Aripiprazole 15 Mg Tablet) 15 mg PO DAILY [facility] Last Admin: 11/16/23 08:39 Dose: 15 mg Clonidine HCl (Clonidine Hcl 0.1 Mg Tablet) 0.1 mg PO Q4H PRN; Protocol PRN Reason: anxiety Last Admin: 11/16/23 08:38 Dose: 0.1 mg Famotidine (Famotidine 20 Mg Tablet) 20 mg PO DAILY [facility] Last Admin: 11/16/23 08:39 Dose: 20 mg Folic Acid (Folic Acid 1 Mg Tablet) 1 mg PO DAILY [facility] Last Admin: 11/16/23 08:39 Dose: 1 mg Hydroxyzine HCl (Hydroxyzine Hcl 50 Mg Tablet) 50 mg PO Q6H PRN PRN Reason: Anxiety Last Admin: 11/16/23 02:45 Dose: 50 mg Lamotrigine (Lamotrigine 25 Mg Tablet) 25 mg PO BEDTIME [facility] Last Admin: 11/15/23 19:53 Dose: 25 mg Lidocaine (Lidocaine 4 % Patch Adh..Patch) 1 patch TRANSDERMA DAILY [facility]; Protocol Last Admin: 11/16/23 09:52 Dose: 1 patch Magnesium Hydroxide (Milk Of Magnesia 30 Ml Oral.Susp) 30 ml PO DAILY PRN PRN Reason: Constipation Last Admin: 11/15/23 10:24 Dose: 30 ml Multivitamins/Vitamin C (Multivitamin Tablet) 1 tab PO DAILY [facility] Last Admin: 11/16/23 08:39 Dose: 1 tab Naltrexone HCl (Naltrexone Hcl 50 Mg Tablet) 25 mg PO DAILY [facility] Last Admin: 11/16/23 08:39 Dose: 25 mg Nicotine (Nicotine 21 Mg Patch.Td24) 21 mg TRANSDERMA DAILY PRN PRN Reason: smoking cessation Nicotine Polacrilex (Nicotine Polacrilex 2 Mg Gum) 4 mg BUCCAL Q2H PRN PRN Reason: Nicotine Cravings Last Admin: 11/15/23 21:24 Dose: 4 mg Olanzapine (Olanzapine 5 Mg Tablet) 5 mg PO TID PRN PRN Reason: agitation Last Admin: 11/16/23 00:28 Dose: 5 mg Ondansetron HCl (Ondansetron Odt 4 Mg Tab.Rapdis) 4 mg TRANSLINGU Q6H PRN PRN Reason: Nausea and Vomiting Last Admin: 11/15/23 00:20 Dose: 4 mg Oxcarbazepine (Oxcarbazepine 150 Mg Tablet) 150 mg PO BID [facility] Last Admin: 11/16/23 08:39 Dose: 150 mg Polyethylene Glycol (Polyethylene Glycol 3350 17 Gm Powd.Pack) 17 gm PO DAILY PRN PRN Reason: Constipation Last Admin: 11/15/23 16:57 Dose: 17 gm Prazosin HCl (Prazosin Hcl 1 Mg Capsule) 3 mg PO BEDTIME [facility]; Protocol Last Admin: 11/15/23 19:53 Dose: 3 mg Propranolol HCl (Propranolol Hcl 20 Mg Tablet) 20 mg PO DAILY [facility]; Protocol Last Admin: 11/16/23 08:39 Dose: 20 mg Thiamine HCl (Thiamine Hcl 100 Mg Tablet) 100 mg PO DAILY [facility] Last Admin: 11/16/23 08:39 Dose: 100 mg Trazodone HCl (Trazodone Hcl 100 Mg Tablet) 100 mg PO BEDTIME [facility] PRN PRN Reason: Insomnia Last Admin: 11/15/23 19:53 Dose: 100 mg Allergies Allergies Allergy/AdvReac Type Severity Reaction Status Date / Time levofloxacin [From LEVAQUIN] Allergy Intermediate RASH Verified 11/04/23 05:34 codeine [Codeine] Allergy Unknown NAUSEA AND Verified 11/04/23 05:34 VOMITING, sensitivity ibuprofen Allergy Unknown sensitivity Verified 11/04/23 05:34 morphine [Morphine] Allergy Unknown HEADACHE, Verified 11/04/23 05:34 vomiting, sensitivity naproxen [From NAPROSYN] Allergy Unknown HIVES, Verified 11/04/23 05:34 DIFFICULTY BREATHING. Sulfa (Sulfonamide Allergy Unknown unknown Verified 11/04/23 05:34 Antibiotics) Assessment & Plan Assessment & Plan (1) Schizoaffective disorder, depressive type: Status: Acute Code(s): F25.1 - Schizoaffective disorder, depressive type (2) PTSD (post-traumatic stress disorder): Status: Acute Code(s): F43.10 - Post-traumatic stress disorder, unspecified (3) Alcohol use disorder: Status: Acute Code(s): F10.90 - Alcohol use, unspecified, uncomplicated (4) Cocaine use disorder: Status: Acute Code(s): F14.10 - Cocaine abuse, uncomplicated Plan pt is a 43 yo female with hx of depression, AH, ptsd and alcohol/cocaine abuse who presents for worsening depression and AH in face of being off medications and substance abuse. Pt reports AH of noises and voices that say self-deprecating things and are present independent of mood/depressive episodes and even during sobriety; no paranoid delusions. Hx of trauma w/ ptsd. Pt drinks about 5+nips per day and sniffs cocaine daily for past several weeks; hx of alcohol w/drawal seizures. No clear hx of manic episodes. Some passive SI Impression: AH independepent of mood; describes a sort of-manic 3 day period but sounds more likely from dysregulation due to PTSD and substance abuse and she does not meet criteria for bipolar. hx of trauma with nightmares; currently w/drawing from etoh. Agrees to start on Abilify to help with both mood and AH (reviewed risks/side-effects) and she agrees to trial; wants to get back on Lamictal (also reviewed risks) HOSPITAL COURSE: 11/07 continues with AH; some paranoid thinking; agrees to increase Abilify since AH remain, Prazosin (for nightmares). Will schedule ativan taper since w/drawal complicating understanding of symptoms. Discussed substance abuse and says Vivitrol helped; would like to get on Naltrexone again 11/08 hopefully increase in Abilify will consistently keep auditory hallucinations down; currently voices are gone, buzzing remains but at a lower volume. Continue current Abilify dose to see if symptoms improve further. 11/09 patient remains engaged in treatment, attending groups. AH of voices remain resolved; still buzzing sound but less intensely. Will keep Abilify 10 mg for now but will consider increasing. Patient would like to get into a program for substance abuse treatment 11/10 still quite emotional, prone to self-deprecating self talk no AH; intermittent buzzing sounds much less and seems to coincide with moments of high emotionality. discussed meds and agrees to leave Abilify at current dose. Using Zyprexa Prn for afternoon; discussed increased risk of 2 antipsychotics; will continue for now since helping and since lamictal will take a while to become therapeutic. reports right calf sudden onset swelling, painful Doppler right calf: IMPRESSION: No DVT demonstrated in the right lower extremity. 11/11 patient remains in good behavioral and impulse control; engaged in treatment, going to groups and forthcoming in 1 on 1 sessions; understanding better how childhood trauma is playing out in her adult life and how it is triggering automatic self-deprecating thoughts. Patient hoping for substance abuse program 11/12 still emotions get overwhelming; wants increase in abilify 11/13 Patient reports that overall mood is better however she continues to have much anxiety that she feels always seems to threatened becoming overwhelming. Discussed medication regimen agreed to start Trileptal, side effects/risks reviewed which patient understood and accepts. Hope is that she will not need as many PRNs, including Zyprexa which she is taking frequently and thus affectively on 2 antipsychotics. If effective, could discontinue Lamictal to avoid polypharmacy; patient sleeping better. Otherwise patient remains engaged in treatment, attending groups, forthcoming in 1 on 1 sessions, getting along well with others, appropriate with peers and staff. 11/14 patient working hard at increasing coping skills; slept better last night and anxiety down a little bit. 11/15: increase trileptal to 300mg PO BID d/t continued increased anxiety; pt aware and agreeable to dose increase. Plan: cv q15 Continue Trileptal 150 mg b.i.d. for ongoing anxiety Continue Abilify 15mg for emotionality, depression Continue Lamictal 25 mg q.h.s. for ptsd, depression/anxiety (has been on before and thinks it helped) Continue Prazosin 3mg qhs; so far nightmares resolved a 2 mg Continue Naltrexone 25 mg for etoh cravings pt needs outpt providers/therapist Patient educated on: diagnosis and medication risk/benefits Informed Consent: understands Reason for continued inpatient stay Substantial Risk for: med/psych decompensation Time Spent With Patient Time: Total time managing care of this patient today _20___ minutes.
[2023-11-16] MEDS: Nicotine Polacrilex 2 MG GUM 4 MG BUCCAL ×4 (12:13→19:14)
[2023-11-16 18:00] VITALS: BP 108/69; PULSE 78; RESP 18
[2023-11-16] MEDS: Prazosin HCL 1 MG CAPSULE 3 MG PO (19:51)
[2023-11-16] MEDS: OXcarbazepine 300 MG TABLET PO (19:52)
[2023-11-16] MEDS: lamoTRIgine 25 MG TABLET PO (19:52)
[2023-11-16] MEDS: traZODone HCL 100 MG TABLET PO (20:59)
[2023-11-17] MEDS: hydrOXYzine HCL 50 MG TABLET PO ×3 (01:22→21:07)
[2023-11-17] MEDS: traZODone HCL 100 MG TABLET PO ×2 (01:27→21:10)
[2023-11-17 07:30] VITALS: BP 118/70; PULSE 76; RESP 15; TEMP 36.5; O2SAT 96
--- NOTE | 2023-11-17 08:05 | P.PNPSI_ITS ---
Subjective Subjective Date of Service: 11/17/23 Reason For Visit: Depressed Subjective Notes: Conditional Voluntary Interim History: Patient seen and discussed in rounds today. Records and plans were reviewed. She has been doing better, feeling less anxious. Eating and sleeping adequately. She is medication compliant. EKG was done within normal range. No complaints or side effects. No changes were made today Review of Systems Review of Systems Yes all other systems are reviewed and are negative Mental Status Exam Mental Status Exam Narrative: In today's visit she is alert, oriented and pleasant. Normal speech. Good eye contact. Affect is appropriate and varied. No cognitive deficits. No SI. Judgment is intact Diagnostics Vital Signs (24Hr): Vital Signs - 24 hr 11/16/23 18:00 Pulse Rate 78 Respiratory Rate 18 Blood Pressure 108/69 BMI result Body Mass Index 42.6 Labs 11/04/23 05:49 11/06/23 09:08 Labs: Laboratory Results - last 48 hr 11/16/23 09:55 Influenza Type A (PCR) NEGATIVE Influenza Type B (PCR) NEGATIVE RSV RNA Qual (PCR) NEGATIVE SARS-CoV-2 RNA (RT-PCR) NEGATIVE Imaging Radiology Impressions: ITS Impressions Chest X-Ray 11/04/23 06:24 IMPRESSION: No acute cardiopulmonary findings. Venous Duplex 11/11/23 14:14 IMPRESSION: No DVT demonstrated in the right lower extremity. Medications Medications Current Medications Acetaminophen (Acetaminophen 325 Mg Tablet) 650 mg PO Q6H PRN PRN Reason: Headache/Pain Mild Scale (1-3) Last Admin: 11/16/23 21:00 Dose: 650 mg Al Hydroxide/Mg Hydroxide (Magnesium Hydrox/Alum Hydrox 30 Ml Oral.Susp) 30 ml PO Q6H PRN PRN Reason: Heartburn/Nausea Last Admin: 11/11/23 13:36 Dose: 30 ml Aripiprazole (Aripiprazole 15 Mg Tablet) 15 mg PO DAILY [facility] Last Admin: 11/16/23 08:39 Dose: 15 mg Capsaicin (Capsaicin 0.025% Cream 60 Gm Tube) 1 appl TOPICAL TID PRN; Protocol PRN Reason: Pain, Moderate(Pain Scale 4-6) Clonidine HCl (Clonidine Hcl 0.1 Mg Tablet) 0.1 mg PO Q4H PRN; Protocol PRN Reason: anxiety Last Admin: 11/16/23 19:52 Dose: 0.1 mg Famotidine (Famotidine 20 Mg Tablet) 20 mg PO DAILY [facility] Last Admin: 11/16/23 08:39 Dose: 20 mg Folic Acid (Folic Acid 1 Mg Tablet) 1 mg PO DAILY [facility] Last Admin: 11/16/23 08:39 Dose: 1 mg Hydroxyzine HCl (Hydroxyzine Hcl 50 Mg Tablet) 50 mg PO Q6H PRN PRN Reason: Anxiety Last Admin: 11/17/23 01:22 Dose: 50 mg Lamotrigine (Lamotrigine 25 Mg Tablet) 25 mg PO BEDTIME [facility] Last Admin: 11/16/23 19:52 Dose: 25 mg Lidocaine (Lidocaine 4 % Patch Adh..Patch) 1 patch TRANSDERMA DAILY [facility]; Protocol Last Admin: 11/16/23 09:52 Dose: 1 patch Magnesium Hydroxide (Milk Of Magnesia 30 Ml Oral.Susp) 30 ml PO DAILY PRN PRN Reason: Constipation Last Admin: 11/15/23 10:24 Dose: 30 ml Multivitamins/Vitamin C (Multivitamin Tablet) 1 tab PO DAILY [facility] Last Admin: 11/16/23 08:39 Dose: 1 tab Naltrexone HCl (Naltrexone Hcl 50 Mg Tablet) 25 mg PO DAILY [facility] Last Admin: 11/16/23 08:39 Dose: 25 mg Nicotine (Nicotine 21 Mg Patch.Td24) 21 mg TRANSDERMA DAILY PRN PRN Reason: smoking cessation Nicotine Polacrilex (Nicotine Polacrilex 2 Mg Gum) 4 mg BUCCAL Q2H PRN PRN Reason: Nicotine Cravings Last Admin: 11/16/23 19:14 Dose: 4 mg Olanzapine (Olanzapine 5 Mg Tablet) 5 mg PO TID PRN PRN Reason: agitation Last Admin: 11/16/23 16:26 Dose: 5 mg Ondansetron HCl (Ondansetron Odt 4 Mg Tab.Rapdis) 4 mg TRANSLINGU Q6H PRN PRN Reason: Nausea and Vomiting Last Admin: 11/15/23 00:20 Dose: 4 mg Oxcarbazepine (Oxcarbazepine 300 Mg Tablet) 300 mg PO BID [facility] Last Admin: 11/16/23 19:52 Dose: 300 mg Polyethylene Glycol (Polyethylene Glycol 3350 17 Gm Powd.Pack) 17 gm PO DAILY PRN PRN Reason: Constipation Last Admin: 11/15/23 16:57 Dose: 17 gm Prazosin HCl (Prazosin Hcl 1 Mg Capsule) 3 mg PO BEDTIME [facility]; Protocol Last Admin: 11/16/23 19:51 Dose: 3 mg Propranolol HCl (Propranolol Hcl 20 Mg Tablet) 20 mg PO DAILY [facility]; Protocol Last Admin: 11/16/23 08:39 Dose: 20 mg Thiamine HCl (Thiamine Hcl 100 Mg Tablet) 100 mg PO DAILY [facility] Last Admin: 11/16/23 08:39 Dose: 100 mg Trazodone HCl (Trazodone Hcl 100 Mg Tablet) 100 mg PO BEDTIME MRX1 PRN PRN Reason: Insomnia Last Admin: 11/17/23 01:27 Dose: 100 mg Allergies Allergies Allergy/AdvReac Type Severity Reaction Status Date / Time levofloxacin [From LEVAQUIN] Allergy Intermediate RASH Verified 11/04/23 05:34 codeine [Codeine] Allergy Unknown NAUSEA AND Verified 11/04/23 05:34 VOMITING, sensitivity ibuprofen Allergy Unknown sensitivity Verified 11/04/23 05:34 morphine [Morphine] Allergy Unknown HEADACHE, Verified 11/04/23 05:34 vomiting, sensitivity naproxen [From NAPROSYN] Allergy Unknown HIVES, Verified 11/04/23 05:34 DIFFICULTY BREATHING. Sulfa (Sulfonamide Allergy Unknown unknown Verified 11/04/23 05:34 Antibiotics) Assessment & Plan Assessment & Plan (1) Schizoaffective disorder, depressive type: Status: Acute Code(s): F25.1 - Schizoaffective disorder, depressive type (2) PTSD (post-traumatic stress disorder): Status: Acute Code(s): F43.10 - Post-traumatic stress disorder, unspecified (3) Alcohol use disorder: Status: Acute Code(s): F10.90 - Alcohol use, unspecified, uncomplicated (4) Cocaine use disorder: Status: Acute Code(s): F14.10 - Cocaine abuse, uncomplicated Plan pt is a 43 yo female with hx of depression, AH, ptsd and alcohol/cocaine abuse who presents for worsening depression and AH in face of being off medications and substance abuse. Pt reports AH of noises and voices that say self- deprecating things and are present independent of mood/depressive episodes and even during sobriety; no paranoid delusions. Hx of trauma w/ ptsd. Pt drinks about 5+nips per day and sniffs cocaine daily for past several weeks; hx of alcohol w/drawal seizures. No clear hx of manic episodes. Some passive SI Impression: AH independepent of mood; describes a sort of-manic 3 day period but sounds more likely from dysregulation due to PTSD and substance abuse and she does not meet criteria for bipolar. hx of trauma with nightmares; currently w/drawing from etoh. Agrees to start on Abilify to help with both mood and AH (reviewed risks/side- effects) and she agrees to trial; wants to get back on Lamictal (also reviewed risks) HOSPITAL COURSE: 11/07 continues with AH; some paranoid thinking; agrees to increase Abilify since AH remain, Prazosin (for nightmares). Will schedule ativan taper since w/drawal complicating understanding of symptoms. Discussed substance abuse and says Vivitrol helped; would like to get on Naltrexone again 11/08 hopefully increase in Abilify will consistently keep auditory hallucinations down; currently voices are gone, buzzing remains but at a lower volume. Continue current Abilify dose to see if symptoms improve further. 11/09 patient remains engaged in treatment, attending groups. AH of voices remain resolved; still buzzing sound but less intensely. Will keep Abilify 10 mg for now but will consider increasing. Patient would like to get into a program for substance abuse treatment 11/10 still quite emotional, prone to self-deprecating self talk no AH; intermittent buzzing sounds much less and seems to coincide with moments of high emotionality. discussed meds and agrees to leave Abilify at current dose. Using Zyprexa Prn for afternoon; discussed increased risk of 2 antipsychotics; will continue for now since helping and since lamictal will take a while to become therapeutic. reports right calf sudden onset swelling, painful Doppler right calf: IMPRESSION: No DVT demonstrated in the right lower extremity. 11/11 patient remains in good behavioral and impulse control; engaged in treatment, going to groups and forthcoming in 1 on 1 sessions; understanding better how childhood trauma is playing out in her adult life and how it is triggering automatic self-deprecating thoughts. Patient hoping for substance abuse program 11/12 still emotions get overwhelming; wants increase in abilify 11/13 Patient reports that overall mood is better however she continues to have much anxiety that she feels always seems to threatened becoming overwhelming. Discussed medication regimen agreed to start Trileptal, side effects/risks reviewed which patient understood and accepts. Hope is that she will not need as many PRNs, including Zyprexa which she is taking frequently and thus affectively on 2 antipsychotics. If effective, could discontinue Lamictal to avoid polypharmacy; patient sleeping better. Otherwise patient remains engaged in treatment, attending groups, forthcoming in 1 on 1 sessions, getting along well with others, appropriate with peers and staff. 11/14 patient working hard at increasing coping skills; slept better last night and anxiety down a little bit. 11/15: increase trileptal to 300mg PO BID d/t continued increased anxiety; pt aware and agreeable to dose increase. 11/17/2023: Continue current regimen and plans. Plan: cv q15 Continue Trileptal 150 mg b.i.d. for ongoing anxiety Continue Abilify 15mg for emotionality, depression Continue Lamictal 25 mg q.h.s. for ptsd, depression/anxiety (has been on before and thinks it helped) Continue Prazosin 3mg qhs; so far nightmares resolved a 2 mg Continue Naltrexone 25 mg for etoh cravings pt needs outpt providers/therapist Reason for continued inpatient stay Substantial Risk for: med/psych decompensation Time Spent With Patient Time: Total time managing care of this patient today ____ minutes.
[2023-11-17] MEDS: Capsaicin 0.025% Cream 60 GM TUBE 1 APPL TOPICAL ×2 (09:20→18:15)
[2023-11-17] MEDS: Propranolol HCL 20 MG TABLET PO (09:21)
[2023-11-17] MEDS: ARIPiprazole 15 MG TABLET PO (09:22)
[2023-11-17] MEDS: Naltrexone HCl 50 MG TABLET 25 MG PO (09:22)
[2023-11-17] MEDS: Multivitamin TABLET 1 TAB PO (09:23)
[2023-11-17] MEDS: Famotidine 20 MG TABLET PO (09:23)
[2023-11-17] MEDS: Folic Acid 1 MG TABLET PO (09:23)
[2023-11-17] MEDS: Thiamine HCL 100 MG TABLET PO (09:23)
[2023-11-17] MEDS: OXcarbazepine 300 MG TABLET PO ×2 (09:23→21:10)
[2023-11-17] MEDS: Nicotine Polacrilex 2 MG GUM 4 MG BUCCAL ×4 (09:29→18:13)
[2023-11-17] MEDS: Ondansetron ODT 4 MG TAB.RAPDIS TRANSLINGU (09:32)
[2023-11-17] MEDS: Acetaminophen 325 MG TABLET 650 MG PO (11:35)
[2023-11-17 11:56] LABS: Adenovirus PCR Not Detected (Not Detect.); Bordetella parapertussis PCR Not Detected (Not Detect.); Bordetella pertussis PCR Not Detected (Not Detect.); Chlamydia pneumoniae PCR Not Detected (Not Detect.); Coronavirus 229E PCR Not Detected (Not Detect.); Coronavirus HKU1 PCR Not Detected (Not Detect.); Coronavirus NL63 PCR Not Detected (Not Detect.); Coronavirus OC43 PCR Not Detected (Not Detect.); Human metapneumovirus PCR Not Detected (Not Detect.); Influenza A PCR Not Detected (Not Detect.); Influenza B PCR Not Detected (Not Detect.); Mycoplasma pneumoniae PCR Not Detected (Not Detect.); Parainfluenza 1 PCR Not Detected (Not Detect.); Parainfluenza 2 PCR Not Detected (Not Detect.); Parainfluenza 3 PCR Not Detected (Not Detect.); Parainfluenza 4 PCR Not Detected (Not Detect.); RSV PCR Not Detected (Not Detect.); Rhino/Enterovirus PCR Not Detected (Not Detect.)
[2023-11-17 12:57] LABS: SARS-CoV-2 PCR Not Detected (Not Detect.)
[2023-11-17 13:37] VITALS: BP 113/57; PULSE 80
[2023-11-17] MEDS: cloNIDine HCL 0.1 MG TABLET PO (13:38)
[2023-11-17 16:10] VITALS: BP 116/64; PULSE 60; TEMP 36.1; O2SAT 98
[2023-11-17] MEDS: OLANZapine 5 MG TABLET PO (16:17)
[2023-11-17] MEDS: lamoTRIgine 25 MG TABLET PO (21:10)
[2023-11-17] MEDS: Prazosin HCL 1 MG CAPSULE 3 MG PO (21:11)
[2023-11-18] MEDS: hydrOXYzine HCL 50 MG TABLET PO ×3 (05:08→20:39)
[2023-11-18] MEDS: Acetaminophen 325 MG TABLET 650 MG PO ×2 (05:08→13:15)
[2023-11-18] MEDS: Nicotine Polacrilex 2 MG GUM 4 MG BUCCAL ×7 (05:23→21:01)
[2023-11-18 06:00] VITALS: BP 126/82; PULSE 77; RESP 16; TEMP 36.1; O2SAT 100
[2023-11-18] MEDS: OXcarbazepine 300 MG TABLET PO ×2 (08:00→20:35)
[2023-11-18] MEDS: OLANZapine 5 MG TABLET PO ×2 (08:00→15:53)
[2023-11-18] MEDS: Propranolol HCL 20 MG TABLET PO (08:00)
[2023-11-18] MEDS: Famotidine 20 MG TABLET PO (08:00)
[2023-11-18] MEDS: Multivitamin TABLET 1 TAB PO (08:00)
[2023-11-18] MEDS: ARIPiprazole 15 MG TABLET PO (08:00)
[2023-11-18] MEDS: Thiamine HCL 100 MG TABLET PO (08:00)
[2023-11-18] MEDS: Folic Acid 1 MG TABLET PO (08:00)
[2023-11-18] MEDS: Naltrexone HCl 50 MG TABLET 25 MG PO (08:01)
[2023-11-18] MEDS: Capsaicin 0.025% Cream 60 GM TUBE 1 APPL TOPICAL (08:01)
[2023-11-18] MEDS: Lidocaine 4 % Patch ADH..PATCH 1 PATCH TRANSDERMA (08:01)
--- NOTE | 2023-11-18 08:35 | P.PNPSI_ITS ---
Subjective Subjective Date of Service: 11/18/23 Reason For Visit: Depressed Subjective Notes: Conditional Voluntary Interim History: Patient seen and discussed in rounds today. Records and plans were reviewed. She has been stable and is visible. Continues to endorse anxiety. Continues to have some auditory hallucinations. Current medications were reviewed with her. Questions about Zyprexa discussed. No changes were made. Eating and sleeping adequately Review of Systems Review of Systems Yes all other systems are reviewed and are negative Mental Status Exam Mental Status Exam Narrative: In today's visit she is alert, oriented and pleasant. Normal speech. Good eye contact. Affect is appropriate and varied. No cognitive deficits. No SI. Judgment is intact Diagnostics Vital Signs (24Hr): Vital Signs - 24 hr 11/17/23 13:37 11/17/23 16:10 11/18/23 06:00 Temperature 97.0 F 97.0 F Pulse Rate 80 60 77 Respiratory Rate 16 Blood Pressure 113/57 L 116/64 126/82 Pulse Oximetry 98 100 Oxygen Delivery Method Room Air Room Air BMI result Body Mass Index 42.6 Labs 11/04/23 05:49 11/06/23 09:08 Labs: Laboratory Results - last 48 hr 11/16/23 11/17/23 09:55 09:45 Respiratory Panel [place] See Note Adenovirus (Rapid PCR) Not Detected B.pert (TEM-PCR) Not Detected B.parapertussis DNA PCR Not Detected C. pneumoniae DNA (PCR) Not Detected Coronavirus OC43 (PCR) Not Detected Coronavirus HKU1 (PCR) Not Detected Coronavirus 229E (PCR) Not Detected Coronavirus NL63 (PCR) Not Detected Human Metapneumovir PCR Not Detected Influenza A (RT-PCR) Not Detected Influenza Type A (PCR) NEGATIVE Influenza B (RT-PCR) Not Detected Influenza Type B (PCR) NEGATIVE M. pneumoniae (PCR) Not Detected Parainfluenza 1 (PCR) Not Detected Parainfluenza 2 (PCR) Not Detected Parainfluenza 3 (PCR) Not Detected Parainfluenza 4 (PCR) Not Detected RSV (PCR) Not Detected RSV RNA Qual (PCR) NEGATIVE Entero/Rhino (PCR) Not Detected SARS-CoV-2 RNA (RT-PCR) NEGATIVE Not Detected Imaging Radiology Impressions: ITS Impressions Chest X-Ray 11/04/23 06:24 IMPRESSION: No acute cardiopulmonary findings. Venous Duplex 11/11/23 14:14 IMPRESSION: No DVT demonstrated in the right lower extremity. Medications Medications Current Medications Acetaminophen (Acetaminophen 325 Mg Tablet) 650 mg PO Q6H PRN PRN Reason: Headache/Pain Mild Scale (1-3) Last Admin: 11/18/23 05:08 Dose: 650 mg Al Hydroxide/Mg Hydroxide (Magnesium Hydrox/Alum Hydrox 30 Ml Oral.Susp) 30 ml PO Q6H PRN PRN Reason: Heartburn/Nausea Last Admin: 11/11/23 13:36 Dose: 30 ml Aripiprazole (Aripiprazole 15 Mg Tablet) 15 mg PO DAILY [facility] Last Admin: 11/18/23 08:00 Dose: 15 mg Capsaicin (Capsaicin 0.025% Cream 60 Gm Tube) 1 appl TOPICAL TID PRN; Protocol PRN Reason: Pain, Moderate(Pain Scale 4-6) Last Admin: 11/18/23 08:01 Dose: 1 appl Clonidine HCl (Clonidine Hcl 0.1 Mg Tablet) 0.1 mg PO Q4H PRN; Protocol PRN Reason: anxiety Last Admin: 11/17/23 13:38 Dose: 0.1 mg Famotidine (Famotidine 20 Mg Tablet) 20 mg PO DAILY RAVI Last Admin: 11/18/23 08:00 Dose: 20 mg Folic Acid (Folic Acid 1 Mg Tablet) 1 mg PO DAILY RAVI Last Admin: 11/18/23 08:00 Dose: 1 mg Hydroxyzine HCl (Hydroxyzine Hcl 50 Mg Tablet) 50 mg PO Q6H PRN PRN Reason: Anxiety Last Admin: 11/18/23 05:08 Dose: 50 mg Lamotrigine (Lamotrigine 25 Mg Tablet) 25 mg PO BEDTIME RAVI Last Admin: 11/17/23 21:10 Dose: 25 mg Lidocaine (Lidocaine 4 % Patch Adh..Patch) 1 patch TRANSDERMA DAILY RAVI; Protocol Last Admin: 11/18/23 08:01 Dose: 1 patch Magnesium Hydroxide (Milk Of Magnesia 30 Ml Oral.Susp) 30 ml PO DAILY PRN PRN Reason: Constipation Last Admin: 11/15/23 10:24 Dose: 30 ml Multivitamins/Vitamin C (Multivitamin Tablet) 1 tab PO DAILY RAVI Last Admin: 11/18/23 08:00 Dose: 1 tab Naltrexone HCl (Naltrexone Hcl 50 Mg Tablet) 25 mg PO DAILY RAVI Last Admin: 11/18/23 08:01 Dose: 25 mg Nicotine (Nicotine 21 Mg Patch.Td24) 21 mg TRANSDERMA DAILY PRN PRN Reason: smoking cessation Nicotine Polacrilex (Nicotine Polacrilex 2 Mg Gum) 4 mg BUCCAL Q2H PRN PRN Reason: Nicotine Cravings Last Admin: 11/18/23 08:01 Dose: 4 mg Olanzapine (Olanzapine 5 Mg Tablet) 5 mg PO TID PRN PRN Reason: agitation Last Admin: 11/18/23 08:00 Dose: 5 mg Ondansetron HCl (Ondansetron Odt 4 Mg Tab.Rapdis) 4 mg TRANSLINGU Q6H PRN PRN Reason: Nausea and Vomiting Last Admin: 11/17/23 09:32 Dose: 4 mg Oxcarbazepine (Oxcarbazepine 300 Mg Tablet) 300 mg PO BID RAVI Last Admin: 11/18/23 08:00 Dose: 300 mg Polyethylene Glycol (Polyethylene Glycol 3350 17 Gm Powd.Pack) 17 gm PO DAILY PRN PRN Reason: Constipation Last Admin: 11/15/23 16:57 Dose: 17 gm Prazosin HCl (Prazosin Hcl 1 Mg Capsule) 3 mg PO BEDTIME RAVI; Protocol Last Admin: 11/17/23 21:11 Dose: 3 mg Propranolol HCl (Propranolol Hcl 20 Mg Tablet) 20 mg PO DAILY RAVI; Protocol Last Admin: 11/18/23 08:00 Dose: 20 mg Thiamine HCl (Thiamine Hcl 100 Mg Tablet) 100 mg PO DAILY RAVI Last Admin: 11/18/23 08:00 Dose: 100 mg Trazodone HCl (Trazodone Hcl 100 Mg Tablet) 100 mg PO BEDTIME MRX1 PRN PRN Reason: Insomnia Last Admin: 11/17/23 21:10 Dose: 100 mg Allergies Allergies Allergy/AdvReac Type Severity Reaction Status Date / Time levofloxacin [From LEVAQUIN] Allergy Intermediate RASH Verified 11/04/23 05:34 codeine [Codeine] Allergy Unknown NAUSEA AND Verified 11/04/23 05:34 VOMITING, sensitivity ibuprofen Allergy Unknown sensitivity Verified 11/04/23 05:34 morphine [Morphine] Allergy Unknown HEADACHE, Verified 11/04/23 05:34 vomiting, sensitivity naproxen [From NAPROSYN] Allergy Unknown HIVES, Verified 11/04/23 05:34 DIFFICULTY BREATHING. Sulfa (Sulfonamide Allergy Unknown unknown Verified 11/04/23 05:34 Antibiotics) Assessment & Plan Assessment & Plan (1) Schizoaffective disorder, depressive type: Status: Acute Code(s): F25.1 - Schizoaffective disorder, depressive type (2) PTSD (post-traumatic stress disorder): Status: Acute Code(s): F43.10 - Post-traumatic stress disorder, unspecified (3) Alcohol use disorder: Status: Acute Code(s): F10.90 - Alcohol use, unspecified, uncomplicated (4) Cocaine use disorder: Status: Acute Code(s): F14.10 - Cocaine abuse, uncomplicated Plan pt is a 43 yo female with hx of depression, AH, ptsd and alcohol/cocaine abuse who presents for worsening depression and AH in face of being off medications and substance abuse. Pt reports AH of noises and voices that say self- deprecating things and are present independent of mood/depressive episodes and even during sobriety; no paranoid delusions. Hx of trauma w/ ptsd. Pt drinks about 5+nips per day and sniffs cocaine daily for past several weeks; hx of alcohol w/drawal seizures. No clear hx of manic episodes. Some passive SI Impression: AH independepent of mood; describes a sort of-manic 3 day period but sounds more likely from dysregulation due to PTSD and substance abuse and she does not meet criteria for bipolar. hx of trauma with nightmares; currently w/drawing from etoh. Agrees to start on Abilify to help with both mood and AH (reviewed risks/side- effects) and she agrees to trial; wants to get back on Lamictal (also reviewed risks) HOSPITAL COURSE: 11/07 continues with AH; some paranoid thinking; agrees to increase Abilify since AH remain, Prazosin (for nightmares). Will schedule ativan taper since w/drawal complicating understanding of symptoms. Discussed substance abuse and says Vivitrol helped; would like to get on Naltrexone again 11/08 hopefully increase in Abilify will consistently keep auditory hallucinations down; currently voices are gone, buzzing remains but at a lower volume. Continue current Abilify dose to see if symptoms improve further. 11/09 patient remains engaged in treatment, attending groups. AH of voices remain resolved; still buzzing sound but less intensely. Will keep Abilify 10 mg for now but will consider increasing. Patient would like to get into a program for substance abuse treatment 11/10 still quite emotional, prone to self-deprecating self talk no AH; intermittent buzzing sounds much less and seems to coincide with moments of high emotionality. discussed meds and agrees to leave Abilify at current dose. Using Zyprexa Prn for afternoon; discussed increased risk of 2 antipsychotics; will continue for now since helping and since lamictal will take a while to become therapeutic. reports right calf sudden onset swelling, painful Doppler right calf: IMPRESSION: No DVT demonstrated in the right lower extremity. 11/11 patient remains in good behavioral and impulse control; engaged in treatment, going to groups and forthcoming in 1 on 1 sessions; understanding better how childhood trauma is playing out in her adult life and how it is triggering automatic self-deprecating thoughts. Patient hoping for substance abuse program 11/12 still emotions get overwhelming; wants increase in abilify 11/13 Patient reports that overall mood is better however she continues to have much anxiety that she feels always seems to threatened becoming overwhelming. Discussed medication regimen agreed to start Trileptal, side effects/risks reviewed which patient understood and accepts. Hope is that she will not need as many PRNs, including Zyprexa which she is taking frequently and thus affectively on 2 antipsychotics. If effective, could discontinue Lamictal to avoid polypharmacy; patient sleeping better. Otherwise patient remains engaged in treatment, attending groups, forthcoming in 1 on 1 sessions, getting along well with others, appropriate with peers and staff. 11/14 patient working hard at increasing coping skills; slept better last night and anxiety down a little bit. 11/15: increase trileptal to 300mg PO BID d/t continued increased anxiety; pt aware and agreeable to dose increase. 11/17/2023: Continue current regimen and plans. 11/18/2023: Continue current regimen and plans Plan: cv q15 Continue Trileptal 150 mg b.i.d. for ongoing anxiety Continue Abilify 15mg for emotionality, depression Continue Lamictal 25 mg q.h.s. for ptsd, depression/anxiety (has been on before and thinks it helped) Continue Prazosin 3mg qhs; so far nightmares resolved a 2 mg Continue Naltrexone 25 mg for etoh cravings pt needs outpt providers/therapist Patient educated on: medication risk/benefits Reason for continued inpatient stay Substantial Risk for: med/psych decompensation Time Spent With Patient Time: Total time managing care of this patient today ____ minutes.
[2023-11-18 15:51] VITALS: BP 147/76; PULSE 79; RESP 18; O2SAT 100
[2023-11-18] MEDS: cloNIDine HCL 0.1 MG TABLET PO (15:53)
[2023-11-18] MEDS: lamoTRIgine 25 MG TABLET PO (20:35)
[2023-11-18] MEDS: Prazosin HCL 1 MG CAPSULE 3 MG PO (20:35)
[2023-11-18] MEDS: traZODone HCL 100 MG TABLET PO (20:39)
[2023-11-19] MEDS: cloNIDine HCL 0.1 MG TABLET PO ×2 (03:57→14:24)
[2023-11-19] MEDS: Acetaminophen 325 MG TABLET 650 MG PO ×2 (03:57→20:21)
[2023-11-19] MEDS: Nicotine Polacrilex 2 MG GUM 4 MG BUCCAL ×6 (03:58→20:22)
[2023-11-19 07:30] VITALS: BP 119/57; PULSE 75; RESP 18; TEMP 36.7; O2SAT 95
--- NOTE | 2023-11-19 07:54 | P.PNPSI_ITS ---
Subjective Subjective Date of Service: 11/19/23 Reason For Visit: Depressed Interim History: Met with patient; discussed with team; reviewed chart Patient doing well, feeling helped by medications and overall progressing; feeling that she is very much benefiting from groups and shares how she is using lots of coping skills which she has learned on the unit. Discussed medication management and no side effects. She remains focused on treatment, engaged in groups and appropriate with peers and staff. Optimistic about sobriety. Mental Status Exam Mental Status Exam Narrative: Pt is alert and oriented; behavior is cooperative, calm; dressed in casual attire, adequate hygiene; mood is described as good and affect congruent; eye contact adequate; Speech is normal rate, volume and prosody and not pressured; no psychomotor retardation/agitation; thought process is organized and goal directed; Thought content is on treatment; coping with intermittent self- deprecating thoughts; otherwise pertinent to relevant topics and without any delusional content, paranoid ideations or grandiosity; no SI/no HI/no AVH. Patients insight and judgment fair. Diagnostics Vital Signs (24Hr): Vital Signs - 24 hr 11/18/23 15:51 Pulse Rate 79 Respiratory Rate 18 Blood Pressure 147/76 H Pulse Oximetry 100 Oxygen Delivery Method Room Air BMI result Body Mass Index 42.6 Labs 11/04/23 05:49 11/06/23 09:08 Labs: Laboratory Results - last 48 hr 11/17/23 09:45 Respiratory Panel [place] See Note Adenovirus (Rapid PCR) Not Detected B.pert (TEM-PCR) Not Detected B.parapertussis DNA PCR Not Detected C. pneumoniae DNA (PCR) Not Detected Coronavirus OC43 (PCR) Not Detected Coronavirus HKU1 (PCR) Not Detected Coronavirus 229E (PCR) Not Detected Coronavirus NL63 (PCR) Not Detected Human Metapneumovir PCR Not Detected Influenza A (RT-PCR) Not Detected Influenza B (RT-PCR) Not Detected M. pneumoniae (PCR) Not Detected Parainfluenza 1 (PCR) Not Detected Parainfluenza 2 (PCR) Not Detected Parainfluenza 3 (PCR) Not Detected Parainfluenza 4 (PCR) Not Detected RSV (PCR) Not Detected Entero/Rhino (PCR) Not Detected SARS-CoV-2 RNA (RT-PCR) Not Detected Imaging Radiology Impressions: ITS Impressions Chest X-Ray 11/04/23 06:24 IMPRESSION: No acute cardiopulmonary findings. Venous Duplex 11/11/23 14:14 IMPRESSION: No DVT demonstrated in the right lower extremity. Medications Medications Current Medications Acetaminophen (Acetaminophen 325 Mg Tablet) 650 mg PO Q6H PRN PRN Reason: Headache/Pain Mild Scale (1-3) Last Admin: 11/19/23 03:57 Dose: 650 mg Al Hydroxide/Mg Hydroxide (Magnesium Hydrox/Alum Hydrox 30 Ml Oral.Susp) 30 ml PO Q6H PRN PRN Reason: Heartburn/Nausea Last Admin: 11/11/23 13:36 Dose: 30 ml Aripiprazole (Aripiprazole 15 Mg Tablet) 15 mg PO DAILY RAVI Last Admin: 11/18/23 08:00 Dose: 15 mg Capsaicin (Capsaicin 0.025% Cream 60 Gm Tube) 1 appl TOPICAL TID PRN; Protocol PRN Reason: Pain, Moderate(Pain Scale 4-6) Last Admin: 11/18/23 08:01 Dose: 1 appl Clonidine HCl (Clonidine Hcl 0.1 Mg Tablet) 0.1 mg PO Q4H PRN; Protocol PRN Reason: anxiety Last Admin: 11/19/23 03:57 Dose: 0.1 mg Famotidine (Famotidine 20 Mg Tablet) 20 mg PO DAILY RAVI Last Admin: 11/18/23 08:00 Dose: 20 mg Folic Acid (Folic Acid 1 Mg Tablet) 1 mg PO DAILY RAVI Last Admin: 11/18/23 08:00 Dose: 1 mg Hydroxyzine HCl (Hydroxyzine Hcl 50 Mg Tablet) 50 mg PO Q6H PRN PRN Reason: Anxiety Last Admin: 11/18/23 20:39 Dose: 50 mg Lamotrigine (Lamotrigine 25 Mg Tablet) 25 mg PO BEDTIME RAVI Last Admin: 11/18/23 20:35 Dose: 25 mg Lidocaine (Lidocaine 4 % Patch Adh..Patch) 1 patch TRANSDERMA DAILY RAVI; Protocol Last Admin: 11/18/23 08:01 Dose: 1 patch Magnesium Hydroxide (Milk Of Magnesia 30 Ml Oral.Susp) 30 ml PO DAILY PRN PRN Reason: Constipation Last Admin: 11/15/23 10:24 Dose: 30 ml Multivitamins/Vitamin C (Multivitamin Tablet) 1 tab PO DAILY RAVI Last Admin: 11/18/23 08:00 Dose: 1 tab Naltrexone HCl (Naltrexone Hcl 50 Mg Tablet) 25 mg PO DAILY RAVI Last Admin: 11/18/23 08:01 Dose: 25 mg Nicotine (Nicotine 21 Mg Patch.Td24) 21 mg TRANSDERMA DAILY PRN PRN Reason: smoking cessation Nicotine Polacrilex (Nicotine Polacrilex 2 Mg Gum) 4 mg BUCCAL Q2H PRN PRN Reason: Nicotine Cravings Last Admin: 11/19/23 03:58 Dose: 4 mg Olanzapine (Olanzapine 5 Mg Tablet) 5 mg PO TID PRN PRN Reason: agitation Last Admin: 11/18/23 15:53 Dose: 5 mg Ondansetron HCl (Ondansetron Odt 4 Mg Tab.Rapdis) 4 mg TRANSLINGU Q6H PRN PRN Reason: Nausea and Vomiting Last Admin: 11/17/23 09:32 Dose: 4 mg Oxcarbazepine (Oxcarbazepine 300 Mg Tablet) 300 mg PO BID RAVI Last Admin: 11/18/23 20:35 Dose: 300 mg Polyethylene Glycol (Polyethylene Glycol 3350 17 Gm Powd.Pack) 17 gm PO DAILY PRN PRN Reason: Constipation Last Admin: 11/15/23 16:57 Dose: 17 gm Prazosin HCl (Prazosin Hcl 1 Mg Capsule) 3 mg PO BEDTIME RAVI; Protocol Last Admin: 11/18/23 20:35 Dose: 3 mg Propranolol HCl (Propranolol Hcl 20 Mg Tablet) 20 mg PO DAILY RAVI; Protocol Last Admin: 11/18/23 08:00 Dose: 20 mg Thiamine HCl (Thiamine Hcl 100 Mg Tablet) 100 mg PO DAILY RAVI Last Admin: 11/18/23 08:00 Dose: 100 mg Trazodone HCl (Trazodone Hcl 100 Mg Tablet) 100 mg PO BEDTIME MRX1 PRN PRN Reason: Insomnia Last Admin: 11/18/23 20:39 Dose: 100 mg Allergies Allergies Allergy/AdvReac Type Severity Reaction Status Date / Time levofloxacin [From LEVAQUIN] Allergy Intermediate RASH Verified 11/04/23 05:34 codeine [Codeine] Allergy Unknown NAUSEA AND Verified 11/04/23 05:34 VOMITING, sensitivity ibuprofen Allergy Unknown sensitivity Verified 11/04/23 05:34 morphine [Morphine] Allergy Unknown HEADACHE, Verified 11/04/23 05:34 vomiting, sensitivity naproxen [From NAPROSYN] Allergy Unknown HIVES, Verified 11/04/23 05:34 DIFFICULTY BREATHING. Sulfa (Sulfonamide Allergy Unknown unknown Verified 11/04/23 05:34 Antibiotics) Assessment & Plan Assessment & Plan (1) Schizoaffective disorder, depressive type: Status: Acute Code(s): F25.1 - Schizoaffective disorder, depressive type (2) PTSD (post-traumatic stress disorder): Status: Acute Code(s): F43.10 - Post-traumatic stress disorder, unspecified (3) Alcohol use disorder: Status: Acute Code(s): F10.90 - Alcohol use, unspecified, uncomplicated (4) Cocaine use disorder: Status: Acute Code(s): F14.10 - Cocaine abuse, uncomplicated Plan pt is a 43 yo female with hx of depression, AH, ptsd and alcohol/cocaine abuse who presents for worsening depression and AH in face of being off medications and substance abuse. Pt reports AH of noises and voices that say self- deprecating things and are present independent of mood/depressive episodes and even during sobriety; no paranoid delusions. Hx of trauma w/ ptsd. Pt drinks about 5+nips per day and sniffs cocaine daily for past several weeks; hx of alcohol w/drawal seizures. No clear hx of manic episodes. Some passive SI Impression: AH independepent of mood; describes a sort of-manic 3 day period but sounds more likely from dysregulation due to PTSD and substance abuse and she does not meet criteria for bipolar. hx of trauma with nightmares; currently w/drawing from etoh. Agrees to start on Abilify to help with both mood and AH (reviewed risks/side- effects) and she agrees to trial; wants to get back on Lamictal (also reviewed risks) HOSPITAL COURSE: 11/07 continues with AH; some paranoid thinking; agrees to increase Abilify since AH remain, Prazosin (for nightmares). Will schedule ativan taper since w/drawal complicating understanding of symptoms. Discussed substance abuse and says Dianel helped; would like to get on Naltrexone again 11/08 hopefully increase in Abilify will consistently keep auditory hallucinations down; currently voices are gone, buzzing remains but at a lower volume. Continue current Abilify dose to see if symptoms improve further. 11/09 patient remains engaged in treatment, attending groups. AH of voices remain resolved; still buzzing sound but less intensely. Will keep Abilify 10 mg for now but will consider increasing. Patient would like to get into a program for substance abuse treatment 11/10 still quite emotional, prone to self-deprecating self talk no AH; intermittent buzzing sounds much less and seems to coincide with moments of high emotionality. discussed meds and agrees to leave Abilify at current dose. Using Zyprexa Prn for afternoon; discussed increased risk of 2 antipsychotics; will continue for now since helping and since lamictal will take a while to become therapeutic. reports right calf sudden onset swelling, painful Doppler right calf: IMPRESSION: No DVT demonstrated in the right lower extremity. 11/11 patient remains in good behavioral and impulse control; engaged in treatment, going to groups and forthcoming in 1 on 1 sessions; understanding better how childhood trauma is playing out in her adult life and how it is triggering automatic self-deprecating thoughts. Patient hoping for substance abuse program 11/12 still emotions get overwhelming; wants increase in abilify 11/13 Patient reports that overall mood is better however she continues to have much anxiety that she feels always seems to threatened becoming overwhelming. Discussed medication regimen agreed to start Trileptal, side effects/risks reviewed which patient understood and accepts. Hope is that she will not need as many PRNs, including Zyprexa which she is taking frequently and thus affectively on 2 antipsychotics. If effective, could discontinue Lamictal to avoid polypharmacy; patient sleeping better. Otherwise patient remains engaged in treatment, attending groups, forthcoming in 1 on 1 sessions, getting along well with others, appropriate with peers and staff. 11/14 patient working hard at increasing coping skills; slept better last night and anxiety down a little bit. 11/15: increase trileptal to 300mg PO BID d/t continued increased anxiety; pt aware and agreeable to dose increase. 11/18 patient continues to do well, engaged in treatment, getting along well with peers and utilizing coping skills. She is eager and hopeful about attending program in the community. Discussed medication management and patient remains stable on current medication regimen. Plan: cv q15 Continue Trileptal 300 mg b.i.d. for ongoing anxiety Continue Abilify 15mg for emotionality, depression Continue Lamictal 25 mg q.h.s. for ptsd, depression/anxiety (has been on before and thinks it helped) Continue Prazosin 3mg qhs; so far nightmares resolved a 2 mg Continue Naltrexone 25 mg for etoh cravings pt needs outpt providers/therapist Patient educated on: diagnosis, medication risk/benefits and substance abuse Informed Consent: understands Reason for continued inpatient stay Substantial Risk for: stable for discharge Time Spent With Patient Time: Total time managing care of this patient today ____ minutes.
[2023-11-19] MEDS: Propranolol HCL 20 MG TABLET PO (08:23)
[2023-11-19] MEDS: Multivitamin TABLET 1 TAB PO (08:24)
[2023-11-19] MEDS: ARIPiprazole 15 MG TABLET PO (08:24)
[2023-11-19] MEDS: Famotidine 20 MG TABLET PO (08:24)
[2023-11-19] MEDS: Naltrexone HCl 50 MG TABLET 25 MG PO (08:24)
[2023-11-19] MEDS: hydrOXYzine HCL 50 MG TABLET PO ×2 (08:24→20:22)
[2023-11-19] MEDS: Thiamine HCL 100 MG TABLET PO (08:25)
[2023-11-19] MEDS: OXcarbazepine 300 MG TABLET PO ×2 (08:25→20:22)
[2023-11-19] MEDS: Folic Acid 1 MG TABLET PO (08:25)
[2023-11-19] MEDS: Capsaicin 0.025% Cream 60 GM TUBE 1 APPL TOPICAL (12:15)
[2023-11-19] MEDS: Lidocaine 4 % Patch ADH..PATCH 1 PATCH TRANSDERMA (12:16)
[2023-11-19 14:21] VITALS: BP 126/73
[2023-11-19 18:00] VITALS: BP 111/57; PULSE 76; RESP 18; TEMP 36.8; O2SAT 97
[2023-11-19] MEDS: Prazosin HCL 1 MG CAPSULE 3 MG PO (20:21)
[2023-11-19] MEDS: lamoTRIgine 25 MG TABLET PO (20:22)
[2023-11-19] MEDS: OLANZapine 5 MG TABLET PO (20:22)
[2023-11-19] MEDS: traZODone HCL 100 MG TABLET PO (21:52)
[2023-11-20] MEDS: traZODone HCL 100 MG TABLET PO ×3 (02:23→21:23)
[2023-11-20] MEDS: cloNIDine HCL 0.1 MG TABLET PO ×3 (02:23→20:20)
[2023-11-20 08:11] VITALS: BP 114/72; PULSE 83; RESP 16; TEMP 36.3; O2SAT 98
[2023-11-20] MEDS: Lidocaine 4 % Patch ADH..PATCH 1 PATCH TRANSDERMA (08:53)
[2023-11-20] MEDS: Thiamine HCL 100 MG TABLET PO (08:54)
[2023-11-20] MEDS: ARIPiprazole 15 MG TABLET PO (08:54)
[2023-11-20] MEDS: Folic Acid 1 MG TABLET PO (08:54)
[2023-11-20] MEDS: Multivitamin TABLET 1 TAB PO (08:54)
[2023-11-20] MEDS: Famotidine 20 MG TABLET PO (08:54)
[2023-11-20] MEDS: OXcarbazepine 300 MG TABLET PO ×2 (08:54→20:16)
[2023-11-20] MEDS: Naltrexone HCl 50 MG TABLET 25 MG PO (08:54)
[2023-11-20] MEDS: hydrOXYzine HCL 50 MG TABLET PO ×2 (08:54→18:10)
[2023-11-20] MEDS: Propranolol HCL 20 MG TABLET PO (08:54)
--- NOTE | 2023-11-20 09:36 | P.PNPSI_ITS ---
Subjective Subjective Date of Service: 11/20/23 Reason For Visit: Depressed Interim History: met with pt; discussed with team pt feels mood and anxiety are much better; meds working and she's feeling optimistic about continued stability and sobriety. Excited she got into a program Mental Status Exam Mental Status Exam Narrative: Pt is alert and oriented; behavior is cooperative, calm; dressed in casual attire, adequate hygiene; mood is described as good and affect congruent; eye contact adequate; Speech is normal rate, volume and prosody and not pressured; no psychomotor retardation/agitation; thought process is organized and goal directed; Thought content is on treatment; coping with intermittent self- deprecating thoughts; otherwise pertinent to relevant topics and without any delusional content, paranoid ideations or grandiosity; no SI/no HI/no AVH. Patients insight and judgment fair. Diagnostics Vital Signs (24Hr): Vital Signs - 24 hr 11/19/23 14:21 11/19/23 18:00 11/20/23 08:11 Temperature 98.2 F 97.4 F Pulse Rate 76 83 Respiratory Rate 18 16 Blood Pressure 126/73 111/57 L 114/72 Pulse Oximetry 97 98 Oxygen Delivery Method Room Air Room Air BMI result Body Mass Index 42.6 Labs 11/04/23 05:49 11/06/23 09:08 Imaging Radiology Impressions: ITS Impressions Chest X-Ray 11/04/23 06:24 IMPRESSION: No acute cardiopulmonary findings. Venous Duplex 11/11/23 14:14 IMPRESSION: No DVT demonstrated in the right lower extremity. Medications Medications Current Medications Acetaminophen (Acetaminophen 325 Mg Tablet) 650 mg PO Q6H PRN PRN Reason: Headache/Pain Mild Scale (1-3) Last Admin: 11/19/23 20:21 Dose: 650 mg Al Hydroxide/Mg Hydroxide (Magnesium Hydrox/Alum Hydrox 30 Ml Oral.Susp) 30 ml PO Q6H PRN PRN Reason: Heartburn/Nausea Last Admin: 11/11/23 13:36 Dose: 30 ml Aripiprazole (Aripiprazole 15 Mg Tablet) 15 mg PO DAILY RAVI Last Admin: 11/20/23 08:54 Dose: 15 mg Capsaicin (Capsaicin 0.025% Cream 60 Gm Tube) 1 appl TOPICAL TID PRN; Protocol PRN Reason: Pain, Moderate(Pain Scale 4-6) Last Admin: 11/19/23 12:15 Dose: 1 appl Clonidine HCl (Clonidine Hcl 0.1 Mg Tablet) 0.1 mg PO Q4H PRN; Protocol PRN Reason: anxiety Last Admin: 11/20/23 02:23 Dose: 0.1 mg Famotidine (Famotidine 20 Mg Tablet) 20 mg PO DAILY [facility] Last Admin: 11/20/23 08:54 Dose: 20 mg Folic Acid (Folic Acid 1 Mg Tablet) 1 mg PO DAILY [facility] Last Admin: 11/20/23 08:54 Dose: 1 mg Hydroxyzine HCl (Hydroxyzine Hcl 50 Mg Tablet) 50 mg PO Q6H PRN PRN Reason: Anxiety Last Admin: 11/20/23 08:54 Dose: 50 mg Lamotrigine (Lamotrigine 25 Mg Tablet) 25 mg PO BEDTIME [facility] Last Admin: 11/19/23 20:22 Dose: 25 mg Lidocaine (Lidocaine 4 % Patch Adh..Patch) 1 patch TRANSDERMA DAILY [facility]; Protocol Last Admin: 11/20/23 08:53 Dose: 1 patch Magnesium Hydroxide (Milk Of Magnesia 30 Ml Oral.Susp) 30 ml PO DAILY PRN PRN Reason: Constipation Last Admin: 11/15/23 10:24 Dose: 30 ml Multivitamins/Vitamin C (Multivitamin Tablet) 1 tab PO DAILY [facility] Last Admin: 11/20/23 08:54 Dose: 1 tab Naltrexone HCl (Naltrexone Hcl 50 Mg Tablet) 25 mg PO DAILY [facility] Last Admin: 11/20/23 08:54 Dose: 25 mg Nicotine (Nicotine 21 Mg Patch.Td24) 21 mg TRANSDERMA DAILY PRN PRN Reason: smoking cessation Nicotine Polacrilex (Nicotine Polacrilex 2 Mg Gum) 4 mg BUCCAL Q2H PRN PRN Reason: Nicotine Cravings Last Admin: 11/19/23 20:22 Dose: 4 mg Olanzapine (Olanzapine 5 Mg Tablet) 5 mg PO TID PRN PRN Reason: agitation Last Admin: 11/19/23 20:22 Dose: 5 mg Ondansetron HCl (Ondansetron Odt 4 Mg Tab.Rapdis) 4 mg TRANSLINGU Q6H PRN PRN Reason: Nausea and Vomiting Last Admin: 11/17/23 09:32 Dose: 4 mg Oxcarbazepine (Oxcarbazepine 300 Mg Tablet) 300 mg PO BID [facility] Last Admin: 11/20/23 08:54 Dose: 300 mg Polyethylene Glycol (Polyethylene Glycol 3350 17 Gm Powd.Pack) 17 gm PO DAILY PRN PRN Reason: Constipation Last Admin: 11/15/23 16:57 Dose: 17 gm Prazosin HCl (Prazosin Hcl 1 Mg Capsule) 3 mg PO BEDTIME RAVI; Protocol Last Admin: 11/19/23 20:21 Dose: 3 mg Propranolol HCl (Propranolol Hcl 20 Mg Tablet) 20 mg PO DAILY RAVI; Protocol Last Admin: 11/20/23 08:54 Dose: 20 mg Thiamine HCl (Thiamine Hcl 100 Mg Tablet) 100 mg PO DAILY RAVI Last Admin: 11/20/23 08:54 Dose: 100 mg Trazodone HCl (Trazodone Hcl 100 Mg Tablet) 100 mg PO BEDTIME MRX1 PRN PRN Reason: Insomnia Last Admin: 11/20/23 02:23 Dose: 100 mg Allergies Allergies Allergy/AdvReac Type Severity Reaction Status Date / Time levofloxacin [From LEVAQUIN] Allergy Intermediate RASH Verified 11/04/23 05:34 codeine [Codeine] Allergy Unknown NAUSEA AND Verified 11/04/23 05:34 VOMITING, sensitivity ibuprofen Allergy Unknown sensitivity Verified 11/04/23 05:34 morphine [Morphine] Allergy Unknown HEADACHE, Verified 11/04/23 05:34 vomiting, sensitivity naproxen [From NAPROSYN] Allergy Unknown HIVES, Verified 11/04/23 05:34 DIFFICULTY BREATHING. Sulfa (Sulfonamide Allergy Unknown unknown Verified 11/04/23 05:34 Antibiotics) Assessment & Plan Assessment & Plan (1) Schizoaffective disorder, depressive type: Status: Acute Code(s): F25.1 - Schizoaffective disorder, depressive type (2) PTSD (post-traumatic stress disorder): Status: Acute Code(s): F43.10 - Post-traumatic stress disorder, unspecified (3) Alcohol use disorder: Status: Acute Code(s): F10.90 - Alcohol use, unspecified, uncomplicated (4) Cocaine use disorder: Status: Acute Code(s): F14.10 - Cocaine abuse, uncomplicated Plan pt is a 43 yo female with hx of depression, AH, ptsd and alcohol/cocaine abuse who presents for worsening depression and AH in face of being off medications and substance abuse. Pt reports AH of noises and voices that say self- deprecating things and are present independent of mood/depressive episodes and even during sobriety; no paranoid delusions. Hx of trauma w/ ptsd. Pt drinks about 5+nips per day and sniffs cocaine daily for past several weeks; hx of alcohol w/drawal seizures. No clear hx of manic episodes. Some passive SI Impression: AH independepent of mood; describes a sort of-manic 3 day period but sounds more likely from dysregulation due to PTSD and substance abuse and she does not meet criteria for bipolar. hx of trauma with nightmares; currently w/drawing from etoh. Agrees to start on Abilify to help with both mood and AH (reviewed risks/side- effects) and she agrees to trial; wants to get back on Lamictal (also reviewed risks) HOSPITAL COURSE: 11/07 continues with AH; some paranoid thinking; agrees to increase Abilify since AH remain, Prazosin (for nightmares). Will schedule ativan taper since w/drawal complicating understanding of symptoms. Discussed substance abuse and says Vivitrol helped; would like to get on Naltrexone again 11/08 hopefully increase in Abilify will consistently keep auditory hallucinations down; currently voices are gone, buzzing remains but at a lower volume. Continue current Abilify dose to see if symptoms improve further. 11/09 patient remains engaged in treatment, attending groups. AH of voices remain resolved; still buzzing sound but less intensely. Will keep Abilify 10 mg for now but will consider increasing. Patient would like to get into a program for substance abuse treatment 11/10 still quite emotional, prone to self-deprecating self talk no AH; intermittent buzzing sounds much less and seems to coincide with moments of high emotionality. discussed meds and agrees to leave Abilify at current dose. Using Zyprexa Prn for afternoon; discussed increased risk of 2 antipsychotics; will continue for now since helping and since lamictal will take a while to become therapeutic. reports right calf sudden onset swelling, painful Doppler right calf: IMPRESSION: No DVT demonstrated in the right lower extremity. 11/11 patient remains in good behavioral and impulse control; engaged in treatment, going to groups and forthcoming in 1 on 1 sessions; understanding better how childhood trauma is playing out in her adult life and how it is triggering automatic self-deprecating thoughts. Patient hoping for substance abuse program 11/12 still emotions get overwhelming; wants increase in abilify 11/13 Patient reports that overall mood is better however she continues to have much anxiety that she feels always seems to threatened becoming overwhelming. Discussed medication regimen agreed to start Trileptal, side effects/risks reviewed which patient understood and accepts. Hope is that she will not need as many PRNs, including Zyprexa which she is taking frequently and thus affectively on 2 antipsychotics. If effective, could discontinue Lamictal to avoid polypharmacy; patient sleeping better. Otherwise patient remains engaged in treatment, attending groups, forthcoming in 1 on 1 sessions, getting along well with others, appropriate with peers and staff. 11/14 patient working hard at increasing coping skills; slept better last night and anxiety down a little bit. 11/15: increase trileptal to 300mg PO BID d/t continued increased anxiety; pt aware and agreeable to dose increase. 11/18 patient continues to do well, engaged in treatment, getting along well with peers and utilizing coping skills. She is eager and hopeful about attending program in the community. Discussed medication management and patient remains stable on current medication regimen. 11/19 doing well; stable, grateful to get into a program; pt not in imminent risk for harm to self or others; ready for discharge -ready for increase of lamictal Plan: cv q15 Continue Trileptal 300 mg b.i.d. for ongoing anxiety Continue Abilify 15mg for emotionality, depression increase to Lamictal 25 mg bid. for ptsd, depression/anxiety (has been on before and thinks it helped) Continue Prazosin 3mg qhs; so far nightmares resolved a 2 mg Continue Naltrexone 25 mg for etoh cravings pt needs outpt providers/therapist Patient educated on: diagnosis, medication risk/benefits, substance abuse and therapeutic strategies Informed Consent: understands Reason for continued inpatient stay Substantial Risk for: stable for discharge Time Spent With Patient Time: Total time managing care of this patient today ____ minutes.
[2023-11-20] MEDS: Nicotine Polacrilex 2 MG GUM 4 MG BUCCAL ×4 (09:42→18:10)
[2023-11-20 11:46] VITALS: BP 108/74; PULSE 82
[2023-11-20] MEDS: OLANZapine 5 MG TABLET PO (13:07)
[2023-11-20] MEDS: Naloxone HCl Nasal TAKE HOME 4 MG SPRAY 8 MG NOSTRILALT (13:11)
[2023-11-20 16:26] VITALS: BP 131/77; PULSE 70; RESP 18; TEMP 36.3; O2SAT 98
[2023-11-20] MEDS: Prazosin HCL 1 MG CAPSULE 3 MG PO (20:17)
[2023-11-20] MEDS: lamoTRIgine 25 MG TABLET PO (20:17)
--- NOTE | 2023-11-20 22:38 | P.DS_ITS ---
DS: Providers Provider Date of Service: 11/21/23 Date of admission: 11/05/23 17:04 Date of discharge: 11/21/23 Primary care physician: Tadeo Zaidi MD Attending physician on admission: Chuck Flaherty Attending physician on discharge: Chuck Flaherty DS: Diagnosis Discharge Diagnosis (1) Schizoaffective disorder, depressive type: Status: Acute (2) PTSD (post-traumatic stress disorder): Status: Acute (3) Alcohol use disorder: Status: Acute (4) Cocaine use disorder: Status: Acute DS: Medications Discharge Medications Home Medications: Previous Rx's Medication Instructions Recorded acetaminophen 325 mg tablet 650 mg (2 x 325 mg) PO Q6H PRN 11/20/23 Headache/Pain Mild Scale (1-3) #0 tabs aripiprazole 15 mg tablet 15 mg PO DAILY 30 days #30 tabs 11/20/23 capsaicin 0.025 % topical cream 1 appl topical TID PRN Pain, 11/20/23 Moderate(Pain Scale 4-6) 30 days #50 grams clonidine HCl 0.1 mg tablet 0.1 mg PO Q4H PRN anxiety 30 days 11/20/23 #90 tabs famotidine 20 mg tablet 20 mg PO DAILY 30 days #30 tabs 11/20/23 hydroxyzine HCl 50 mg tablet 50 mg PO Q6H PRN Anxiety 30 days 11/20/23 #90 tabs lamotrigine 100 mg tablet 100 mg PO DAILY 30 days #30 tabs 11/20/23 (Lamictal) lamotrigine 25 mg tablet 25 mg PO BID 14 days #28 tabs 11/20/23 lidocaine 4 % topical patch 1 patch transdermal DAILY PRN 11/20/23 (Lidocaine Pain Relief) lower back or knee 30 days #30 ea naltrexone 50 mg tablet 25 mg (1/2 x 50 mg) PO DAILY 30 11/20/23 days #15 tabs nicotine (polacrilex) 4 mg gum 4 mg buccal Q2H PRN nicotine 11/20/23 cravings 30 days #100 ea olanzapine 5 mg tablet 5 mg PO TID PRN agitation 30 days 11/20/23 #60 tabs ondansetron 4 mg disintegrating 4 mg PO Q6H PRN nausea and 11/20/23 tablet vomiting 30 days #14 tabs oxcarbazepine 300 mg tablet 300 mg PO BID 30 days #60 tabs 11/20/23 polyethylene glycol 3350 17 gram 17 g PO DAILY PRN Constipation 30 11/20/23 oral powder packet days #30 ea prazosin 1 mg capsule 3 mg (3 x 1 mg) PO BEDTIME 30 days 11/20/23 #90 caps propranolol 20 mg tablet 20 mg PO QAM 30 days #30 tabs 11/20/23 trazodone 100 mg tablet 100 mg PO BEDTIME MRX1 PRN 11/20/23 Insomnia 30 days #45 tabs Mental Status Exam Mental Status Exam Narrative: Pt is alert and oriented; behavior is cooperative, calm; dressed in casual attire, adequate hygiene; mood is described as good and affect congruent; eye contact adequate; Speech is normal rate, volume and prosody and not pressured; no psychomotor retardation/agitation; thought process is organized and goal directed; Thought content is on treatment; coping with intermittent self- deprecating thoughts; otherwise pertinent to relevant topics and without any delusional content, paranoid ideations or grandiosity; no SI/no HI/no AVH. Patients insight and judgment fair. Data Data Completed and Pending Completed studies during hospitalization [Text1]: 11/16/23 11/17/23 09:55 09:45 Respiratory Panel [place] See Note Adenovirus (Rapid PCR) Not Detected B.pert (TEM-PCR) Not Detected B.parapertussis DNA PCR Not Detected C. pneumoniae DNA (PCR) Not Detected Coronavirus OC43 (PCR) Not Detected Coronavirus HKU1 (PCR) Not Detected Coronavirus 229E (PCR) Not Detected Coronavirus NL63 (PCR) Not Detected Human Metapneumovir PCR Not Detected Influenza A (RT-PCR) Not Detected Influenza Type A (PCR) NEGATIVE Influenza B (RT-PCR) Not Detected Influenza Type B (PCR) NEGATIVE M. pneumoniae (PCR) Not Detected Parainfluenza 1 (PCR) Not Detected Parainfluenza 2 (PCR) Not Detected Parainfluenza 3 (PCR) Not Detected Parainfluenza 4 (PCR) Not Detected RSV (PCR) Not Detected RSV RNA Qual (PCR) NEGATIVE Entero/Rhino (PCR) Not Detected SARS-CoV-2 RNA (RT-PCR) NEGATIVE Not Detected Imaging Diagnostic Imaging Impressions Chest X-Ray 11/04/23 06:24 IMPRESSION: No acute cardiopulmonary findings. Venous Duplex 11/11/23 14:14 IMPRESSION: No DVT demonstrated in the right lower extremity. DS: Summary Hospital Course Hospital Course: pt is a 43 yo female with hx of depression, AH, ptsd and alcohol/cocaine abuse who presents for worsening depression and AH in face of being off medications and substance abuse. Pt reports AH of noises and voices that say self- deprecating things and are present independent of mood/depressive episodes and even during sobriety; no paranoid delusions. Hx of trauma w/ ptsd. Pt drinks about 5+nips per day and sniffs cocaine daily for past several weeks; hx of alcohol w/drawal seizures. No clear hx of manic episodes. Some passive SI Impression: AH independepent of mood; describes a sort of-manic 3 day period but sounds more likely from dysregulation due to PTSD and substance abuse and she does not meet criteria for bipolar. hx of trauma with nightmares; currently w/drawing from etoh. Agrees to start on Abilify to help with both mood and AH (reviewed risks/side- effects) and she agrees to trial; wants to get back on Lamictal (also reviewed risks) HOSPITAL COURSE: 11/07 continues with AH; some paranoid thinking; agrees to increase Abilify since AH remain, Prazosin (for nightmares). Will schedule ativan taper since w/drawal complicating understanding of symptoms. Discussed substance abuse and says Vivitrol helped; would like to get on Naltrexone again 11/08 hopefully increase in Abilify will consistently keep auditory hallucinations down; currently voices are gone, buzzing remains but at a lower volume. Continue current Abilify dose to see if symptoms improve further. 11/09 patient remains engaged in treatment, attending groups. AH of voices remain resolved; still buzzing sound but less intensely. Will keep Abilify 10 mg for now but will consider increasing. Patient would like to get into a program for substance abuse treatment 11/10 still quite emotional, prone to self-deprecating self talk no AH; intermittent buzzing sounds much less and seems to coincide with moments of high emotionality. discussed meds and agrees to leave Abilify at current dose. Using Zyprexa Prn for afternoon; discussed increased risk of 2 antipsychotics; will continue for now since helping and since lamictal will take a while to become therapeutic. reports right calf sudden onset swelling, painful Doppler right calf: IMPRESSION: No DVT demonstrated in the right lower extremity. 11/11 patient remains in good behavioral and impulse control; engaged in treatment, going to groups and forthcoming in 1 on 1 sessions; understanding better how childhood trauma is playing out in her adult life and how it is triggering automatic self-deprecating thoughts. Patient hoping for substance abuse program 11/12 still emotions get overwhelming; wants increase in abilify 11/13 Patient reports that overall mood is better however she continues to have much anxiety that she feels always seems to threatened becoming overwhelming. Discussed medication regimen agreed to start Trileptal, side effects/risks reviewed which patient understood and accepts. Hope is that she will not need as many PRNs, including Zyprexa which she is taking frequently and thus a ffectively on 2 antipsychotics. If effective, could discontinue Lamictal to avoid polypharmacy; patient sleeping better. Otherwise patient remains engaged in treatment, attending groups, forthcoming in 1 on 1 sessions, getting along well with others, appropriate with peers and staff. 11/14 patient working hard at increasing coping skills; slept better last night and anxiety down a little bit. 11/15: increase trileptal to 300mg PO BID d/t continued increased anxiety; pt aware and agreeable to dose increase. 11/18 patient continues to do well, engaged in treatment, getting along well with peers and utilizing coping skills. She is eager and hopeful about attending program in the community. Discussed medication management and patient remains stable on current medication regimen. 11/19 doing well; stable, grateful to get into a program; pt not in imminent risk for harm to self or others; ready for discharge -ready for increase of lamictal Patient remains stable, future oriented, depression resolved, anxiety under control, no SI or HI and feeling ready for discharge. Patient would intermittently have some auditory hallucinations, mostly just when emotionally activated. Patient using effective coping skills and optimistic about continued sobriety and stability. She is discharging to a program to continue addressing her struggles and continues to have family support and stable housing. Patient is eating and sleeping well; she is remained in good behavioral and impulse control, engaged in treatment and appropriate with peers and staff. She has not in imminent risk for harm to self or others and request for discharge honored. Medications: Trileptal 300 mg b.i.d. Abilify 15mg Lamictal titration Prazosin 3mg qhs Naltrexone 25 mg for etoh cravings Time spent discussing smoking cessation with patient: 3 to 10 minutes Status at Discharge Functional status at discharge: independent ambulation Overall status at discharge: patient is back to baseline Time Spent with Patient Time attestation: Total time managing care of this patient today __35__ minutes. Time spent: Greater than 30 minutes Discharge Plan Discharge Anticipated Discharge Date/Time: 11/21/23 10:30 Patient Disposition: Home, Self-Care Discharge Diagnosis: Schizoaffective disorder, depressed type Referrals: Tadeo Alvarado MD [Primary Care Provider] - 1 Week Discharge Medications: New nicotine (polacrilex) 4 mg gum 4 mg buccal Q2H PRN (Reason: nicotine cravings) 30 Days Qty: 100 1RF clonidine HCl 0.1 mg Tablet 0.1 mg PO Q4H PRN (Reason: anxiety) 30 Days Qty: 90 1RF Protocol: Hold for SBP< HOLD for SBP < : 90 acetaminophen 325 mg Tablet 650 mg PO Q6H PRN (Reason: Headache/Pain Mild Scale (1-3)) Qty: 0 0RF aripiprazole 15 mg Tablet 15 mg PO DAILY 30 Days Qty: 30 1RF hydroxyzine HCl 50 mg Tablet 50 mg PO Q6H PRN (Reason: Anxiety) 30 Days Qty: 90 1RF lamotrigine 25 mg Tablet 25 mg PO BID 14 Days Qty: 28 0RF naltrexone 50 mg Tablet 25 mg PO DAILY 30 Days Qty: 15 1RF olanzapine 5 mg Tablet 5 mg PO TID PRN (Reason: agitation) 30 Days Qty: 60 1RF oxcarbazepine 300 mg Tablet 300 mg PO BID 30 Days Qty: 60 1RF trazodone 100 mg Tablet 100 mg PO BEDTIME MRX1 PRN (Reason: Insomnia) 30 Days Qty: 45 1RF Rx Instructions: may have a repeat dose for continued insomnia famotidine 20 mg Tablet 20 mg PO DAILY 30 Days Qty: 30 1RF polyethylene glycol 3350 17 gram Powder In Packet 17 g PO DAILY PRN (Reason: Constipation) 30 Days Qty: 30 1RF capsaicin 0.025 % Cream 1 appl topical TID PRN (Reason: Pain, Moderate(Pain Scale 4-6)) 30 Days Qty: 50 1RF Protocol: Apply to: Apply to: lower back, knees lidocaine [Lidocaine Pain Relief] 4 % Adhesive Patch,Medicated 1 patch transdermal DAILY PRN (Reason: lower back or knee) 30 Days Qty: 30 1RF Protocol: Apply to: Apply to: left knee lamotrigine [Lamictal] 100 mg tablet 100 mg PO DAILY 30 Days Qty: 30 0RF Rx Instructions: Start on 12/04/23 docusate sodium [Colace] 100 mg capsule 100 mg PO BID PRN (Reason: constipation) 30 Days Qty: 60 1RF Continued propranolol 20 mg tablet 20 mg PO QAM 30 Days Qty: 30 1RF Changed prazosin 1 mg capsule 3 mg PO BEDTIME 30 Days Qty: 90 1RF ondansetron 4 mg tablet,disintegrating 4 mg PO Q6H PRN (Reason: nausea and vomiting) 30 Days Qty: 14 1RF Discontinued topiramate [Topamax] 50 mg tablet 50 mg PO BID Qty: 60 0RF citalopram 40 mg tablet 1 tab PO DAILY quetiapine 100 mg tablet 1 tab PO BEDTIME acetaminophen [Mapap Arthritis Pain] 650 mg tablet extended release 1 tab PO Q8H PRN (Reason: Pain (Scale Score 1-3)) hydroxyzine HCl 25 mg tablet 1 tab PO BID PRN (Reason: Anxiety) quetiapine 50 mg tablet 1 tab PO BID PRN (Reason: anxiety) topiramate 50 mg tablet 1 tab PO BID oxycodone 5 mg tablet 5 mg PO Q8H PRN (Reason: pain) Qty: 10 0RF Rx Instructions: Partial Fill upon patient request. naproxen 500 mg tablet 500 mg PO BID 30 Days Qty: 60 3RF Discharge Orders: Discharge Order (Routine); Ordered 11/21/23 Ordered By: Chuck Flaherty Diet: Regular diet Activity on Discharge: As tolerated Stand Alone Forms: Patient Portal Discharge page, Community Support Care Plan Goals: Maintain mood and safe behaviors Take medications as prescribed Continue to pursue sobriety Practice coping skills Continue with outpatient providers and reach out to them as needed Health Concerns: Mood stability and behaviors Sobriety Chronic right knee pain Plan of Treatment: Follow up with your PCP, psychiatric provider and other outpatient providers regarding above concerns Take medications as prescribed For Lamictal: Take Lamictal 25mg BID for 14 days...THEN (on 12/04/23) Take Lamictal 100mg daily Assessment: Risk assessment at time of discharge:? Patient was interviewed prior to discharge and found to be fully oriented and without any SI or HI. Patient has improved insight and judgment and wants to continue treatment. Patient is not in imminent risk of harm to self or others and has a safety plan that includes presenting to the closest ER or calling 911 if feeling unsafe.? Patient has been observed closely by nursing and unit staff throughout admission; patient has not engaged in any behaviors that suggest dangerousness to self or others and has demonstrated appropriate behaviors and impulse control Discharge Date/Time: 11/21/23 10:00
[2023-11-21] MEDS: hydrOXYzine HCL 50 MG TABLET PO (01:12)
[2023-11-21] MEDS: cloNIDine HCL 0.1 MG TABLET PO (01:12)
[2023-11-21] MEDS: Ondansetron ODT 4 MG TAB.RAPDIS TRANSLINGU (01:14)
[2023-11-21 08:45] VITALS: BP 119/54; PULSE 71; RESP 16; TEMP 36.2; O2SAT 96
[2023-11-21] MEDS: OLANZapine 5 MG TABLET PO (08:49)
[2023-11-21] MEDS: ARIPiprazole 15 MG TABLET PO (08:50)
[2023-11-21] MEDS: Thiamine HCL 100 MG TABLET PO (08:50)
[2023-11-21] MEDS: OXcarbazepine 300 MG TABLET PO (08:50)
[2023-11-21] MEDS: Propranolol HCL 20 MG TABLET PO (08:50)
[2023-11-21] MEDS: Lidocaine 4 % Patch ADH..PATCH 1 PATCH TRANSDERMA (08:50)
[2023-11-21] MEDS: Naltrexone HCl 50 MG TABLET 25 MG PO (08:50)
[2023-11-21] MEDS: Folic Acid 1 MG TABLET PO (08:51)
[2023-11-21] MEDS: Famotidine 20 MG TABLET PO (08:51)
[2023-11-21] MEDS: lamoTRIgine 25 MG TABLET PO (08:51)
[2023-11-21] MEDS: Multivitamin TABLET 1 TAB PO (08:51)
[2023-11-21] MEDS: Nicotine Polacrilex 2 MG GUM 4 MG BUCCAL (09:22)
== END 2023-11-21 10:00 | disposition home or self-care (01) | DRG 750 ==
LOC: HO.ED 16:14 → HO.PM5 11-05 21:24
PROVIDERS: Clinical Nurse Specialist Psychiatric/Mental Health, Adult; Physician Assistant; Psychiatry & Neurology Psychiatry; Admitting Provider Psychiatry & Neurology Psychiatry; Emergency Provider Internal Medicine; PCP Internal Medicine; Visit Provider Psychiatry & Neurology Psychiatry
DX: F25.1 Schizoaffective disorder, depressive type (principal); Z91.148 Patient's other noncompliance with medication regimen for other reason; R45.851 Suicidal ideations; F43.10 Post-traumatic stress disorder, unspecified; F10.10 Alcohol abuse, uncomplicated; F14.10 Cocaine abuse, uncomplicated; F17.210 Nicotine dependence, cigarettes, uncomplicated; Y90.3 Blood alcohol level of 60-79 mg/100 ml; F19.10 Other psychoactive substance abuse, uncomplicated; Z71.6 Tobacco abuse counseling; Z79.899 Other long term (current) drug therapy
CPT/HCPCS: 0241U; 36415; 71045; 80048; 80053; 80061; 80076; 80307; 81003; 81025; 83036; 84443; 84484; 85025; 87633; 87635; 93005; 93971; 99285; J2060; S9485

== ENCOUNTER → 2023-11-04 05:30 | Outpatient (BNV) | payer MEDICAID, SELFPAY | PROVIDERS: Emergency Provider Internal Medicine; PCP Internal Medicine; Visit Provider Internal Medicine | DX: R00.0 Tachycardia, unspecified (principal); R94.31 Abnormal electrocardiogram [ECG] [EKG] | CPT/HCPCS: 93010 ==

== ENCOUNTER 2023-11-05 17:04 | Outpatient (BNV) | payer MEDICAID, SELFPAY | END 2023-11-16 08:53 | PROVIDERS: Admitting Provider Psychiatry & Neurology Psychiatry; Emergency Provider Internal Medicine; PCP Internal Medicine; Visit Provider Internal Medicine Cardiovascular Disease | DX: R07.9 Chest pain, unspecified (principal) | CPT/HCPCS: 93010 ==

== ENCOUNTER → 2023-11-05 17:04 | Outpatient (BNV) | payer OTHER, SELFPAY | PROVIDERS: Admitting Provider Psychiatry & Neurology Psychiatry; Emergency Provider Internal Medicine; PCP Internal Medicine; Visit Provider Psychiatry & Neurology Psychiatry | DX: F25.1 Schizoaffective disorder, depressive type (principal); F14.10 Cocaine abuse, uncomplicated; F10.90 Alcohol use, unspecified, uncomplicated; F43.11 Post-traumatic stress disorder, acute | CPT/HCPCS: 99231; 99232 ==

== ENCOUNTER 2024-01-02 11:22 | Outpatient (AMB) | payer MEDICAID, SELFPAY ==
--- NOTE | 2024-01-02 11:36 | A.OFFVIS_ITS ---
Intake Visit Reasons: ov- left knee Euflexxa #1 Allergies levofloxacin [From LEVAQUIN] Allergy (Intermediate, Verified 11/04/23 05:34) RASH codeine [Codeine] Allergy (Unknown, Verified 11/04/23 05:34) NAUSEA AND VOMITING, sensitivity ibuprofen Allergy (Unknown, Verified 11/04/23 05:34) sensitivity morphine [Morphine] Allergy (Unknown, Verified 11/04/23 05:34) HEADACHE, vomiting, sensitivity naproxen [From NAPROSYN] Allergy (Unknown, Verified 11/04/23 05:34) HIVES, DIFFICULTY BREATHING. Sulfa (Sulfonamide Antibiotics) Allergy (Unknown, Verified 11/04/23 05:34) unknown HPI HPI ov- left knee Euflexxa #1: Details: 43-year-old female who returns to the office today for left knee Euflexxa gel injection #1. [facility] Medical History (Updated 11/06/23 @ 22:57 by Chuck Flaherty MD) Cocaine use disorder Alcohol use disorder PTSD (post-traumatic stress disorder) Schizoaffective disorder, depressive type Scalp cyst Depression Kidney stone (07/09/12) Left shoulder pain Suicide gesture Morbid obesity Breast mass Palpitation History of 2019 novel coronavirus disease (COVID-19) SOB (shortness of breath) Precordial chest pain Depression Overdose Bipolar disorder Surgical History S/P excision of lipoma (~09/24/23) History of sinus surgery (~2019) Family History Father History of heart artery stent History of heart attack Mother CVA (cerebral vascular accident) Paternal Grandmother Bone cancer Paternal Uncle Cancer of unknown origin Social History Household Members: Children Housing: Apartment Do you presently have visiting nurse or other home services: No Alcohol intake: current Alcohol intake frequency: a few times a week Patient Tobacco Use Status: Never used Tobacco e-Cigarette/Vaping Use: Currently Using Substance Use Type: Crack/Cocaine and Marijuana service: No Current occupational status: disabled Current occupation: rt handed Sexual orientation: Straight/Heterosexual Female Reproductive History Menstrual Age of Menarche: 11 Review of Systems Const All systems reviewed & are unremarkable except as noted in HPI and below Physical Exam Extrem Other: Left knee normal to inspection. There is diffuse tenderenss along the medial and lateral joint line. She has full ROM without crepitus. Calf supple non tender, NVi. Office Procedures Joint Injection/Drain Joint Injection/Drain Details: euflexxa Primary Site: left knee Prep: site was prepped using aseptic technique, ethochloride spray was applied and injection warnings given Injected: in the joint Approach Used: anterolateral Procedure: The patient tolerated the procedure well and there was some relief with the local anesthesia Coding 56176 - Glenohumeral/Tronchanteric Bursa/Intraarticular Procedure code (CPT) selection complete Assessment & Plan Assessment & Plan (1) Patellofemoral arthritis of left knee: Code(s): M17.12 - Unilateral primary osteoarthritis, left knee Category: Medical Plan We discussed options today which include Euflexxa gel injection. They did consent to move forward with the left knee Euflexxa gel injection #1, which was tolerated well. I recommended rest, ice and elevation and OTC anti- inflammatories PRN for discomfort. She was fit for a knew left knee brace. Patient Instructions: Scribed for Gaurang Vang PA-C, by Matheus Lares medical billing coordinator, on 01/02/2024 at 11:30 AM EST. IGaurang PA-C, have personally reviewed and agree with the information entered by the scribe. Coding Level of Care Code Procedure Only Diagnoses Patellofemoral arthritis of left knee M17.12 CPT Codes Coding - Joint 7: 92646 - Glenohumeral/Tronchanteric Bursa/Intraarticular ([id number])
== END 2024-01-02 11:55 | disposition home or self-care (01) ==
PROVIDERS: PCP Internal Medicine; Visit Provider Physician Assistant
DX: M17.12 Unilateral primary osteoarthritis, left knee (principal)
CPT/HCPCS: 20610

== ENCOUNTER → 2024-01-02 11:22 | Outpatient (BNVA) | payer MEDICAID, SELFPAY | PROVIDERS: PCP Internal Medicine; Visit Provider Physician Assistant | DX: M17.12 Unilateral primary osteoarthritis, left knee (principal) | CPT/HCPCS: 20610; J7323 ==

== ENCOUNTER 2024-01-09 11:02 | Outpatient (AMB) | payer MEDICAID, SELFPAY ==
--- NOTE | 2024-01-09 11:05 | MHC.OFFVIS ---
Vital Signs 01/09/24 11:14 Height 5 ft 2 in Weight 213 lb BMI 39.0 Intake Visit Reasons: ov- left knee Euflexxa #2 Intake Note: Mykel is a 43 year old female who presents today for her 2nd euflexxa gel injection. Patient reports reports she hasn't noticed any change in her pain yet. Allergies levofloxacin [From LEVAQUIN] Allergy (Intermediate, Verified 11/04/23 05:34) RASH codeine [Codeine] Allergy (Unknown, Verified 11/04/23 05:34) NAUSEA AND VOMITING, sensitivity ibuprofen Allergy (Unknown, Verified 11/04/23 05:34) sensitivity morphine [Morphine] Allergy (Unknown, Verified 11/04/23 05:34) HEADACHE, vomiting, sensitivity naproxen [From NAPROSYN] Allergy (Unknown, Verified 11/04/23 05:34) HIVES, DIFFICULTY BREATHING. Sulfa (Sulfonamide Antibiotics) Allergy (Unknown, Verified 11/04/23 05:34) unknown Medication List - Last Reconciled 01/09/24 by Gaurang Vang PA-C acetaminophen 650 mg (2 x 325 mg) PO Q6H PRN aripiprazole 15 mg PO DAILY 30 days capsaicin 0.025% 1 appl See Protocol topical TID PRN 30 days clonidine HCl 0.1 mg See Protocol PO Q4H PRN 30 days docusate sodium (Colace) 100 mg PO BID PRN 30 days famotidine 20 mg PO DAILY 30 days hydroxyzine HCl 50 mg PO Q6H PRN 30 days lamotrigine 25 mg PO BID 14 days lamotrigine (Lamictal) 100 mg PO DAILY 30 days lidocaine 4% (Lidocaine Pain Relief) 1 patch See Protocol transdermal DAILY PRN 30 days naltrexone 25 mg (1/2 x 50 mg) PO DAILY 30 days nicotine (polacrilex) 4 mg buccal Q2H PRN 30 days olanzapine 5 mg PO TID PRN 30 days ondansetron 4 mg PO Q6H PRN 30 days oxcarbazepine 300 mg PO BID 30 days polyethylene glycol 3350 17 grams PO DAILY PRN 30 days prazosin 3 mg (3 x 1 mg) PO BEDTIME 30 days propranolol 20 mg PO QAM 30 days trazodone 100 mg PO BEDTIME MRX1 PRN 30 days HPI HPI ov- left knee Euflexxa #2: Details: 43-year-old female who returns to the office today for left knee Euflexxa gel injection #2. [facility] Medical History (Updated 11/06/23 @ 22:57 by Chuck Flaherty MD) Cocaine use disorder Alcohol use disorder PTSD (post-traumatic stress disorder) Schizoaffective disorder, depressive type Scalp cyst Depression Kidney stone (07/09/12) Left shoulder pain Suicide gesture Morbid obesity Breast mass Palpitation History of 2019 novel coronavirus disease (COVID-19) SOB (shortness of breath) Precordial chest pain Depression Overdose Bipolar disorder Surgical History S/P excision of lipoma (~09/24/23) History of sinus surgery (~2019) Family History Father History of heart artery stent History of heart attack Mother CVA (cerebral vascular accident) Paternal Grandmother Bone cancer Paternal Uncle Cancer of unknown origin Social History Household Members: Children Housing: Apartment Do you presently have visiting nurse or other home services: No Alcohol intake: current Alcohol intake frequency: a few times a week Patient Tobacco Use Status: Never used Tobacco e-Cigarette/Vaping Use: Currently Using Substance Use Type: Crack/Cocaine and Marijuana service: No Current occupational status: disabled Current occupation: rt handed Sexual orientation: Straight/Heterosexual Female Reproductive History Menstrual Age of Menarche: 11 Review of Systems Const All systems reviewed & are unremarkable except as noted in HPI and below Physical Exam Vital Signs: BMI result Body Mass Index 39.0 Extrem Other: Left knee normal to inspection. There is diffuse tenderenss along the medial and lateral joint line. She has full ROM without crepitus. Calf supple non tender, NVi. Office Procedures Joint Injection/Drain Joint Injection/Drain Details: euflexxa Primary Site: left knee Prep: site was prepped using aseptic technique, ethochloride spray was applied and injection warnings given Approach Used: anterolateral Procedure: The patient tolerated the procedure well Coding 64668 - Glenohumeral/Tronchanteric Bursa/Intraarticular Procedure code (CPT) selection complete Assessment & Plan Assessment & Plan (1) Patellofemoral arthritis of left knee: Code(s): M17.12 - Unilateral primary osteoarthritis, left knee Category: Medical Plan We discussed options today which include Euflexxa gel injection. They did consent to move forward with the left knee Euflexxa gel injection #2, which was tolerated well. I recommended rest, ice and elevation and OTC anti-inflammatories PRN for discomfort. She was fit for a knew left knee brace. Coding Level of Care Code Procedure Only Diagnoses Patellofemoral arthritis of left knee M17.12 CPT Codes Coding - Joint 7: 21635 - Glenohumeral/Tronchanteric Bursa/Intraarticular ([id number])
[2024-01-09 11:14] VITALS: BMI 39.0
== END 2024-01-09 11:22 | disposition home or self-care (01) ==
PROVIDERS: PCP Internal Medicine; Visit Provider Physician Assistant
DX: M17.12 Unilateral primary osteoarthritis, left knee (principal)
CPT/HCPCS: 20610

== ENCOUNTER → 2024-01-09 11:02 | Outpatient (BNVA) | payer MEDICAID, SELFPAY | PROVIDERS: PCP Internal Medicine; Visit Provider Physician Assistant | DX: M17.12 Unilateral primary osteoarthritis, left knee (principal) | CPT/HCPCS: 20610; J7323 ==

== ENCOUNTER 2024-01-16 13:06 | Outpatient (AMB) | payer MEDICAID, SELFPAY ==
[2024-01-16 13:15] VITALS: BMI 39.0
--- NOTE | 2024-01-16 13:15 | A.OFFVIS_ITS ---
Vital Signs 01/16/24 13:15 Height 5 ft 2 in Weight 213 lb BMI 39.0 Intake Visit Reasons: ov- LT knee Euflexxa #3 Intake Note: Mykel a 43 year old female who presents today for a left knee Euflexxa injection #3. Allergies levofloxacin [From LEVAQUIN] Allergy (Intermediate, Verified 01/16/24 13:16) RASH codeine [Codeine] Allergy (Unknown, Verified 01/16/24 13:16) NAUSEA AND VOMITING, sensitivity ibuprofen Allergy (Unknown, Verified 01/16/24 13:16) sensitivity morphine [Morphine] Allergy (Unknown, Verified 01/16/24 13:16) HEADACHE, vomiting, sensitivity naproxen [From NAPROSYN] Allergy (Unknown, Verified 01/16/24 13:16) HIVES, DIFFICULTY BREATHING. Sulfa (Sulfonamide Antibiotics) Allergy (Unknown, Verified 01/16/24 13:16) unknown Medication List - Last Reconciled 01/17/24 by Gaurang Vang PA-C acetaminophen 650 mg (2 x 325 mg) PO Q6H PRN aripiprazole 15 mg PO DAILY 30 days capsaicin 0.025% 1 appl See Protocol topical TID PRN 30 days clonidine HCl 0.1 mg See Protocol PO Q4H PRN 30 days docusate sodium (Colace) 100 mg PO BID PRN 30 days famotidine 20 mg PO DAILY 30 days hydroxyzine HCl 50 mg PO Q6H PRN 30 days lamotrigine 25 mg PO BID 14 days lamotrigine (Lamictal) 100 mg PO DAILY 30 days lidocaine 4% (Lidocaine Pain Relief) 1 patch See Protocol transdermal DAILY PRN 30 days naltrexone 25 mg (1/2 x 50 mg) PO DAILY 30 days nicotine (polacrilex) 4 mg buccal Q2H PRN 30 days olanzapine 5 mg PO TID PRN 30 days ondansetron 4 mg PO Q6H PRN 30 days oxcarbazepine 300 mg PO BID 30 days polyethylene glycol 3350 17 grams PO DAILY PRN 30 days prazosin 3 mg (3 x 1 mg) PO BEDTIME 30 days propranolol 20 mg PO QAM 30 days trazodone 100 mg PO BEDTIME MRX1 PRN 30 days HPI HPI ov- LT knee Euflexxa #3: Details: 43-year-old female who returns to the office today for left knee Euflexxa gel injection #3. [facility] Medical History (Updated 01/17/24 @ 10:32 by MINGO Balderas) Cocaine use disorder Alcohol use disorder PTSD (post-traumatic stress disorder) Schizoaffective disorder, depressive type Anxiety Polysubstance abuse Chest pain Scalp cyst Depression Kidney stone (07/09/12) Left shoulder pain Suicide gesture Morbid obesity Breast mass Palpitation History of 2019 novel coronavirus disease (COVID-19) SOB (shortness of breath) Precordial chest pain Depression Overdose Bipolar disorder Surgical History S/P excision of lipoma (~09/24/23) History of sinus surgery (~2019) Family History Father History of heart artery stent History of heart attack Mother CVA (cerebral vascular accident) Paternal Grandmother Bone cancer Paternal Uncle Cancer of unknown origin Social History Household Members: Children Housing: Apartment Do you presently have visiting nurse or other home services: No Alcohol intake: current Alcohol intake frequency: a few times a week Patient Tobacco Use Status: Never used Tobacco e-Cigarette/Vaping Use: Currently Using Substance Use Type: Crack/Cocaine and Marijuana service: No Current occupational status: disabled Current occupation: rt handed Sexual orientation: Straight/Heterosexual Female Reproductive History Menstrual Age of Menarche: 11 Review of Systems Const All systems reviewed & are unremarkable except as noted in HPI and below Physical Exam Vital Signs: BMI result Body Mass Index 39.0 Extrem Other: Left knee normal to inspection. There is diffuse tenderenss along the medial and lateral joint line. She has full ROM without crepitus. Calf supple non tender, NVi. Office Procedures Joint Injection/Drain Joint Injection/Drain Details: euflexxa #3 Primary Site: left knee Prep: site was prepped using aseptic technique, ethochloride spray was applied and injection warnings given Injected: in the joint Approach Used: anterolateral Procedure: The patient tolerated the procedure well Coding 26551 - Glenohumeral/Tronchanteric Bursa/Intraarticular Procedure code (CPT) selection complete Assessment & Plan Assessment & Plan (1) Patellofemoral arthritis of left knee: Code(s): M17.12 - Unilateral primary osteoarthritis, left knee Category: Medical Plan We discussed options today which include Euflexxa gel injection #3. They did consent to move forward with the left knee Euflexxa gel injection #3, which was tolerated well. I recommended rest, ice and elevation and OTC anti- inflammatories PRN for discomfort. If symptoms persist or worsens over the next 6-8 weeks, patient will contact the office, otherwise follow-up as needed. Patient Instructions: Scribed for Gaurang Vang PA-C, by Matheus Lares ophthalmic medical technician, on 01/16/2024 at 1:15 PM EST.? I, Gaurang Vang PA-C, have personally reviewed and agree with the information entered by the scribe. Coding Level of Care Code Procedure Only Diagnoses Patellofemoral arthritis of left knee M17.12 CPT Codes Coding - Joint 7: 39462 - Glenohumeral/Tronchanteric Bursa/Intraarticular ([id number])
== END 2024-01-16 14:35 | disposition home or self-care (01) ==
LOC: HO.HOS 13:06
PROVIDERS: PCP Internal Medicine; Visit Provider Physician Assistant
DX: M17.12 Unilateral primary osteoarthritis, left knee (principal)
CPT/HCPCS: 20610

== ENCOUNTER → 2024-01-16 13:06 | Outpatient (BNVA) | payer MEDICAID, SELFPAY | PROVIDERS: PCP Internal Medicine; Visit Provider Physician Assistant | DX: M17.12 Unilateral primary osteoarthritis, left knee (principal) | CPT/HCPCS: 20610; J7323 ==

== ENCOUNTER 2024-04-09 12:27 | Emergency (ER) | payer MEDICAID, SELFPAY ==
--- NOTE | ~2024-04-09 | XR_ITS ---
EXAMINATION: XR CHEST CLINICAL INFORMATION: Chest pain COMPARISON: November 04, 2023 TECHNIQUE: AP portable view of the chest was obtained. FINDINGS: There are small lung volumes present. No acute parenchymal disease, pneumothorax, or pleural effusion. Heart normal size. No evidence of pulmonary edema. XR/XR chest 1V IMPRESSION: No acute parenchymal disease.
--- NOTE | ~2024-04-09 | CT_ITS ---
EXAMINATION: CT ABDOMEN AND PELVIS WITH CONTRAST CLINICAL INFORMATION: Right upper quadrant pain COMPARISON: 02/14/2023 TECHNIQUE: Multidetector volumetric images were obtained from the superior aspect of the liver through the pubic symphysis following administration 85 mL of Omnipaque 350 intravenous contrast. Sagittal and coronal reformatted images were obtained on the technologist's workstation. Oral contrast: No This CT examination was performed using dose optimization techniques as appropriate, variously including the following: *Automated exposure control *Adjustment of mA and/or kV according to patient size (this includes techniques or standardized protocols for targeted exams where dose is matched to indication/reason for exam; i.e. extremities or head) *Use of iterative reconstruction technique DLP: 848 mGy-cm FINDINGS: LUNG BASES: The visualized lung bases are unremarkable. LIVER, GALLBLADDER, AND BILIARY TREE: Changes of diffuse hepatic steatosis. No biliary ductal dilatation. The gallbladder is unremarkable with no evidence of radiopaque gallstones, gallbladder wall thickening, or obvious pericholecystic inflammatory changes. PANCREAS: Notable fatty replacement of the pancreatic parenchyma without evidence for any mass fluid collection or pancreatic duct dilatation. Appearance is similar to baseline. SPLEEN: Unremarkable. ADRENAL GLANDS: Unremarkable. KIDNEYS AND URETERS: The kidneys are normal in size, shape, and attenuation. No hydronephrosis, hydroureter, or calculi seen. No perinephric stranding. BLADDER: Unremarkable. GASTROINTESTINAL TRACT: The small and large bowel are unremarkable. The appendix is unremarkable. ABDOMINAL WALL: No significant hernia is appreciated. LYMPH NODES: Normal. VASCULAR: Unremarkable. PELVIC VISCERA: IUD in place without migration. OSSEOUS STRUCTURES: Unremarkable. CT/CT abdomen pelvis w IV con IMPRESSION: No specific findings to explain patient's symptoms. Changes of diffuse hepatic steatosis. Fleischner guidelines were followed.
--- NOTE | 2024-04-09 12:28 | ECG_ITS ---
Test Reason : CHEST PAIN Blood Pressure : / mmHG Vent. Rate : 069 BPM Atrial Rate : 069 BPM P-R Int : 146 ms QRS Dur : 090 ms QT Int : 406 ms P-R-T Axes : 043 -18 081 degrees QTc Int : 435 ms Normal sinus rhythm Nonspecific T wave abnormality Abnormal ECG When compared with ECG of 16-NOV-2023 09:26, No significant change was found Referred By: Serenity Pittman Electronically Signed By:DEVIKA CIFUENTES MD
[2024-04-09 12:36] VITALS: BP 145/98; PULSE 78; RESP 18; TEMP 36.9; O2SAT 98; BMI 39.3
--- NOTE | 2024-04-09 12:36 | ED_ITS ---
HPI - Nausea/Vomiting/Diarrhea General Chief complaint: Chest Pain Stated complaint: Chest pain/abd pain/Vomiting Time Seen by Provider: 04/09/24 12:46 Source: patient and old records reviewed Mode of arrival: ambulatory Limitations: no limitations History of Present Illness ED Provider: SHIRIN VASQUEZ Narrative: 43 yo female with PMH of GERD, kidney stones, ETOH disorder, cocaine abuse, schizoaffective disorder, PTSD here with c/o 2 days of n/v/d epigastric pain chest pain radiation around to the back. Notes she hasn't drank in 2+ weeks or used cocaine. No sick contacts, travel, abx use, food exposures. Chest pain she thinks started after vomiting. Still has her gallbladder MD elicited complaint: nausea, vomiting, diarrhea and abdominal pain Pertinent past history: alcohol abuse Onset (ago): week(s) (2) Description of vomiting: food contents and watery Description of diarrhea: watery Associated nausea: Yes Associated abdominal pain: Yes Location of pain: chest, epigastric, LUQ and RUQ Radiation: other (back) Pain consistency: constant Severity: moderate Quality: stabbing and aching Exacerbating factors: eating Relieving factors: none Associated symptoms: chest pain, loss of appetite, malaise and nausea/vomiting Related Data Previous Rx's ?Medication ?Instructions ?Recorded acetaminophen 325 mg tablet 650 mg (2 x 325 mg) PO Q6H PRN 11/20/23 Headache/Pain Mild Scale (1-3) #0 tabs aripiprazole 15 mg tablet 15 mg PO DAILY 30 days #30 tabs 11/20/23 capsaicin 0.025 % topical cream 1 appl topical TID PRN Pain, 11/20/23 Moderate(Pain Scale 4-6) 30 days #50 grams clonidine HCl 0.1 mg tablet 0.1 mg PO Q4H PRN anxiety 30 days 11/20/23 #90 tabs famotidine 20 mg tablet 20 mg PO DAILY 30 days #30 tabs 11/20/23 hydroxyzine HCl 50 mg tablet 50 mg PO Q6H PRN Anxiety 30 days 11/20/23 #90 tabs lamotrigine 100 mg tablet 100 mg PO DAILY 30 days #30 tabs 11/20/23 (Lamictal) lamotrigine 25 mg tablet 25 mg PO BID 14 days #28 tabs 03/19/24 lidocaine 4 % topical patch 1 patch transdermal DAILY PRN 11/20/23 (Lidocaine Pain Relief) lower back or knee 30 days #30 ea naltrexone 50 mg tablet 25 mg (1/2 x 50 mg) PO DAILY 30 11/20/23 days #15 tabs nicotine (polacrilex) 4 mg gum 4 mg buccal Q2H PRN nicotine 11/20/23 cravings 30 days #100 ea olanzapine 5 mg tablet 5 mg PO TID PRN agitation 30 days 11/20/23 #60 tabs ondansetron 4 mg disintegrating 4 mg PO Q6H PRN nausea and 11/20/23 tablet vomiting 30 days #14 tabs oxcarbazepine 300 mg tablet 300 mg PO BID 30 days #60 tabs 11/20/23 polyethylene glycol 3350 17 gram 17 g PO DAILY PRN Constipation 30 11/20/23 oral powder packet days #30 ea prazosin 1 mg capsule 3 mg (3 x 1 mg) PO BEDTIME 30 days 11/20/23 #90 caps propranolol 20 mg tablet 20 mg PO QAM 30 days #30 tabs 11/20/23 trazodone 100 mg tablet 100 mg PO BEDTIME MRX1 PRN 11/20/23 Insomnia 30 days #45 tabs docusate sodium 100 mg capsule 100 mg PO BID PRN constipation 30 11/23/23 (Colace) days #60 caps ondansetron 4 mg disintegrating 4 mg PO Q8H PRN nausea and 04/09/24 tablet vomiting #20 tabs sucralfate 100 mg/mL oral 10 ml PO BID 7 days #140 mL 04/09/24 suspension (Carafate) Allergies Allergy/AdvReac Type Severity Reaction Status Date / Time levofloxacin [From LEVAQUIN] Allergy Intermediate RASH Verified 04/09/24 12:38 codeine [Codeine] Allergy Unknown NAUSEA AND Verified 04/09/24 12:38 VOMITING, sensitivity ibuprofen Allergy Unknown sensitivity Verified 04/09/24 12:38 morphine [Morphine] Allergy Unknown HEADACHE, Verified 04/09/24 12:38 vomiting, sensitivity naproxen [From NAPROSYN] Allergy Unknown HIVES, Verified 04/09/24 12:38 DIFFICULTY BREATHING. Sulfa (Sulfonamide Allergy Unknown unknown Verified 04/09/24 12:38 Antibiotics) Review of Systems 2 Review of Systems: Constitutional : No Weight loss, No Fever, No Chills ENT/Mouth : No sore throat, No Rhinorrhea Eyes: No Swelling, No Redness Cardiovascular : pos Chest Pain, No SOB, NoEdema Respiratory : No Cough, No Sputum, No Wheezing Gastrointestinal : Positive Nausea, Positive Vomiting, positive Diarrhea, positive abdominal Pain, No Hematochezia, No Melena Genitourinary : No Dysuria, No Urinary Frequency, No Hematuria, No Urgency Musculoskeletal : No joint pain, No Myalgias, No Joint Swelling Skin : No Skin Lesions, No rash Neuro : No Weakness, No Numbness, No Dizziness, No Headache Psych : No Anxiety/Panic, No Depression All other systems reviewed and are negative. Gastrointestinal: Gastrointestinal: Reports nausea PMFSH Past Medical History Attestation statement: The following information was validated with the patient. Source: old records reviewed Medical History Cocaine use disorder Alcohol use disorder PTSD (post-traumatic stress disorder) Schizoaffective disorder, depressive type Anxiety Polysubstance abuse Chest pain Scalp cyst Depression Kidney stone (07/09/12) Left shoulder pain Suicide gesture Morbid obesity Breast mass Palpitation History of 2019 novel coronavirus disease (COVID-19) SOB (shortness of breath) Precordial chest pain Depression Overdose Bipolar disorder Surgical History S/P excision of lipoma (~09/24/23) History of sinus surgery (~2019) Family History Family History Father History of heart artery stent History of heart attack Mother CVA (cerebral vascular accident) Paternal Grandmother Bone cancer Paternal Uncle Cancer of unknown origin Social History Social History Household Members: Children Housing: Apartment Do you presently have visiting nurse or other home services: No Alcohol intake: current Alcohol intake frequency: a few times a week Patient Tobacco Use Status: Never used Tobacco e-Cigarette/Vaping Use: Currently Using Substance Use Type: Crack/Cocaine and Marijuana Advance Directives: No Advance Directives Information Provided: Yes service: No Current occupational status: disabled Current occupation: rt handed Sexual orientation: Straight/Heterosexual Physical Exam 2 Vital Signs: Vital Signs: Last Vital Signs Temp 97.8 F 04/09/24 18:54 Pulse 65 04/09/24 18:54 Resp 16 04/09/24 18:54 BP 120/75 04/09/24 18:54 Pulse Ox 97 04/09/24 18:54 O2 Del Method Nasal Cannula 04/09/24 18:54 BMI result Body Mass Index 39.3 Appearance: Alert. Oriented X3. No acute distress. Eyes: Pupils equal, round and reactive to light. ENT: Pharynx normal. Neck: Normal inspection. Neck supple. CVS: Normal heart rate and rhythm. Pulses normal. Respiratory: No respiratory distress. Breath sounds normal. Abdomen: Soft and moderate epigastric ttp no rebound or guarding Skin: Skin warm and dry. Normal skin color. Normal skin turgor. Extremities: No lower extremity edema. No calf ttp Neuro: Oriented X 3. No motor deficit. No sensory deficit. Course Course Course Narrative: This is a Rapid Medical Exam performed in triage by Serenity Pittman PA-C. Full HPI, ROS and PE to be performed by primary ED provider. 43 year-old F w/ PMHx GERD, PTSD, ETOH & cocaine use d/o presenting to the ED c/o nausea & vomiting x1 wk, now w/CP s/p emesis x 1 hr. Admits to R sided abdominal pain & back pain. denies urinary sx PE: Abdomen soft with RUQ tenderness, no rebound or guarding Plan: Labs, BENTLEY, EKG, US Reevaluation(s) Reevaluation #1: signed out to Dr. Rodarte pending CT scan Reevaluation #2: Ghassan Rodarte MD I received sign-out on this patient at 16:00. She was waiting for CT abdomen and pelvis. I reviewed her imaging and did not appreciate bowel obstruction and radiologist's read was negative for any acute surgical pathology. I evaluated the patient at bedside and she reports improvement in her symptoms. She is still experiencing mild chest pain and right axilla that I suspect this likely secondary to forceful emesis however I ordered 2nd troponin to ensure this was not secondary to any underlying cardiac pathology and that was negative. Patient discharged with return precautions, follow-up instructions and prescription for Zofran Time: 18:04 Medications Administered Discontinued Medications Generic Name Dose Route Start Last Admin Trade Name Freq PRN Reason Stop Dose Admin Famotidine 20 mg 04/09/24 13:08 04/09/24 13:20 Famotidine/Pf 20 Mg/2 Ml Vial IVPUSH 04/09/24 13:09 20 mg ONCE ONE Administration Lactated Ringer's 1,000 mls @ 999 mls/hr 04/09/24 13:08 04/09/24 15:24 Lr IV 04/09/24 14:08 Infused .Q1H1M ONE Infusion Iohexol 100 ml 04/09/24 16:47 04/09/24 16:47 Iohexol 350 Mg/Ml 100 Ml Infus..Btl IV 04/09/24 16:48 85 ml ONCE ONE Administration Lorazepam 1 mg 04/09/24 13:08 04/09/24 13:20 Lorazepam 2 Mg/Ml Vial IVPUSH 04/09/24 13:09 1 mg STAT STA Administration Ondansetron HCl 4 mg 04/09/24 13:08 04/09/24 13:20 Ondansetron Hcl 4 Mg/2 Ml Vial IVPUSH 04/09/24 13:09 4 mg ONCE ONE Administration Medical Decision Making Medical Decision Making MDM Narrative: 43 yo female with PMH of GERD, kidney stones, ETOH disorder, cocaine abuse, schizoaffective disorder, PTSD here with c/o abdominal n/v/d and now chest pain at this time will need labs, CT scan for pancreatitis, EKG, CXR, IV ativan/zofran and pepcid. Chest pain I suspect is related to GERD and GI pathology but EKG and troponin ordered. She states she has not used any ETOH or cocaine in 2+ weeks. Differential Diagnosis Differential Diagnoses: The differential diagnosis associated with the presentation includes gastritis, viral syndrome, pancreatitis, biliary colic Admission/Observation Consideration of admission/observation: Escalation of care including admission/observation considered labs reassuring trop negative vs improved if CT scan negative anticipate DC home Lab Data MDM Lab Attestation statement: I reviewed the patient's lab results. labs reassuring trop negative vs improved 04/09/24 12:56 04/09/24 12:56 Labs: Lab Results 04/09/24 04/09/24 04/09/24 Range/Units 12:56 16:02 19:07 WBC 8.6 (4.8-10.8) X10*3/uL RBC 5.11 (4.20-5.50) X10*6/uL Hgb 14.6 (12.0-16.0) g/dl Hct 43.3 (37.0-47.0) % MCV 84.7 (80.0-98.0) fL MCH 28.6 (27.0-33.0) pg MCHC 33.7 (31.0-35.0) g/dl RDW 12.8 (11.0-16.0) % Plt Count 302 (160-400) X10*3/uL MPV 9.0 L (9.4-12.3) fL Immature Gran % (Auto) 0.2 (0.0-0.4) % Neut % (Auto) 69.5 (45-73) % Lymph % (Auto) 23.1 (20-40) % [place] % (Auto) 6.1 (2-11) % Eos % (Auto) 0.7 (0-4) % Baso % (Auto) 0.4 (0-2) % Lymph # (Auto) 2.0 (1.2-4.9) X10*3/uL [place] # (Auto) 0.5 (0.1-1.2) X10*3/uL Eos # (Auto) 0.1 (0.0-0.4) X10*3/uL Baso # (Auto) 0.0 (0.0-0.2) X10*3/uL Abs Immat Gran (auto) 0.02 (0.00-0.03) X10*3/uL Absolute Neuts (auto) 6.0 (2.0-8.3) x10*3/uL Absolute Nucleated RBC 0.000 (0.0-0.012) X10*3/uL Nucleated RBC % (auto) 0.0 (0.0-0.2) /100WBC Sodium 140 (135-145) mmol/L Potassium 4.0 (3.3-5.1) mmol/L Chloride 104 (96-108) mmol/L Carbon Dioxide 27 (22-29) mmol/L Anion Gap 13 (12-20) BUN 12 (9-16) mg/dL Creatinine 0.81 (0.5-1.4) mg/dL Estim Creat Clear Calc 97.6 Estimated GFR > 60 Random Glucose 106 (60-115) mg/dL Calcium 10.6 H D (8.4-10.2) mg/dL Magnesium 2.0 (1.6-2.6) mg/dL Total Bilirubin 0.7 (0.0-1.0) mg/dL Direct Bilirubin 0.2 (0.0-0.5) mg/dL AST 20 (5-31) U/L ALT 32 H (0-31) U/L Alkaline Phosphatase 79 (39-117) U/L Troponin I High Sens < 2.7 < 2.7 (<3.5-17.0) ng/L Total Protein 7.4 (6.5-8.0) g/dL Albumin 4.7 (3.5-5.0) g/dL Lipase 12 (8-78) U/L Urine Color Yellow Urine Appearance Cloudy Urine pH 6.0 (5.0-9.0) Ur Specific [place] 1.015 (1.005-1.025) Urine Protein Negative (Neg-Trace) mg/dL Urine Glucose (UA) Negative (Negative) mg/dL Urine Ketones Negative (Negative) mg/dL Urine Blood Negative (Negative) Urine Nitrite Negative (Negative) Ur Leukocyte Esterase Negative (Negative) Urine Test NEGATIVE (NEGATIVE) Urine Opiates Screen Not Detected (Not Detect) Ur Buprenorphine Scrn Not Detected (Not Detect) ng/mL Ur Oxycodone Screen Not Detected (Not Detect) ng/mL Urine Methadone Screen Not Detected (Not Detect) ng/mL Urine Fentanyl Screen Not Detected (Not Detect) Ur Barbiturates Screen Not Detected (Not Detect) Ur Phencyclidine Scrn Not Detected (Not Detect) Ur Amphetamines Screen Not Detected (Not Detect) U Benzodiazepines Scrn Not Detected (Not Detect) Urine Cocaine Screen Not Detected (Not Detect) U Marijuana (THC) Screen POSITIVE H (Not Detect) Ethyl Alcohol < 10 mg/dL Independent Interpretation I performed an independent interpretation of an: EKG, Plain X-Ray (normal ) and CT Scan Interpretation: Rate: 69 Rhythm: NSR [place]: left Normal P waves. Normal SPIKE. Normal QRS complex. ST T wave : flat t waves lateral leads no YIN qTC: 435 prior studies: no acute ischemia The study has been interpreted contemporaneously by me. . External Record Review External record reviewed: Inpatient record Discharge Plan Discharge Clinical Impression: Atypical chest pain Abdominal pain Qualifiers: Abdominal location: epigastric Qualified Code(s): R10.13 - Epigastric pain Patient Disposition: Still a Patient Instructions: Chest Pain (ED), Abdominal Pain (ED) Additional Instructions: return for worsening pain, fevers, inability to eat or drink or any other concerns follow up with your doctor eat a bland diet and stay hydrated Prescriptions: New sucralfate [Carafate] 100 mg/mL suspension 10 ml PO BID 7 Days Qty: 140 0RF ondansetron 4 mg tablet,disintegrating 4 mg PO Q8H PRN (Reason: nausea and vomiting) Qty: 20 0RF No Action nicotine (polacrilex) 4 mg gum 4 mg buccal Q2H PRN (Reason: nicotine cravings) 30 Days Qty: 100 1RF clonidine HCl 0.1 mg Tablet 0.1 mg PO Q4H PRN (Reason: anxiety) 30 Days Qty: 90 1RF Protocol: Hold for SBP< HOLD for SBP < : 90 acetaminophen 325 mg Tablet 650 mg PO Q6H PRN (Reason: Headache/Pain Mild Scale (1-3)) Qty: 0 0RF aripiprazole 15 mg Tablet 15 mg PO DAILY 30 Days Qty: 30 1RF hydroxyzine HCl 50 mg Tablet 50 mg PO Q6H PRN (Reason: Anxiety) 30 Days Qty: 90 1RF lamotrigine 25 mg Tablet 25 mg PO BID 14 Days Qty: 28 0RF naltrexone 50 mg Tablet 25 mg PO DAILY 30 Days Qty: 15 1RF olanzapine 5 mg Tablet 5 mg PO TID PRN (Reason: agitation) 30 Days Qty: 60 1RF oxcarbazepine 300 mg Tablet 300 mg PO BID 30 Days Qty: 60 1RF trazodone 100 mg Tablet 100 mg PO BEDTIME MRX1 PRN (Reason: Insomnia) 30 Days Qty: 45 1RF Rx Instructions: may have a repeat dose for continued insomnia famotidine 20 mg Tablet 20 mg PO DAILY 30 Days Qty: 30 1RF polyethylene glycol 3350 17 gram Powder In Packet 17 g PO DAILY PRN (Reason: Constipation) 30 Days Qty: 30 1RF capsaicin 0.025 % Cream 1 appl topical TID PRN (Reason: Pain, Moderate(Pain Scale 4-6)) 30 Days Qty: 50 1RF Protocol: Apply to: Apply to: lower back, knees lidocaine [Lidocaine Pain Relief] 4 % Adhesive Patch,Medicated 1 patch transdermal DAILY PRN (Reason: lower back or knee) 30 Days Qty: 30 1RF Protocol: Apply to: Apply to: left knee prazosin 1 mg capsule 3 mg PO BEDTIME 30 Days Qty: 90 1RF propranolol 20 mg tablet 20 mg PO QAM 30 Days Qty: 30 1RF ondansetron 4 mg tablet,disintegrating 4 mg PO Q6H PRN (Reason: nausea and vomiting) 30 Days Qty: 14 1RF lamotrigine [Lamictal] 100 mg tablet 100 mg PO DAILY 30 Days Qty: 30 0RF Rx Instructions: Start on 12/04/23 docusate sodium [Colace] 100 mg capsule 100 mg PO BID PRN (Reason: constipation) 30 Days Qty: 60 1RF Stand Alone Forms: Work/School Release Print Language: Croatian
[2024-04-09 13:01] LABS: MANUAL DIFF FLAG NO
[2024-04-09 13:03] LABS: Basophils Percent Auto 0.4 % (0-2); Eosinophils Absolute Auto 0.1 X10*3/uL (0.0-0.4); Eosinophils Percent Auto 0.7 % (0-4); Hematocrit 43.3 % (37.0-47.0); Hemoglobin 14.6 g/dl (12.0-16.0); Imm Gran Abs Auto 0.02 X10*3/uL (0.00-0.03); Imm Gran Pct Auto 0.2 % (0.0-0.4); Lymphocytes Percent Auto 23.1 % (20-40); Mean Corpuscular HGB Conc 33.7 g/dl (31.0-35.0); Mean Corpuscular Hemoglobin 28.6 pg (27.0-33.0); Mean Corpuscular Volume 84.7 fL (80.0-98.0); Monocytes Absolute Auto 0.5 X10*3/uL (0.1-1.2); Monocytes Percent Auto 6.1 % (2-11); Neutrophils Percent Auto 69.5 % (45-73); Platelet Count 302 X10*3/uL (160-400); Red Blood Count 5.11 X10*6/uL (4.20-5.50); Red Cell Distribution Width 12.8 % (11.0-16.0); White Blood Count 8.6 X10*3/uL (4.8-10.8)
[2024-04-09] MEDS: Lactated Ringers 1,000 ML 999 ML IV (13:19)
[2024-04-09] MEDS: Famotidine/PF 20 MG/2 ML VIAL IVPUSH (13:20)
[2024-04-09] MEDS: LORazepam 2 MG/ML VIAL 1 MG IVPUSH (13:20)
[2024-04-09] MEDS: ondansetron HCL 4 MG/2 ML VIAL IVPUSH (13:20)
[2024-04-09 13:50] LABS: Alanine Aminotransferase 32 U/L (0-31); Albumin Level 4.7 g/dL (3.5-5.0); Alkaline Phosphatase 79 U/L (39-117); Anion Gap 13 (12-20); Aspartate Amino Transferase 20 U/L (5-31); Bilirubin Direct 0.2 mg/dL (0.0-0.5); Bilirubin Total 0.7 mg/dL (0.0-1.0); Blood Urea Nitrogen 12 mg/dL (9-16); Calcium 10.6 mg/dL (8.4-10.2); Carbon Dioxide 27 mmol/L (22-29); Chloride 104 mmol/L (96-108); Creatinine Clr Calc Pharmacy 97.6; Estimated Glomerular Filt Rate > 60; Ethanol < 10 mg/dL; Glucose Random 106 mg/dL (60-115); Lipase 12 U/L (8-78); Sodium 140 mmol/L (135-145); Total Protein 7.4 g/dL (6.5-8.0); Troponin-I High Sensitivity < 2.7 ng/L (<3.5-17.0)
[2024-04-09 16:10] LABS: Appearance Urine Cloudy; Color Urine Yellow; Glucose Urine UA Negative (Negative); Leukocyte Esterase Urine Negative (Negative); Nitrite Urine Negative (Negative); Specific Gravity - Urine 1.015 (1.005-1.025); Urine Blood Negative (Negative); Urine Ketones Negative (Negative); Urine Protein Negative (Neg-Trace)
[2024-04-09 16:11] LABS: UPreg QC Valid YES; Urine Pregnancy NEGATIVE (NEGATIVE)
[2024-04-09 16:22] LABS: Amphetamine Screen Urine Not Detected (Not Detect); Barbiturates, Urine Not Detected (Not Detect); Benzodiazepines Screen Urine Not Detected (Not Detect); Buprenorphine Scr Not Detected (Not Detect); Cannabinoid Screen Urine POSITIVE (Not Detect); Cocaine Screen Urine Not Detected (Not Detect); Fentanyl, urine Not Detected (Not Detect); Methadone Screen, Urine Not Detected (Not Detect); Opiate Screen Urine Not Detected (Not Detect); Oxycodone Screen Urine Not Detected (Not Detect); Phencyclidine Screen Urine Not Detected (Not Detect)
[2024-04-09] MEDS: iohexoL 350 MG/ML 100 ML INFUS..BTL IV (16:47)
[2024-04-09 16:54] VITALS: BP 120/75; PULSE 75; RESP 15; TEMP 36.7; O2SAT 99
[2024-04-09 18:54] VITALS: BP 120/75; PULSE 65; RESP 16; TEMP 36.6; O2SAT 97
[2024-04-09 19:31] LABS: Troponin-I High Sensitivity < 2.7 ng/L (<3.5-17.0)
[2024-04-09 20:03] VITALS: BP 120/75; PULSE 65; RESP 16; TEMP 36.6; O2SAT 97
== END 2024-04-09 20:04 | disposition home or self-care (01) ==
PROVIDERS: Physician Assistant; Emergency Provider Student in an Organized Health Care Education/Training Program; PCP Internal Medicine
DX: R07.89 Other chest pain (principal); R10.12 Left upper quadrant pain; R10.11 Right upper quadrant pain; R11.2 Nausea with vomiting, unspecified; R10.13 Epigastric pain; F14.10 Cocaine abuse, uncomplicated; M54.50 Low back pain, unspecified; Z79.899 Other long term (current) drug therapy
CPT/HCPCS: 36415; 71045; 74177; 80048; 80076; 80307; 81003; 81025; 83690; 83735; 84484; 85025; 93005; 96361; 96374; 96375; 99284; J2060; J2405; J7120; Q9967

== ENCOUNTER → 2024-04-09 12:28 | Outpatient (BNV) | payer MEDICAID, SELFPAY | PROVIDERS: Emergency Provider Student in an Organized Health Care Education/Training Program; PCP Internal Medicine; Visit Provider Internal Medicine Cardiovascular Disease | DX: R94.31 Abnormal electrocardiogram [ECG] [EKG] (principal) | CPT/HCPCS: 93010 ==

== ENCOUNTER 2025-05-24 14:14 | Emergency (ER) | payer MEDICAID, SELFPAY ==
--- NOTE | ~2025-05-24 | CT_ITS ---
CLINICAL HISTORY: right flank pain CT abdomen and pelvis without contrast Comparison: CT of the abdomen and pelvis from 04/09/2024 02/14/2023 Findings: Mild bibasilar atelectasis and scarring. Mild imaged rib deformities appear old/chronic. Diffuse steatotic change of the liver. The adrenal glands are normal. Gallbladder is unremarkable for noncontrast CT. Spleen remains nonenlarged. Moderate to severe volume loss of the pancreas of the fatty atrophic change are redemonstrated. No hydronephrosis. Nonobstructing nephrolithiasis of the left kidney measure 3 mm. No significant change in small calcifications in the pelvis favored to be due to phleboliths. No new or enlarging lymphadenopathy by noncontrast study. No small bowel obstruction. Imaged appendix is within normal limits (imaged 502 of series 4). [id number] stool burden is. Mild wall thickening of the large intestine is nonspecific and may reflect underdistention in this noncontrast study. Intrauterine device remains in place. Uterus is anteverted. No adnexal soft tissue mass by CT. Imaged urinary bladder is unremarkable. Subcutaneous edema noted. Facet arthropathy including lower lumbar spine. IMPRESSION: 1. No hydronephrosis. 2. Nonobstructing nephrolithiasis measures 3 mm in the left kidney. This document has been electronically signed by: Chuck Guzman MD on 05/24/2025 19:27:53
[2025-05-24 14:18] VITALS: BP 155/85; PULSE 87; RESP 18; TEMP 36.4; O2SAT 98; BMI 39.5
--- NOTE | 2025-05-24 14:20 | ED.GENADULT ---
HPI - General Adult General Chief complaint: Abdominal Pain Stated complaint: R lower back pain Time Seen by Provider: 05/24/25 17:14 Source: patient Mode of arrival: ambulatory Limitations: no limitations History of Present Illness ED Provider: Dr. [place] HPI narrative: 44-year-old female presented hospital today for right flank pain. Patient has a history polysubstance abuse, PTSD. Patient stated that this has been going on for a couple of weeks now. She has stated this pain is mostly in the right upper quadrant and radiates up to her right flank. She does endorse some nausea with this pain as well. She does have history of kidney stones in the past. Related Data Previous Rx's ?Medication ?Instructions ?Recorded acetaminophen 325 mg tablet 650 mg (2 x 325 mg) PO Q6H PRN 11/20/23 Headache/Pain Mild Scale (1-3) #0 tabs aripiprazole 15 mg tablet 15 mg PO DAILY 30 days #30 tabs 11/20/23 capsaicin 0.025 % topical cream 1 appl topical TID PRN Pain, 11/20/23 Moderate(Pain Scale 4-6) 30 days #50 grams clonidine HCl 0.1 mg tablet 0.1 mg PO Q4H PRN anxiety 30 days 11/20/23 #90 tabs famotidine 20 mg tablet 20 mg PO DAILY 30 days #30 tabs 11/20/23 hydroxyzine HCl 50 mg tablet 50 mg PO Q6H PRN Anxiety 30 days 11/20/23 #90 tabs lamotrigine 100 mg tablet 100 mg PO DAILY 30 days #30 tabs 11/20/23 (Lamictal) lamotrigine 25 mg tablet 25 mg PO BID 14 days #28 tabs 11/20/23 lidocaine 4 % topical patch 1 patch transdermal DAILY PRN 11/20/23 (Lidocaine Pain Relief) lower back or knee 30 days #30 ea naltrexone 50 mg tablet 25 mg (1/2 x 50 mg) PO DAILY 30 11/20/23 days #15 tabs nicotine (polacrilex) 4 mg gum 4 mg buccal Q2H PRN nicotine 11/20/23 cravings 30 days #100 ea olanzapine 5 mg tablet 5 mg PO TID PRN agitation 30 days 11/20/23 #60 tabs ondansetron 4 mg disintegrating 4 mg PO Q6H PRN nausea and 11/20/23 tablet vomiting 30 days #14 tabs oxcarbazepine 300 mg tablet 300 mg PO BID 30 days #60 tabs 11/20/23 polyethylene glycol 3350 17 gram 17 g PO DAILY PRN Constipation 30 11/20/23 oral powder packet days #30 ea prazosin 1 mg capsule 3 mg (3 x 1 mg) PO BEDTIME 30 days 11/20/23 #90 caps propranolol 20 mg tablet 20 mg PO QAM 30 days #30 tabs 11/20/23 trazodone 100 mg tablet 100 mg PO BEDTIME MRX1 PRN 11/20/23 Insomnia 30 days #45 tabs docusate sodium 100 mg capsule 100 mg PO BID PRN constipation 30 11/23/23 (Colace) days #60 caps ondansetron 4 mg disintegrating 4 mg PO Q8H PRN nausea and 04/09/24 tablet vomiting #20 tabs sucralfate 100 mg/mL oral 10 ml PO BID 7 days #140 mL 04/09/24 suspension (Carafate) cefpodoxime 200 mg tablet 200 mg PO Q12H 10 days #20 tabs 05/24/25 cefpodoxime 200 mg tablet 200 mg PO Q12H 10 days #20 tabs 05/24/25 ondansetron 4 mg disintegrating 4 mg PO Q8H PRN nausea and 05/24/25 tablet vomiting #14 tabs ondansetron 4 mg disintegrating 4 mg PO Q8H PRN nausea and 05/24/25 tablet vomiting #14 tabs oxycodone 5 mg tablet 5 mg PO Q8H PRN pain #14 tabs 05/24/25 oxycodone 5 mg tablet 5 mg PO Q8H PRN pain #14 tabs 05/24/25 Allergies Allergy/AdvReac Type Severity Reaction Status Date / Time levofloxacin (From LEVAQUIN) Allergy Intermediate RASH Verified 05/24/25 14:24 codeine (Codeine) Allergy Unknown NAUSEA AND Verified 05/24/25 14:24 VOMITING, sensitivity ibuprofen Allergy Unknown sensitivity Verified 05/24/25 14:24 morphine (Morphine) Allergy Unknown HEADACHE, Verified 05/24/25 14:24 vomiting, sensitivity naproxen (From NAPROSYN) Allergy Unknown HIVES, Verified 05/24/25 14:24 DIFFICULTY BREATHING. Sulfa (Sulfonamide Allergy Unknown unknown Verified 05/24/25 14:24 Antibiotics) Review of Systems Review of Systems: Pertinent review of systems as mentioned in HPI. All other system otherwise negative. [facility] Past Medical History [facility] Narrative: Medical history as mentioned in HPI Medical History Cocaine use disorder Alcohol use disorder PTSD (post-traumatic stress disorder) Schizoaffective disorder, depressive type Anxiety Polysubstance abuse Chest pain Scalp cyst Depression Kidney stone (07/09/12) Left shoulder pain Suicide gesture Morbid obesity Breast mass Palpitation History of 2019 novel coronavirus disease (COVID-19) SOB (shortness of breath) Precordial chest pain Depression Overdose Bipolar disorder Surgical History S/P excision of lipoma (~09/24/23) History of sinus surgery (~2019) Family History Family History Father History of heart artery stent History of heart attack Mother CVA (cerebral vascular accident) Paternal Grandmother Bone cancer Paternal Uncle Cancer of unknown origin Social History Social History Household Members: Children Housing: Apartment Do you presently have visiting nurse or other home services: No Alcohol intake: current Alcohol intake frequency: a few times a week Patient Tobacco Use Status: Never used Tobacco e-Cigarette/Vaping Use: Currently Using Substance Use Type: Crack/Cocaine and Marijuana Advance Directives: No Advance Directives Information Provided: Yes service: No Current occupational status: disabled Current occupation: rt handed Sexual orientation: Straight/Heterosexual Physical Exam ED Exam Exam: General: Pleasant, no distress, interacting appropriately Head: Normacephalic, atraumatic ENT: oral mucosa moist, neck supple, no tracheal deviation Cardiovascular: regular rate, regular rhythm, no murmurs, rubbing, gallops Respiratory: CTAB, no wheeze, rales, rhonchi Gastrointestinal: Soft, non distended, non tender, non guarding Right sided flank pain on palpation Neurological: Awake and alert, no facial droop noted Skin: Warm and dry Psychiatric: Appropriate mood and thoughts Vital Signs: Vital Signs - 24 hr 05/24/25 14:18 05/24/25 18:08 Temperature 97.5 F 98.2 F Pulse Rate 87 86 Respiratory Rate 18 16 Blood Pressure 155/85 H 109/76 Pulse Oximetry 98 100 Oxygen Delivery Method Room Air Room Air BMI result Body Mass Index 39.5 Course Course Course Narrative: This is a rapid medical exam performed by Sumeet Shukla NP: Additional HPI, ROS, PE not included below will be deferred to primary provider. Patient is a 44-year-old female with history of kidney stones presenting with R flank pain, dysuria. Chills but denies fever. Plan: Labs, UA Medications Administered Discontinued Medications Generic Name Dose Route Start Last Admin Trade Name Freq PRN Reason Stop Dose Admin Acetaminophen 975 mg 05/24/25 17:46 05/24/25 18:03 Acetaminophen 325 Mg Tablet PO 05/24/25 17:47 975 mg ONCE ONE Administration Sodium Chloride 1,000 mls @ 999 mls/hr 05/24/25 17:45 05/24/25 17:58 Ns IV 05/24/25 18:45 999 mls/hr .Q1H1M RAVI Administration Ondansetron HCl 4 mg 05/24/25 17:45 05/24/25 18:03 Ondansetron Hcl 4 Mg/2 Ml Vial IVPUSH 05/24/25 17:46 4 mg ONCE ONE Administration Medical Decision Making Medical Decision Making [facility] Narrative: 44-year-old female presented hospital today for right-sided flank pain. Obtain a CT abdomen and pelvis assess for any signs of kidney stone. We will plan to give patient some IV Toradol, IV Zofran IV fluid for her symptoms. Abdominal lab work will be obtained. Patient's CBC is unremarkable no sign of leukocytosis, patient's CMP did not show elevated bilirubin mild transaminitis likely secondary to fatty liver, patient's UA did show 2+ blood with trace leuk esterase and 1+ bacteria. Patient may have right-sided pyelonephritis. We will plan to send the patient home on a course of cefpodoxime, Zofran, and oxycodone as needed for her pain. Patient agrees and understands this plan all questions were addressed patient will be discharged. Differential Diagnosis Differential Diagnoses: The differential diagnosis associated with the presentation includes Pyelonephritis, UTI, cholecystitis, gastritis Lab Data [facility] Lab Attestation statement: I reviewed the patient's lab results. 05/24/25 15:35 05/24/25 15:35 Labs: Lab Results 05/24/25 05/24/25 Range/Units 15:35 17:58 WBC 8.1 (4.8-10.8) X10*3/uL RBC 4.65 (4.20-5.50) X10*6/uL Hgb 13.5 (12.0-16.0) g/dl Hct 40.3 (37.0-47.0) % MCV 86.7 (80.0-98.0) fL MCH 29.0 (27.0-33.0) pg MCHC 33.5 (31.0-35.0) g/dl RDW 13.2 (11.0-16.0) % Plt Count 315 (160-400) X10*3/uL MPV 9.0 L (9.4-12.3) fL Immature Gran % (Auto) 0.2 (0.0-0.4) % Neut % (Auto) 59.7 (45-73) % Lymph % (Auto) 30.5 (20-40) % [place] % (Auto) 6.7 (2-11) % Eos % (Auto) 2.5 (0-4) % Baso % (Auto) 0.4 (0-2) % Lymph # (Auto) 2.5 (1.2-4.9) X10*3/uL [place] # (Auto) 0.5 (0.1-1.2) X10*3/uL Eos # (Auto) 0.2 (0.0-0.4) X10*3/uL Baso # (Auto) 0.0 (0.0-0.2) X10*3/uL Abs Immat Gran (auto) 0.02 (0.00-0.03) X10*3/uL Absolute Neuts (auto) 4.8 (2.0-8.3) x10*3/uL Absolute Nucleated RBC 0.000 (0.0-0.012) X10*3/uL Nucleated RBC % (auto) 0.0 (0.0-0.2) /100WBC Sodium 140 (135-145) mmol/L Potassium 3.7 (3.3-5.1) mmol/L Chloride 103 (96-108) mmol/L Carbon Dioxide 28 (22-29) mmol/L Anion Gap 13 (12-20) BUN 10 (9-16) mg/dL Creatinine 0.78 (0.5-1.4) mg/dL Estim Creat Clear Calc 108.4 Estimated GFR > 60 Random Glucose 105 (60-115) mg/dL Calcium 9.5 D (8.4-10.2) mg/dL Total Bilirubin 0.7 (0.0-1.0) mg/dL AST 49 H (5-31) U/L ALT 50 H (0-31) U/L Alkaline Phosphatase 93 (39-117) U/L Total Protein 7.0 (6.5-8.0) g/dL Albumin 4.6 (3.5-5.0) g/dL Beta HCG, Quant < 2 mIU/mL Urine Color Yellow Urine Appearance Clear Urine pH 6.5 (5.0-9.0) Ur Specific [place] <= 1.005 (1.005-1.025) Urine Protein Negative (Neg-Trace) mg/dL Urine Glucose (UA) Negative (Negative) mg/dL Urine Ketones Negative (Negative) mg/dL Urine Blood Moderate (2+) H (Negative) Urine Nitrite Negative (Negative) Ur Leukocyte Esterase Trace H (Negative) Urine RBC 0-2 (0-2) /HPF Urine WBC 0-5 (0-5) /HPF Ur Squamous Epith Cells 11-20 (0-2) /HPF Urine Bacteria 1+ (None Seen) Hyaline Casts 0-2 (0-2) /LPF Independent Interpretation I performed an independent interpretation of an: CT Scan Radiology Impression Discussion of test interpretation with radiology: I have reviewed the radiologist's reading. Discharge Plan Discharge Clinical Impression: Acute right flank pain Patient Disposition: Home, Self-Care Instructions: Abdominal Pain (ED) Additional Instructions: I suspect you may have a UTI or pyelonephritis. Please take the antibiotic as instructed Prescriptions: New ondansetron 4 mg tablet,disintegrating 4 mg PO Q8H PRN (Reason: nausea and vomiting) Qty: 14 0RF cefpodoxime 200 mg tablet 200 mg PO Q12H 10 Days Qty: 20 0RF Rx Instructions: must administer with a meal/food oxycodone 5 mg tablet 5 mg PO Q8H PRN (Reason: pain) Qty: 14 0RF Rx Instructions: Partial Fill upon patient request. cefpodoxime 200 mg tablet 200 mg PO Q12H 10 Days Qty: 20 0RF Rx Instructions: must administer with a meal/food ondansetron 4 mg tablet,disintegrating 4 mg PO Q8H PRN (Reason: nausea and vomiting) Qty: 14 0RF oxycodone 5 mg tablet 5 mg PO Q8H PRN (Reason: pain) Qty: 14 0RF Rx Instructions: Partial Fill upon patient request. No Action nicotine (polacrilex) 4 mg gum 4 mg buccal Q2H PRN (Reason: nicotine cravings) 30 Days Qty: 100 1RF clonidine HCl 0.1 mg Tablet 0.1 mg PO Q4H PRN (Reason: anxiety) 30 Days Qty: 90 1RF Protocol: Hold for SBP< HOLD for SBP < : 90 acetaminophen 325 mg Tablet 650 mg PO Q6H PRN (Reason: Headache/Pain Mild Scale (1-3)) Qty: 0 0RF aripiprazole 15 mg Tablet 15 mg PO DAILY 30 Days Qty: 30 1RF hydroxyzine HCl 50 mg Tablet 50 mg PO Q6H PRN (Reason: Anxiety) 30 Days Qty: 90 1RF lamotrigine 25 mg Tablet 25 mg PO BID 14 Days Qty: 28 0RF naltrexone 50 mg Tablet 25 mg PO DAILY 30 Days Qty: 15 1RF olanzapine 5 mg Tablet 5 mg PO TID PRN (Reason: agitation) 30 Days Qty: 60 1RF oxcarbazepine 300 mg Tablet 300 mg PO BID 30 Days Qty: 60 1RF trazodone 100 mg Tablet 100 mg PO BEDTIME MRX1 PRN (Reason: Insomnia) 30 Days Qty: 45 1RF Rx Instructions: may have a repeat dose for continued insomnia famotidine 20 mg Tablet 20 mg PO DAILY 30 Days Qty: 30 1RF polyethylene glycol 3350 17 gram Powder In Packet 17 g PO DAILY PRN (Reason: Constipation) 30 Days Qty: 30 1RF capsaicin 0.025 % Cream 1 appl topical TID PRN (Reason: Pain, Moderate(Pain Scale 4-6)) 30 Days Qty: 50 1RF Protocol: Apply to: Apply to: lower back, knees lidocaine [Lidocaine Pain Relief] 4 % Adhesive Patch,Medicated 1 patch transdermal DAILY PRN (Reason: lower back or knee) 30 Days Qty: 30 1RF Protocol: Apply to: Apply to: left knee prazosin 1 mg capsule 3 mg PO BEDTIME 30 Days Qty: 90 1RF propranolol 20 mg tablet 20 mg PO QAM 30 Days Qty: 30 1RF ondansetron 4 mg tablet,disintegrating 4 mg PO Q6H PRN (Reason: nausea and vomiting) 30 Days Qty: 14 1RF lamotrigine [Lamictal] 100 mg tablet 100 mg PO DAILY 30 Days Qty: 30 0RF Rx Instructions: Start on 12/04/23 docusate sodium [Colace] 100 mg capsule 100 mg PO BID PRN (Reason: constipation) 30 Days Qty: 60 1RF sucralfate [Carafate] 100 mg/mL suspension 10 ml PO BID 7 Days Qty: 140 0RF ondansetron 4 mg tablet,disintegrating 4 mg PO Q8H PRN (Reason: nausea and vomiting) Qty: 20 0RF Print Language: Bulgarian
--- NOTE | 2025-05-24 15:42 | MHC.EDTECH ---
pt aware of urine sample needed. cut given w instructions
[2025-05-24 15:43] LABS: MANUAL DIFF FLAG NO
[2025-05-24 15:45] LABS: Hematocrit 40.3 % (37.0-47.0); Hemoglobin 13.5 g/dl (12.0-16.0); Imm Gran Abs Auto 0.02 X10*3/uL (0.00-0.03); Imm Gran Pct Auto 0.2 % (0.0-0.4); Lymphocytes Absolute Auto 2.5 X10*3/uL (1.2-4.9); Mean Corpuscular HGB Conc 33.5 g/dl (31.0-35.0); Mean Corpuscular Hemoglobin 29.0 pg (27.0-33.0); Mean Corpuscular Volume 86.7 fL (80.0-98.0); NRBC Abs Auto 0.000 X10*3/uL (0.0-0.012); NRBC Pct Auto 0.0 /100WBC (0.0-0.2); Platelet Count 315 X10*3/uL (160-400); Red Blood Count 4.65 X10*6/uL (4.20-5.50); White Blood Count 8.1 X10*3/uL (4.8-10.8)
[2025-05-24 16:03] LABS: Alanine Aminotransferase 50 U/L (0-31); Albumin Level 4.6 g/dL (3.5-5.0); Alkaline Phosphatase 93 U/L (39-117); Anion Gap 13 (12-20); Aspartate Amino Transferase 49 U/L (5-31); Blood Urea Nitrogen 10 mg/dL (9-16); Calcium 9.5 mg/dL (8.4-10.2); Carbon Dioxide 28 mmol/L (22-29); Chloride 103 mmol/L (96-108); Creatinine Clr Calc Pharmacy 108.4; Estimated Glomerular Filt Rate > 60; Potassium 3.7 mmol/L (3.3-5.1); Sodium 140 mmol/L (135-145); Total Protein 7.0 g/dL (6.5-8.0)
--- NOTE | 2025-05-24 16:24 | PC.NURSE ---
Pt coming in with complaints of right flank/abdominal pain x1 week. Denies trauma/falls. Pt reporting mild dysuria, reports history of stones. 1 episode of vomiting 05/23, reporting nausea at this time. Pt ambulates with steady gait, call kelly within reach, awaiting provider at this time
--- OUTSIDE RECORDS SUMMARY | 2025-05-24 16:30 | XMS_ITS | Clinical Summary ---
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 Not on vero e 12/29/2022 Are you concerned about learning? Not on file 12/29/2022 No 12/29/2022 No 12/29/2022 Digital Access Answer Date Recorded No 01/29/2023 No 01/29/2023 Reliable internet access at home? Not on file 01/29/2023 Device with a working camera? Not on file Comments Unknown Sex and Gender Information Value Date Recorded Sex Assigned at Female 03/16/2019 2:09 PM EDT Legal Sex Female 9:21 PM EDT Gender Identity Female 03/16/2019 2:09 PM EDT Sexual Orientation Not on file Last Filed Vital Signs Vital Sign Reading Time Taken Comments Blood Pressure 100/65 03/16/2019 5:02 PM EDT Pulse 90 03/16/2019 5:02 PM EDT Temperature 37.2 C (98.9 F) 03/16/2019 5:02 PM EDT Respiratory Rate 20 03/16/2019 5:02 PM EDT Oxygen Saturation 99% 03/16/2019 5:02 PM EDT Inhaled Oxygen Concentration - - Weight 97.1 kg (214 lb) 03/16/2019 2:08 PM EDT Height 160 cm (5' 3 ) 03/16/2019 2:08 PM EDT Body Mass Index 37.91 03/16/2019 2:08 PM EDT Plan of Treatment Not on file Medical Devices Not on file Insurance [employer] NET FULL Member Subscriber Plan / Payer (Ef fective 2017-Present) Name:Sesar Ferrer Relation to Subscriber:Self Name:SESAR FERRER Payer ID:Not on file Group ID:Not on file Type:Medicaid Address: [address] C3 ACO [facility] FULL Member Subscriber Plan / Payer (Ef fective 2017-Present) Name:Sesar Ferrer Relation to Subscriber:Self Name:SESAR FERRER Payer ID:Not on file Group ID:Not on file Type:Medicaid Address: [address] C[address] [facility] NET FULL ACO [facility] FULL Member Subscriber Plan / Payer (Ef fective 2017-Present) Name:Sesar Ferrer Relation to Subscriber:Self Name:SESAR FERRER Payer ID:Not on file Group ID:Not on file Type:Medicaid Address: [address] [facility] NET FULL Member Subscriber Plan / Payer (Ef fective 2017-Present) Name:Sesar Ferrer Relation to Subscriber:Self Name:SESAR FERRER Payer ID:Not on file Group ID:Not on file Type:Medicaid Address: [address] [facility] NET FULL Member Subscriber Plan / Payer (Ef fective 2017-Present) Name:Sesar Ferrer Relation to Subscriber:Self Name:SESAR FERRER Payer ID:Not on file Group ID:Not on file Type:Medicaid Address: [address] C3 ACO [facility] FULL Member Subscriber Plan / Payer (Ef fective 2017-Present) Name:Sesar Ferrer Relation to Subscriber:Self Name:SESAR FERRER Payer ID:Not on file Group ID:Not on file Type:Medicaid Address: [address] C3 ACO [facility] FULL Member Subscriber Plan / Payer (Ef fective 2017-Present) Name:Sesar Ferrer Relation to Subscriber:Self Name:SESAR FERRER Payer ID:Not on file Group ID:Not on file Type:Medicaid Address: [address] [place] [address] [employer] NET [place] [address] C3 ACO Care Teams [employer] Football Coach Relationship Specialty Start Date End Date Vidya Meza MD [address] [place] [id number] PCP - General Family Medicine 03/16/19 Additional Source Comments The information contained in this document represents components of the legal health record. It is not the complete legal health record.[facility]
--- OUTSIDE RECORDS SUMMARY | 2025-05-24 16:30 | XMS_ITS | Encounter Summary ---
Demographics Address [address] [place] [address] Home Phone Mobile Phone Email Address Preferred Language en Marital Status Single Adventist Affiliation Unknown Race White Ethnic Group Unknown Author Organization [employer] Address [address] [place] [address] [address] [place] [address] Care Team Providers Care Rock Room Worker Name Role Phone Tadeo Alvarado MD Primary Care Prov ider Encounter Details Date Type Department Care Team (Late st Contact Info) Description 02/27/2023 Abstract [facility] [address] [place] [address] Saji Chaves, DMD [address] [place] [address] Social History Tobacco Use Types Packs/Day Years Used Date Smoking Tobacco: Every Day Cigarettes Passive Smoke Exposure: Never Smokeless Tobacco: Never Comments:Vapes Alcohol Use Standard Drinks/Week Comments Never 0 (1 standard drink = 0.6 oz pur e alcohol) Depression Answer Date Recorded Patient Health Questionnaire-9 Score 2 12/21/2022 Depression Answer Date Recorded Patient Health Questionnaire-2 Score 2 12/21/2022 Comments Unknown Sex and Gender Information Value Date Recorded Sex Assigned at Female 07/03/2022 10:17 AM EDT Legal Sex Female 10:17 AM EDT Gender Identity Female 07/03/2022 10:17 AM EDT Sexual Orientation Straight 07/03/2022 10 :17 AM EDT COVID-19 Exposure Response Date Recorded In the last 10 days, have yo u been in contact with someone who was confirmed or suspected to have Coronavirus/COVID-19? No / Unsure 03/01/2023 12:52 PM EDT documented as of this encounter Plan of Treatment Not on file documented as of this encounter Visit Diagnoses Not on filedocumented in this encounter Additional Health Concerns Assessment Noted Time PHQ-9 Depression Total Score: 2 04/20/20 23 1:50 PM EDT documented as of this encounter Care Teams Rock Room Worker Relationship Specialty Start Date End Date Tadeo Alvarado MD [address] [place] [id number] PCP - General Internal Medicine 01/27/20 documented as of this encounter
--- OUTSIDE RECORDS SUMMARY | 2025-05-24 16:30 | XMS_ITS | Encounter Summary ---
Demographics Address [address] [place] [address] Home Phone Mobile Phone Email Address Preferred Language en Marital Status Single Anabaptist Affiliation Unknown Race White Ethnic Group Unknown Author Organization [employer] Address [address] [place] [address] [address] [place] [address] Care Team Providers Care Process Steward Name Role Phone Tadeo Alvarado MD Primary Care Prov ider Encounter Details Date Type Department Care Team ([facility] st Contact Info) Description 12/29/2022 Orders Only [facility] [address] [place] [address] Tadeo Alvarado MD [address] [place] [address] Social History Tobacco Use Types Packs/Day Years [...] suspected to have Coronavirus/COVID-19? No / Unsure 12/21/2022 1:35 PM EDT documented as of this encounter Plan of Treatment Not on file documented as of this encounter Visit Diagnoses Not on filedocumented in this encounter Additional Health Concerns Assessment Noted Time PHQ-9 Depression Total Score: 2 12/22/19 23 1:50 PM EDT documented as of this encounter Care Teams Process Steward Relationship Specialty Start Date End Date Tadeo Alvarado MD [address] [place] [id number] PCP - General Internal Medicine 01/27/20 documented as of this encounter
--- OUTSIDE RECORDS SUMMARY | 2025-05-24 16:30 | XMS_ITS | Encounter Summary ---
Demographics Address [address] [place] [address] Home Phone Mobile Phone Email Address Preferred Language en Marital Status Single Judaism Affiliation Unknown Race White Ethnic Group Unknown Author Organization [employer] Address [address] [place] [address] Care Team Providers Care Battery Installer Name Role Phone Tadeo Alvarado MD Primary Care Prov ider Reason for Visit * Reason Onset Date Comments triage 08/08/2022 Encounter Details Date Type Department Care Team ([facility] Contact Info) Description 08/08/2022 Telephone [facility] PEDS [address] [place] [address] Tadeo Alvarado MD [address] [place] [address] triage Social History Tobacco Use Types Packs/Day Years Used Date Smoking Tobacco: Never Assessed Comments Unknown Sex and Gender Information Value Date Recorded Sex Assigned at Female 07/03/2022 10:17 AM EDT Legal Sex Female 10:17 AM EDT Gender Identity Female 07/03/2022 10:17 AM EDT Sexual Orientation Straight 07/03/2022 10 :17 AM EDT documented as of this encounter Miscellaneous Notes * Telephone Encounter - Mirela Barry - 08/08/2022 1:13 PM EST Symptom: Cough, body ache Outcome: Schedule an appointment to be seen within 24 hours Reason: No high acuity concerns reported by caller The caller accepted this outcome *States tested positive for the flu couple days ago and feel like she is not getting any better. documented in this encounter Plan of Treatment Not on file documented as of this encounter Visit Diagnoses Not on filedocumented in this encounter Care Teams Battery Installer Relationship Specialty Start Date End Date StarkTadeo Mcgarry MD [address] [place] [phone] PCP - General Internal Medicine 01/27/20 documented as of this encounter
--- OUTSIDE RECORDS SUMMARY | 2025-05-24 16:30 | XMS_ITS | Encounter Summary ---
Demographics Address [address] [place] [address] Home Phone Mobile Phone Email Address Preferred Language en Marital Status Single Mandaeism Affiliation Unknown Race White Ethnic Group Unknown Author Organization [employer] Address [address] [place] [address] [address] [place] [address] Care Team Providers Care Baby Stroller Rental Clerk Name Role Phone Tadeo Alvarado MD Primary Care Prov ider Encounter Details Date Type Department Care Team (Late st Contact Info) Description 05/24/2025 Orders Only GENERIC EXTERNAL DATA DEPARTMENT Provider, Generic External Data Social History Tobacco Use Types Packs/Day Years Used Date Smoking Tobacco: Some Days Cigarettes Passive Smoke Exposure: Current Smokeless Tobacco: Never Comments:Vapes Alcohol Use Standard Drinks/Week Comments Never 0 (1 standard drink = 0.6 oz pur e alcohol) Depression Answer Date Recorded Patient Health Questionnaire-9 Score 2 12/21/2022 Housing Stability Answer Date Recorded What is your housing situation today? I have erika vallecillo 06/18/[address] you li ve. Do you have problems with any of the following? None of the above 06/18/2023 Food Insecurity Answer Date Recorded Within the past 12 months, y ou worried that your food would run out before you got money to buy more: Never True 06/18/2023 Within the past 12 months,th e food you bought just didn't last and you didn't have enough money to get more: Never True Transportation Answer Date Recorded In the past 12 months, has l ack of transportation kept you from medical appts, meetings, work or from getting things needed for daily living? No 06/18/2023 Utilities Answer Date Recorded In the past 12 months, has t he electric, gas, oil or water company threatened to shut off services in your home? No 06/18/2023 Depression Answer Date Recorded Patient Health Questionnaire-2 Score 2 12/21/2022 Comments Unknown Sex and Gender Information Value Date Recorded Sex Assigned at Female 07/03/2022 10:17 AM EDT Legal Sex Female 10:17 AM EDT Gender Identity Female 07/03/2022 10:17 AM EDT Sexual Orientation Straight 07/03/2022 10 :17 AM EDT documented as of this encounter Plan of Treatment Not on file documented as of this encounter Procedures Procedure Name Priority Date/Time Associated Diagnosis Comments CBC WITH AUTO DIFFERENTIAL Routine 05/24/2025 3:35 PM EDT HCG, TOTAL, QN Routine 05/24/2025 3:35 PM EDT COMPREHENSIVE METABOLIC PANEL Routine 05/24/2025 3:35 PM EDT documented in this encounter Results * hCG, Total, Quantitative (05/24/2025 3:35 PM EDT) HCG Quantitative <2 mIU/mL [facility] Comment:Weeks post LMP Appro ximate hCG(Last Menstrual Period) Range (mIU/ml)3 - 4 weeks 9 - 1304 - 5 weeks 75 - 2,6005 - 6 weeks 850 - 20,8006 - 7 weeks 4000 - 100,2007 - 12 weeks 11,500 - 289,49560 - 16 weeks 18,300 - 137,67255 - 29 weeks (2nd trimester) 1,400 - 53,78063 - 41 weeks (3rd trimester) 940 - 60,000The Hammond B- hCG assay is used for the early detection ofpregnancy; it cannot be used to diagnose any conditionunrelated to . If a B-hCG level is not supportedby the clinical evidence, results should be confirmed by analternative method (qualitative urine hCG, for example). 05/24/2025 3:35 PM EDT 05/24/2025 3:41 PM EDT us Generic External Data Provider LAB BLOOD ORDERAB LES Final Result [facility] [address] [place] [phone] * (ABNORMAL) Comprehensive Metabolic Panel (05/24/2025 3:35 PM EDT) Sodium 140 135 - 145 mmol/L [facility] Potassium 3.7 3.3 - 5.1 mmol/L [facility] Chloride 103 96 - 108 mmol/L [facility] Carbon Dioxide 28 22 - 29 mmol/L [facility] Anion Gap 13 12 - 20 [facility] Urea Nitrogen (BUN) 10 9 - 16 mg/dL [facility] Creatinine, Serum 0.78 0.5 - 1.4 mg/dL [facility] Creatinine Clr Calc Pharmacy 108.4 [facility] Comment:Provided height and weight: 162.56 cm,104.5 kg.eGFR (calculated from the MDRD study equation) and eCrCl(calculated from the Cockcroft-Gault equation) are based ondifferent parameters and may not yield comparable results.If eCrCl result is absurd, please check patient'sheight/weight. Estimated Glomerular Filt Rate >60 [facility] Comment:Chronic Kidney Disea se: Estimated GFR < 60 mL/min/1.35e1Xexznb Kidney Disease: Estimated GFR < 15 mL/min/1.73m2 Glucose 105 60 - 115 mg/dL [facility] Calcium 9.5 8.4 - 10.2 mg/dL [facility] Bilirubin, Total 0.7 0.0 - 1.0 mg/dL [facility] Aspartate Amino Transferase 49(H) 5 - 31 U/L [facility] Alanine Aminotransferase 50(H) 0 - 31 U/L [facility] Total Protein 7.0 6.5 - 8.0 g/dL [facility] Albumin Level 4.6 3.5 - 5.0 g/dL [facility] Alkaline Phosphatase 93 39 - 117 U/L [facility] 05/24/2025 3:35 PM EDT 05/24/2025 3:41 PM EDT us Generic External Data Provider LAB BLOOD ORDERAB LES Final Result [facility] [address] [place] [phone] * (ABNORMAL) CBC auto differential (05/24/2025 3:35 PM EDT) White Blood Count 8.1 4.8 - 10.8 X10*3/uL [facility] Red Blood Count 4.65 4.20 - 5.50 X10*6/uL [facility] Hemoglobin 13.5 12.0 - 16.0 g/dl [facility] Hematocrit 40.3 37.0 - 47.0 % [facility] Mean Corpuscular Volume 86.7 80.0 - 98.0 fL [facility] Mean Corpuscular Hemoglobin 29.0 27.0 - 33.0 pg [facility] Mean Corpuscular HGB Conc 33.5 31.0 - 35.0 g/dl [facility] Red Cell Distribution Width 13.2 11.0 - 16.0 % [facility] Platelet Count 315 160 - 400 X10*3/uL [facility] Mean Platelet Volume 9.0(L) 9.4 - 12.3 fL [facility] Neutrophils Percent Auto 59.7 45 - 73 % [facility] Imm Gran Pct Auto 0.2 0.0 - 0.4 % [facility] Lymphocytes Percent Auto 30.5 20 - 40 % [facility] Monocytes Percent Auto 6.7 2 - 11 % [facility] Eosinophils Percent Auto 2.5 0 - 4 % [facility] Basophils Percent Auto 0.4 0 - 2 % [facility] NRBC Pct Auto 0.0 0.0 - 0.2 /100WBC [facility] Neutrophils Absolute Auto 4.8 2.0 - 8.3 x10*3/uL [facility] Imm Gran Abs Auto 0.02 0.00 - 0.03 X10*3/uL [facility] Lymphocytes Absolute Auto 2.5 1.2 - 4.9 X10*3/uL [facility] Monocytes Absolute Auto 0.5 0.1 - 1.2 X10*3/uL [facility] Eosinophils Absolute Auto 0.2 0.0 - 0.4 X10*3/uL [facility] Basophils Absolute Auto 0.0 0.0 - 0.2 X10*3/uL [facility] NRBC Abs Auto 0.000 0.0 - 0.012 X10*3/uL [facility] 05/24/2025 3:35 PM EDT 05/24/2025 3:41 PM EDT us Generic External Data Provider LAB BLOOD ORDERAB LES Final Result [facility] [address] [place] [phone] documented in this encounter Visit Diagnoses Not on filedocumented in this encounter Additional Health Concerns Assessment Noted Time PHQ-9 Depression Total Score: 2 12/22/19 23 1:50 PM EDT documented as of this encounter Care Teams Baby Stroller Rental Clerk Relationship Specialty Start Date End Date Tadeo Alvarado MD [address] [place] [phone] PCP - General Internal Medicine 01/27/20 documented as of this encounter
--- OUTSIDE RECORDS SUMMARY | 2025-05-24 16:30 | XMS_ITS | Clinical Summary ---
Demographics Address [address] [place] [address] Home Phone Mobile Phone Email Address Preferred Language en Marital Status Single Mandaeism Affiliation Unknown Race White Ethnic Group Unknown Author Organization [email or web address] Address [address] [place] [address] [address] [place] [address] Care Team Providers Care Baker Chef Name Role Phone Tadeo Alvarado MD Primary Care Prov ider Allergies Active Allergy Reactions Criticality Noted Date Comments Codeine 10/09/2022 Other reaction(s): itch and stomach pain , NAUSEA AND VOMITING, sensitivity Ibuprofen 10/09/2022 Other reaction(s): nausea, sensitivity Levofloxacin Anaphylaxis,Rash High 12/20/2018 Other reaction(s): amnaphylaxis Morphine 10/09/2022 Other reaction(s): throat itchy and rash , HEADACHE, vomiting, sensitivity Naproxen 11/06/2017 Other reaction(s): HIVES, DIFFICULTY BREATHING. Sulfa Antibiotics Rash Low 10/09/2022 Sulfamethoxazole 11/06/2017 Sulfamethoxazole-Trimetho prim Anaphylaxis High 03/16/2019 Other reaction(s): throat itch and rash , 'anaphylaxis Trimethoprim 11/06/2017 Medications * This document contains information received from the source organization and may not represent a complete record from that organization. acetaminophen (Tylenol) 500 MG tabletIndication s:Necrosis of dental pulp Take 1 tablet (500 mg) by mouth every 6 (six) hours if needed for mild pain for up to 30 doses. 30 tablet 3 Active Diclofenac Sodium 1 % gel Apply topically to affected area twice a day as needed for pain 30 g 3 Active ibuprofen 600 MG tabletIndication s:Dental abscess Take 1 tablet (600 mg) by mouth every 6 (six) hours if needed for mild pain for up to 20 doses. 20 tablet 3 Active chlorhexidine (Peridex) 0.12 % solutionIndicati ons:History of tooth extraction, unspecified edentulism class Swish morning and night. Spit, do not swallow. 473 mL 3 Active propranolol (Inderal) 20 MG tablet Take 20 mg by mouth in the morning. 3 Active famotidine (Pepcid) 40 MG tablet Take 1 tab orally daily 90 tablet 3 3 Active Omeprazole 20 MG tablet delayed-release Take 20 mg by mouth Once per day. 30 tablet 2 4 Active Active Problems Problem Noted Date Diagnosed Date Mood disorder 12/07/2023 Chronic pain of left knee 08/20/2023 Assessment & Plan (08/20/2023 12:30 PM EST): Patient being followed at [facility], she is requesting a second opinion, will place consult Class 2 obesity due to exces s calories without serious comorbidity with body mass index (BMI) of 39.0 to 39.9 in adult 08/20/2023 Assessment & Plan (08/20/2023 12:31 PM EST): Will refer to bariatric surgery, oriented [facility] benefits of weight loss Hypercholesteremia 08/20/2023 Assessment & Plan (08/20/2023 12:32 PM EST): Calculated ascvd <5%, does not need medication, reinforced importance of diet/exercise and weight loss Vertigo 06/11/2023 Assessment & Plan (06/11/2023 10:11 AM EDT): Pt describing R ear discomfort, tinnitus, vertigo and hearing loss. Sx are likely consistent w Meniere's Disease. -Discussed dietary and environmental factors, and triggers may include high salt intake, caffeine, alcohol, nicotine, stress, monosodium glutamate (MSG) to avoid exposure. -meclizine prn - will hold on steroids for now given Sx are mild, but may need to reconsider if worsening Sx. -zofran prn -alarm signs and symptoms -F up w PCP in 4 wk. If no improvement by then will need ENT referral. Mixed hyperlipidemia 12/31/2022 Elevated blood pressure reading 12/31/2022 Assessment & Plan (12/31/2022 9:16 PM EDT): Told to monitor bp daily, reviewed importance of weight loss, low sodium diet and exercise as tolerated, Will follow up in 1 month Physical exam 12/31/2022 Assessment & Plan (12/31/2022 9:21 PM EDT): Physical examination was unremarkable, new lab order will be sent for further assesment, Pap smear done on 10/2022 will request records Dental infection 09/19/2022 Assessment & Plan (09/19/2022 4:26 PM EST): Suspect pain is from dental infection or possibly from pimple in left ear canal. Rx augmenting and pt to see dental today to schedule appointment. ER precautions discussed. Chronic pain 09/27/2018 Dry eyes 09/27/2018 Migraine without aura, not refractory 08/28/2018 Positive YADI (antinuclear antibody) 08/28/2018 Vitamin D deficiency 08/28/2018 Assessment & Plan (08/20/2023 12:28 PM EST): Low levels (17), will start oral replacement, Encounters Date Type Department Care Team Description 05/24/2025 Orders Only GENERIC EXTERNAL DATA DEPARTMENT Provider, Generic External Data from Last 3 Months Immunizations Immunization Administration Dates Next Due DTP 02/15/1991, 6,04/17/1981,1980 Influenza Injectable Quadriv alant Preservative Free IIV4 MDCK 10/07/2021 Influenza injectable quadriv alent IIV4 with preservative 06/10/2019,06/21/2018,08/20/2015 Influenza, High Dose Seasona l, Preservative Free 06/02/2017 Influenza, IIV3, injectable 05/18/2017, 6 MMR 02/28/2006,01/25/1982 OPV, Trivalent 04/29/1986, 1,02/15/1981,1980 TD (adult), 2 Lf tetanus tox oid, preservative free, adsorbed 02/02/2004 Tdap 03/16/2019,09/27/2018 Social History Tobacco Use Types Packs/Day Years Used Date Smoking Tobacco: Some Days Cigarettes Passive Smoke Exposure: Current Smokeless Tobacco: Never Tobacco Cessation:Ready to Q uit: Not Asked; Counseling Given: Not Answered Comments:Vapes Alcohol Use Standard Drinks/Week Comments Never [...] Orientation Straight 07/03/2022 10 :17 AM EDT Last Filed Vital Signs Vital Sign Reading Time Taken Comments Blood Pressure 120/73 12/07/2023 11:13 AM EDT Pulse 73 12/07/2023 11:13 AM EDT Temperature 36.3 C (97.3 F) 12/07/2023 11:13 AM EDT Respiratory Rate 20 12/07/2023 11:13 AM EDT Oxygen Saturation 97% 12/07/2023 11:13 AM EDT Inhaled Oxygen Concentration - - Weight 100 kg (221 lb) 12/07/2023 11:13 AM EDT Height 157.5 cm (5' 2 ) 12/07/2023 11:13 AM EDT Body Mass Index 40.42 12/07/2023 11:13 AM EDT Plan of Treatment Health Maintenance Due Date Last Done Comments Dental Oral Exam 1980 Dental Prophylaxis 1980 Dental X-Ray: Full Mouth 1980 Disability Screening 1980 Alcohol/Substance Use Screening 1992 Family Planning (PISQ) 1995 HPV Vaccines (1 - 3-dose series) 1995 Hepatitis B Vaccines (1 of 3 - 19+ 3-dose series) 1999 Dental X-Ray: Bitewings 12/08/2023 12/06/2022 Depression Screening 12/22/2023 12/21/2022, 12/22/19 23 SDOH Screening 12/22/2023 12/21/2022 Tobacco Screening 12/06/2024 12/07/2023 COVID-19 Vaccine ( season) 2025 10/07/2021, 02/01/2021, 12/31/2020 Influenza Vaccine (#1) 2025 , 10/07/2021, 10/07/2021, Additional history exists Mammogram 09/24/2025 09/24/2023, 12/03, 12/14/2020, Additional history exists Cervical Cancer Screening 09/21/2027 HPV/Cotest 09/21/2027 09/21/2022 Pap Smear 09/21/2027 09/21/2022 Lipid Panel 08/17/2028 08/17/2023, 12/03, 04/15/2021, Additional history exists DTaP/Tdap/Td Vaccines (10 - Td or Tdap) 03/16/2029 03/16/2019, 09/27/2018, 08/09/2013, Additional history exists Zoster Vaccines (1 of 2) 2030 RSV Patients and Patients Aged 60 years or older (1 - 1-dose 75+ series) 2055 IPV Vaccines Completed 04/29/1986, 04/03, 02/15/1981, Additional history exists HIV Screening Completed 12/27/2022 Pneumococcal Vaccine: Pediatrics (0 to 5 Years) and At-Risk Patients (6 to 49) Years Completed 08/15/2023 Hepatitis C Screening Completed 08/17/2023 , 12/27/2022, 01/09/2022 HIB Vaccines Aged Out No longer eligi ble based on patient's age to complete this topic Hepatitis A Vaccines Aged Out No long er eligible based on patient's age to complete this topic Meningococcal B Vaccine Aged Out No l onger eligible based on patient's age to complete this topic Meningococcal Vaccine Aged Out No selene flori eligible based on patient's age to complete this topic RSV under 20 months Aged Out No longe r eligible based on patient's age to complete this topic Rotavirus Vaccines Aged Out No longer eligible based on patient's age to complete this topic Procedures Procedure Name Priority Date/Time Associated Diagnosis Comments HCG, TOTAL, QN Routine 05/24/2025 3:35 PM EDT COMPREHENSIVE METABOLIC PANEL Routine 05/24/2025 3:35 PM EDT CBC WITH AUTO DIFFERENTIAL Routine 05/24/2025 3:35 PM EDT BI MAMMOGRAM SCREENING TOMOSYNTHESIS BILATERAL Routine 09/24/2023 1:40 PM EST HEPATITIS C AB W/REFL TO HCV RNA, QN, PCR Routine 08/17/2023 7:15 AM EST Vitamin D deficiency Mixed hyperlipidemia Epigastric pain LIPID PANEL, STANDARD Routine 08/17/2023 7:15 AM EST Vitamin D deficiency Mixed hyperlipidemia Epigastric pain HIV 1 RNA, QN PCR W/RFL BRAXTON (RTI,PI,INTEGRASE) Routine 12/27/2022 10:19 AM EDT Annual physical exam BITEWING - SINGLE RADIOGRAPHIC IMAGE Routine 12/06/2022 3:30 PM EDT Necrosis of dental pulp HM PAP/HPV Routine 09/21/2022 from Last 3 Months or Most Recently Relevant to Health Maintenance Results * (ABNORMAL) CBC auto differential (05/24/2025 3:35 PM EDT) White Blood Count 8.1 4.8 - 10.8 X10*3/uL [facility] Red Blood Count 4.65 4.20 - 5.50 X10*6/uL [facility] Hemoglobin 13.5 12.0 - 16.0 g/dl [facility] Hematocrit 40.3 37.0 - 47.0 % [facility] Mean Corpuscular Volume 86.7 80.0 - 98.0 fL [facility] Mean Corpuscular Hemoglobin 29.0 27.0 - 33.0 pg [facility] Mean Corpuscular HGB Conc 33.5 31.0 - 35.0 g/dl [facility] Red Cell Distribution Width 13.2 11.0 - 16.0 % [facility] Platelet Count 315 160 - 400 X10*3/uL [facility] Mean Platelet Volume 9.0(L) 9.4 - 12.3 fL [facility] Neutrophils Percent Auto 59.7 45 - 73 % [facility] Imm Gran Pct Auto 0.2 0.0 - 0.4 % [facility] Lymphocytes Percent Auto 30.5 20 - 40 % [facility] Monocytes Percent Auto 6.7 2 - 11 % [facility] Eosinophils Percent Auto 2.5 0 - 4 % [facility] Basophils Percent Auto 0.4 0 - 2 % [facility] NRBC Pct Auto 0.0 0.0 - 0.2 /100WBC [facility] Neutrophils Absolute Auto 4.8 2.0 - 8.3 x10*3/uL [facility] Imm Gran Abs Auto 0.02 0.00 - 0.03 X10*3/uL [facility] Lymphocytes Absolute Auto 2.5 1.2 - 4.9 X10*3/uL [facility] Monocytes Absolute Auto 0.5 0.1 - 1.2 X10*3/uL [facility] Eosinophils Absolute Auto 0.2 0.0 - 0.4 X10*3/uL [facility] Basophils Absolute Auto 0.0 0.0 - 0.2 X10*3/uL [facility] NRBC Abs Auto 0.000 0.0 - 0.012 X10*3/uL [facility] 05/24/2025 3:35 PM EDT 05/24/2025 3:41 PM EDT Generic External Data Provider LAB BLOOD ORDERAB LES Final Result Performing Organization Address [facility] Co de Phone Number [facility] [address] [place] [phone] * hCG, Total, Quantitative (05/24/2025 3:35 PM EDT) HCG Quantitative <2 mIU/mL [facility] Comment:Weeks post LMP Appro ximate hCG(Last Menstrual Period) Range (mIU/ml)3 - 4 weeks 9 - 1304 - 5 weeks 75 - 2,6005 - 6 weeks 850 - 20,8006 - 7 weeks 4000 - 100,2007 - 12 weeks 11,500 - 289,43404 - 16 weeks 18,300 - 137,96281 - 29 weeks (2nd trimester) 1,400 - 53,24178 - 41 weeks (3rd trimester) 940 - [...] Provider LAB BLOOD ORDERAB LES Final Result Performing Organization Address [facility]/ZIP Co de Phone Number [facility] [address] [place] [phone] * (ABNORMAL) Comprehensive Metabolic Panel (05/24/2025 3:35 PM EDT) Sodium 140 135 - 145 mmol/L [facility] Potassium 3.7 3.3 - 5.1 mmol/L [facility] Chloride 103 96 - 108 mmol/L [facility] Carbon Dioxide 28 22 - 29 mmol/L [facility] Anion Gap 13 12 - 20 [facility] Urea Nitrogen (BUN) 10 9 - 16 mg/dL [facility] Creatinine, Serum 0.78 0.5 - 1.4 mg/dL [facility] Creatinine Clr Calc Pharmacy 108.4 [facility] Comment:Provided height and weight: 162.56 cm,104.5 kg.eGFR (calculated from the MDRD study equation) and eCrCl(calculated from the Cockcroft-Gault equation) are based ondifferent parameters and may not yield comparable results.If eCrCl result is absurd, please check patient'sheight/weight. Estimated Glomerular Filt Rate >60 [facility] Comment:Chronic Kidney Disea se: Estimated GFR < 60 mL/min/1.30p3Jeoajp Kidney Disease: Estimated GFR < 15 mL/min/1.73m2 Glucose 105 60 - 115 mg/dL [facility] Calcium 9.5 8.4 - 10.2 mg/dL [facility] Bilirubin, Total 0.7 0.0 - 1.0 mg/dL [facility] Aspartate Amino Transferase 49(H) 5 - 31 U/L [facility] Alanine Aminotransferase 50(H) 0 - 31 U/L [facility] Total Protein 7.0 6.5 - 8.0 g/dL [facility] Albumin Level 4.6 3.5 - 5.0 g/dL [facility] Alkaline Phosphatase 93 39 - 117 U/L [facility] 05/24/2025 3:35 PM EDT 05/24/2025 3:41 PM EDT us Generic External Data Provider LAB BLOOD ORDERAB LES Final Result [facility] [address] [place] [phone] * BI Mammogram Screening Tomosynthesis Bilateral (09/24/2023 1:40 PM EST) Anatomical Region Laterality Modality Breast Bilateral Mammography 09/24/2023 1:40 PM EST Narrative 10/09/2023 8:18 AM EST [address] [place] [address] Mammography Report Signed Patient: Mykel Ferrer MR#: [id number] : 1980 Acct:[id number] Age/Sex: 42 / F ADM Date: 09/24/23 Loc: HO.MAMMO Attending Dr: Tadeo Zaidi MD Ordering Physician: Tadeo Alvarado MD Res ults: 2Benign Findings Date of Service: 09/24/23 Follow Up: 1 Year From Orig ina Mammogram Procedure(s): MM tomosynthesis screening BI Accession Number(s): [id number] cc: Tadeo Alvarado MD EXAMINATION: MM SCREENING DIGITAL BREAST TOMOSYNTHESIS, BILATERAL CLINICAL INFORMATION: Screening. Asymptomatic. COMPARISON: Mammography: This study is compared with prior exams dating back to 2020. TECHNIQUE: Digital breast tomosynthesis is performed in both the craniocaudal and mediolateral oblique views along with computer-aided detection (CAD). Synthesized 2D images are generated from the tomosynthesis. FINDINGS: The breasts are heterogeneously dense, which may obscure small masses (ACR BI-RADS breast composition Category c). There are no significant masses, abnormal calcifications, or other abnormalities. There is a tissue marker in the right breast from prior benign percutaneous biopsy. MM/MM tomosynthesis screening BI IMPRESSION: No mammographic evidence of malignancy. ASSESSMENT: BI-RADS BI-RADS 2 - Benign Findings RECOMMENDATION: Routine annual mammography screening. 1 year F/U This examination should not preclude the clinical evaluation of a suspicious palpable abnormality. This patient's information was entered into a reminder system with a target due date for their next mammogram. Dictated By: Ann Ang MD Signed By: <Electronically signed by Ann Ang MD in OV> 10/09/23813 DD/ 1340 TD/TT: Soft Crab Shedder: Procedure Note Donotuseinterpreter, Image - 10/09/2023 [facility] [address] [place] [address] [place] [address] Mammography Report Signed Patient: Mykel Ferrer#: [id number] : 1980Acct:[id number] Age/Sex: 42 / FADM Date: 09/24/23 Loc: HO.MAMMO Attending Dr: Tadeo Zaidi MD Ordering Physician: Tadeo Alvarado ults: 2Benign Findings Date of Service: 09/24/23Follow Up: 1 Year From Orig inal Mammogram Procedure(s): MM tomosynthesis screening BI Accession Number(s): [id number] cc: Tadeo Alvarado MD EXAMINATION: MM SCREENING DIGITAL BREAST TOMOSYNTHESIS, BILATERAL CLINICAL INFORMATION: Screening. Asymptomatic. COMPARISON: Mammography: This study is compared with prior exams dating back to 2020. TECHNIQUE: Digital breast tomosynthesis is performed in both the craniocaudal and mediolateral oblique views along with computer-aided detection (CAD). Synthesized 2D images are generated from the tomosynthesis. FINDINGS: The breasts are heterogeneously dense, which may obscure small masses (ACR BI-RADS breast composition Category c). There are no significant masses, abnormal calcifications, or other abnormalities. There is a tissue marker in the right breast from prior benign percutaneous biopsy. MM/MM tomosynthesis screening BI IMPRESSION: No mammographic evidence of malignancy. ASSESSMENT: BI-RADS BI-RADS 2 - Benign Findings RECOMMENDATION: Routine annual mammography screening. 1 year F/U This examination should not preclude the clinical evaluation of a suspicious palpable abnormality. This patient's information was entered into a reminder system with a target due date for their next mammogram. Dictated By: Ann Ang MD Signed By: <Electronically signed by Ann Ang MD in OV> 10/09/23813 DD/ 1340 TD/TT: Soft Crab Shedder: us Tadeo Zaidi MD IMG BI PROCEDURES Edited Result - Final * Hepatitis C Antibody with Reflex to HCV, RNA, Quantitative, Real-Time PCR (08/17/2023 7:15 AM EST) Hepatitis C Antibody Nonreactive Nonreactive [facility] Comment:Antibodies to HCV no t detected; does not exclude early acuteHCV infection. Blood Venous blood specimen / Unknown 08/17/2023 7:15 AM EST 08/17/2023 7:[address] Hurtado MD LAB BLOOD ORDERABLES Final Re sult [facility] [address] [place] [phone] * (ABNORMAL) Lipid Panel, Standard (08/17/2023 7:15 AM EST) Triglycerides 207(H) <150 mg/dL [facility] Comment:Desirable Triglyceri de: less than 150 mg/dLBorderline High Triglyceride 150-199 mg/dLHigh Triglyceride: 200-499 mg/dLVery High Triglyceride: greater than or equal to 5OO mg/dL Cholesterol 252(H) <200 mg/dL [facility] Comment:Desirable Cholestero l: less than 200 mg/dLBorderline High Cholesterol: 200-239 mg/dLHigh Cholesterol: greater than 239 mg/dL LDL Cholesterol Calculated 168(H) <100 mg/dL [facility] Comment:Desirable LDL: less than 100 mg/dLNear Optimal/Above Optimal LDL: 110- 129 mg/dLBorderline High LDL: 130-159 mg/dLHigh LDL: 160-189 mg/dLVery High LDL: greater than or equal to 190 mg/dL HDL Cholesterol 43 >40 mg/dL [facility] Comment:Desirable HDL: great er than 40 mg/dL Note: This HDL assay may give artificially low results in patients with liver disease. Blood Venous blood specimen / Unknown 08/17/2023 7:15 AM EST 08/17/2023 7:[address] Hurtado MD LAB BLOOD ORDERABLES Final Re sult [facility] [address] [place] [address] [phone] * HIV-1 RNA, Quantitative, Real-Time PCR with Reflex to Genotype (RTI, PI, Integrase) (12/27/2022 10:19 AM EDT) HIV 1 RNA, QN PCR NOT DETECTED copies/mL [facility], HIV 1 RNA, QN PCR NOT DETECTED Log copies/mL [facility], Comment: REFERENCE RANGE: NOT DETECTED copies/mL NOT DETECTED Log copies/mL This test was performed using Real-Time Polymerase Chain Reaction. Reportable range is 20 to 10,000,000 copies/mL (1.30-7.00 Log copies/mL). 12/27/2022 10:1 9 AM EDT 12/27/2022 10:20 AM EDT Narrative [facility] - 12/31/2022 7:30 PM EDT FASTING:YES FASTING: YES us Tadeo Zaidi MD LAB BLOOD ORDERABL ES Final Result [facility] [address], [place] [phone] [facility], [address] [place] [address] * Pap Smear (09/21/2022) Pap Negative for intraephithelial lesion or malignancy Negative for intraephithelial lesion or malignancy, Other HPV Undetected Undetected, Indeterminate, Quantitative, Not Detected us Historical [place] Final Result from Last 3 Months or Most Recently Relevant to Health Maintenance Insurance [address] [place] [address] [facility] [place] [address] [place] [address] [facility] MEDICAID STAND ADULT * Guarantor: Mykel Ferrer Account Type Relation to Patient Date of Phone Billing Address Personal/Family Self [address] [place] * Guarantor: Mykel Ferrer Account Type Relation to Patient Date of Phone Billing Address Personal/Family Self [address] [place] * Guarantor: Mykel Ferrer Account Type Relation to Patient Date of Phone Billing Address Personal/Family Self [address] [place] Care Teams Baker Chef Relationship Specialty Start Date End Date Tadeo Alvarado MD [address] [place] [address] [place] PCP - General Internal Medicine 01/27/20
--- OUTSIDE RECORDS SUMMARY | 2025-05-24 16:30 | XMS_ITS | Encounter Summary ---
Demographics Address [address] [place] [address] Home Phone Mobile Phone Email Address Preferred Language en Marital Status Single Jehovah'S Witness Affiliation Unknown Race White Ethnic Group Unknown Author Organization [employer] Address [address] [facility] 7 [place] [address] Care Team Providers Care Job Cost Estimator Name Role Phone Tadeo Alvarado MD Primary Care Prov ider Encounter Details Date Type Department Care Team (Late st Contact Info) Description 05/07/2024 Orders Only [facility] [address] [place] [address] ProviderGema MD Social History Tobacco Use Types Packs/Day Years Used Date Smoking Tobacco: Some Days Cigarettes Passive Smoke Exposure: Current Smokeless Tobacco: Never Comments:Vapes Alcohol Use Standard Drinks/Week Comments Never 0 (1 standard drink = 0.6 oz pur e alcohol) Depression Answer Date Recorded Patient Health Questionnaire-9 Score 2 12/21/2022 Housing Stability Answer Date Recorded What is your housing situation today? I have erikacarolynn vallecillo 06/18/[address] you [...] Procedure Name Priority Date/Time Associated Diagnosis Comments DRUG ANALYSIS PROFILE, COMPREHENSIVE, URINE Routine 03/21/2024 1:51 PM EDT documented in this encounter Results * Drug Analysis Profile, Comprehensive, Urine (03/21/2024 1:51 PM EDT) Urine (Urine, Random) us Historical Provider LAB URINE ORDERABLES Joanie l Result documented in this encounter Visit Diagnoses Not on filedocumented in this encounter Additional Health Concerns Assessment Noted Time PHQ-9 Depression Total Score: 2 12/22/19 23 1:50 PM EDT documented as of this encounter Care Teams Job Cost Estimator Relationship Specialty Start Date End Date Tadeo Alvarado MD [address] [place] [phone] PCP - General Internal Medicine 01/27/20 documented as of this encounter
[2025-05-24 18:08] VITALS: BP 109/76; PULSE 86; RESP 16; TEMP 36.8; O2SAT 100
[2025-05-24 18:11] LABS: Appearance Urine Clear; Glucose Urine UA Negative (Negative); PH 6.5 (5.0-9.0); Specific Gravity - Urine <= 1.005 (1.005-1.025); UMIC TRIGGER UACC YES
[2025-05-24] MEDS: oxyCODONE HCl Immed Release 5 MG TABLET PO (20:32)
--- NOTE | 2025-05-24 20:42 | PC.NURSE ---
Took over care from JEFFY Cuellar, Iv removed, medicated per nov, reviewed discharge instructions with pt. pt verbalized understanding, no sign of distress.
[2025-05-24 20:43] VITALS: BP 109/76; PULSE 86; RESP 16; TEMP 36.8; O2SAT 100
== END 2025-05-24 20:46 | disposition home or self-care (01) ==
PROVIDERS: Registered Nurse Emergency; Emergency Provider Student in an Organized Health Care Education/Training Program; PCP Internal Medicine
DX: M54.50 Low back pain, unspecified (principal); R10.2 Pelvic and perineal pain; Z79.899 Other long term (current) drug therapy
CPT/HCPCS: 36415; 74176; 80053; 81001; 84702; 85025; 96374; 99284; 99285; J2405

== ENCOUNTER → 2025-05-24 17:45 | Outpatient (BNV) | payer MEDICAID, SELFPAY | PROVIDERS: Emergency Provider Student in an Organized Health Care Education/Training Program; PCP Internal Medicine; Visit Provider Radiology Neuroradiology | DX: N20.0 Calculus of kidney (principal); K76.0 Fatty (change of) liver, not elsewhere classified | CPT/HCPCS: 74176 ==

== ENCOUNTER 2025-07-08 18:30 | Emergency (ER) | payer MEDICAID, SELFPAY ==
--- NOTE | ~2025-07-08 | CT_ITS ---
CLINICAL HISTORY: rt flank pain CT abdomen and pelvis without contrast Comparison: CT/REG/SR - CT ABDOMEN PELVIS WO IV CON - 05/24/25 18:33 EDT Findings: No consolidation or effusion. Hypodense liver. Right liver 19.5 cm. 2 mm nonobstructing left superior renal stone. No right-sided urolithiasis. Gallbladder and solid organs otherwise unremarkable. No bowel obstruction, pneumoperitoneum, or pneumatosis. IUD adequately positioned. Uterus and ovaries otherwise unremarkable. Normal appendix. Urinary bladder is decompressed. The bones are intact. IMPRESSION: 1. 2 mm nonobstructing left renal stone. No right-sided urolithiasis. 2. Fatty hepatomegaly. This document has been electronically signed by: Tianna Obando MD on 07/08/2025 22:31:22
[2025-07-08 18:35] VITALS: BP 133/87; PULSE 112; RESP 18; TEMP 36.6; O2SAT 98; BMI 42.1
--- NOTE | 2025-07-08 18:37 | ED_ITS ---
HPI - General Adult General Chief complaint: Urogenital-Female Stated complaint: right side pain / V & N longer than a day Time Seen by Provider: 07/08/25 21:35 Source: patient Mode of arrival: ambulatory Limitations: no limitations History of Present Illness ED Provider: DR. Restrepo HPI narrative: 44-year-old female came in for evaluation of right flank pain radiating to the right groin pain x2 days, pain is associated with nausea no vomiting, no diarrhea, no fever, no chills, patient is complaining of right flank pain that is radiating to the right groin, had a normal bowel movement and passing gas, past surgical history significant for . Report dysuria, no frequency urination, no hematuria. Related Data Previous Rx's ?Medication ?Instructions ?Recorded acetaminophen 325 mg tablet 650 mg (2 x 325 mg) PO Q6H PRN 11/20/23 Headache/Pain Mild Scale (1-3) #0 tabs aripiprazole 15 mg tablet 15 mg PO DAILY 30 days #30 t abs 11/20/23 capsaicin 0.025 % topical cream 1 appl topical TID PRN Pain, 11/20/23 Moderate(Pain Scale 4-6) 30 days #50 grams clonidine HCl 0.1 mg tablet 0.1 mg PO Q4H PRN anxiety 30 days 11/20/23 #90 tabs famotidine 20 mg tablet 20 mg PO DAILY 30 days #30 t abs 11/20/23 hydroxyzine HCl 50 mg tablet 50 mg PO Q6H PRN Anxiety 30 days 11/20/23 #90 tabs lamotrigine 100 mg tablet 100 mg PO DAILY 30 days #30 tabs 11/20/23 (Lamictal) lamotrigine 25 mg tablet 25 mg PO BID 14 days #28 tab s 11/20/23 lidocaine 4 % topical patch 1 patch transdermal DAILY PRN 11/20/23 (Lidocaine Pain Relief) lower back or knee 30 days # 30 ea naltrexone 50 mg tablet 25 mg (1/2 x 50 mg) PO DAILY 30 11/20/23 days #15 tabs nicotine (polacrilex) 4 mg gum 4 mg buccal Q2H PRN magdaleno otine 11/20/23 cravings 30 days #100 ea olanzapine 5 mg tablet 5 mg PO TID PRN agitation 30 days 11/20/23 #60 tabs ondansetron 4 mg disintegrating 4 mg PO Q6H PRN nausea and 11/20/23 tablet vomiting 30 days #14 tabs oxcarbazepine 300 mg tablet 300 mg PO BID 30 days #60 tabs 11/20/23 polyethylene glycol 3350 17 gram 17 g PO DAILY PRN Con stipation 30 11/20/23 oral powder packet days #30 ea prazosin 1 mg capsule 3 mg (3 x 1 mg) PO BEDTIME 3 0 days 11/20/23 #90 caps propranolol 20 mg tablet 20 mg PO QAM 30 days #30 tab s 11/20/23 trazodone 100 mg tablet 100 mg PO BEDTIME MRX1 PRN 0 11/20/23 Insomnia 30 days #45 tabs docusate sodium 100 mg capsule 100 mg PO BID PRN const ipation 30 11/23/23 (Colace) days #60 caps ondansetron 4 mg disintegrating 4 mg PO Q8H PRN nausea and 04/09/24 tablet vomiting #20 tabs sucralfate 100 mg/mL oral 10 ml PO BID 7 days #140 mL 04/09/24 suspension (Carafate) cefpodoxime 200 mg tablet 200 mg PO Q12H 10 days #20 t abs 05/24/25 cefpodoxime 200 mg tablet 200 mg PO Q12H 10 days #20 t abs 05/24/25 ondansetron 4 mg disintegrating 4 mg PO Q8H PRN nausea and 05/24/25 tablet vomiting #14 tabs ondansetron 4 mg disintegrating 4 mg PO Q8H PRN nausea and 05/24/25 tablet vomiting #14 tabs oxycodone 5 mg tablet 5 mg PO Q8H PRN pain #14 tab s 05/24/25 oxycodone 5 mg tablet 5 mg PO Q8H PRN pain #14 tab s 05/24/25 nitrofurantoin 100 mg PO Q12H 7 days #14 ca ps 07/08/25 monohydrate/macrocrystals 100 mg capsule (Macrobid) Allergies Allergy/AdvReac Type Severity Reaction Status Date / Time [facility] Allergy Intermediate RASH Verified 07/08/25 18:36 codeine (Codeine) Allergy Unknown NAUSEA AND Verified 07/08/25 18:36 VOMITING, sensitivity ibuprofen Allergy Unknown sensitivity Verified 07/08/25 18:36 morphine (Morphine) Allergy Unknown HEADACHE, Verified 07/08/25 18:36 vomiting, sensitivity naproxen (From [facility]) Allergy Unknown HIVES, Verified 07/08/25 18:36 DIFFICULTY BREATHING. Sulfa (Sulfonamide Allergy Unknown unknown Verified 07/08/25 18:36 Antibiotics) Review of Systems 2 Review of Systems: All other systems are reviewed and are negative Constitutional: Reports as per HPI and Reports no additional constitutional complaints Eyes: Reports as per HPI and Reports no additional eye complaints Reports system reviewed and no additional complaints, except as documented Cardiovascular: Reports as per HPI and Reports no additional cardiovascular complaints Respiratory: Reports as per HPI and Reports no additional respiratory complaints Gastrointestinal: Reports as per HPI and Reports no additional gastrointestinal complaints Genitourinary: Reports no additional female genitourinary complaints Musculoskeletal: Reports no additional musculoskeletal complaints Skin/Breast: Reports system reviewed and no additional complaints, except as docu Psychiatric: Reports no additional psychiatric complaints Endocrine: Reports no additional endocrine complaints Hematologic/Lymphatic: Reports no additional hematologic/lymphatic complaints Allergic/Immunologic: Reports no additional allergic/immunologic complaints Reports system reviewed and no additional complaints, except as documented and Reports Abnormal speech present [facility] Past Medical History Medical History Cocaine use disorder Alcohol use disorder PTSD (post-traumatic stress disorder) Schizoaffective disorder, depressive type Anxiety Polysubstance abuse Chest pain Scalp cyst Depression Kidney stone (07/09/12) Left shoulder pain Suicide gesture Morbid obesity Breast mass Palpitation History of 2019 novel coronavirus disease (COVID-19) SOB (shortness of breath) Precordial chest pain Depression Overdose Bipolar disorder Surgical History S/P excision of lipoma (~09/24/23) History of sinus surgery (~2019) Family History Family History Father History of heart artery stent History of heart attack Mother CVA (cerebral vascular accident) Paternal Grandmother Bone cancer Paternal Uncle Cancer of unknown origin Social History Social History Household Members: Children Housing: Apartment Do you presently have visiting nurse or other home services: No Alcohol intake: current Alcohol intake frequency: a few times a week Patient Tobacco Use Status: Never used Tobacco e-Cigarette/Vaping Use: Currently Using Substance Use Type: Crack/Cocaine and Marijuana service: No Current occupational status: disabled Current occupation: rt handed Sexual orientation: Straight/Heterosexual Physical Exam ED Vital Signs: Vital Signs - 24 hr 07/08/25 18:35 07/08/25 21:09 07/09/25 00:11 Temperature 98 F 98.2 F Pulse Rate 112 H 83 99 Respiratory Rate 18 18 16 Blood Pressure 133/87 148/97 H 125/85 Pulse Oximetry 98 98 97 Oxygen Delivery Method Room Air Room Air Room Air BMI result Body Mass Index 42.1 Vital signs have been reviewed and appear to be correct. Blood pressure elevated. Heart rate normal. Respiratory rate normal. Temperature normal. Oxygen saturation normal. Appearance: Alert. Oriented X3. No acute distress. Head: Normal external exam. Normocephalic. Atraumatic. No Farris signs noted. No raccoon eyes noted Eyes: PERRLA. EOMI. Conjunctiva and sclera normal. Eyelids normal. ENT: TM's Normal. Pharynx normal. Uvula midline. Moist mucous membranes. No trismus noted. No drooling noted. No muffled voice noted. Neck: Normal inspection. Neck supple. FROM. No adenopathy. Thyroid Normal. No meningeal signs. No neck mass noted. CVS: Normal heart rate and rhythm. Heart sound normal. No murmurs noted. Pulses normal throughout. Respiratory: No respiratory distress. Painless inspiration. Breath sounds normal. No wheezes/rales/rhonchi noted. Chest nontender. No accessory muscle usage noted or decreased air movement noted. Abdomen: Soft and nontender. Bowel sounds normal in all 4 quadrants. No distention noted. No organomegaly noted. No visible injury noted. Back: R CVA tenderness. Full range of motion noted. Skin: Skin warm and dry. Normal skin color. Normal skin turgor. No rashes/lesions/lacerations noted. Extremities: No lower extremity edema. Extremities exhibit normal range of motion. Extremities nontender. Neuro: Oriented X 3. Cranial nerve exam: II-XII are grossly intact No motor deficit. No sensory deficit. Reflexes normal. Course Course Course Narrative: RME; 44-year-old female chest ED for right flank pain going down right leg right groin area. Patient states history of kidney infection or kidney stones. Labs UA ordered Reevaluation(s) Reevaluation #1: Right-sided abdominal pain, mild symptoms of dysuria. Negative CT for acute appendicitis or pyelonephritis or obstructive uropathy. UA is showing trace of LE otherwise unremarkable UA. As discussed with the patient patient was encouraged to drink oral fluids to help with flushing out, will start on Macrobid x7 days. Time: 23:42 Medical Decision Making Differential Diagnosis Differential Diagnoses: The differential diagnosis associated with the presentation includes ( Obstructive uropathy, pyelonephritis, acute appendicitis, pancreatitis, colitis, diverticulitis, UTI, , electrolyte derangement, severe anemia.) Admission/Observation Consideration of admission/observation: Escalation of care including admission/observation considered Lab Data MDM Lab Attestation statement: I reviewed the patient's lab results. 07/08/25 20:17 07/08/25 20:17 Labs: Lab Results 07/08/25 07/08/25 Range/Units 20:17 22:20 WBC 9.3 (4.8-10.8) X10*3/uL RBC 4.78 (4.20-5.50) X10*6/uL Hgb 13.8 (12.0-16.0) g/dl Hct 42.2 (37.0-47.0) % MCV 88.3 (80.0-98.0) fL MCH 28.9 (27.0-33.0) pg MCHC 32.7 (31.0-35.0) g/dl RDW 12.8 (11.0-16.0) % Plt Count 329 (160-400) X10*3/uL MPV 9.0 L (9.4-12.3) fL Immature Gran % (Auto) 0.5 H (0.0-0.4) % Neut % (Auto) 53.2 (45-73) % Lymph % (Auto) 35.6 (20-40) % Fannin % (Auto) 7.1 (2-11) % Eos % (Auto) 3.2 (0-4) % Baso % (Auto) 0.4 (0-2) % Lymph # (Auto) 3.3 (1.2-4.9) X10*3/uL Fannin # (Auto) 0.7 (0.1-1.2) X10*3/uL Eos # (Auto) 0.3 (0.0-0.4) X10*3/uL Baso # (Auto) 0.0 (0.0-0.2) X10*3/uL Abs Immat Gran (auto) 0.05 H (0.00-0.03) X10*3/uL Absolute Neuts (auto) 4.9 (2.0-8.3) x10*3/uL Absolute Nucleated RBC 0.000 (0.0-0.012) X10*3/uL Nucleated RBC % (auto) 0.0 (0.0-0.2) /100WBC Sodium 142 (135-145) mmol/L Potassium 3.9 (3.3-5.1) mmol/L Chloride 105 (96-108) mmol/L Carbon Dioxide 30 H (22-29) mmol/L Anion Gap 11 L (12-20) BUN 9 (9-16) mg/dL Creatinine 0.83 (0.5-1.4) mg/dL Estim Creat Clear Calc 98.0 Estimated GFR > 60 Random Glucose 96 (60-115) mg/dL Calcium 9.7 (8.4-10.2) mg/dL Total Bilirubin 0.3 (0.0-1.0) mg/dL AST 46 H (5-31) U/L ALT 66 H (0-31) U/L Alkaline Phosphatase 86 (39-117) U/L Total Protein 7.0 (6.5-8.0) g/dL Albumin 4.6 (3.5-5.0) g/dL Beta HCG, Quant < 2 mIU/mL Urine Color Yellow Urine Appearance Clear Urine pH 6.5 (5.0-9.0) Ur Specific [place] <= 1.005 (1.005-1.025) Urine Protein Negative (Neg-Trace) mg/dL Urine Glucose (UA) Negative (Negative) mg/dL Urine Ketones Negative (Negative) mg/dL Urine Blood Negative (Negative) Urine Nitrite Negative (Negative) Ur Leukocyte Esterase Trace H (Negative) Urine RBC 0-2 (0-2) /HPF Urine WBC 0-5 (0-5) /HPF Ur Squamous Epith Cells 0-2 (0-2) /HPF Urine Bacteria Trace (None Seen) Hyaline Casts 0-2 (0-2) /LPF Urine Test NEGATIVE (NEGATIVE) Independent Interpretation I performed an independent interpretation of an: CT Scan ( Abdomen and pelvis:. 2 mm nonobstructing left renal stone. No right-sided urolithiasis. 2. Fatty hepatomegaly.) Radiology Impression Discussion of test interpretation with radiology: I have reviewed the radiologist's reading. Discharge Plan Discharge Clinical Impression: Abdominal pain, Dysuria Patient Disposition: Home, Self-Care Instructions: Dysuria (ED) Prescriptions: New nitrofurantoin monohyd/m-cryst [Macrobid] 100 mg capsule 100 mg PO Q12H 7 Days Qty: 14 0RF Rx Instructions: must administer with a meal/food No Action nicotine (polacrilex) 4 mg gum 4 mg buccal Q2H PRN (Reason: nicotine cravings) 30 Days Qty: 100 1RF clonidine HCl 0.1 mg Tablet 0.1 mg PO Q4H PRN (Reason: anxiety) 30 Days Qty: 90 1RF Protocol: Hold for SBP< HOLD for SBP < : 90 acetaminophen 325 mg Tablet 650 mg PO Q6H PRN (Reason: Headache/Pain Mild Scale (1-3)) Qty: 0 0RF aripiprazole 15 mg Tablet 15 mg PO DAILY 30 Days Qty: 30 1RF hydroxyzine HCl 50 mg Tablet 50 mg PO Q6H PRN (Reason: Anxiety) 30 Days Qty: 90 1RF lamotrigine 25 mg Tablet 25 mg PO BID 14 Days Qty: 28 0RF naltrexone 50 mg Tablet 25 mg PO DAILY 30 Days Qty: 15 1RF olanzapine 5 mg Tablet 5 mg PO TID PRN (Reason: agitation) 30 Days Qty: 60 1RF oxcarbazepine 300 mg Tablet 300 mg PO BID 30 Days Qty: 60 1RF trazodone 100 mg Tablet 100 mg PO BEDTIME MRX1 PRN (Reason: Insomnia) 30 Days Qty: 45 1RF Rx Instructions: may have a repeat dose for continued insomnia famotidine 20 mg Tablet 20 mg PO DAILY 30 Days Qty: 30 1RF polyethylene glycol 3350 17 gram Powder In Packet 17 g PO DAILY PRN (Reason: Constipation) 30 Days Qty: 30 1RF capsaicin 0.025 % Cream 1 appl topical TID PRN (Reason: Pain, Moderate(Pain Scale 4-6)) 30 Days Qty: 50 1RF Protocol: Apply to: Apply to: lower back, knees lidocaine [Lidocaine Pain Relief] 4 % Adhesive Patch,Medicated 1 patch transdermal DAILY PRN (Reason: lower back or knee) 30 Days Qty: 30 1RF Protocol: Apply to: Apply to: left knee prazosin 1 mg capsule 3 mg PO BEDTIME 30 Days Qty: 90 1RF propranolol 20 mg tablet 20 mg PO QAM 30 Days Qty: 30 1RF ondansetron 4 mg tablet,disintegrating 4 mg PO Q6H PRN (Reason: nausea and vomiting) 30 Days Qty: 14 1RF lamotrigine [Lamictal] 100 mg tablet 100 mg PO DAILY 30 Days Qty: 30 0RF Rx Instructions: Start on 12/04/23 docusate sodium [Colace] 100 mg capsule 100 mg PO BID PRN (Reason: constipation) 30 Days Qty: 60 1RF sucralfate [Carafate] 100 mg/mL suspension 10 ml PO BID 7 Days Qty: 140 0RF ondansetron 4 mg tablet,disintegrating 4 mg PO Q8H PRN (Reason: nausea and vomiting) Qty: 20 0RF ondansetron 4 mg tablet,disintegrating 4 mg PO Q8H PRN (Reason: nausea and vomiting) Qty: 14 0RF cefpodoxime 200 mg tablet 200 mg PO Q12H 10 Days Qty: 20 0RF Rx Instructions: must administer with a meal/food oxycodone 5 mg tablet 5 mg PO Q8H PRN (Reason: pain) Qty: 14 0RF Rx Instructions: Partial Fill upon patient request. cefpodoxime 200 mg tablet 200 mg PO Q12H 10 Days Qty: 20 0RF Rx Instructions: must administer with a meal/food ondansetron 4 mg tablet,disintegrating 4 mg PO Q8H PRN (Reason: nausea and vomiting) Qty: 14 0RF oxycodone 5 mg tablet 5 mg PO Q8H PRN (Reason: pain) Qty: 14 0RF Rx Instructions: Partial Fill upon patient request. Referrals: Tadeo Alvarado MD [Primary Care Provider, Medical] Interventions: ED Discharge Assessment Last Done: 07/09/25 00:11 Discharge Date/Time: 07/09/25 00:13 Print Language: Belarusian
[2025-07-08 20:33] LABS: MANUAL DIFF FLAG NO
[2025-07-08 20:36] LABS: Hematocrit 42.2 % (37.0-47.0); Hemoglobin 13.8 g/dl (12.0-16.0); Imm Gran Abs Auto 0.05 X10*3/uL (0.00-0.03); Imm Gran Pct Auto 0.5 % (0.0-0.4); Lymphocytes Absolute Auto 3.3 X10*3/uL (1.2-4.9); Mean Corpuscular HGB Conc 32.7 g/dl (31.0-35.0); Mean Corpuscular Hemoglobin 28.9 pg (27.0-33.0); Mean Corpuscular Volume 88.3 fL (80.0-98.0); NRBC Abs Auto 0.000 X10*3/uL (0.0-0.012); NRBC Pct Auto 0.0 /100WBC (0.0-0.2); Platelet Count 329 X10*3/uL (160-400); Red Blood Count 4.78 X10*6/uL (4.20-5.50); White Blood Count 9.3 X10*3/uL (4.8-10.8)
[2025-07-08 20:55] LABS: Alanine Aminotransferase 66 U/L (0-31); Albumin Level 4.6 g/dL (3.5-5.0); Alkaline Phosphatase 86 U/L (39-117); Anion Gap 11 (12-20); Aspartate Amino Transferase 46 U/L (5-31); Blood Urea Nitrogen 9 mg/dL (9-16); Calcium 9.7 mg/dL (8.4-10.2); Carbon Dioxide 30 mmol/L (22-29); Chloride 105 mmol/L (96-108); Creatinine Clr Calc Pharmacy 98.0; Estimated Glomerular Filt Rate > 60; Potassium 3.9 mmol/L (3.3-5.1); Sodium 142 mmol/L (135-145); Total Protein 7.0 g/dL (6.5-8.0)
[2025-07-08 21:09] VITALS: BP 148/97; PULSE 83; RESP 18; O2SAT 98
--- OUTSIDE RECORDS SUMMARY | 2025-07-08 21:26 | XMS_ITS | Encounter Summary ---
Demographics Address [address] [place] [address] Home Phone Mobile Phone Email Address Preferred Language en Marital Status Single Hoahaoism Affiliation Unknown Race White Ethnic Group Unknown Author Organization [employer] Address [address] [place] [address] [address] [place] [address] Care Team Providers Care Animal Cytologist Name Role Phone Tadeo Alvarado MD Primary Care Prov ider Encounter Details Date Type Department Care Team ([facility] st Contact Info) Description 12/29/2022 Orders Only [facility] [address] [place] [address] Tadeo Alvarado MD [address] [place] [address] Social History Tobacco Use Types Packs/Day Years [...] documented as of this encounter Care Teams Animal Cytologist Relationship Specialty Start Date End Date Tadeo Alvarado MD [address] [place] [id number] PCP - General Internal Medicine 01/27/20 documented as of this encounter
--- OUTSIDE RECORDS SUMMARY | 2025-07-08 21:26 | XMS_ITS | Clinical Summary ---
Demographics Address [address] [place] [address] Home Phone Mobile Phone Email Address Preferred Language en Marital Status Single Voodoo Affiliation Unknown Race White Ethnic Group Unknown Author Organization [employer] Address [address] [place] [address] 7t [place] [address] Care Team Providers Care Underliner Name Role Phone Tadeo Alvarado MD Primary [...] 12:30 PM EST): Patient being followed at [facility], she is requesting a second opinion, will place consult Class 2 obesity due to exces s calories without serious comorbidity with body mass index (BMI) of 39.0 to 39.9 in adult 08/20/2023 Assessment & Plan (08/20/2023 12:31 PM EST): Will refer to bariatric surgery, oriented long term care pharmacist benefits of weight loss Hypercholesteremia 08/20/2023 Assessment [...] Encounters Date Type Department Care Team Description 06/09/2025 Telephone [facility] [address] [place] [address] Tadeo Alvarado MD RV APPT 05/24/2025 Orders Only GENERIC EXTERNAL DATA DEPARTMENT [...] Associated Diagnosis Comments HCG, TOTAL, QN Routine 07/08/2025 8:17 PM EST COMPREHENSIVE METABOLIC PANEL Routine 07/08/2025 8:17 PM EST CBC WITH AUTO DIFFERENTIAL Routine 07/08/2025 8:[address] ABDOMEN PELVIS WO CONTRAST Routine 05/24/2025 7:27 PM EDT URINALYSIS, COMPLETE, WITH REFLEX TO CULTURE Routine 05/24/2025 5:58 PM EDT HCG, TOTAL, QN Routine 05/24/2025 [...] Maintenance Results * (ABNORMAL) CBC auto differential (07/08/2025 8:17 PM EST) Only the most recent of2 resultswithin the time period is included. White Blood Count 9.3 4.8 - 10.8 X10*3/uL [facility] Red Blood Count 4.78 4.20 - 5.50 X10*6/uL [facility] Hemoglobin 13.8 12.0 - 16.0 g/dl [facility] Hematocrit 42.2 37.0 - 47.0 % [facility] Mean Corpuscular Volume 88.3 80.0 - 98.0 fL [facility] Mean Corpuscular Hemoglobin 28.9 27.0 - 33.0 pg [facility] Mean Corpuscular HGB Conc 32.7 31.0 - 35.0 g/dl [facility] Red Cell Distribution Width 12.8 11.0 - 16.0 % [facility] Platelet Count 329 160 - 400 X10*3/uL [facility] Mean Platelet Volume 9.0(L) 9.4 - 12.3 fL [facility] Neutrophils Percent Auto 53.2 45 - 73 % [facility] Imm Gran Pct Auto 0.5(H) 0.0 - 0.4 % [facility] Lymphocytes Percent Auto 35.6 20 - 40 % [facility] Monocytes Percent Auto 7.1 2 - 11 % [facility] Eosinophils Percent Auto 3.2 0 - 4 % [facility] Basophils Percent Auto 0.4 0 - 2 % [facility] NRBC Pct Auto 0.0 0.0 - 0.2 /100WBC [facility] Neutrophils Absolute Auto 4.9 2.0 - 8.3 x10*3/uL [facility] Imm Gran Abs Auto 0.05(H) 0.00 - 0.03 X10*3/uL [facility] Lymphocytes Absolute Auto 3.3 1.2 - 4.9 X10*3/uL [facility] Monocytes Absolute Auto 0.7 0.1 - 1.2 X10*3/uL [facility] Eosinophils Absolute Auto 0.3 0.0 - 0.4 X10*3/uL [facility] Basophils Absolute Auto 0.0 0.0 - 0.2 X10*3/uL [facility] NRBC Abs Auto 0.000 0.0 - 0.012 X10*3/uL [facility] 07/08/2025 8:17 PM EST 07/08/2025 8:32 PM EST us Generic External Data Provider LAB BLOOD ORDERAB LES Final Result Performing Organization Address City/State/[facility] Co de Phone Number [facility] [address] [place] [phone] * hCG, Total, Quantitative (07/08/2025 8:17 PM EST) Only the most recent of2 resultswithin the time period is included. HCG Quantitative <2 mIU/mL [facility] Comment:Weeks post LMP Appro ximate hCG(Last Menstrual Period) Range (mIU/ml)3 - 4 weeks 9 - 1304 - 5 weeks 75 - 2,6005 - 6 weeks 850 - 20,8006 - 7 weeks 4000 - 100,2006 - 12 weeks 11,500 - 289,51187 - 16 weeks 18,300 - 137,54458 - 29 weeks (2nd trimester) 1,400 - 53,04589 - 41 weeks (3rd trimester) 940 - 60,000The Hammond B- hCG assay is used for the early detection ofpregnancy; it cannot be used to diagnose any conditionunrelated to . If a B-hCG level is not supportedby the clinical evidence, results should be confirmed by analternative method (qualitative urine hCG, for example). 07/08/2025 8:17 PM EST 07/08/2025 8:32 PM EST us Generic External Data Provider LAB BLOOD ORDERAB LES Final Result [facility] [address] [place] [phone] * (ABNORMAL) Comprehensive Metabolic Panel (07/08/2025 8:17 PM EST) Only the most recent of2 resultswithin the time period is included. Sodium 142 135 - 145 mmol/L [facility] Potassium 3.9 3.3 - 5.1 mmol/L [facility] Chloride 105 96 - 108 mmol/L [facility] Carbon Dioxide 30(H) 22 - 29 mmol/L [facility] Anion Gap 11(L) 12 - 20 [facility] Urea Nitrogen (BUN) 9 9 - 16 mg/dL [facility] Creatinine, Serum 0.83 0.5 - 1.4 mg/dL [facility] Creatinine Clr Calc Pharmacy 98.0 [facility] Comment:Provided height and weight: 157.48 cm,104.326 kg.eGFR (calculated from the MDRD study equation) and eCrCl(calculated from the Cockcroft-Gault equation) are based ondifferent parameters and may not yield comparable results.If eCrCl result is absurd, please check patient'sheight/weight. Estimated Glomerular Filt Rate >60 [facility] Comment:Chronic Kidney Disea se: Estimated GFR < 60 mL/min/1.55d3Cuptyp Kidney Disease: Estimated GFR < 15 mL/min/1.73m2 Glucose 96 60 - 115 mg/dL [facility] Calcium 9.7 8.4 - 10.2 mg/dL [facility] Bilirubin, Total 0.3 0.0 - 1.0 mg/dL [facility] Aspartate Amino Transferase 46(H) 5 - 31 U/L [facility] Alanine Aminotransferase 66(H) 0 - 31 U/L [facility] Total Protein 7.0 6.5 - 8.0 g/dL [facility] Albumin Level 4.6 3.5 - 5.0 g/dL [facility] Alkaline Phosphatase 86 39 - 117 U/L [facility] 07/08/2025 8:17 PM EST 07/08/2025 8:32 PM EST us Generic External Data Provider LAB BLOOD ORDERAB LES Final Result Performing Organization Address City/State/[facility] Co de Phone Number [facility] [address] [place] [address] [phone] * CT Abdomen Pelvis w/o Contrast (05/24/2025 7:27 PM EDT) Anatomical Region Laterality Modality Body, Pelvis, Abdomen Computed T omography 05/24/2025 7:27 PM EDT Narrative 05/24/2025 7:29 PM EDT [place] [address] [place] Scan Report Signed Patient: Mykel Ferrer MR#: [id number] : 1980 Acct:[id number] Age/Sex: 44 / F ADM Date: 05/24/25 Loc: HO.ED Attending Dr: Ordering Physician: Chika Colorado DO Date of Service: 05/24/25 Procedure(s): CT abdomen pelvis wo IV con Accession Number(s): [id number] cc: Tadeo Alvarado MD; Chika Colorado DO Report Number: [id number]: Total DLP = 0.00 mGy-cm Reason for Exam: right flank pain CLINICAL HISTORY: right flank pain CT abdomen and pelvis without contrast Comparison: CT of the abdomen and pelvis from 04/09/2024 02/14/2023 Findings: Mild bibasilar atelectasis and scarring. Mild imaged rib deformities appear old/chronic. Diffuse steatotic change of the liver. The adrenal glands are normal. Gallbladder is unremarkable for noncontrast CT. Spleen remains nonenlarged. Moderate to severe volume loss of the pancreas of the fatty atrophic change are redemonstrated. No hydronephrosis. Nonobstructing nephrolithiasis of the left kidney measure 3 mm. No significant change in small calcifications in the pelvis favored to be due to phleboliths. No new or enlarging lymphadenopathy by noncontrast study. No small bowel obstruction. Imaged appendix is within normal limits (imaged 502 of series 4). Jzmysdgs-dx-zjyyxr stool burden is. Mild wall thickening of the large intestine is nonspecific and may reflect underdistention in this noncontrast study. Intrauterine device remains in place. Uterus is anteverted. No adnexal soft tissue mass by CT. Imaged urinary bladder is unremarkable. Subcutaneous edema noted. Facet arthropathy including lower lumbar spine. IMPRESSION: 1. No hydronephrosis. 2. Nonobstructing nephrolithiasis measures 3 mm in the left kidney. This document has been electronically signed by: Chuck Guzman MD on 05/24/2025 19:27:53 Dictated By: Chuck Guzman MD Signed By: <Electronically signed by Chuck Guzman MD in OV> 05/24/251928 DD/ 26 TD/TT: 05/24/251926 Testing Analyst: Procedure Note Donotuseinterpreter, Image - 05/24/[address] [place] [address] [address] [address] Scan Report Signed Patient: Mykel Ferrer#: [id number] : 1980Acct:[id number] Age/Sex: 44 / FADM Date: 05/24/25 Loc: HO.ED Attending Dr: Ordering Physician: Chika Colorado DO Date of Service: 05/24/25 Procedure(s): CT abdomen pelvis wo IV con Accession Number(s): [id number] cc: Tadeo Alvarado MD; Chika Colorado DO Report Number: [id number]: Total DLP = 0.00 mGy-cm Reason for Exam: right flank pain CLINICAL HISTORY: right flank pain CT abdomen and pelvis without contrast Comparison: CT of the abdomen and pelvis from 04/09/2024 02/14/2023 Findings: Mild bibasilar atelectasis and scarring. Mild imaged rib deformities appear old/chronic. Diffuse steatotic change of the liver. The adrenal glands are normal. Gallbladder is unremarkable for noncontrast CT. Spleen remains nonenlarged. Moderate to severe volume loss of the pancreas of the fatty atrophic change are redemonstrated. No hydronephrosis. Nonobstructing nephrolithiasis of the left kidney measure 3 mm. No significant change in small calcifications in the pelvis favored to be due to phleboliths. No new or enlarging lymphadenopathy by noncontrast study. No small bowel obstruction. Imaged appendix is within normal limits (imaged 502 of series 4). Fqaudxqr-fj-ioibcm stool burden is. Mild wall thickening of the large intestine is nonspecific and may reflect underdistention in this noncontrast study. Intrauterine device remains in place. Uterus is anteverted. No adnexal soft tissue mass by CT. Imaged urinary bladder is unremarkable. Subcutaneous edema noted. Facet arthropathy including lower lumbar spine. IMPRESSION: 1. No hydronephrosis. 2. Nonobstructing nephrolithiasis measures 3 mm in the left kidney. This document has been electronically signed by: Chuck Guzman MD on 05/24/2025 19:27:53 Dictated By: Chuck Guzman MD Signed By: <Electronically signed by Chuck Guzman MD in OV> 05/24/251928 DD/ 26 TD/TT: 05/24/251926 Testing Analyst: [facility] External Provider IMG CT PROCEDURES Edited Result - Final * (ABNORMAL) Urinalysis, Complete, with Reflex to Culture (05/24/2025 5:58 PM EDT) Color Urine Yellow [facility] Appearance Urine Clear [facility] PH 6.5 5.0 - 9.0 [facility] Glucose Urine UA Negative Negative mg/dL [facility] Urine Blood Moderate (2+)(A) Negative [facility] Specific [place] - Urine <=1.005 1.005 - 1.025 [facility] Urine Protein Negative Neg-Trace mg/dL [facility] Urine Ketones Negative Negative mg/dL [facility] Nitrite Urine Negative Negative [facility] Leukocyte Esterase Urine Trace(A) Negative [facility] RBC Urine 0-2 0 - 2 /HPF [facility] Urine WBC 0-5 0 - 5 /HPF [facility] Urine Squamous Epithelial Cell 11-20 0 - 2 /HPF [facility] Urine Bacteria 1+ None Seen [facility] Hyaline Casts, Urine 0-2 0 - 2 /LPF [facility] 05/24/2025 5:58 PM EDT 05/24/2025 6:07 PM EDT Narrative [facility] - 05/24/2025 6:22 PM EDT [id number], [employer] us Generic External Data Provider LAB URINE ORDERAB LES Final Result Performing Organization Address City/State/[facility] Co de Phone Number [facility] [address] [place] [address] [phone] * BI Mammogram Screening Tomosynthesis Bilateral (09/24/2023 1:40 PM EST) Anatomical Region Laterality Modality Breast Bilateral Mammography 09/24/2023 1:40 PM EST Narrative 10/09/2023 8:18 AM EST [facility] [address] [place] [address] Mammography Report Signed Patient: Mykel Ferrer MR#: [id number] : 1980 Acct:[id number] Age/Sex: 42 / F ADM Date: 09/24/23 Loc: HO.MAMMO Attending Dr: Tadeo Zaidi MD Ordering Physician: Tadeo Alvarado MD Res ults: 2Benign Findings Date of Service: 09/24/23 Follow Up: 1 Year From Orig inal Mammogram Procedure(s): MM tomosynthesis screening BI Accession Number(s): [id number] cc: Tadeo Alvarado MD EXAMINATION: MM SCREENING [...] signed by Ann Ang MD in OV> 10/09/23 0814 DD/ 1340 TD/TT: Testing Analyst: Procedure Note Donotuseinterpreter, Image - 10/09/[facility] [address] [place] [address] Mammography Report Signed Patient: Mykel Ferrer#: [id number] : 1980Acct:[id number] Age/Sex: 42 / FADM Date: 09/24/23 Loc: MIRTHA Attending Dr: Tadeo Zaidi MD Ordering Physician: Tadeo Alvarado ults: 2Benign Findings Date of Service: 09/24/23Follow Up: 1 Year From Orig inal Mammogram Procedure(s): MM tomosynthesis screening BI Accession Number(s): [id number] cc: Tadeo Alvarado MD EXAMINATION: MM SCREENING [...] signed by Ann Ang MD in OV> 10/09/23 0814 DD/ 1340 TD/TT: Testing Analyst: Tadeo Zaidi MD IMG BI PROCEDURES Edited Result - Final * Hepatitis C Antibody with Reflex to HCV, RNA, Quantitative, Real-Time PCR (08/17/2023 7:15 AM EST) Hepatitis C Antibody Nonreactive Nonreactive [facility] Comment:Antibodies to HCV no t detected; does not exclude early acuteHCV infection. Blood Venous blood specimen / Unknown 08/17/2023 7:15 AM EST 08/17/2023 7:[address] Hurtado MD LAB BLOOD ORDERABLES Final Re sult [facility] [address] [place] [phone] * (ABNORMAL) Lipid Panel, Standard (08/17/2023 7:15 AM EST) Triglycerides 207(H) <150 mg/dL [facility] Comment:Desirable Triglyceri de: less than 150 mg/dLBorderline High Triglyceride 150-199 mg/dLHigh Triglyceride: 200-499 mg/dLVery High Triglyceride: greater than or equal to 5OO mg/dL Cholesterol 252(H) <200 mg/dL [facility] Comment:Desirable Cholestero l: less than 200 mg/dLBorderline High Cholesterol: 200-239 mg/dLHigh Cholesterol: greater than 239 mg/dL LDL Cholesterol Calculated 168(H) <100 mg/dL [facility] Comment:Desirable LDL: less than 100 mg/dLNear Optimal/Above Optimal LDL: 110- 129 mg/dLBorderline High LDL: 130-159 mg/dLHigh LDL: 160-189 mg/dLVery High LDL: greater than or equal to 190 mg/dL HDL Cholesterol 43 >40 mg/dL [facility] Comment:Desirable HDL: great er than 40 mg/dL Note: This HDL assay may give artificially low results in patients with liver disease. Blood Venous blood specimen / Unknown 08/17/2023 7:15 AM EST 08/17/2023 7:[address] Hurtado MD LAB BLOOD ORDERABLES Final Re sult [facility] [address] [place] [phone] * HIV-1 RNA, Quantitative, Real-Time PCR with Reflex to Genotype (RTI, PI, Integrase) (12/27/2022 10:19 AM EDT) Pathologist [facility] HIV 1 RNA, QN PCR NOT DETECTED copies/mL [facility] [employer] [facility], HIV 1 RNA, QN PCR NOT DETECTED Log copies/mL [facility], Comment: REFERENCE RANGE: NOT DETECTED copies/mL NOT DETECTED Log copies/mL This test was performed using Real-Time Polymerase Chain Reaction. Reportable range is 20 to 10,000,000 copies/mL (1.30-7.00 Log copies/mL). 12/27/2022 10:1 9 AM EDT 12/27/2022 10:20 AM EDT Narrative [facility] - 12/31/2022 7:30 PM EDT FASTING:YES FASTING: YES Tadeo Zaidi MD LAB BLOOD ORDERABL ES Final Result [facility] [address], [place] [address] mmCHANNEL/[facility], [address] [place] [address] * Pap Smear (09/21/2022) Pap Negative for intraephithelial lesion or malignancy Negative for intraephithelial lesion or malignancy, Other HPV Undetected Undetected, Indeterminate, Quantitative, Not Detected Historical Provider HEALTH MAINTENANCE Final Result from Last 3 Months or Most Recently Relevant to Health Maintenance Insurance [address] [place] [address] [facility] ST[place] ADULT * Guarantor: Mykel Ferrer Account Type Relation to Patient Date of Phone Billing Address Personal/Family Self [address] [place] [address] * Guarantor: Mykel Ferrer Account Type Relation to Patient Date of Phone Billing Address Personal/Family Self [address] [place] [address] * Guarantor: Mykel Ferrer Account Type Relation to Patient Date of Phone Billing Address Personal/Family Self [address] [place] [address] Care Teams Underliner Relationship Specialty Start Date End Date Tadeo Alvarado MD [address] [place] [address] [place] [phone] PCP - General Internal Medicine 01/27/20
--- OUTSIDE RECORDS SUMMARY | 2025-07-08 21:26 | XMS_ITS | Clinical Summary ---
Author Organization [facility] Address [address] [place] [address] [place] [phone] Phone Care Team Providers Care Senior Director Marketing Name Role Phone Vidya Meza MD Primary [...] file Medical Devices Not on file Insurance [email or web address] NET FULL Member Subscriber Plan / Payer (Ef fective 2017-Present) Name:Sesar Ferrer Relation to Subscriber:Self Name:SESAR FERRER Payer ID:Not on file Group ID:Not on file Type:Medicaid Address: [address] C3 [employer] [facility] FULL Member Subscriber Plan / Payer (Ef fective 2017-Present) Name:Sesar Ferrer Relation to Subscriber:Self Name:SESAR FERRER Payer ID:Not on file Group ID:Not on file Type:Medicaid Address: [address] C3 ACO [facility] NET FULL ACO [facility] FULL Member Subscriber Plan / Payer (Ef fective 2017-Present) Name:Sesar Ferrer Relation to Subscriber:Self Name:SESAR FERRER Payer ID:Not on file Group ID:Not on file Type:Medicaid Address: [address] C3 ACO [facility] NET FULL Member Subscriber Plan / Payer (Ef fective 2017-Present) Name:Sesar Ferrer Relation to Subscriber:Self Name:SESAR FERRER Payer ID:Not on file Group ID:Not on file Type:Medicaid Address: [address] C3 [employer] [facility] NET FULL Member Subscriber Plan / Payer (Ef fective 2017-Present) Name:Sesar Ferrer Relation to Subscriber:Self Name:SESAR FERRER Payer ID:Not on file Group ID:Not on file Type:Medicaid Address: [address] C[employer] [facility] FULL Member Subscriber Plan / Payer (Ef fective 2017-Present) Name:Sesar Ferrer Relation to Subscriber:Self Name:SESAR FERRER Payer ID:Not on file Group ID:Not on file Type:Medicaid Address: [address] C3 [employer] [facility] FULL Member Subscriber Plan / Payer (Ef fective 2017-Present) Name:Sesar Ferrer Relation to Subscriber:Self Name:SESAR FERRER Payer ID:Not on file Group ID:Not on file Type:Medicaid Address: [address] [place] [address] [address] [employer] [place] [address] C3 ACO Care Teams Senior Director Marketing Relationship Specialty Start Date End Date Vidya Meza MD [address] [place] [phone] PCP - General Family Medicine 03/16/19 Additional Source Comments The information contained in this document represents components of the legal health record. It is not the complete legal health record.[facility]
--- OUTSIDE RECORDS SUMMARY | 2025-07-08 21:26 | XMS_ITS | Encounter Summary ---
Demographics Address [address] [place] [address] Home Phone Mobile Phone Email Address Preferred Language en Marital Status Single Congregation Affiliation Unknown Race White Ethnic Group Unknown Author Organization [employer] Address [address] [facility] 7 [place] [address] Care Team Providers Care Credentialing Specialist Name Role Phone Tadeo Alvarado MD Primary Care Prov ider Encounter Details Date Type Department Care Team (Late st Contact Info) Description 05/07/2024 Orders Only [facility] [address] [place] [address] ProviderGema MD Social History Tobacco Use Types Packs/Day Years Used Date Smoking Tobacco: Some Days Cigarettes Passive Smoke Exposure: Current Smokeless Tobacco: Never Comments:Vapes Alcohol Use Standard Drinks/Week Comments Never 0 (1 standard drink = 0.6 oz pur e alcohol) Depression Answer Date Recorded Patient Health Questionnaire-9 Score 2 12/21/2022 Housing Stability Answer Date Recorded What is your housing situation today? I have reikacarolynn vallecillo 06/18/[address] you [...] documented as of this encounter Care Teams Credentialing Specialist Relationship Specialty Start Date End Date Tadeo Alvarado MD [address] [place] [phone] PCP - General Internal Medicine 01/27/20 documented as of this encounter
--- OUTSIDE RECORDS SUMMARY | 2025-07-08 21:26 | XMS_ITS | Encounter Summary ---
Demographics Address [address] [place] [address] Home Phone Mobile Phone Email Address Preferred Language en Marital Status Single Moravian Affiliation Unknown Race White Ethnic Group Unknown Author Organization [employer] Address [address] [place] [address] Care Team Providers Care Pallet Stone Inserter Name Role Phone Tadeo Alvarado MD Primary Care Prov ider Reason for Visit * Reason Onset Date Comments triage 08/08/2022 Encounter Details Date Type Department Care Team ([facility] Contact Info) Description 08/08/2022 Telephone [facility] [address] [place] [address] Tadeo Alvarado MD [address] [place] [address] triage Social History Tobacco Use Types Packs/Day [...] on filedocumented in this encounter Care Teams Pallet Stone Inserter Relationship Specialty Start Date End Date StarkTadeo Mcgarry MD [address] [place] [phone] PCP - General Internal Medicine 01/27/20 documented as of this encounter
--- OUTSIDE RECORDS SUMMARY | 2025-07-08 21:26 | XMS_ITS | Encounter Summary ---
Demographics Address [address] [place] [address] Home Phone Mobile Phone Email Address Preferred Language en Marital Status Single Amish Affiliation Unknown Race White Ethnic Group Unknown Author Organization [employer] Address [address] [place] [address] 7t [place] [address] Care Team Providers Care Ordnance Truck Installation Mechanic Name Role Phone Tadeo Alvarado MD Primary Care Prov ider Encounter Details Date Type Department Care Team (Late st Contact Info) Description 02/27/2023 Abstract [facility] [address] [place] [address] Saji Chaves, DMD [address] [place] [address] Social History Tobacco Use Types Packs/Day Years [...] documented as of this encounter Care Teams Ordnance Truck Installation Mechanic Relationship Specialty Start Date End Date Tadeo Alvarado MD [address] [place] [phone] PCP - General Internal Medicine 01/27/20 documented as of this encounter
[2025-07-08 22:28] LABS: Appearance Urine Clear; Glucose Urine UA Negative (Negative); PH 6.5 (5.0-9.0); Specific Gravity - Urine <= 1.005 (1.005-1.025); UMIC TRIGGER UACC YES
[2025-07-08 22:30] LABS: UPreg QC Valid YES
[2025-07-09 00:11] VITALS: BP 125/85; PULSE 99; RESP 16; TEMP 36.8; O2SAT 97
== END 2025-07-09 00:13 | disposition home or self-care (01) ==
PROVIDERS: Physician Assistant; Emergency Provider Emergency Medicine; PCP Internal Medicine
DX: R10.A1 Flank pain, right side (principal); R06.00 Dyspnea, unspecified; N20.0 Calculus of kidney
CPT/HCPCS: 36415; 74176; 80053; 81001; 81025; 84702; 85025; 99283; 99284

== ENCOUNTER → 2025-07-08 21:39 | Outpatient (BNV) | payer MEDICAID, SELFPAY | PROVIDERS: Emergency Provider Emergency Medicine; PCP Internal Medicine; Visit Provider Radiology Diagnostic Radiology | DX: N20.0 Calculus of kidney (principal); K76.0 Fatty (change of) liver, not elsewhere classified | CPT/HCPCS: 74176 ==